=== PATIENT | male | born 1955 | race Caucasian/White ===

== ENCOUNTER 2021-12-25 09:09 | Day surgery (SDC) | payer BC, SELFPAY ==
[2021-12-25] VITALS (7 sets, daily range): BP systolic 122–143; BP diastolic 69–85; PULSE 66–72; RESP 17–20; TEMP 36.6–36.8; O2SAT 96–98; BMI 45.5
--- NOTE | ~2021-12-25 | FL_ITS ---
EXAMINATION: XR LUMBAR PUNCTURE CLINICAL INFORMATION: Inflammatory demyelinating disease. COMPARISON: None. TECHNIQUE: Following explaining fluoroscopy-guided lumbar puncture procedure, benefits and risks, a written consent was obtained. Patient was placed prone on fluoroscopy table and low back area was cleaned and draped in the usual sterile manner. 1% lidocaine was injected at the marked puncture site which was visualized prior to the exam. A 20-gauge long needle was inserted at L3-L4 disc level and patient could feel radiating pain down the left leg. However, no CSF could be obtained at this disc level. The needle was subsequently advanced at L2-L3 disc level following 1% lidocaine injection at the skin site. A second 20-gauge long needle was then advanced intrathecally at the L2-L3 disc level. After observing CSF return the manometer was connected; however, due to malfunction of the manometer, pressure could not be obtained. CSF fluid was then collected in 4 test tubes. Postprocedure stylet was reintroduced and needle withdrawn. Patient tolerated procedure extremely well. Sterile Band-Aid dressing was applied at the puncture site. Patient tolerated procedure very well. FINDINGS: Opening CSF pressure was not obtained due to manometer malfunction. On fluoroscopy images, there is grade 1 anterolisthesis L4 over L5 and grade 1 retrolisthesis L2 over L3. There is spinal canal stenosis seen virtually at every disc level. Recommend MRI of lumbar spine for further evaluation. Approximately 10 mL of clear CSF fluid was collected in 4 test tubes. FLUOROSCOPY TIME: 8.0 minutes. DOSE AREA PRODUCT: 99.374 uGy-m2 (microgray-meter squared). FL/FL guided lumbar puncture LP IMPRESSION: Successful fluoroscopy-guided lumbar puncture performed at the L2-L3 disc level. Multilevel spinal canal stenosis and listhesis. Recommend MRI of lumbar spine for further evaluation.
[2021-12-25 09:52] LABS: MANUAL DIFF FLAG NO
[2021-12-25 09:55] LABS: Basophils Absolute Auto 0.1 X10*3/uL (0.0-0.2); Basophils Percent Auto 0.6 % (0-2); Eosinophils Absolute Auto 0.4 X10*3/uL (0.0-0.4); Hematocrit 42.3 % (42.0-52.0); Hemoglobin 14.6 g/dl (14.0-18.0); Imm Gran Abs Auto 0.04 X10*3/uL (0.00-0.03); Imm Gran Pct Auto 0.5 % (0.0-0.4); Lymphocytes Absolute Auto 2.1 X10*3/uL (1.2-4.9); Lymphocytes Percent Auto 23.3 % (20-40); Mean Corpuscular HGB Conc 34.5 g/dl (31.0-36.0); Mean Corpuscular Hemoglobin 31.4 pg (27.0-33.0); Mean Platelet Volume 11.3 fL (9.4-12.4); Monocytes Absolute Auto 0.7 X10*3/uL (0.1-1.2); Monocytes Percent Auto 7.8 % (2-11); Neutrophils Absolute Auto 5.6 x10*3/uL (2.0-8.3); Neutrophils Percent Auto 63.8 % (45-73); Platelet Count 170 X10*3/uL (160-400); Red Blood Count 4.65 X10*6/uL (4.60-5.80); Red Cell Distribution Width 12.9 % (11.0-16.0); White Blood Count 8.8 X10*3/uL (4.8-10.8)
[2021-12-25 10:06] LABS: Prothrombin Time 10.8 SEC (9.9-13.0)
[2021-12-25 10:09] LABS: Partial Thromboplastin Time 34.4 SEC (24.1-38.0)
[2021-12-25 10:13] LABS: Glucose, Whole Blood 173 mg/dL (60-115)
[2021-12-25 13:08] LABS: Glucose CSF 102 mg/dL
[2021-12-25 13:24] LABS: CSF Appearance Clear, Colorless; CSF Tube # 1
[2021-12-25 13:37] LABS: Total Protein CSF 203.6 mg/dL (15-45)
[2021-12-25 13:54] LABS: Appearance CSF CLEAR; CSF Tube # 4; Color CSF COLORLESS; Red Blood Cell CSF 58 MM*3; White Blood Cell CSF 0 MM*3
[2021-12-28 10:17] LABS: Oligoclonal Serum Yes
[2021-12-29 14:02] LABS: Albumin 3.5 g/dL (3.2-4.6); IgG 618 mg/dL (600-1540); IgG Synthesis Rate 12.7 mg/24 h (-9.9-3.3); IgG, CSF 14.9 mg/dL (0.8-7.7)
== END 2021-12-25 14:40 | disposition home or self-care (01) ==
PROVIDERS: Psychiatry & Neurology Neurology; PCP Physician Assistant Medical; Visit Provider Radiology Diagnostic Radiology
PROC: 009U3ZZ Drainage of Spinal Canal, Percutaneous Approach (ICD-10-PCS; CPT 62270; principal; 2021-12-25 11:00)
DX: G61.81 Chronic inflammatory demyelinating polyneuritis (principal); I10 Essential (primary) hypertension; E11.9 Type 2 diabetes mellitus without complications; Z79.84 Long term (current) use of oral hypoglycemic drugs; Z79.899 Other long term (current) drug therapy; Z88.1 Allergy status to other antibiotic agents
CPT/HCPCS: 36415; 62328; 82042; 82945; 82947; 83916; 84157; 85025; 85610; 85730; 87015; 87070; 87205; 89051

== ENCOUNTER 2021-12-28 13:43 | Outpatient (REF) | payer BC, SELFPAY | END 2021-12-28 13:44 | disposition home or self-care (01) | LOC: HO.LAB 13:43 | PROVIDERS: PCP Physician Assistant Medical; Visit Provider Psychiatry & Neurology Neurology | DX: Z13.89 Encounter for screening for other disorder (principal) ==

== ENCOUNTER 2024-03-27 13:22 | Emergency (ER) | payer BC, SELFPAY ==
--- NOTE | ~2024-03-27 | US_ITS ---
EXAMINATION: US VENOUS ULTRASOUND WITH DOPPLER LOWER EXTREMITY, LEFT CLINICAL INFORMATION: Left lower extremity redness and swelling. COMPARISON: None available. TECHNIQUE: Ultrasound of the deep veins is performed from the hip to the calf with compression sonography and color and pulse Doppler assessment. Spectral analysis with color-flow imaging is performed. Technically limited study due to patient's body habitus. FINDINGS: There is normal venous compression and respiratory variation and augmented flow. The visualized common femoral vein, superficial femoral vein, profunda femoral vein, popliteal vein, and the trifurcation region shows no evidence of deep venous thrombosis. Left groin lymph node measures 5.7 x 1.9 x 4.6 cm with echogenic center and vascular flow to the hilum. If the patient's symptoms persist, followup ultrasound in 5 days 7 days might be of value to exclude proximal propagation from a non-visualized calf vein. US/US venous duplex LE LT IMPRESSION: Technically limited study. No DVT demonstrated in the left lower extremity. Enlarged left inguinal lymph node. Advise clinical correlation.
--- NOTE | ~2024-03-27 | XR_ITS ---
EXAMINATION: XR TIBIA AND FIBULA, LEFT CLINICAL INFORMATION: Cellulitis COMPARISON: None available. TECHNIQUE: AP and lateral views of the left tibia and fibula were obtained. FINDINGS: No soft tissue abnormality. No air in the soft tissue. Status post left total knee replacement. No acute osseous abnormality. No fracture bone destruction, no abnormal periosteal reaction. Plantar calcaneal spur with adjacent soft tissue calcification at the plantar aponeurosis. Small spur at the insertion of Achilles tendon. XR/XR tibia fibula LT 2V IMPRESSION: 1. No acute abnormality of the tibia and fibula. 2. Status post left total knee replacement.
[2024-03-27 13:44] VITALS: BP 145/71; PULSE 95; RESP 18; TEMP 37; O2SAT 96; BMI 44.8
--- NOTE | 2024-03-27 13:45 | ED.GENADULT ---
HPI - General Adult General Chief complaint: Extremity Problem Stated complaint: leg swelling and redness Time Seen by Provider: 03/27/24 15:52 Related Data Previous Rx's ?Medication ?Instructions ?Recorded cefpodoxime 200 mg tablet 200 mg PO BID 8 days #16 tabs 03/27/24 sulfamethoxazole 800 1 tab PO BID 8 days #16 tabs 03/27/24 mg-trimethoprim 160 mg tablet (Bactrim DS) Allergies Allergy/AdvReac Type Severity Reaction Status Date / Time cephalexin [From KEFLEX] Allergy Mild HIVES Verified 03/27/24 13:51 vancomycin Allergy TINGLES on Verified 03/27/24 13:51 head PMFSH Social History Social History Smoked in Last 30 Days: No Use of substances other than those prescribed or required for medical reasons: No Advance Directives: Yes Advance Directives Information Provided: No Advance Directives on File: No Do you have a plan to hurt others: No Plan Physical Exam ED Vital Signs: Vital Signs - 24 hr 03/27/24 13:44 03/27/24 16:00 03/27/24 17:30 Temperature 98.6 F 98.1 F 98.1 F Pulse Rate 95 80 80 Respiratory Rate 18 16 16 Blood Pressure 145/71 H 140/75 H 140/75 H Pulse Oximetry 96 99 99 Oxygen Delivery Method Room Air Room Air Room Air BMI result Body Mass Index 44.8 Course Course Course Narrative: This is a Rapid Medical Examination (RME) performed by Nicolasa Stovall PA-C in triage. Full HPI, ROS, assessment and treatment plan per primary provider in the Main ED. 69 yo male hx of T2DM here for eval redness to left lower leg times 24 hours. Admits to callus to plantar aspect of distal left foot, following PCP for wound care. Yesterday began noticing redness/ warmth to his left lower leg. Reports feeling like his leg is sunburned. Endorses chills. No documented fever. Admits to sedentary lifestyle. + Left lower extremity with overlying cellulitic changes and warmth. No palpable fluctuance or crepitus. Slight tenderness noted to left calf. chronci healing wound to left plantar foot just proximal to great toe. Plan: labs, xr, venous duplex ordered Reevaluation(s) Reevaluation #1: This is a duplicate note. Please refer to Dr. Valentin's complete note regarding patient's visit on 03/27/2024. Medications Administered Discontinued Medications Generic Name Dose Route Start Last Admin Trade Name Joni PRN Reason Stop Dose Admin Ceftriaxone Sodium 2 gm/ 50 mls @ 100 mls/hr 03/27/24 16:06 03/27/24 17:09 Sodium Chloride IV 03/27/24 16:35 Infused ONCE ONE Infusion Sodium Chloride 1,000 mls @ 999 mls/hr 03/27/24 16:15 03/27/24 16:32 Ns IV 03/27/24 17:15 999 mls/hr .Q1H1M ROSA Administration Ketorolac Tromethamine 15 mg 03/27/24 16:06 03/27/24 16:29 Ketorolac Tromethamine 15 Mg/Ml Vial IVPUSH 03/27/24 16:07 15 mg ONCE ONE Administration Trimethoprim/Sulfamethoxazole 1 tab 03/27/24 16:06 03/27/24 16:29 Sulfamethox/Trimeth 800/160 Tablet PO 03/27/24 16:07 1 tab ONCE ONE Administration Medical Decision Making Lab Data 03/27/24 14:02 03/27/24 14:02 Labs: Lab Results 03/27/24 Range/Units 14:02 WBC 11.0 H (4.8-10.8) X10*3/uL RBC 4.39 L (4.60-5.80) X10*6/uL Hgb 14.0 (14.0-18.0) g/dl Hct 39.6 L (42.0-52.0) % MCV 90.2 (80.0-98.0) fL MCH 31.9 (27.0-33.0) pg MCHC 35.4 (31.0-36.0) g/dl RDW 13.3 (11.0-16.0) % Plt Count 156 L (160-400) X10*3/uL MPV 11.2 (9.4-12.4) fL Immature Gran % (Auto) 0.6 H (0.0-0.4) % Neut % (Auto) 76.1 H (45-73) % Lymph % (Auto) 12.7 L (20-40) % [place] % (Auto) 9.6 (2-11) % Eos % (Auto) 0.5 (0-4) % Baso % (Auto) 0.5 (0-2) % Lymph # (Auto) 1.4 (1.2-4.9) X10*3/uL [place] # (Auto) 1.1 (0.1-1.2) X10*3/uL Eos # (Auto) 0.1 (0.0-0.4) X10*3/uL Baso # (Auto) 0.1 (0.0-0.2) X10*3/uL Abs Immat Gran (auto) 0.07 H (0.00-0.03) X10*3/uL Absolute Neuts (auto) 8.4 H (2.0-8.3) x10*3/uL Absolute Nucleated RBC 0.000 (0.0-0.012) X10*3/uL Nucleated RBC % (auto) 0.0 (0.0-0.2) /100WBC PT 12.6 (11.1-13.3) SEC INR 1.0 (0.9-1.1) Sodium 131 L (135-145) mmol/L Potassium 3.8 (3.3-5.1) mmol/L Chloride 100 (96-108) mmol/L Carbon Dioxide 18 L (22-29) mmol/L Anion Gap 17 (12-20) BUN 10 (9-16) mg/dL Creatinine 1.21 (0.5-1.4) mg/dL Estim Creat Clear Calc 91.8 Estimated GFR 60 Random Glucose 231 H (60-115) mg/dL Calcium 9.8 (8.4-10.2) mg/dL Total Bilirubin 0.4 (0.0-1.0) mg/dL AST 23 (5-37) U/L ALT 34 (0-40) U/L Alkaline Phosphatase 72 (39-117) U/L Total Protein 7.2 (6.5-8.0) g/dL Albumin 4.0 (3.5-5.0) g/dL Discharge Plan Discharge Clinical Impression: Lower extremity edema, Cellulitis, Acute hyponatremia Patient Disposition: Home, Self-Care Instructions: Cellulitis (ED), Hyponatremia (ED), Leg Edema (ED) Additional Instructions: DISCHARGE DIAGNOSES: Presumed cellulitis of the left leg Mild hyponatremia HISTORY OF PRESENTATION: ?Swelling and redness left leg 1 day EMERGENCY DEPARTMENT COURSE,TESTS, TREATMENTS: While in the ED today get an ultrasound of your leg which excluded a blood clot this may need to be repeated in 1 week if you still have significant swelling or if it is worsening DISCHARGE MEDICATIONS: We have prescribed 2 types of antibiotics do not miss a dose of these. Take with food and we recommend while on antibiotics eating 1-2 yogurts per day or take a probiotic supplement [id number] FOLLOW-UP: ?Call your primary or general physician soon as possible to discuss your symptoms, your ED visit and to discuss follow up plans Call your primary doctor 1st thing Saturday morning to discuss symptoms.] INSTRUCTIONS ?& RETURN PRECAUTIONS: If any symptoms change first call your primary physician, if it is after-hours your primary doctors office should have a provider microphone boom operator you can speak with. If the symptoms are severe or very concerning to you then call 911 or return to the ED. If you have severe high fever not improving with ibuprofen or Tylenol or severe worsening of the swelling or redness spreading outside of the line that we have drawn on your leg or other severe symptoms return back to the emergency department for further workup possible admission to the hospital Silviano Valentin MD Emergency Physician [facility] Prescriptions: New cefpodoxime 200 mg tablet 200 mg PO BID 8 Days Qty: 16 0RF Rx Instructions: must administer with a meal/food sulfamethoxazole-trimethoprim [Bactrim DS] 800-160 mg tablet 1 tab PO BID 8 Days Qty: 16 0RF Interventions: ED Discharge Assessment Last Done: 03/27/24 17:30 Discharge Date/Time: 03/27/24 17:30 Print Language: Welsh
[2024-03-27 14:07] LABS: Basophils Absolute Auto 0.1 X10*3/uL (0.0-0.2); Basophils Percent Auto 0.5 % (0-2); Eosinophils Absolute Auto 0.1 X10*3/uL (0.0-0.4); Eosinophils Percent Auto 0.5 % (0-4); Hematocrit 39.6 % (42.0-52.0); Imm Gran Abs Auto 0.07 X10*3/uL (0.00-0.03); Imm Gran Pct Auto 0.6 % (0.0-0.4); Lymphocytes Absolute Auto 1.4 X10*3/uL (1.2-4.9); Lymphocytes Percent Auto 12.7 % (20-40); MANUAL DIFF FLAG NO; Mean Corpuscular HGB Conc 35.4 g/dl (31.0-36.0); Mean Corpuscular Hemoglobin 31.9 pg (27.0-33.0); Mean Corpuscular Volume 90.2 fL (80.0-98.0); Mean Platelet Volume 11.2 fL (9.4-12.4); Monocytes Absolute Auto 1.1 X10*3/uL (0.1-1.2); Monocytes Percent Auto 9.6 % (2-11); Neutrophils Absolute Auto 8.4 x10*3/uL (2.0-8.3); Neutrophils Percent Auto 76.1 % (45-73); Platelet Count 156 X10*3/uL (160-400); Red Blood Count 4.39 X10*6/uL (4.60-5.80); Red Cell Distribution Width 13.3 % (11.0-16.0)
[2024-03-27 14:21] LABS: Prothrombin Time 12.6 SEC (11.1-13.3)
[2024-03-27 14:24] LABS: Alanine Aminotransferase 34 U/L (0-40); Alkaline Phosphatase 72 U/L (39-117); Anion Gap 17 (12-20); Aspartate Amino Transferase 23 U/L (5-37); Bilirubin Total 0.4 mg/dL (0.0-1.0); Blood Urea Nitrogen 10 mg/dL (9-16); Calcium 9.8 mg/dL (8.4-10.2); Carbon Dioxide 18 mmol/L (22-29); Chloride 100 mmol/L (96-108); Creatinine Clr Calc Pharmacy 91.8; Estimated Glomerular Filt Rate 60; Glucose Random 231 mg/dL (60-115); Potassium 3.8 mmol/L (3.3-5.1); Sodium 131 mmol/L (135-145); Total Protein 7.2 g/dL (6.5-8.0)
[2024-03-27 16:00] VITALS: BP 140/75; PULSE 80; RESP 16; TEMP 36.7; O2SAT 99
--- NOTE | 2024-03-27 16:07 | ED_ITS ---
HPI - Extremity Problem General Chief complaint: Extremity Problem Stated complaint: leg swelling and redness Time Seen by Provider: 03/27/24 15:52 Source: family History of Present Illness ED Provider: Silviano Valentin MD HPI Narrative: 69-year-old male history of obesity, diabetes, previous diabetic wound/ulcer the plantar left foot. Noticed redness of the left lower leg and swelling just today. Has felt some constitutional symptoms including generalized malaise generalized weakness bilateral legs and chills over the past 3 days about Related Data Previous Rx's ?Medication ?Instructions ?Recorded cefpodoxime 200 mg tablet 200 mg PO BID 8 days #16 tabs 03/27/24 sulfamethoxazole 800 1 tab PO BID 8 days #16 tabs 03/27/24 mg-trimethoprim 160 mg tablet (Bactrim DS) Allergies Allergy/AdvReac Type Severity Reaction Status Date / Time cephalexin [From KEFLEX] Allergy Mild HIVES Verified 03/27/24 13:51 vancomycin Allergy TINGLES on Verified 03/27/24 13:51 head PMFSH Social History Social History Smoked in Last 30 Days: No Use of substances other than those prescribed or required for medical reasons: No Advance Directives: Yes Advance Directives Information Provided: No Advance Directives on File: No Do you have a plan to hurt others: No Plan Physical Exam 2 Vital Signs: Vital Signs: Last Vital Signs Temp 98.1 F 03/27/24 17:30 Pulse 80 03/27/24 17:30 Resp 16 03/27/24 17:30 BP 140/75 H 03/27/24 17:30 Pulse Ox 99 03/27/24 17:30 O2 Del Method Room Air 03/27/24 17:30 BMI result Body Mass Index 44.8 Const: Other: EXAM: Gen: Alert, awake, well appearing, well hydrated. Head: Atraumatic Eyes: Anicteric, Normal conjunctiva. ENT: Moist mucosa, no pallor. ? Neck: Supple. Respiratory: Breathing comfortably, No distress.Clear to auscultation bilaterally, symmetric chest expansion, No wheeze, rales, ronchi. Cardiovascular: Regular rate and rhythm. No murmurs or rub. Well perfused periphery, warm extremities. No edema. ? Abdominal: Soft, no objective distension. No palpable masses or obvious organomegaly. No focal tenderness, no guarding, no rebound tenderness or other peritoneal findings. Skin: Moderate induration erythema and warmth to the left leg about from just superior to the left malleoli to about 15 cm distal to the left knee. No ulceration no palpable fluctuance. There is moderate swelling of the leg but the compartments are soft. No obvious breaks in the skin : No flank tenderness. Neuro: Alert. Gross movement of all extremities intact. ? Vital signs: See flowsheet Medications Administered Discontinued Medications Generic Name Dose Route Start Last Admin Trade Name Prashanthq PRN Reason Stop Dose Admin Ceftriaxone Sodium 2 gm/ 50 mls @ 100 mls/hr 03/27/24 16:06 03/27/24 17:09 Sodium Chloride IV 03/27/24 16:35 Infused ONCE ONE Infusion Sodium Chloride 1,000 mls @ 999 mls/hr 03/27/24 16:15 03/27/24 16:32 Ns IV 03/27/24 17:15 999 mls/hr .Q1H1M ROSA Administration Ketorolac Tromethamine 15 mg 03/27/24 16:06 03/27/24 16:29 Ketorolac Tromethamine 15 Mg/Ml Vial IVPUSH 03/27/24 16:07 15 mg ONCE ONE Administration Trimethoprim/Sulfamethoxazole 1 tab 03/27/24 16:06 03/27/24 16:29 Sulfamethox/Trimeth 800/160 Tablet PO 03/27/24 16:07 1 tab ONCE ONE Administration Medical Decision Making Medical Decision Making [facility] Narrative: [age] male with leg swelling redness warmth, negative DVT study this is most suggestive of cellulitis. No SIRS criteria here. He looks well and is certainly amenable to oral antibiotics. Keflex high reaction should not be cross reactivity with ceftriaxone 2 g given IV in the ED. No hemodynamic instability. Well-perfused left leg with soft compartments. I have told to elevate the leg and do not miss any doses of the antibiotics. Strict return precautions provided. Lab Data [facility] Lab Attestation statement: I reviewed the patient's lab results. 03/27/24 14:02 03/27/24 14:02 Labs: Lab Results 03/27/24 Range/Units 14:02 WBC 11.0 H (4.8-10.8) X10*3/uL RBC 4.39 L (4.60-5.80) X10*6/uL Hgb 14.0 (14.0-18.0) g/dl Hct 39.6 L (42.0-52.0) % MCV 90.2 (80.0-98.0) fL MCH 31.9 (27.0-33.0) pg MCHC 35.4 (31.0-36.0) g/dl RDW 13.3 (11.0-16.0) % Plt Count 156 L (160-400) X10*3/uL MPV 11.2 (9.4-12.4) fL Immature Gran % (Auto) 0.6 H (0.0-0.4) % Neut % (Auto) 76.1 H (45-73) % Lymph % (Auto) 12.7 L (20-40) % [place] % (Auto) 9.6 (2-11) % Eos % (Auto) 0.5 (0-4) % Baso % (Auto) 0.5 (0-2) % Lymph # (Auto) 1.4 (1.2-4.9) X10*3/uL [place] # (Auto) 1.1 (0.1-1.2) X10*3/uL Eos # (Auto) 0.1 (0.0-0.4) X10*3/uL Baso # (Auto) 0.1 (0.0-0.2) X10*3/uL Abs Immat Gran (auto) 0.07 H (0.00-0.03) X10*3/uL Absolute Neuts (auto) 8.4 H (2.0-8.3) x10*3/uL Absolute Nucleated RBC 0.000 (0.0-0.012) X10*3/uL Nucleated RBC % (auto) 0.0 (0.0-0.2) /100WBC PT 12.6 (11.1-13.3) SEC INR 1.0 (0.9-1.1) Sodium 131 L (135-145) mmol/L Potassium 3.8 (3.3-5.1) mmol/L Chloride 100 (96-108) mmol/L Carbon Dioxide 18 L (22-29) mmol/L Anion Gap 17 (12-20) BUN 10 (9-16) mg/dL Creatinine 1.21 (0.5-1.4) mg/dL Estim Creat Clear Calc 91.8 Estimated GFR 60 Random Glucose 231 H (60-115) mg/dL Calcium 9.8 (8.4-10.2) mg/dL Total Bilirubin 0.4 (0.0-1.0) mg/dL AST 23 (5-37) U/L ALT 34 (0-40) U/L Alkaline Phosphatase 72 (39-117) U/L Total Protein 7.2 (6.5-8.0) g/dL Albumin 4.0 (3.5-5.0) g/dL Radiology Impression Discussion of test interpretation with radiology: I have reviewed the radiologist's reading. Radiologist Impression: Ultrasound negative for DVT Chronic Conditions Patient?s care impacted by: Diabetes Discharge Plan Discharge Clinical Impression: Lower extremity edema, Cellulitis, Acute hyponatremia Patient Disposition: Home, Self-Care Instructions: Cellulitis (ED), Hyponatremia (ED), Leg Edema (ED) Additional Instructions: _ DISCHARGE DIAGNOSES: Presumed cellulitis of the left leg Mild hyponatremia HISTORY OF PRESENTATION: ?Swelling and redness left leg 1 day EMERGENCY DEPARTMENT COURSE,TESTS, TREATMENTS: While in the ED today get an ultrasound of your leg which excluded a blood clot this may need to be repeated in 1 week if you still have significant swelling or if it is worsening DISCHARGE MEDICATIONS: We have prescribed 2 types of antibiotics do not miss a dose of these. Take with food and we recommend while on antibiotics eating 1-2 yogurts per day or take a probiotic supplement [id number] FOLLOW-UP: ?Call your primary or general physician soon as possible to discuss your symptoms, your ED visit and to discuss follow up plans Call your primary doctor 1st thing Saturday morning to discuss symptoms.] INSTRUCTIONS ?& RETURN PRECAUTIONS: If any symptoms change first call your primary physician, if it is after-hours your primary doctors office should have a provider compressor station engineer you can speak with. If the symptoms are severe or very concerning to you then call 911 or return to the ED. If you have severe high fever not improving with ibuprofen or Tylenol or severe worsening of the swelling or redness spreading outside of the line that we have drawn on your leg or other severe symptoms return back to the emergency department for further workup possible admission to the hospital Silviano Valentin MD Emergency Physician [facility] Prescriptions: New cefpodoxime 200 mg tablet 200 mg PO BID 8 Days Qty: 16 0RF Rx Instructions: must administer with a meal/food sulfamethoxazole-trimethoprim [Bactrim DS] 800-160 mg tablet 1 tab PO BID 8 Days Qty: 16 0RF Interventions: ED Discharge Assessment Last Done: 03/27/24 17:30 Discharge Date/Time: 03/27/24 17:30 Print Language: Lithuanian
[2024-03-27] MEDS: cefTRIAXone sodium 2 GM in 0.9 % Sodium Chloride 50 ML IV (16:28)
[2024-03-27] MEDS: Sulfamethox/Trimeth 800/160 TABLET 1 TAB PO (16:29)
[2024-03-27] MEDS: Ketorolac Tromethamine 15 MG/ML VIAL IVPUSH (16:29)
[2024-03-27] MEDS: 0.9 % Sodium Chloride 1,000 ML 999 ML IV (16:32)
--- NOTE | 2024-03-27 16:32 | PC.NURSE ---
20gIV placed in the right hand - IVF/medication administered per provider order.
--- NOTE | 2024-03-27 17:28 | PC.NURSE ---
nonstick abd pad applied to wound on pt's left foot. curex/cecy bandage applied to pt's LLE. pt tolerated well.
[2024-03-27 17:30] VITALS: BP 140/75; PULSE 80; RESP 16; TEMP 36.7; O2SAT 99
== END 2024-03-27 17:30 | disposition home or self-care (01) ==
PROVIDERS: Physician Assistant Medical; Emergency Provider Emergency Medicine; PCP Physician Assistant Medical
DX: R60.0 Localized edema (principal); L03.116 Cellulitis of left lower limb; E87.1 Hypo-osmolality and hyponatremia; R53.1 Weakness; R53.81 Other malaise; E11.9 Type 2 diabetes mellitus without complications; I10 Essential (primary) hypertension; E66.9 Obesity, unspecified; Z68.41 Body mass index [BMI] 40.0-44.9, adult; Z87.891 Personal history of nicotine dependence
CPT/HCPCS: 36415; 73590; 80053; 85025; 85610; 93971; 96365; 96375; 99284; 99285; J0696; J1885

== ENCOUNTER 2024-03-31 11:44 | Inpatient (IN) | payer MEDICARE, SELFPAY ==
--- NOTE | ~2024-03-31 | MR_ITS ---
EXAMINATION: MR FOOT WITHOUT AND WITH CONTRAST, LEFT CLINICAL INFORMATION: Chronic ulcer with purulent drainage. Evaluate for osteomyelitis. COMPARISON: Left tibia and fibula radiographs dated 03/27/2024. TECHNIQUE: MRI of the left foot was performed before and after the intravenous administration of 10 mL Gadavist on a high-field scanner. FINDINGS: There is a focal soft tissue ulceration along the plantar aspect of the first metatarsal head measuring up to 1.2 cm in AP dimension with adjacent skin thickening and subcutaneous edema. Mild postcontrast enhancement. Findings are consistent with acute cellulitis. No organized fluid collection or abscess formation. Additional prominent dorsal forefoot edema with mild enhancement and minimal skin thickening which could indicate cellulitis. No abscess formation. No marrow edema, periosteal reaction, or significant postcontrast enhancement to suggest acute osteomyelitis. No metatarsal stress reaction or fracture. Articular cartilage thinning with tiny marginal osteophytes at the first metatarsophalangeal joint and hallux sesamoids. No concerning lytic or blastic osseous lesion. Mild edema and atrophy within the intrinsic musculature of the foot which can be seen in diabetic patients. The visualized flexor and extensor tendons are intact. Intact Lisfranc ligament. MR/MR foot LT wo/w con IMPRESSION: 1. Focal soft tissue ulceration along the plantar aspect of the first metatarsal head with adjacent cellulitis. No abscess formation. No evidence of acute osteomyelitis. 2. Additional prominent dorsal forefoot edema with minimal skin thickening which could indicate cellulitis. No abscess formation. 3. Mild degenerative arthritis at the first metatarsophalangeal joint and hallux sesamoids. 4. Mild edema and atrophy within the intrinsic musculature of the foot which can be seen in diabetic patients.
[2024-03-31 12:26] VITALS: BP 136/82; PULSE 80; RESP 16; TEMP 36.6; O2SAT 96; BMI 45.3
--- NOTE | 2024-03-31 12:28 | ED_ITS ---
HPI - Extremity Problem General Chief complaint: Skin/Abscess/Foreign Body Stated complaint: L leg pain Time Seen by Provider: 03/31/24 16:59 Source: patient and family Mode of arrival: ambulatory Limitations: no limitations History of Present Illness ED Provider: Dr. Ciera Morel HPI Narrative: Patient comes to the emergency room complaining of worsening cellulitis. Three days ago patient was seen here, diagnosed with left lower extremity cellulitis, given cefpodoxime and Bactrim for home. Today, patient went to see his primary care physician for an ED follow-up. The erythema in the leg is getting worse, spreading upwards, now patient has drainage. Patient states they has neuropathy and can not feel much of it. Patient denies fever chills. Patient's PCP sent him to the emergency room for admission, failed outpatient treatment Related Data Previous Rx's ?Medication ?Instructions ?Recorded cefpodoxime 200 mg tablet 200 mg PO BID 8 days #16 tabs 03/27/24 sulfamethoxazole 800 1 tab PO BID 8 days #16 tabs 03/27/24 mg-trimethoprim 160 mg tablet (Bactrim DS) Allergies Allergy/AdvReac Type Severity Reaction Status Date / Time cephalexin [From KEFLEX] Allergy Mild HIVES Verified 03/31/24 12:32 vancomycin Allergy TINGLES on Verified 03/31/24 12:32 head Review of Systems 2 Review of Systems: Constitutional : No Weight loss, No Fever, No Chills, No Night Sweats, No Fatigue, No Malaise ENT/Mouth : No Hearing loss, No Ear Pain, No Nasal Congestion, No Sinus Pain, No Hoarseness, No sore throat, No Rhinorrhea, No Swallowing Difficulty Eyes: No Eye Pain, No Swelling, No Redness, No Foreign Body, No Discharge, No Vision Changes Cardiovascular : No Chest Pain, No SOB, No Dyspnea on Exertion, No Orthopnea, No Edema, No Palpitations Respiratory : No Cough, No Sputum, No Wheezing, No Smoke Exposure, No Dyspnea Gastrointestinal : No Nausea, No Vomiting, No Diarrhea, No Constipation, No abdominal Pain, No Hematochezia, No Melena Genitourinary : no irregular bleeding, No Dysuria, No Urinary Frequency, No Hematuria, No Urinary Incontinence, No Urgency, No Flank Pain, No Urinary Flow Changes, No Hesitancy Musculoskeletal : No joint pain, No Myalgias, No Joint Swelling Skin : Worsening cellulitis in left lower extremity Neuro : No Weakness, No Numbness, No Paresthesias, No Loss of Consciousness, No Dizziness, No Headache Psych : No Anxiety/Panic, No Depression, No SI/HI/AH/VH, No Social Issues, Heme/Lymph: No Bruising, No Bleeding,No Lymphadenopathy Endocrine : No Polyuria, No Polydipsia, No Temperature Intolerance [facility] Past Medical History Medical History (Updated 03/31/24 @ 17:26 by Ciera Morel MD) Diabetic foot ulcer Overweight Gout Hypertension Diabetes Social History Social History Advance Directives: No Advance Directives Information Provided: No Physical Exam 2 Vital Signs: Vital Signs: Last Vital Signs Temp 97.9 F 03/31/24 12: Pulse 80 03/31/24 12:26 Resp 16 03/31/24 12:26 BP 136/82 03/31/24 12:26 Pulse Ox 96 03/31/24 12:26 O2 Del Method Room Air 03/31/24 12:26 BMI result Body Mass Index 45.3 Const: Other: Appearance: Alert. Oriented X3. No acute distress. Eyes: Pupils equal, round and reactive to light. ENT: Pharynx normal. Neck: Normal inspection. Neck supple. No lymph nodes noted. No crepitus CVS: Normal heart rate and rhythm. Pulses normal. Normal S1 and S2 Respiratory: No respiratory distress. Breath sounds normal. No Wheezing. No rales Abdomen: Soft and nontender. No rigidity. No distention. Skin: Skin warm and dry. See extremity below Extremities: No lower extremity edema. Patient has cellulitis in left lower extremity, extending above the marked line 3 days ago. Patient has now to open areas with mild drainage along the tibial aspect. Patient has a chronic foot ulcer on the plantar aspect of the foot, seems to be healing well. See pictures below Neuro: Oriented X 3. No motor deficit. No sensory deficit. Moving all extremities. No slurred speech. CN 2 through 12 grossly intact Psych: calm, cooperative, normal affect Course Course Course Narrative: This is a Rapid Medical Examination (RME) performed by Milton Conner PA-C in triage. Full HPI, ROS, assessment and treatment plan per primary provider in the Main ED. 69 yo male with hx DM2, morbid obesity, diabetic left plantar foot wound since 10/26 getting debridements, who was recently diagnosed LLE cellulitis on cefpodooxime and Bactrim since 03/27/24 presents to the ER from his PCP for concerns of worsening erythema and 2 new opening with clear, odorless drainage. Redness has extended beyond the marking. No fevers since being on antibiotics. VSS in triage. LLE w/ shiny, skin, diffuse, erythema is extending proximally beyond the marking, 2 blackened areas on the henriquez. Low suspicion for abscess. Had recent LE doppler 03/27 that was negative for DVT. Plan: repeat labs today Medical Decision Making Medical Decision Making [facility] Narrative: -my interpretation of labs: Patient's white blood cell count slightly elevated. Patient's hemoglobin is 12.3 today, previously 14, patient denies being on blood thinners. Sodium 131 same as previously. CRP 15, ESR 83. -patient's vitals stable, no episodes of hypotension, no fever, no tachycardic. Lactic acid pending. Sepsis is not suspected -patient being started on IV fluids, vancomycin and Zosyn. Patient was taken cefpodoxime at home reported no side effects. -patient has mild hyponatremia, receiving IV fluids. -I discussed with the patient that he failed outpatient treatment, patient needs now IV antibiotics. Will need admission. Patient and his agreeable with plan. -I discussed the patient with Dr. Galvan from the Medicine team, patient being admitted Differential Diagnosis Differential Diagnoses: The differential diagnosis associated with the presentation includes (Cellulitis, impetigo) Admission/Observation Consideration of admission/observation: Escalation of care including admission/observation considered Consult Healthcare Provider Management of the patient was discussed with: Hospitalist Lab Data [facility] Lab Attestation statement: I reviewed the patient's lab results. 03/31/24 13:02 03/31/24 13:02 Labs: Lab Results 03/31/24 Range/Units 13:02 WBC 10.9 H (4.8-10.8) X10*3/uL RBC 3.87 L (4.60-5.80) X10*6/uL Hgb 12.3 L (14.0-18.0) g/dl Hct 35.3 L (42.0-52.0) % MCV 91.2 (80.0-98.0) fL MCH 31.8 (27.0-33.0) pg MCHC 34.8 (31.0-36.0) g/dl RDW 13.6 (11.0-16.0) % Plt Count 298 D (160-400) X10*3/uL MPV 10.6 (9.4-12.4) fL Immature Gran % (Auto) 4.0 H (0.0-0.4) % Neut % (Auto) 71.1 (45-73) % Lymph % (Auto) 15.4 L (20-40) % [place] % (Auto) 6.7 (2-11) % Eos % (Auto) 2.3 (0-4) % Baso % (Auto) 0.5 (0-2) % Lymph # (Auto) 1.7 (1.2-4.9) X10*3/uL [place] # (Auto) 0.7 (0.1-1.2) X10*3/uL Eos # (Auto) 0.3 (0.0-0.4) X10*3/uL Baso # (Auto) 0.1 (0.0-0.2) X10*3/uL Abs Immat Gran (auto) 0.44 H (0.00-0.03) X10*3/uL Absolute Neuts (auto) 7.7 (2.0-8.3) x10*3/uL Absolute Nucleated RBC 0.000 (0.0-0.012) X10*3/uL Nucleated RBC % (auto) 0.0 (0.0-0.2) /100WBC ESR 83 H (0-15) MM/HR Sodium 131 L (135-145) mmol/L Potassium 4.5 (3.3-5.1) mmol/L Chloride 102 (96-108) mmol/L Carbon Dioxide 19 L (22-29) mmol/L Anion Gap 15 (12-20) BUN 14 (9-16) mg/dL Creatinine 0.98 (0.5-1.4) mg/dL Estim Creat Clear Calc 114.0 Estimated GFR > 60 Random Glucose 265 H (60-115) mg/dL Lactic Acid 1.9 (0.5-2.0) mmol/L Calcium 9.5 (8.4-10.2) mg/dL Magnesium 1.9 (1.6-2.6) mg/dL Total Bilirubin 0.4 (0.0-1.0) mg/dL Direct Bilirubin 0.2 (0.0-0.5) mg/dL AST 28 (5-37) U/L ALT 48 H (0-40) U/L Alkaline Phosphatase 96 (39-117) U/L C-Reactive Protein 15.46 H (< or = 0.50) mg/dL Total Protein 6.8 (6.5-8.0) g/dL Albumin 3.6 (3.5-5.0) g/dL Critical Care Time Critical Care Time Critical Care Time: Yes Total Critical Care Time: 60 Attestation: I have personally provided critical care time. Time includes review of lab data, radiology results, discussion with consultants, and monitoring for potential decompensation. Intervention performed as documented. Discharge Plan Discharge Clinical Impression: Cellulitis, Acute hyponatremia Patient Disposition: Admitted As Inpatient Prescriptions: No Action cefpodoxime 200 mg tablet 200 mg PO BID 8 Days Qty: 16 0RF Rx Instructions: must administer with a meal/food sulfamethoxazole-trimethoprim [Bactrim DS] 800-160 mg tablet 1 tab PO BID 8 Days Qty: 16 0RF Print Language: Syrian
[2024-03-31 13:09] LABS: MANUAL DIFF FLAG NO
[2024-03-31 13:11] LABS: Basophils Absolute Auto 0.1 X10*3/uL (0.0-0.2); Basophils Percent Auto 0.5 % (0-2); Eosinophils Absolute Auto 0.3 X10*3/uL (0.0-0.4); Eosinophils Percent Auto 2.3 % (0-4); Hematocrit 35.3 % (42.0-52.0); Hemoglobin 12.3 g/dl (14.0-18.0); Imm Gran Abs Auto 0.44 X10*3/uL (0.00-0.03); Lymphocytes Absolute Auto 1.7 X10*3/uL (1.2-4.9); Lymphocytes Percent Auto 15.4 % (20-40); Mean Corpuscular HGB Conc 34.8 g/dl (31.0-36.0); Mean Corpuscular Hemoglobin 31.8 pg (27.0-33.0); Mean Corpuscular Volume 91.2 fL (80.0-98.0); Mean Platelet Volume 10.6 fL (9.4-12.4); Monocytes Absolute Auto 0.7 X10*3/uL (0.1-1.2); Monocytes Percent Auto 6.7 % (2-11); Neutrophils Absolute Auto 7.7 x10*3/uL (2.0-8.3); Neutrophils Percent Auto 71.1 % (45-73); Platelet Count 298 X10*3/uL (160-400); Red Blood Count 3.87 X10*6/uL (4.60-5.80); Red Cell Distribution Width 13.6 % (11.0-16.0); White Blood Count 10.9 X10*3/uL (4.8-10.8)
[2024-03-31 13:18] LABS: Lactic Acid 1.9 mmol/L (0.5-2.0)
[2024-03-31 13:31] LABS: Alanine Aminotransferase 48 U/L (0-40); Albumin Level 3.6 g/dL (3.5-5.0); Alkaline Phosphatase 96 U/L (39-117); Anion Gap 15 (12-20); Aspartate Amino Transferase 28 U/L (5-37); Bilirubin Direct 0.2 mg/dL (0.0-0.5); Bilirubin Total 0.4 mg/dL (0.0-1.0); Blood Urea Nitrogen 14 mg/dL (9-16); C Reactive Protein 15.46 mg/dL (< or = 0.50); Calcium 9.5 mg/dL (8.4-10.2); Carbon Dioxide 19 mmol/L (22-29); Chloride 102 mmol/L (96-108); Estimated Glomerular Filt Rate > 60; Glucose Random 265 mg/dL (60-115); Magnesium 1.9 mg/dL (1.6-2.6); Potassium 4.5 mmol/L (3.3-5.1); Sodium 131 mmol/L (135-145); Total Protein 6.8 g/dL (6.5-8.0)
[2024-03-31 13:50] LABS: Erythrocyte Sedimentation Rate 83 MM/HR (0-15)
[2024-03-31 17:28] VITALS: BP 147/68; PULSE 87; RESP 18; TEMP 36.7; O2SAT 96
--- NOTE | 2024-03-31 17:57 | PC.NURSE ---
Antibiotics and fluids delayed because unsuccessful attempts to gain IV access x2. Provider aware, provider would like another RN to attempt access before using an US-guided.
--- NOTE | 2024-03-31 18:24 | PC.NURSE ---
20G to the LAC obtained by KATJA Marques.
--- NOTE | 2024-03-31 18:26 | PM.IMHP ---
History of Present Illness Date of Service: 03/31/24 Attending physician on admission: Tea Galvan Chief Complaint: leg infection 69-year-old male with history of [id number] type 2 diabetes, diabetic polyneuropathy, gout,, hypertension, hyperlipidemia presents to the ED earlier today for evaluation of a worsening cellulitis of the left lower leg. The patient initially presented to the ED on 03/27 due to erythema of the right leg and was started on Bactrim and cefpodoxime orally without improvement. He states about 1 week ago he felt feverish with chills and sweats and general body aches. About 3 days after that, developed significant erythema and warmth in the left lower leg with swelling and some seropurulent drainage weeping from the anterior tibia. 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 He does have polyneuropathy and reports he has very little sensation in his feet. He reports he has never been placed on antibiotics for the lesion on the foot. Since arrival, vital signs have been stable. He is afebrile. He has a mild leukocytosis of 10. Renal function normal, electrolyte levels normal. CRP 15, ESR 88. He did have venous duplex performed on 03/27 which was negative for any DVT. X-ray of the left tibia/fibula on 03/27 was negative for any acute osseous abnormalities. The patient will be admitted for further management of acute cellulitis of the left lower extremity having failed outpatient antibiotics. Review of Systems Review of Systems: Yes all other systems are reviewed and are negative [facility] Medical History Diabetic foot ulcer Overweight Gout Hypertension Diabetes Social History Advance Directives: No Advance Directives Information Provided: No Meds Allergies Allergy/AdvReac Type Severity Reaction Status Date / Time cephalexin [From KEFLEX] Allergy Mild HIVES Verified 03/31/24 12:32 vancomycin Allergy TINGLES on Verified 03/31/24 12:32 head Active Medications: Current Medications Acetaminophen (Acetaminophen 325 Mg Tablet) 650 mg PO Q6H PRN PRN Reason: Pain, Mild (Pain Scale 1-3), fever or headache Calcium Carbonate (Calcium Carbonate 750 Mg Tab.Chew) 750 mg PO Q4H PRN PRN Reason: Heartburn Enoxaparin Sodium (Enoxaparin Sodium 40 Mg/0.4 Ml Syringe) 40 mg SUBCUT Q24H ROSA Vancomycin HCl (Vancomycin/Ns) 2,000 mg in 500 mls @ 250 mls/hr IV ONCE ONE Stop: 03/31/24 19:12 Piperacillin Sod/Tazobactam (Sod 4.5 gm/ Sodium Chloride) 100 mls @ 200 mls/hr IV Q6H ROSA Magnesium Hydroxide (Milk Of Magnesia 30 Ml Oral.Susp) 30 ml PO DAILY PRN PRN Reason: Constipation Melatonin (Melatonin 3 Mg Tablet) 6 mg PO BEDTIME PRN PRN Reason: Insomnia Pharmacy Consult (Consult Rx Vancomycin Dosing) 1 each MISCELLANE DAILY PRN PRN Reason: Consult order Sodium Chloride (0.9 % Sodium Chloride Flush 3 Ml Syringe) 3 ml IVFLUSH QSHIFT [facility] Home Medications ?Medication ?Instructions ?Recorded ?Confirmed ?Last Taken ?Type allopurinol 300 mg tablet 300 mg PO DAILY 03/31/24 Unknown History atorvastatin 10 mg tablet 10 mg PO DAILY 03/31/24 Unknown History diazepam 5 mg tablet 5 mg PO BEDTIME PRN Anxiety 03/31/24 Unknown History diclofenac sodium 100 mg 100 mg PO DAILY 03/31/24 Unknown History tablet,extended release 24 hr gabapentin 600 mg tablet 600 mg PO TID 03/31/24 Unknown History glipizide 10 mg tablet, extended 10 mg PO BID 03/31/24 Unknown History release 24 hr losartan 25 mg tablet 25 mg PO DAILY 03/31/24 Unknown History metformin 500 mg tablet,extended 1,000 mg PO BID 03/31/24 Unknown History release 24 hr metoprolol succinate 50 mg 50 mg PO DAILY 03/31/24 Unknown History tablet,extended release 24 hr Physical Exam Vital Signs and Narrative: Vital Signs: Last Vital Signs Temp 98.1 F 03/31/24 17:28 Pulse 87 03/31/24 17:28 Resp 18 03/31/24 17:28 BP 147/68 H 03/31/24 17:28 Pulse Ox 96 03/31/24 17:28 O2 Del Method Room Air 03/31/24 17:28 BMI result Body Mass Index 45.3 Constitutional - Awake and Alert, No apparent distress Eyes - PERRLA, EOMI Cardiovascular - S1S2, RRR Respiratory - Normal lung expansion, Normal respiratory effort, No respiratory distress, CTA bilaterally Gastrointestinal - NT / ND; +BS; No rebound or guarding MSK- L knee s/p TKA with full rom, no swelling or significant overlying eythema Extremities - no calf tenderness bilaterally, no swelling Skin - Warm/Dry. Chronic callous of the plantar surface L foot with tunneling. Significant erythema and warmth with venous stasis changes LLE with faint erythema extending posteriorly to the L thigh with 1+ edema Neurological - Alert & oriented x3, CN II-XII in tact, 5/5 strength BUE and BLE Psychological - Appropriate affect Results Labs 03/31/24 13:02 03/31/24 13:02 Labs: Laboratory Results - last 24 hr 03/31/24 03/31/24 03/31/24 13:02 17:47 18:13 MCV 91.2 MCH 31.8 MCHC 34.8 RDW 13.6 Plt Count 298 D MPV 10.6 Immature Gran % (Auto) 4.0 H Neut % (Auto) 71.1 Lymph % (Auto) 15.4 L [place] % (Auto) 6.7 Eos % (Auto) 2.3 Baso % (Auto) 0.5 Lymph # (Auto) 1.7 [place] # (Auto) 0.7 Eos # (Auto) 0.3 Baso # (Auto) 0.1 Abs Immat Gran (auto) 0.44 H Absolute Neuts (auto) 7.7 Absolute Nucleated RBC 0.000 Nucleated RBC % (auto) 0.0 ESR 83 H Hold Purple Top SEE NOTE Anion Gap 15 Estim Creat Clear Calc 114.0 Estimated GFR > 60 Random Glucose 265 H Lactic Acid 1.9 2.0 Calcium 9.5 Magnesium 1.9 Total Bilirubin 0.4 Direct Bilirubin 0.2 AST 28 ALT 48 H Alkaline Phosphatase 96 C-Reactive Protein 15.46 H Total Protein 6.8 Albumin 3.6 Hold Yellow Top See Note Assessment and Plan (1) Cellulitis: Status: Acute (2) Acute hyponatremia: Status: Acute Plan 69-year-old male with history of [id number] type 2 diabetes, diabetic polyneuropathy, gout,, hypertension, hyperlipidemia admitted for furhter management of extensive acute cellulitis involving >50% of the LLE having failed outpt abx #Acute extensive cellulitis LLE involving >50% of LLE -no sepsis. failed outpt therapy with bactrima nd cefpodoxime -IV vanco and zosyn (initiated 03/31) -Follow cbc, cultures #Chronic callous Left foot with tunneling and occassional purulent drainage -ESR 88, CRP 15 -Check MRI Left foot to r/out osteomyelitis -web operations lead #Venous ulcers LLE -rn occupational # acute hyponatremia -likely pseudo hyponatremia in setting of hyperglycemia -follow lytes, treat hyperglycemia # [id number]-[id number] type 2 diabetes with hyperglycemia -check hemoglobin A1c -POC glucose, diabetic diet -Humalog on sliding scale -hold glipizide, metformin # diabetic polyneuropathy -continue gabapentin diazepam # hypertension -continue losartan, metoprolol # gout -continue allopurinol # hyperlipidemia -statin DVT prophylaxis-Lovenox Full code Patient requires inpatient stay at least 2 midnights for management of worsening extensive cellulitis of the left lower extremity involving greater than 50% of the extremity having failed outpatient oral antibiotics and will require IV antibiotics for further management. Will also require further imaging given concerns for acute osteomyelitis which could result in patient requiring long-term antibiotics following negative blood cultures Quality Stroke Does the patient have a stroke diagnosis?: No VTE Prior VTE?: No VTE Risk Level:: Medical - moderate - high VTE Device Contraindication: Treatment Not Indicated VTE Drug Contraindication: N/A - Med Ordered
[2024-03-31] MEDS: 0.9 % Sodium Chloride 1,000 ML 999 ML IVCONT (18:29)
[2024-03-31] MEDS: Piperacillin Sodium/Tazobactam 3.375 GM in 0.9 % Sodium Chloride 50 ML IV (18:30)
[2024-03-31] MEDS: vancomycin/NS 2,000 MG/500 ML PLAST..BAG 250 MG IV (18:35)
--- NOTE | 2024-03-31 18:41 | PC.NURSE ---
Medicated per MAR.
--- NOTE | 2024-03-31 19:16 | PHA.MEDREC ---
Addendum entered by [facility], located within [facility] 03/31/24 19:17: OF NOTE: patient stated hes stopped his metformin recently due to a kidney injury Original Note: Pharmacy Consult ? Medication Reconciliation Pharmacy has completed the medication reconciliation.
--- NOTE | 2024-03-31 19:17 | PC.NURSE ---
pt went to MRI, per stretcher, with IV pump, and RN and ophthalmic technician
[2024-03-31] MEDS: gadobutroL 10 ML VIAL IVPUSH (20:45)
[2024-03-31] MEDS: Enoxaparin Sodium 40 MG/0.4 ML SYRINGE SUBCUT (20:54)
[2024-03-31 21:12] VITALS: BP 160/74; PULSE 77; RESP 16; TEMP 36.7; O2SAT 98
[2024-03-31 23:49] VITALS: BP 150/69; PULSE 76; RESP 16; TEMP 36.7; O2SAT 97
[2024-04-01] MEDS: 0.9 % Sodium Chloride Flush 3 ML SYRINGE IVFLUSH ×3 (00:12→20:20)
[2024-04-01] MEDS: Piperacillin Sodium/Tazobactam 4.5 GM in 0.9 % Sodium Chloride 100 ML IV ×5 (00:13→23:46)
[2024-04-01 00:33] VITALS: BP 145/66; PULSE 75; RESP 16; TEMP 35.9; O2SAT 98
[2024-04-01] MEDS: diazePAM 5 MG TABLET PO (02:50)
[2024-04-01] MEDS: Gabapentin 600 MG TABLET PO ×3 (02:50→20:16)
[2024-04-01 03:15] VITALS: RESP 16
[2024-04-01 05:21] LABS: Estimated Average Glucose 154 mg/dL
[2024-04-01] MEDS: vancomycin HCL 1,250 MG in 0.9 % Sodium Chloride 250 ML 166.67 MG IV ×2 (06:37→18:32)
[2024-04-01 07:08] LABS: MANUAL DIFF FLAG NO
[2024-04-01 07:20] LABS: Glucose, Whole Blood 170 mg/dL (60-115)
[2024-04-01 07:24] LABS: Basophils Absolute Auto 0.1 X10*3/uL (0.0-0.2); Basophils Percent Auto 0.6 % (0-2); Eosinophils Absolute Auto 0.3 X10*3/uL (0.0-0.4); Eosinophils Percent Auto 3.2 % (0-4); Hematocrit 34.7 % (42.0-52.0); Hemoglobin 11.8 g/dl (14.0-18.0); Imm Gran Abs Auto 0.39 X10*3/uL (0.00-0.03); Imm Gran Pct Auto 4.3 % (0.0-0.4); Lymphocytes Absolute Auto 1.4 X10*3/uL (1.2-4.9); Lymphocytes Percent Auto 15.4 % (20-40); Mean Platelet Volume 10.5 fL (9.4-12.4); Monocytes Absolute Auto 0.9 X10*3/uL (0.1-1.2); Monocytes Percent Auto 9.8 % (2-11); Neutrophils Percent Auto 66.7 % (45-73); Platelet Count 298 X10*3/uL (160-400); Red Blood Count 3.69 X10*6/uL (4.60-5.80); Red Cell Distribution Width 13.5 % (11.0-16.0)
[2024-04-01 07:33] LABS: Anion Gap 12 (12-20); Blood Urea Nitrogen 9 mg/dL (9-16); Calcium 9.2 mg/dL (8.4-10.2); Carbon Dioxide 24 mmol/L (22-29); Chloride 104 mmol/L (96-108); Estimated Glomerular Filt Rate > 60; Glucose Random 174 mg/dL (60-115); Potassium 4.2 mmol/L (3.3-5.1); Sodium 136 mmol/L (135-145)
[2024-04-01 07:44] VITALS: BP 150/66; PULSE 70; RESP 18; TEMP 36.3; O2SAT 97
--- NOTE | 2024-04-01 08:55 | P.PNIM_ITS ---
Subjective Subjective Date of Service: 04/01/24 Interval History: f/u on cellulitis of the leg Physical Exam 2 Vital Signs: Vital Signs: Last Vital Signs Temp 97.3 F 04/01/24 07:44 Pulse 70 04/01/24 07:44 Resp 18 04/01/24 07:44 BP 150/66 H 04/01/24 07:44 Pulse Ox 97 04/01/24 07:44 O2 Del Method Room Air 04/01/24 07:44 BMI result Body Mass Index 45.3 Const: Other: Appearance: Alert. Oriented X3. No acute distress. CVS: Normal heart rate and rhythm. Pulses normal. Normal S1 and S2 Respiratory: CTA B Abdomen: Soft and nontender. No rigidity. No distention. Skin: Skin warm and dry. See Pictures below Extremities: No lower extremity edema. Patient has cellulitis in left lower extremity, extending above the marked line. Patient has now to open areas with mild drainage along the tibial aspect. Patient has a chronic foot ulcer on the plantar aspect of the foot,. See pictures below Neuro: Oriented X 3. No motor deficit. No sensory deficit. Moving all extremities. No slurred speech. CN 2 through 12 grossly intact Psych: calm, cooperative, normal affect Objective Data Active Medications Acetaminophen (Acetaminophen 325 Mg Tablet) 650 mg PO Q6H PRN PRN Reason: Pain, Mild (Pain Scale 1-3), fever or headache Allopurinol (Allopurinol 300 Mg Tablet) 300 mg PO DAILY [facility] Atorvastatin Calcium (Atorvastatin Calcium 10 Mg Tablet) 10 mg PO DAILY [facility] Calcium Carbonate (Calcium Carbonate 750 Mg Tab.Chew) 750 mg PO Q4H PRN PRN Reason: Heartburn Enoxaparin Sodium (Enoxaparin Sodium 40 Mg/0.4 Ml Syringe) 40 mg SUBCUT Q24H [facility] Last Admin: 03/31/24 20:54 Dose: 40 mg Documented By: ROBBY Comments: pt off floor Gabapentin (Gabapentin 600 Mg Tablet) 600 mg PO BID [facility] Glipizide (Glipizide Xl 10 Mg Tab.Er.24) 10 mg PO BID [facility] Glucose (Glucose Gel 15 Gm Gel..Gram.) 15 gm PO Q15M PRN; Protocol PRN Reason: per Hypoglycemia Standing Ord. Piperacillin Sod/Tazobactam (Sod 4.5 gm/ Sodium Chloride) 100 mls @ 200 mls/hr IV Q6H [facility] Last Infusion: 04/01/24 07:00 Dose: Infused Documented By: SHAINA Vancomycin HCl 1,250 mg/ (Sodium Chloride) 250 mls @ 166.667 mls/hr IV Q12H [facility] Last Infusion: 04/01/24 08:14 Dose: Infused Documented By: SVETLANA Dextrose (D10) 250 mls @ 750 mls/hr IV Q15M PRN; Protocol PRN Reason: per Hypoglycemia Standing Ord. Insulin Human Lispro (Insulin Lispro 100 Unit/Ml 3 Ml Vial) 0 unit SUBCUT QIDACHS [facility]; Protocol Losartan Potassium (Losartan Potassium 25 Mg Tablet) 25 mg PO DAILY [facility]; Protocol Magnesium Hydroxide (Milk Of Magnesia 30 Ml Oral.Susp) 30 ml PO DAILY PRN PRN Reason: Constipation Melatonin (Melatonin 3 Mg Tablet) 6 mg PO BEDTIME PRN PRN Reason: Insomnia Metoprolol Succinate (Metoprolol Succinate Er 50 Mg Tab.Er.24h) 50 mg PO DAILY [facility]; Protocol Non-Formulary Medication (Diazepam) 5 mg PO BEDTIME PRN PRN Reason: Anxiety Non-Formulary Medication (Calcium Carbonate-Vitamin D3) 1 tab PO DAILY [facility] Non-Formulary Medication (Diclofenac Sodium) 100 mg PO DAILY [facility] Pharmacy Consult (Consult Rx Vancomycin Dosing) 1 each MISCELLANE DAILY PRN PRN Reason: Consult order Sodium Chloride (0.9 % Sodium Chloride Flush 3 Ml Syringe) 3 ml IVFLUSH QSHIFT [facility] Last Admin: 04/01/24 07:12 Dose: Not Given Documented By: SVETLANA Non-Admin Reason: IV Running Labs 04/01/24 06:39 04/01/24 06:39 Labs: Laboratory Results - last 24 hr 03/31/24 03/31/24 03/31/24 13:02 17:47 18:13 MCV 91.2 MCH 31.8 MCHC 34.8 RDW 13.6 Plt Count 298 D MPV 10.6 Immature Gran % (Auto) 4.0 H Neut % (Auto) 71.1 Lymph % (Auto) 15.4 L [place] % (Auto) 6.7 Eos % (Auto) 2.3 Baso % (Auto) 0.5 Lymph # (Auto) 1.7 [place] # (Auto) 0.7 Eos # (Auto) 0.3 Baso # (Auto) 0.1 Abs Immat Gran (auto) 0.44 H Absolute Neuts (auto) 7.7 Absolute Nucleated RBC 0.000 Nucleated RBC % (auto) 0.0 ESR 83 H Hold Purple Top SEE NOTE Anion Gap 15 Estim Creat Clear Calc 114.0 Estimated GFR > 60 POC Glucose Random Glucose 265 H Estimat Average Glucose 154 Hemoglobin A1c % 7.0 H Lactic Acid 1.9 2.0 Calcium 9.5 Magnesium 1.9 Total Bilirubin 0.4 Direct Bilirubin 0.2 AST 28 ALT 48 H Alkaline Phosphatase 96 C-Reactive Protein 15.46 H Total Protein 6.8 Albumin 3.6 Hold Yellow Top See Note 04/01/24 04/01/24 06:39 07:12 MCV 94.0 MCH 32.0 MCHC 34.0 RDW 13.5 Plt Count 298 MPV 10.5 Immature Gran % (Auto) 4.3 H Neut % (Auto) 66.7 Lymph % (Auto) 15.4 L [place] % (Auto) 9.8 Eos % (Auto) 3.2 Baso % (Auto) 0.6 Lymph # (Auto) 1.4 [place] # (Auto) 0.9 Eos # (Auto) 0.3 Baso # (Auto) 0.1 Abs Immat Gran (auto) 0.39 H Absolute Neuts (auto) 6.0 Absolute Nucleated RBC 0.000 Nucleated RBC % (auto) 0.0 ESR Hold Purple Top Anion Gap 12 Estim Creat Clear Calc 133.0 Estimated GFR > 60 POC Glucose 170 H Random Glucose 174 H Estimat Average Glucose Hemoglobin A1c % Lactic Acid Calcium 9.2 Magnesium Total Bilirubin Direct Bilirubin AST ALT Alkaline Phosphatase C-Reactive Protein Total Protein Albumin Hold Yellow Top Assessment and Plan (1) Cellulitis: Status: Acute (2) Acute hyponatremia: Status: Acute Plan 69-year-old male with history of [id number] type 2 diabetes, diabetic polyneuropathy, gout,, hypertension, hyperlipidemia admitted for furhter management of extensive acute cellulitis involving >50% of the LLE having failed outpt abx #Acute extensive cellulitis LLE involving >50% of LLE -no sepsis. failed outpt therapy with bactrima nd cefpodoxime -IV vanco and zosyn (initiated 03/31) -CBC is normal, cultures pending #Chronic callous Left foot with tunneling and occassional purulent drainage -ESR 88, CRP 15, MRI no osteomyelitis (OM) -Vascular Surgery consult #Venous ulcers LLE -wound care consult # Acute hyponatremia, resolved -likely pseudo hyponatremia in setting of hyperglycemia -follow lytes, treat hyperglycemia # [id number] type 2 diabetes with hyperglycemia -hemoglobin A1c 7 -POC glucose, diabetic diet -Humalog on sliding scale -resume metformin, hold Glipizide and restart if sugars high # diabetic polyneuropathy -continue gabapentin diazepam # hypertension -continue losartan, metoprolol # gout -continue allopurinol # hyperlipidemia -statin DVT prophylaxis-Lovenox Full code Need for inpt: extensive cellulitis of the lef covering > 50% of the limb and need IV Abx in the setting of immune compromise d/t diabetes Quality Stroke Does the patient have a stroke diagnosis?: No VTE Prior VTE?: No VTE Risk Level:: Medical - moderate - high VTE Device Contraindication: Treatment Not Indicated VTE Drug Contraindication: N/A - Med Ordered
[2024-04-01] MEDS: Atorvastatin Calcium 10 MG TABLET PO (09:47)
[2024-04-01] MEDS: Losartan Potassium 25 MG TABLET PO (09:47)
[2024-04-01] MEDS: Metoprolol Succinate ER 50 MG TAB.ER.24H PO (09:47)
[2024-04-01] MEDS: allopurinoL 300 MG TABLET PO (09:47)
[2024-04-01 09:55] LABS: Creatinine Clr Calc Pharmacy 136.2; Estimated Glomerular Filt Rate > 60
[2024-04-01 11:16] LABS: Glucose, Whole Blood 235 mg/dL (60-115)
--- NOTE | 2024-04-01 11:20 | MHC.CM.PN ---
pt lives with is independent has own ride home dc plan home no servies
--- NOTE | 2024-04-01 11:29 | PM.CNGS ---
History of Present Illness Consult details Consult date: 04/01/24 Reason for consult: wound care Narrative: Morbidly obese 69-year-old gentleman with a history of diabetes presents to the hospital with cellulitis of the left lower extremity. Reports that it began a day or 2 ago and he thought that it was originally a sunburn. It continued to progress and he then presented to the emergency room. He actually had presented to the emergency room on 03/27 and was started on Bactrim and cefpodoxime with no significant improvement. He now presents to us for vascular evaluation Review of Systems Constitutional: Constitutional: Reports as per HPI ENT: Reports system reviewed and no additional complaints, except as documented Cardiovascular: Cardiovascular: Denies chest pain, Denies chest pain at rest and Denies chest pain with activity Respiratory: Respiratory: Denies chest congestion and Denies cough Gastrointestinal: Gastrointestinal: Reports no additional gastrointestinal complaints Musculoskeletal: Musculoskeletal: Denies abnormal gait Integumentary/Breasts: Skin/Breast: Reports pruritus and Denies wounds Neurologic: Reports system reviewed and no additional complaints, except as documented and Denies abnormal gait Psychiatric: Psychiatric: Denies no additional psychiatric complaints [facility] Past Medical History Medical History Diabetic foot ulcer Overweight Gout Hypertension Diabetes Social History Social History Household Members: Spouse Housing: House Do you presently have visiting nurse or other home services: No Patient Tobacco Use Status: Former Tobacco user Tobacco use type: Cigarette Smoked in Last 30 Days: No Use of substances other than those prescribed or required for medical reasons: No Currently Displaying Signs/Symptoms of Drug Intoxication Withdrawal: No Any prior treatment program specific to substance use: No Have you been hit, kicked, punched, or otherwise hurt by someone within the past year? If so, by whom?: No Do you feel safe in your current relationship?: Yes Is there a partner from a previous relationship who is making you feel unsafe now?: No Are you made to feel afraid or neglected: No Advance Directives: No Advance Directives Information Provided: No Do you have a plan to hurt others: No Plan Recently lost weight without trying: No Eating poorly because of decreased appetite: Yes Nutrition Risks: No Nutritional Risk Poor oral hygiene: No service: No Meds Allergies Allergy/AdvReac Type Severity Reaction Status Date / Time cephalexin [From KEFLEX] Allergy Mild HIVES Verified 03/31/24 12:32 vancomycin Allergy TINGLES on Verified 03/31/24 12:32 head Active Medications: Current Medications Acetaminophen (Acetaminophen 325 Mg Tablet) 650 mg PO Q6H PRN PRN Reason: Pain, Mild (Pain Scale 1-3), fever or headache Allopurinol (Allopurinol 300 Mg Tablet) 300 mg PO DAILY [facility] Last Admin: 04/01/24 09:47 Dose: 300 mg Atorvastatin Calcium (Atorvastatin Calcium 10 Mg Tablet) 10 mg PO DAILY [facility] Last Admin: 04/01/24 09:47 Dose: 10 mg Calcium Carbonate (Calcium Carbonate 750 Mg Tab.Chew) 750 mg PO Q4H PRN PRN Reason: Heartburn Diazepam (Diazepam 5 Mg Tablet) 5 mg PO BEDTIME PRN PRN Reason: Anxiety Enoxaparin Sodium (Enoxaparin Sodium 40 Mg/0.4 Ml Syringe) 40 mg SUBCUT Q24H [facility] Last Admin: 03/31/24 20:54 Dose: 40 mg Gabapentin (Gabapentin 600 Mg Tablet) 600 mg PO BID [facility] Last Admin: 04/01/24 09:47 Dose: 600 mg Glipizide (Glipizide Xl 10 Mg Tab.Er.24) 10 mg PO BID [facility] Last Admin: 04/01/24 09:42 Dose: Not Given Glucose (Glucose Gel 15 Gm Gel..Gram.) 15 gm PO Q15M PRN; Protocol PRN Reason: per Hypoglycemia Standing Ord. Piperacillin Sod/Tazobactam (Sod 4.5 gm/ Sodium Chloride) 100 mls @ 200 mls/hr IV Q6H [facility] Last Infusion: 04/01/24 07:00 Dose: Infused Vancomycin HCl 1,250 mg/ (Sodium Chloride) 250 mls @ 166.667 mls/hr IV Q12H [facility] Last Infusion: 04/01/24 08:14 Dose: Infused Dextrose (D10) 250 mls @ 750 mls/hr IV Q15M PRN; Protocol PRN Reason: per Hypoglycemia Standing Ord. Insulin Human Lispro (Insulin Lispro 100 Unit/Ml 3 Ml Vial) 0 unit SUBCUT QIDACHS [facility]; Protocol Losartan Potassium (Losartan Potassium 25 Mg Tablet) 25 mg PO DAILY [facility]; Protocol Last Admin: 07/31/24 09:47 Dose: 25 mg Magnesium Hydroxide (Milk Of Magnesia 30 Ml Oral.Susp) 30 ml PO DAILY PRN PRN Reason: Constipation Melatonin (Melatonin 3 Mg Tablet) 6 mg PO BEDTIME PRN PRN Reason: Insomnia Metformin HCl (Metformin Hcl Er 500 Mg Tab.Er.24h) 1,000 mg PO BID [facility] Last Admin: 04/01/24 09:48 Dose: Not Given Metoprolol Succinate (Metoprolol Succinate Er 50 Mg Tab.Er.24h) 50 mg PO DAILY [facility]; Protocol Last Admin: 04/01/24 09:47 Dose: 50 mg Pharmacy Consult (Consult Rx Vancomycin Dosing) 1 each MISCELLANE DAILY PRN PRN Reason: Consult order Sodium Chloride (0.9 % Sodium Chloride Flush 3 Ml Syringe) [facility] Last Admin: 04/01/24 07:12 Dose: Not Given Home Medications ?Medication ?Instructions ?Recorded ?Confirmed ?Last Taken ?Type allopurinol 300 mg tablet 300 mg PO DAILY 03/31/24 03/31/24 03/31/24 History atorvastatin 10 mg tablet 10 mg PO DAILY 03/31/24 03/31/24 03/31/24 History calcium carbonate 600 mg-vitamin 1 tab PO DAILY 03/31/24 03/31/24 03/31/24 History D3 5 mcg (200 unit) tablet diazepam 5 mg tablet 5 mg PO BEDTIME PRN Anxiety 03/31/24 03/31/24 03/31/24 History diclofenac sodium 100 mg 100 mg PO DAILY 03/31/24 03/31/24 03/31/24 History tablet,extended release 24 hr gabapentin 600 mg tablet 600 mg PO BID 03/31/24 03/31/24 03/31/24 History glipizide 10 mg tablet, extended 10 mg PO BID 03/31/24 03/31/24 Unknown History release 24 hr losartan 25 mg tablet 25 mg PO DAILY 03/31/24 03/31/24 03/31/24 History metformin 500 mg tablet,extended 1,000 mg PO BID 03/31/24 03/31/24 Unknown History release 24 hr metoprolol succinate 50 mg 50 mg PO DAILY 03/31/24 03/31/24 03/31/24 History tablet,extended release 24 hr Physical Exam Vital Signs: Vital Signs: Last Vital Signs Temp 97.3 F 04/01/24 07:44 Pulse 70 04/01/24 07:44 Resp 18 04/01/24 07:44 BP 150/66 H 04/01/24 07:44 Pulse Ox 97 04/01/24 07:44 O2 Del Method Room Air 04/01/24 07:44 BMI result Body Mass Index 45.3 Const: General: cooperative, healthy appearing and comfortable Orientation/consciousness: oriented to person, oriented to place and oriented to time Neck: Carotids: no bruits Chest: Chest palpation & inspection: normal inspection of the chest and normal palpation of entire chest wall Resp: Effort & Inspection: normal respiratory effort and able to speak in complete sentences Cardio: Other: Palpable dorsalis pedis pulses bilaterally Rate: regular rate Heart sounds: S1 normal heart sound present and S2 normal heart sound present Peripheral pulses: Peripheral pulses 2+ throughout GI: Inspection: Yes normal to inspection Skin: Other: +2 edema, erythema of left lower extremity with open ulceration CEAP Classification C6 - open ulcer Ep - Etiology Primary As - superficial veins P - reflux General skin exam: dry skin Neuro: General: oriented to person, oriented to place and oriented to time Extrem: Right lower extremity: full ROM, normal capillary refill and edema Left lower extremity: full ROM, normal capillary refill and edema Psych: Mental Status: mental status grossly normal Results Labs 04/01/24 06:39 04/01/24 09:16 Labs: Abnormal lab results 03/31/24 03/31/24 04/01/24 Range/Units 13:02 18:13 06:39 WBC 10.9 H (4.8-10.8) X10*3/uL RBC 3.87 L 3.69 L (4.60-5.80) X10*6/uL Hgb 12.3 L 11.8 L (14.0-18.0) g/dl Hct 35.3 L 34.7 L (42.0-52.0) % Immature Gran % (Auto) 4.0 H 4.3 H (0.0-0.4) % Lymph % (Auto) 15.4 L 15.4 L (20-40) % Abs Immat Gran (auto) 0.44 H 0.39 H (0.00-0.03) X10*3/uL ESR 83 H (0-15) MM/HR Sodium 131 L (135-145) mmol/L Carbon Dioxide 19 L (22-29) mmol/L POC Glucose (60-115) mg/dL Random Glucose 265 H 174 H (60-115) mg/dL Hemoglobin A1c % 7.0 H (<6.0) % ALT 48 H (0-40) U/L C-Reactive Protein 15.46 H (< or = 0.50) mg/dL 04/01/24 04/01/24 Range/Units 07:12 11:08 WBC (4.8-10.8) X10*3/uL RBC (4.60-5.80) X10*6/uL Hgb (14.0-18.0) g/dl Hct (42.0-52.0) % Immature Gran % (Auto) (0.0-0.4) % Lymph % (Auto) (20-40) % Abs Immat Gran (auto) (0.00-0.03) X10*3/uL ESR (0-15) MM/HR Sodium (135-145) mmol/L Carbon Dioxide (22-29) mmol/L POC Glucose 170 H 235 H (60-115) mg/dL Random Glucose (60-115) mg/dL Hemoglobin A1c % (<6.0) % ALT (0-40) U/L C-Reactive Protein (< or = 0.50) mg/dL Short CBC 03/31/24 04/01/24 Range/Units 13:02 06:39 WBC 10.9 H 9.0 (4.8-10.8) X10*3/uL Hgb 12.3 L 11.8 L (14.0-18.0) g/dl Hct 35.3 L 34.7 L (42.0-52.0) % Plt Count 298 D 298 (160-400) X10*3/uL BMP 03/31/24 04/01/24 04/01/24 13:02 06:39 09:16 Sodium 131 L 136 Potassium 4.5 4.2 Chloride 102 104 Carbon Dioxide 19 L 24 BUN 14 9 Creatinine 0.98 0.84 0.82 Calcium 9.5 9.2 Liver Function 03/31/24 Range/Units 13:02 Total Bilirubin 0.4 (0.0-1.0) mg/dL Direct Bilirubin 0.2 (0.0-0.5) mg/dL AST 28 (5-37) U/L ALT 48 H (0-40) U/L Alkaline Phosphatase 96 (39-117) U/L Albumin 3.6 (3.5-5.0) g/dL All other labs normal. Assessment and Plan (1) Varicose veins of left lower extremity with inflammation: Status: Acute (2) Lymphedema: Status: Acute Plan In short patient has significant left lower extremity edema which has led to cellulitis and ulcerations of that leg. At the current time would recommend continued treatment for the cellulitis with IV antibiotics. Once that becomes more stable he can follow up with me as an outpatient to get better control of this edema. I would like to test him for venous insufficiency and he may have an element of lymphedema as he did have bilateral knee replacements as well. We will follow up as an outpatient. This was all discussed in detail with the patient. He demonstrated an understanding of this. Thank you for allowing us to assist in his care. If there are any questions or concerns please do not hesitate to contact us. Procedures Date of Service Date of Service: 04/01/24
[2024-04-01] MEDS: Insulin Lispro 100 UNIT/ML 3 ML VIAL SUBCUT ×2 (11:47→20:17)
[2024-04-01] MEDS: oxyCODONE HCl Immed Release 5 MG TABLET 10 MG PO (12:33)
--- NOTE | 2024-04-01 14:11 | HO.WOUND ---
Wound Consult: Initial 69yr old?[place] [facility] [place] - See progress notes and H&P for detailed history.? Wound consult placed for Left Leg cellulitis.? Patient agreeable to assessment and photo documentation.? Patient reports he treats the left plantar diabetic wound with a chief scientist. Patient advised to continue to treat outpt with chief scientist at time of d/c. Left Lateral Leg Left Lower leg Etiology: Cellulittis Wound Bed: two areas of partial thickness tissue loss - areas of weeping clear yellow fluid Drainage / Odor: clear yellow - crusting noted on wound bed edges Edges: ? irregular Joi wound: ?Red warm swelling noted, +PP noted Pain: denies reports neuropathy Goals of Treatment: ? moist wound healing and drainage absorption Left Plantar Foot Etiology: Diabetic Wound Measurements: 0.4cm x 0.2cm x 0.3cm Wound Bed: red moist clean wound bed Drainage / Odor: garcia small no odor noted Edges: ? callused and unattached Joi wound: ?callused - No Induration, Fluctuance or Warmth noted Pain: denies reports neuropathy Goals of Treatment: ? Durafiber Ag packing and foam dressing Recommendations: 1. Turn and Reposition every 2 hours and as needed for patient comfort.? Use pillows or wedges to support off loading positions. 2. Off Load all bony prominences with use of pillows and heel boots if needed.? Apply Preventative foams where needed. ? 3. Monitor for incontinence and moisture control, use barrier creams when needed for prevention and treatment. 4. Provide adequate and supplemental nutrition.? 5. Order or Continue low air loss mattress. 6. When applicable maintain blood glucose levels per Providers order. 7. Left Lower Leg - Elevate lower legs off of surface of bed with use of pillows.? Cleanse with NS, Pat dry.? Apply vaseline to both legs, apply layer of Xeroform to open wound beds secure with ABD pad, gauze wrap and tape.? Change Daily. 8. Left plantar wound - Cleanse with NS, pat dry. Lightly pack wound bed with Durafiber AG, cover with foam dressing change every [address] Ladd Vascular Surgeon for outpatient follow up.? His office is located at [address] [place] [address] [id number], [place] [address], call for an appointment at time of discharge [phone]. Re-consult wound care Nurse for wound deterioration or wound changes.
--- NOTE | 2024-04-01 14:54 | W.PM.IDCN ---
History of Present Illness Data of Consult Service Date: 04/01/24 Requesting physician: Joss Deal Primary Care Provider: RUBI Reese HPI Reason for consult: left leg cellulitis He presents with left leg swelling and redness. He was seen in ER three days ago when started and given Cefpodoxime and Bactrim. He says area has become worse. He has no fever or chills. Review of Systems Review of Systems: Yes all other systems are reviewed and are negative [facility] Past Medical History Medical History Diabetic foot ulcer Overweight Gout Hypertension Diabetes Family History Family history: reviewed and not pertinent Social History Social History Household Members: Spouse Housing: House Do you presently have visiting nurse or other home services: No Patient Tobacco Use Status: Former Tobacco user Tobacco use type: Cigarette Smoked in Last 30 Days: No Use of substances other than those prescribed or required for medical reasons: No Currently Displaying Signs/Symptoms of Drug Intoxication Withdrawal: No Any prior treatment program specific to substance use: No Have you been hit, kicked, punched, or otherwise hurt by someone within the past year? If so, by whom?: No Do you feel safe in your current relationship?: Yes Is there a partner from a previous relationship who is making you feel unsafe now?: No Are you made to feel afraid or neglected: No Advance Directives: No Advance Directives Information Provided: No Do you have a plan to hurt others: No Plan Recently lost weight without trying: No Eating poorly because of decreased appetite: Yes Nutrition Risks: No Nutritional Risk Poor oral hygiene: No service: No Meds Allergies Allergy/AdvReac Type Severity Reaction Status Date / Time cephalexin [From KEFLEX] Allergy Mild HIVES Verified 03/31/24 12:32 vancomycin Allergy TINGLES on Verified 03/31/24 12:32 head Active Medications: Current Medications Acetaminophen (Acetaminophen 325 Mg Tablet) 650 mg PO Q6H PRN PRN Reason: Pain, Mild (Pain Scale 1-3), fever or headache Allopurinol (Allopurinol 300 Mg Tablet) 300 mg PO DAILY [facility] Last Admin: 04/01/24 09:47 Dose: 300 mg Atorvastatin Calcium (Atorvastatin Calcium 10 Mg Tablet) 10 mg PO DAILY [facility] Last Admin: 04/01/24 09:47 Dose: 10 mg Calcium Carbonate (Calcium Carbonate 750 Mg Tab.Chew) 750 mg PO Q4H PRN PRN Reason: Heartburn Diazepam (Diazepam 5 Mg Tablet) 5 mg PO BEDTIME PRN PRN Reason: Anxiety Enoxaparin Sodium (Enoxaparin Sodium 40 Mg/0.4 Ml Syringe) 40 mg SUBCUT Q24H [facility] Last Admin: 03/31/24 20:54 Dose: 40 mg Gabapentin (Gabapentin 600 Mg Tablet) 600 mg PO BID [facility] Last Admin: 04/01/24 09:47 Dose: 600 mg Glipizide (Glipizide Xl 10 Mg Tab.Er.24) 10 mg PO BID [facility] Last Admin: 04/01/24 09:42 Dose: Not Given Glucose (Glucose Gel 15 Gm Gel..Gram.) 15 gm PO Q15M PRN; Protocol PRN Reason: per Hypoglycemia Standing Ord. Piperacillin Sod/Tazobactam (Sod 4.5 gm/ Sodium Chloride) 100 mls @ 200 mls/hr IV Q6H [facility] Last Infusion: 04/01/24 12:32 Dose: Infused Vancomycin HCl 1,250 mg/ (Sodium Chloride) 250 mls @ 166.667 mls/hr IV Q12H [facility] Last Infusion: 04/01/24 08:14 Dose: Infused Dextrose (D10) 250 mls @ 750 mls/hr IV Q15M PRN; Protocol PRN Reason: per Hypoglycemia Standing Ord. Insulin Human Lispro (Insulin Lispro 100 Unit/Ml 3 Ml Vial) 0 unit SUBCUT QIDACHS [facility]; Protocol Last Admin: 04/01/24 11:47 Dose: 4 unit Losartan Potassium (Losartan Potassium 25 Mg Tablet) 25 mg PO DAILY [facility]; Protocol Last Admin: 04/01/24 09:47 Dose: 25 mg Magnesium Hydroxide (Milk Of Magnesia 30 Ml Oral.Susp) 30 ml PO DAILY PRN PRN Reason: Constipation Melatonin (Melatonin 3 Mg Tablet) 6 mg PO BEDTIME PRN PRN Reason: Insomnia Metformin HCl (Metformin Hcl Er 500 Mg Tab.Er.24h) 1,000 mg PO BID [facility] Last Admin: 04/01/24 09:48 Dose: Not Given Metoprolol Succinate (Metoprolol Succinate Er 50 Mg Tab.Er.24h) 50 mg PO DAILY [facility]; Protocol Last Admin: 04/01/24 09:47 Dose: 50 mg Oxycodone HCl (Oxycodone Hcl Immed Release 5 Mg Tablet) 10 mg PO Q12H PRN PRN Reason: Pain, Severe (Pain Scale 7-10) Last Admin: 04/01/24 12:33 Dose: 10 mg Pharmacy Consult (Consult Rx Vancomycin Dosing) 1 each MISCELLANE DAILY PRN PRN Reason: Consult order Sodium Chloride (0.9 % Sodium Chloride Flush 3 Ml Syringe) [facility] Last Admin: 04/01/24 07:12 Dose: Not Given Home Medications ?Medication ?Instructions ?Recorded ?Confirmed ?Last Taken ?Type allopurinol 300 mg tablet 300 mg PO DAILY 03/31/24 03/31/24 03/31/24 History atorvastatin 10 mg tablet 10 mg PO DAILY 03/31/24 03/31/24 03/31/24 History calcium carbonate 600 mg-vitamin 1 tab PO DAILY 03/31/24 03/31/24 03/31/24 History D3 5 mcg (200 unit) tablet diazepam 5 mg tablet 5 mg PO BEDTIME PRN Anxiety 03/31/24 03/31/24 03/31/24 History diclofenac sodium 100 mg 100 mg PO DAILY 03/31/24 03/31/24 03/31/24 History tablet,extended release 24 hr gabapentin 600 mg tablet 600 mg PO BID 03/31/24 03/31/24 03/31/24 History glipizide 10 mg tablet, extended 10 mg PO BID 03/31/24 03/31/24 Unknown History release 24 hr losartan 25 mg tablet 25 mg PO DAILY 03/31/24 03/31/24 03/31/24 History metformin 500 mg tablet,extended 1,000 mg PO BID 03/31/24 03/31/24 Unknown History release 24 hr metoprolol succinate 50 mg 50 mg PO DAILY 03/31/24 03/31/24 03/31/24 History tablet,extended release 24 hr Physical Exam Vital Signs: Vital Signs: Last Vital Signs Temp 97.3 F 04/01/24 07:44 Pulse 70 04/01/24 07:44 Resp 18 04/01/24 07:44 BP 150/66 H 04/01/24 07:44 Pulse Ox 97 04/01/24 07:44 O2 Del Method Room Air 04/01/24 07:44 BMI result Body Mass Index 45.3 Const: General: cooperative HEENT: Head: Yes normal to inspection Face and sinus: Yes normal facial exam Mouth: Normal oral and palatal mucosa present Teeth and gingiva: dentition normal Eyes: General: appearance normal, both eyes and all related structures Pupils: Equal, round and reactive pupils present Resp: Effort & Inspection: normal respiratory effort Cardio: Rate: regular rate Rhythm: regular rhythm GI: Palpation (GI): Soft to palpation and nontender : General: Yes no CVA tenderness Back/Spine/Pelvis: Back: no CVA tenderness Skin: Other: left lower extremity reddened Neuro: General: moves all extremities Cranial nerves: Yes Equal, round and reactive pupils present Extrem: General: Yes normal to inspection Psych: Appearance: grossly normal Results Labs 04/01/24 06:39 04/01/24 09:16 Labs: Short CBC 04/01/24 Range/Units 06:39 WBC 9.0 (4.8-10.8) X10*3/uL Hgb 11.8 L (14.0-18.0) g/dl Hct 34.7 L (42.0-52.0) % Plt Count 298 (160-400) X10*3/uL BMP 04/01/24 04/01/24 06:39 09:16 Sodium 136 Potassium 4.2 Chloride 104 Carbon Dioxide 24 BUN 9 Creatinine 0.84 0.82 Calcium 9.2 Assessment and Plan (1) Lymphedema: Status: Acute (2) Varicose veins of left lower extremity with inflammation: Status: Acute Plan He has redness lower extremity He has failed po antibiotics There is possible strep or staph. Would add Clindamycin 900 mg IV every 8 hours cover strep/staph. Elevate,compression if tolerates ?diuretic Stop Vancomycin at this point as no MRSA. May continue Zosyn possible 3-5 d
[2024-04-01 15:41] VITALS: BP 121/58; PULSE 71; RESP 14; TEMP 36.4; O2SAT 94
[2024-04-01 16:30] LABS: Vancomycin Random 9.2 mcg/mL (15-20)
[2024-04-01 16:34] LABS: Glucose, Whole Blood 143 mg/dL (60-115)
[2024-04-01] MEDS: Clindamycin Phosphate/D5W 900 MG/50 ML PIGGYBACK 50 MG IV ×2 (16:56→23:57)
[2024-04-01] MEDS: Enoxaparin Sodium 40 MG/0.4 ML SYRINGE SUBCUT (18:32)
[2024-04-01 19:58] LABS: Glucose, Whole Blood 194 mg/dL (60-115)
[2024-04-01] MEDS: metFORMIN HCl ER 500 MG TAB.ER.24H 1000 MG PO (20:15)
[2024-04-01 23:45] VITALS: BP 166/78; PULSE 85; RESP 16; TEMP 36; O2SAT 97
[2024-04-02] MEDS: diazePAM 5 MG TABLET PO (00:21)
[2024-04-02] MEDS: Piperacillin Sodium/Tazobactam 4.5 GM in 0.9 % Sodium Chloride 100 ML IV ×3 (05:40→17:29)
[2024-04-02] MEDS: vancomycin HCL 1,250 MG in 0.9 % Sodium Chloride 250 ML 166.67 MG IV (05:49)
[2024-04-02 07:09] LABS: Creatinine Clr Calc Pharmacy 145.1; Estimated Glomerular Filt Rate > 60
[2024-04-02 07:17] VITALS: BP 135/62; PULSE 83; RESP 20; TEMP 36; O2SAT 94
[2024-04-02 07:29] LABS: Glucose, Whole Blood 215 mg/dL (60-115)
[2024-04-02] MEDS: Gabapentin 600 MG TABLET PO ×2 (08:14→21:10)
[2024-04-02] MEDS: Losartan Potassium 25 MG TABLET PO (08:14)
[2024-04-02] MEDS: allopurinoL 300 MG TABLET PO (08:14)
[2024-04-02] MEDS: oxyCODONE HCl Immed Release 5 MG TABLET 10 MG PO (08:14)
[2024-04-02] MEDS: Atorvastatin Calcium 10 MG TABLET PO (08:14)
[2024-04-02] MEDS: Metoprolol Succinate ER 50 MG TAB.ER.24H PO (08:14)
[2024-04-02] MEDS: 0.9 % Sodium Chloride Flush 3 ML SYRINGE IVFLUSH ×2 (08:15→15:33)
[2024-04-02] MEDS: Insulin Lispro 100 UNIT/ML 3 ML VIAL SUBCUT ×3 (08:15→21:09)
[2024-04-02] MEDS: Clindamycin Phosphate/D5W 900 MG/50 ML PIGGYBACK 50 MG IV ×2 (08:15→15:32)
--- NOTE | 2024-04-02 08:25 | P.PNIM_ITS ---
Subjective Subjective Date of Service: 04/02/24 Physical Exam 2 Vital Signs: Vital Signs: Last Vital Signs Temp 96.8 F 04/02/24 07:17 Pulse 83 04/02/24 07:17 Resp 20 04/02/24 07:17 BP 135/62 04/02/24 07:17 Pulse Ox 94 04/02/24 07:17 O2 Del Method Room Air 04/02/24 07:17 BMI result Body Mass Index 45.3 General: AO X 3, no acute distress Resp: CTA bilateral CVS: S1,S2,RRR GI: +BS, NT, no distention Skin: similar distribution of redness area but less pronounced today Neuro: motor grossly intact Psych: appropriate affect Objective Data Active Medications Acetaminophen (Acetaminophen 325 Mg Tablet) 650 mg PO Q6H PRN PRN Reason: Pain, Mild (Pain Scale 1-3), fever or headache Allopurinol (Allopurinol 300 Mg Tablet) 300 mg PO DAILY [facility] Last Admin: 04/02/24 08:14 Dose: 300 mg Documented By: SVETLANA Atorvastatin Calcium (Atorvastatin Calcium 10 Mg Tablet) 10 mg PO DAILY [facility] Last Admin: 04/02/24 08:14 Dose: 10 mg Documented By: SVETLANA Calcium Carbonate (Calcium Carbonate 750 Mg Tab.Chew) 750 mg PO Q4H PRN PRN Reason: Heartburn Diazepam (Diazepam 5 Mg Tablet) 5 mg PO BEDTIME PRN PRN Reason: Anxiety Last Admin: 04/02/24 00:21 Dose: 5 mg Documented By: MIREYA Enoxaparin Sodium (Enoxaparin Sodium 40 Mg/0.4 Ml Syringe) 40 mg SUBCUT Q24H [facility] Last Admin: 04/01/24 18:32 Dose: 40 mg Documented By: SVETLANA Gabapentin (Gabapentin 600 Mg Tablet) 600 mg PO BID [facility] Last Admin: 04/02/24 08:14 Dose: 600 mg Documented By: SVETLANA Glipizide (Glipizide Xl 10 Mg Tab.Er.24) 10 mg PO BID [facility] Last Admin: 04/02/24 08:17 Dose: Not Given Glucose (Glucose Gel 15 Gm Gel..Gram.) 15 gm PO Q15M PRN; Protocol PRN Reason: per Hypoglycemia Standing Ord. Piperacillin Sod/Tazobactam (Sod 4.5 gm/ Sodium Chloride) 100 mls @ 200 mls/hr IV Q6H [facility] Last Infusion: 04/02/24 06:32 Dose: Infused Documented By: MIREYA Vancomycin HCl 1,250 mg/ (Sodium Chloride) 250 mls @ 166.667 mls/hr IV Q12H [facility] Last Infusion: 04/02/24 07:23 Dose: Infused Documented By: WILDAEMA Dextrose (D10) 250 mls @ 750 mls/hr IV Q15M PRN; Protocol PRN Reason: per Hypoglycemia Standing Ord. Clindamycin Phosphate (Cleocin) 900 mg in 50 mls @ 50 mls/hr IV Q8H [facility] Stop: 04/03/24 08:59 Last Admin: 04/02/24 08:15 Dose: 50 mls/hr Documented By: WILDAEMA Insulin Human Lispro (Insulin Lispro 100 Unit/Ml 3 Ml Vial) 0 unit SUBCUT QIDACHS [facility]; Protocol Last Admin: 04/02/24 08:15 Dose: 4 unit Documented By: WILDAEMA Losartan Potassium (Losartan Potassium 25 Mg Tablet) 25 mg PO DAILY [facility]; Protocol Last Admin: 04/02/24 08:14 Dose: 25 mg Documented By: WILDAEMA Magnesium Hydroxide (Milk Of Magnesia 30 Ml Oral.Susp) 30 ml PO DAILY PRN PRN Reason: Constipation Melatonin (Melatonin 3 Mg Tablet) 6 mg PO BEDTIME PRN PRN Reason: Insomnia Metformin HCl (Metformin Hcl Er 500 Mg Tab.Er.24h) 1,000 mg PO BID [facility] Last Admin: 04/01/24 20:15 Dose: 1,000 mg Metoprolol Succinate (Metoprolol Succinate Er 50 Mg Tab.Er.24h) 50 mg PO DAILY [facility]; Protocol Last Admin: 04/02/24 08:14 Dose: 50 mg Documented By: WILDAEMA Oxycodone HCl (Oxycodone Hcl Immed Release 5 Mg Tablet) 10 mg PO Q12H PRN PRN Reason: Pain, Severe (Pain Scale 7-10) Last Admin: 04/02/24 08:14 Dose: 10 mg Documented By: SVETLANA Pharmacy Consult (Consult Rx Vancomycin Dosing) 1 each MISCELLANE DAILY PRN PRN Reason: Consult order Sodium Chloride (0.9 % Sodium Chloride Flush 3 Ml Syringe) 3 ml IVFLUSH QSHIFT [facility] Last Admin: 04/02/24 08:15 Dose: 3 ml Documented By: SVETLANA Labs 04/01/24 06:39 04/02/24 05:52 Labs: Laboratory Results - last 24 hr 04/01/24 04/01/24 04/01/24 09:16 11:08 15:46 Hold Purple Top Estim Creat Clear Calc 136.2 Estimated GFR > 60 POC Glucose 235 H Random Vancomycin 9.2 L 04/01/24 04/01/24 04/02/24 16:31 19:51 05:52 Hold Purple Top SEE NOTE Estim Creat Clear Calc 145.1 Estimated GFR > 60 POC Glucose 143 H 194 H Random Vancomycin 04/02/24 07:17 Hold Purple Top Estim Creat Clear Calc Estimated GFR POC Glucose 215 H Random Vancomycin Microbiology Microbiology Results: Microbiology 03/31/24 18:13 Blood Culture - Preliminary Blood - Venous No growth after 24 hours. 03/31/24 17:47 Blood Culture - Preliminary Blood - Venous No growth after 24 hours. Assessment and Plan (1) Cellulitis: Status: Acute (2) Acute hyponatremia: Status: Acute Plan 69-year-old male with history of [id number] type 2 diabetes, diabetic polyneuropathy, gout,, hypertension, hyperlipidemia admitted for furhter management of extensive acute cellulitis involving >50% of the LLE having failed outpt abx #Acute extensive cellulitis LLE involving >50% of LLE, spreading contained -no sepsis. failed outpt therapy with bactrima dnd cefpodoxime -IV vanco and zosyn (initiated 03/31). Clinda added 04/01 for 2 days per ID rec -CBC is normal, cultures so far negative -Oxycodone for pain #Chronic callous Left foot with tunneling and occassional purulent drainage -ESR 88, CRP 15, MRI no osteomyelitis (OM) -Vascular Surgery rec Abx and outpatient f/u for vascular studies #Venous ulcers LLE -wound care consult # Acute hyponatremia, resolved -likely pseudo hyponatremia in setting of hyperglycemia -follow lytes, treat hyperglycemia # kzw-iwjfqre-cqastispn type 2 diabetes with hyperglycemia -hemoglobin A1c 7 -POC glucose, diabetic diet -Humalog on sliding scale -resume metformin tomorrow, resume Glipizide today # diabetic polyneuropathy -continue gabapentin diazepam # hypertension--controlled -continue losartan, metoprolol # gout -continue allopurinol # hyperlipidemia -statin DVT prophylaxis-Lovenox Full code Need for inpt: extensive cellulitis of the lef covering > 50% of the limb and need IV Abx in the setting of immune compromise d/t diabetes Quality Stroke Does the patient have a stroke diagnosis?: No VTE Prior VTE?: No VTE Risk Level:: Medical - moderate - high VTE Device Contraindication: Treatment Not Indicated VTE Drug Contraindication: N/A - Med Ordered
[2024-04-02 08:51] LABS: Anion Gap 15 (12-20)
[2024-04-02 08:54] LABS: Carbon Dioxide 22 mmol/L (22-29); Chloride 104 mmol/L (96-108); Magnesium 2.1 mg/dL (1.6-2.6); Potassium 4.5 mmol/L (3.3-5.1); Sodium 136 mmol/L (135-145)
--- NOTE | 2024-04-02 09:39 | P.CDIM_ITS ---
PROVIDER RESPONSE TEXT: To clarify, the appropriate diagnosis supported by the clinical indicators: Obesity QUERY TEXT: PHYSICIAN'S DOCUMENTATION REQUEST Date of Query: 04/02/2024 08:50 AM EDT Patient Name: Miguel Cagle Admit Date: 03/31/2024 Dear Joss Robertson MD, A review of the medical record indicates additional documentation may be needed. Please review below and update the documentation accordingly. Clinical Indicators: Height: 6ft 1in Weight: 155.7kg BMI: 45.3 If possible, please provide an associated diagnosis related to the abnormal BMI, such as: Severe or Morbid Obesity Obesity Other (explain) Clinically unable to determine (explain) Thank you, Ghislaine Peters, CCS, CDIS Use of terms such as suspected, likely, concern for, or probable (associated with a specific diagnosi s that is being evaluated, monitored, or treated as if it exists) are acceptable and can be coded in the inpatient se tting, when documented at the time of discharge. Please use your independent medical judgment in providing your response. THIS QUERY IS PART OF THE PERMANENT MEDICAL RECORD
[2024-04-02 11:08] LABS: Glucose, Whole Blood 224 mg/dL (60-115)
[2024-04-02] MEDS: glipiZIDE XL 10 MG TAB.ER.24 PO ×2 (11:38→21:10)
[2024-04-02 15:59] VITALS: BP 153/72; PULSE 73; RESP 18; TEMP 36.5; O2SAT 98
[2024-04-02 16:37] LABS: Vancomycin Random 9.1 mcg/mL (15-20)
[2024-04-02 16:43] LABS: Glucose, Whole Blood 144 mg/dL (60-115)
--- NOTE | 2024-04-02 16:48 | HE.PHANOTE ---
RE: Vanco Trough returned at 9.1. Renal function is improving. Dose increased to 1500 q12h, with predicted AUC 441, and predicted trough 12.7. Next trough to be drawn 04/03 @ 1600.
[2024-04-02] MEDS: Enoxaparin Sodium 40 MG/0.4 ML SYRINGE SUBCUT (18:08)
[2024-04-02] MEDS: vancomycin HCL 1,500 MG in 0.9 % Sodium Chloride 500 ML 333.33 MG IV (18:08)
[2024-04-02 20:27] LABS: Glucose, Whole Blood 185 mg/dL (60-115)
[2024-04-02 23:33] VITALS: BP 158/76; PULSE 79; RESP 18; TEMP 36.3; O2SAT 98
[2024-04-03] MEDS: Piperacillin Sodium/Tazobactam 4.5 GM in 0.9 % Sodium Chloride 100 ML IV ×2 (00:22→06:01)
[2024-04-03] MEDS: diazePAM 5 MG TABLET PO (00:22)
[2024-04-03] MEDS: 0.9 % Sodium Chloride Flush 3 ML SYRINGE IVFLUSH ×2 (00:29→08:22)
[2024-04-03] MEDS: Clindamycin Phosphate/D5W 900 MG/50 ML PIGGYBACK 50 MG IV ×2 (00:57→08:19)
[2024-04-03 05:53] LABS: Creatinine Clr Calc Pharmacy 131.4; Estimated Glomerular Filt Rate > 60
[2024-04-03] MEDS: vancomycin HCL 1,500 MG in 0.9 % Sodium Chloride 500 ML 333.33 MG IV (06:36)
[2024-04-03 07:10] VITALS: BP 141/79; PULSE 73; RESP 18; TEMP 36; O2SAT 97
[2024-04-03 07:23] LABS: Glucose, Whole Blood 169 mg/dL (60-115)
[2024-04-03] MEDS: Insulin Lispro 100 UNIT/ML 3 ML VIAL SUBCUT (08:18)
[2024-04-03 08:19] VITALS: BP 141/79; PULSE 73
[2024-04-03] MEDS: glipiZIDE XL 10 MG TAB.ER.24 PO (08:19)
[2024-04-03] MEDS: allopurinoL 300 MG TABLET PO (08:19)
[2024-04-03] MEDS: Gabapentin 600 MG TABLET PO (08:19)
[2024-04-03] MEDS: Metoprolol Succinate ER 50 MG TAB.ER.24H PO (08:19)
[2024-04-03] MEDS: Losartan Potassium 25 MG TABLET PO (08:19)
[2024-04-03] MEDS: Atorvastatin Calcium 10 MG TABLET PO (08:20)
[2024-04-03] MEDS: metFORMIN HCl ER 500 MG TAB.ER.24H 1000 MG PO (09:38)
--- NOTE | 2024-04-03 10:29 | P.DS_ITS ---
DS: Providers Provider Date of Service: 04/03/24 Date of admission: 03/31/24 18:19 Primary care physician: RUBI Reese Consults: 03/31/24 18:31 Consult to Wound Care Routine Reason for consultation: weeping ulcers LLE, callous with drainage plantar L foot 04/01/24 08:57 Consult to Infectious Diseases Routine Consulting Provider: [facility] Reason for consultation: extensive cellulitis of the leg 04/01/24 08:59 Consult to Vascular Surgery Routine Consulting Provider: [facility] Vascular Services Reason for consultation: Diabetic foot ulcer DS: Diagnosis Discharge Diagnosis (1) Cellulitis: Status: Acute (2) Acute hyponatremia: Status: Acute DS: Summary Hospital Course Hospital Course: admission hpi Chief Complaint: leg infection 69-year-old male with history of ouf-sghsvaw-okvndeicw type 2 diabetes, diabetic polyneuropathy, gout,, hypertension, hyperlipidemia presents to the ED earlier today for evaluation of a worsening cellulitis of the left lower leg. The patient initially presented to the ED on 03/27 due to erythema of the right leg and was started on Bactrim and cefpodoxime orally without improvement. He states about 1 week ago he felt feverish with chills and sweats and general body aches. About 3 days after that, developed significant erythema and warmth in the left lower leg with swelling and some seropurulent drainage weeping from the anterior tibia. He also states that he has been following with a yard labor supervisor for the last 3 months due to a nonhealing callus with tunneling and occasional purulent drainage on the plantar surface of the left foot. He does have polyneuropathy and reports he has very little sensation in his feet. He reports he has never been placed on antibiotics for the lesion on the foot. Since arrival, vital signs have been stable. He is afebrile. He has a mild leukocytosis of 10. Renal function normal, electrolyte levels normal. CRP 15, ESR 88. He did have venous duplex performed on 03/27 which was negative for any DVT. X-ray of the left tibia/fibula on 03/27 was negative for any acute osseous abnormalities. The patient will be admitted for further management of acute cellulitis of the left lower extremity having failed outpatient antibiotics. Hospital course: The patient presented with cellulitis of the left leg that had failed outpatient antibiotics. He was initiated on Zosyn and vancomycin, with clindamycin added later for 2 days. The erythema has significantly improved, with less redness. Blood cultures have been negative. Infectious Disease (ID) consulted and recommended 3 days of IV antibiotics, then transition to oral antibiotics. Vascular surgery consulted and recommended outpatient follow-up for vascular studies. The patient feels good and will be discharged with oral doxycycline and cefpodoxime. An MRI of the foot showed no evidence of osteomyelitis. Time Attestation Discharge Coordination Time (in mins): 45 Quality: Safe Use of Opioids Does Pt have an Active Cancer Diagnosis on the Problem List?: No Quality: Stroke Does the patient have a stroke diagnosis?: No Physical Exam Vital Signs: Vital Signs: Last Vital Signs Temp 96.8 F 04/03/24 07:10 Pulse 73 04/03/24 08:19 Resp 18 04/03/24 07:10 BP 141/79 H 04/03/24 08:19 Pulse Ox 97 04/03/24 07:10 O2 Del Method Room Air 04/03/24 07:10 BMI result Body Mass Index 45.3 DS: Data Data Completed and Pending Labs on day of discharge: Laboratory Results - last 24 hr 04/02/24 04/02/24 04/02/24 11:01 16:04 16:39 Creatinine Estim Creat Clear Calc Estimated GFR POC Glucose 224 H 144 H Random Vancomycin 9.1 L 04/02/24 04/03/24 04/03/24 20:22 05:10 07:09 Creatinine 0.85 Estim Creat Clear Calc 131.4 Estimated GFR > 60 POC Glucose 185 H 169 H Random Vancomycin Preliminary micro results at discharge 03/31/24 18:13 Blood Culture - Preliminary Blood - Venous No growth after 48 hours. 03/31/24 17:47 Blood Culture - Preliminary Blood - Venous No growth after 48 hours. Discharge Plan Discharge Anticipated Discharge Date/Time: 04/03/24 10:37 Patient Disposition: Home, Self-Care Discharge Diagnosis: Cellulitis of the leg Referrals: Kashif Ladd MD [Physician] - 2 Weeks Frederick Ureña PA [Primary Care Provider] - 1 Week Discharge Medications: New doxycycline monohydrate 100 mg Capsule 100 mg PO Q12H Qty: 13 0RF Continued gabapentin 600 mg tablet 600 mg PO BID atorvastatin 10 mg tablet 10 mg PO DAILY metoprolol succinate 50 mg tablet extended release 24 hr 50 mg PO DAILY diclofenac sodium 100 mg tablet extended release 24 hr 100 mg PO DAILY glipizide 10 mg tablet extended release 24hr 10 mg PO BID losartan 25 mg tablet 25 mg PO DAILY allopurinol 300 mg tablet 300 mg PO DAILY metformin 500 mg tablet extended release 24 hr 1,000 mg PO BID diazepam 5 mg tablet 5 mg PO BEDTIME PRN (Reason: Anxiety) calcium carbonate-vitamin D3 [Calcium + D] 600 mg-5 mcg (200 unit) Tablet 1 tab PO DAILY Discharge Orders: Discharge Order (Routine); Ordered 04/03/24 Ordered By: Joss Robertson Diet: Diabetic diet Activity on Discharge: As tolerated Stand Alone Forms: Patient Portal Discharge page Print Language: Korean Activity Restrictions/Additional Instructions: Topical Wound Care Recommendations: Left Lower Leg - Elevate lower legs off of surface of bed with use of pillows.? Cleanse with NS, Pat dry.? Apply vaseline to both legs, apply layer of Xeroform to open wound beds secure with ABD pad, gauze wrap and tape.? Change Daily. Left plantar wound - Cleanse with NS, pat dry. Lightly pack wound bed with Durafiber AG, cover with foam dressing change every 3 days. Continue follow up with yard labor supervisor. Recommend Dr. Ladd Vascular Surgeon for outpatient follow up.? His office is located at [address] [place] [address] [address], [place] [address], call for an appointment at time of discharge [phone]. Care Plan Goals: Recovery from cellulitis Health Concerns: -cellulitis of the leg -lymphadema - Plan of Treatment: Take Doxycyline as recommended and finish taking cefpodoxime follow up with your doctor in a week, call for appointment follow up with Dr. Ladd Assessment: see above
--- NOTE | 2024-04-03 10:37 | MHC.CM.PN ---
EMR REVIEWED AND PER MD ROUNDS, PT MAY DC TODAY WITH P.O. ABT, CM WILL CONTINUE TO FOLLOW FOR DC PLAN.
[2024-04-03 11:16] LABS: Glucose, Whole Blood 202 mg/dL (60-115)
--- NOTE | 2024-04-03 11:26 | MHC.CM.PN ---
DP:PT HAS BEEN MEDICALLY CLEARED FOR DC HOME, NO SERVICES. PT DECLINES A VNA AT THIS TIME AND FEELS HE CAN MANAGE HIS WOUND CARE. CM REMINDED PT IF HE FEELS HE MAY NEED MORE ASSIST WITH WOUND CARE, TO NOTIFY PCP WHO CAN SEND OUT A VNA REFERRAL IF REQUESTED. [facility] WILL TRANSPORT HOME
[2024-04-03] MEDS: Doxycycline Monohydrate 100 MG CAPSULE PO (12:01)
== END 2024-04-03 12:29 | disposition home or self-care (01) | DRG 603 ==
LOC: HO.ED 17:26 → HO.EDOVER 18:33 → HO.S3 23:34
PROVIDERS: Physician Assistant; Admitting Provider Physician Assistant; Emergency Provider Emergency Medicine; PCP Physician Assistant Medical; Visit Provider Internal Medicine
DX: L03.116 Cellulitis of left lower limb (principal); L97.429 Non-pressure chronic ulcer of left heel and midfoot with unspecified severity; I87.332 Chronic venous hypertension (idiopathic) with ulcer and inflammation of left lower extremity; Z68.42 Body mass index [BMI] 45.0-49.9, adult; E66.9 Obesity, unspecified; E11.42 Type 2 diabetes mellitus with diabetic polyneuropathy; E78.5 Hyperlipidemia, unspecified; I10 Essential (primary) hypertension; M10.9 Gout, unspecified; Z96.653 Presence of artificial knee joint, bilateral; Z87.891 Personal history of nicotine dependence; Z79.84 Long term (current) use of oral hypoglycemic drugs; Z79.899 Other long term (current) drug therapy
CPT/HCPCS: 36415; 73720; 80048; 80051; 80076; 80202; 82565; 82947; 83036; 83605; 83735; 85025; 85652; 86140; 87040; 94660; 99285; A9585; J0736; J1650; J2543; J3370; J3371

== ENCOUNTER → 2024-03-31 18:19 | Outpatient (BNV) | payer MEDICARE, SELFPAY | PROVIDERS: Admitting Provider Physician Assistant; Emergency Provider Emergency Medicine; PCP Physician Assistant Medical; Visit Provider Surgery Vascular Surgery | DX: I83.12 Varicose veins of left lower extremity with inflammation (principal); I89.0 Lymphedema, not elsewhere classified | CPT/HCPCS: 99222 ==

== ENCOUNTER → 2024-03-31 18:19 | Outpatient (BNV) | payer MEDICARE, SELFPAY | PROVIDERS: Admitting Provider Physician Assistant; Emergency Provider Emergency Medicine; PCP Physician Assistant Medical; Visit Provider Internal Medicine | DX: L03.90 Cellulitis, unspecified (principal); E87.1 Hypo-osmolality and hyponatremia | CPT/HCPCS: 99223; 99232; 99239 ==

== ENCOUNTER → 2024-03-31 18:19 | Outpatient (BNV) | payer MEDICARE, SELFPAY | PROVIDERS: Admitting Provider Physician Assistant; Emergency Provider Emergency Medicine; PCP Physician Assistant Medical; Visit Provider Internal Medicine | DX: I89.0 Lymphedema, not elsewhere classified (principal); I83.12 Varicose veins of left lower extremity with inflammation | CPT/HCPCS: 99222 ==

== ENCOUNTER → 2024-05-07 13:54 | Outpatient (BNVA) | payer MEDICARE, SELFPAY | PROVIDERS: PCP Physician Assistant Medical; Visit Provider Surgery Vascular Surgery ==

== ENCOUNTER 2024-08-05 13:27 | Outpatient (REF) | payer MEDICARE, SELFPAY ==
[2024-08-05 13:53] LABS: Amphetamine Screen Urine Not Detected (Not Detect); Barbiturates, Urine Not Detected (Not Detect); Benzodiazepines Screen Urine POSITIVE (Not Detect); Buprenorphine Scr Not Detected (Not Detect); Cannabinoid Screen Urine Not Detected (Not Detect); Cocaine Screen Urine Not Detected (Not Detect); Fentanyl, urine Not Detected (Not Detect); Methadone Screen, Urine Not Detected (Not Detect); Opiate Screen Urine Not Detected (Not Detect); Oxycodone Screen Urine Positive (Not Detect); Phencyclidine Screen Urine Not Detected (Not Detect)
== END 2024-08-05 13:28 | disposition home or self-care (01) ==
LOC: HO.LNP 13:27
PROVIDERS: Visit Provider Psychiatry & Neurology Neurology
DX: Z79.899 Other long term (current) drug therapy (principal)
CPT/HCPCS: 80307

== ENCOUNTER 2025-03-25 12:21 | Inpatient (IN) | payer MEDICARE, SELFPAY ==
--- NOTE | 2025-03-25 12:24 | ED.GENADULT ---
HPI - General Adult General Chief complaint: Urogenital-Male Stated complaint: sent by pcp for IV Time Seen by Provider: 03/25/25 12:49 Source: patient, RN notes reviewed and old records reviewed Mode of arrival: ambulatory Limitations: no limitations History of Present Illness ED Provider: Piter HPI narrative: 70-year-old male past medical history significant for obesity, diabetes presents for evaluation of ?needs IV antibiotics. ? The patient was sent here from [facility]. He has been having decreased urination and increased urgency for the last couple of weeks. He had a urinalysis ordered on 03/22/2005, 3 days ago. I received an expect phone call as the patient's urine culture grew Pseudomonas aeruginosa that was ?only susceptible to IV antibiotics. ? The patient has been on Macrobid for the last 3 days but was told to stop taking this today. He reports chills last night that woke him up from sleep. He has not had any documented fevers pain Denies any flank pain or abdominal pain No other complaints or concerns at this time Related Data Home Medications ?Medication ?Instructions ?Recorded ?Confirmed allopurinol 300 mg tablet 300 mg PO DAILY 03/31/24 03/31/24 atorvastatin 10 mg tablet 10 mg PO DAILY 03/31/24 03/31/24 calcium 600 mg (as 1 tab PO DAILY 03/31/24 03/31/24 carbonate)-vitamin D3 5 mcg (200 unit) tablet diazepam 5 mg tablet 5 mg PO BEDTIME PRN Anxiety 03/31/24 03/31/24 diclofenac sodium 100 mg 100 mg PO DAILY 03/31/24 03/31/24 tablet,extended release 24 hr gabapentin 600 mg tablet 600 mg PO BID 03/31/24 03/31/24 glipizide 10 mg tablet, extended 10 mg PO BID 03/31/24 03/31/24 release 24 hr losartan 25 mg tablet 25 mg PO DAILY 03/31/24 03/31/24 metformin 500 mg tablet,extended 1,000 mg PO BID 03/31/24 03/31/24 release 24 hr metoprolol succinate 50 mg 50 mg PO DAILY 03/31/24 03/31/24 tablet,extended release 24 hr Previous Rx's ?Medication ?Instructions ?Recorded doxycycline monohydrate 100 mg 100 mg PO Q12H #13 caps 04/03/24 capsule diazepam 5 mg tablet 5 mg PO BEDTIME PRN sleep #30 tabs 03/02/25 oxycodone 10 mg tablet 10 mg PO BID PRN one twice a day 03/02/25 #60 tabs Allergies Allergy/AdvReac Type Severity Reaction Status Date / Time cephalexin (From KEFLEX) Allergy Mild HIVES Verified 03/25/25 12:26 vancomycin Allergy TINGLES on Verified 03/25/25 12:26 head Review of Systems Constitutional: Constitutional: Reports body ache(s), Reports chills and Denies fever(s) Eyes: Eyes: Denies blurry vision ENT: Denies vertigo and Denies dizziness Cardiovascular: Cardiovascular: Denies chest pain and Denies dyspnea on exertion Respiratory: Respiratory: Denies cough and Denies dyspnea on exertion Gastrointestinal: Gastrointestinal: Denies abdominal pain, Denies nausea and Denies vomiting Genitourinary: Genitourinary: Reports difficulty urinating, Reports nocturia, Reports urinary frequency, Reports urinary hesitancy and Reports urinary urgency Musculoskeletal: Musculoskeletal: Denies back pain Integumentary/Breasts: Skin/Breast: Denies rash Neurologic: Denies vertigo and Denies dizziness PMFSH Past Medical History Medical History Diabetic foot ulcer Overweight Gout Hypertension Diabetes Social History Social History Household Members: Spouse Housing: House Do you presently have visiting nurse or other home services: No Patient Tobacco Use Status: Former Tobacco user Tobacco use type: Cigarette Smoked in Last 30 Days: No Use of substances other than those prescribed or required for medical reasons: No Advance Directives: No Advance Directives Information Provided: Yes Do you have a plan to hurt others: No Plan service: No Physical Exam ED Vital Signs: Vital Signs - 24 hr 03/25/25 12:25 Temperature 97.9 F Pulse Rate 86 Respiratory Rate 18 Blood Pressure 126/72 Pulse Oximetry 97 Oxygen Delivery Method Room Air BMI result Body Mass Index 44.6 Const General: healthy appearing, comfortable, no acute distress, alert and awake Nutritional Appearance: well nourished Orientation/consciousness: patient oriented x3 HENMT Head: Yes normocephalic and Yes atraumatic Eyes Eyelids: Yes eyelids normal Conjunctivae: conjunctivae normal Sclerae: sclerae normal Corneas: corneas normal Pupils: Equal, round and reactive pupils present EOM: EOMs intact bilaterally Neck Neck: Yes full ROM Resp Effort & Inspection: normal respiratory effort, able to speak in complete sentences and not labored Cardio Rate: regular rate Rhythm: regular rhythm GI Inspection: No distended Palpation (GI): Soft to palpation, not firm, nontender, no guarding and not rigid Auscultation: normoactive bowel sounds Skin General skin exam: no rashes or lesions noted and elasticity normal Neuro General: patient oriented x3 Cranial nerves: Yes Equal, round and reactive pupils present and Yes Bilaterally intact EOM present Cognition (Neuro): normal cognition Extrem Other: Moving all extremities well without any obvious deformities Course Course Course Narrative: This is an RME: Additional HPI, ROS, PE not included below will be deferred to primary provider. RME assessment and note performed by: Pati Odonnell PA-C This is a [id number], with a hx of [id number] type 2 diabetes, diabetic polyneuropathy, gout, hypertension, hyperlipidemia presents to the ED for IV antibiotics for UTI. Was started on antibiotics on saturday. He had dysuria, dark cloudy urine, urinary urgency and frequency. Reporting he is feeling tired. Reporting he still has urinary hesitancy. He states that he got a phone call from his urology office ([facility], was taking antibiotics for a UTI and was told to stop taking them and was told to come in for something stronger - I believe it was an IV . Reports he woke up in the middle of the night and had chills. He is well-appearing, vital signs within normal limits. Plan: Labs, further ER eval needed Medical Decision Making Medical Decision Making MDM Narrative: 62-year-old male presents for evaluation of UTI symptoms. He has an expect from [facility] and they are requesting he received IV antibiotics. I was able to obtain his urine culture showing susceptibility to Zosyn, ceftazidime, cefepime, and Amikicin. The patient has a mild allergy to cephalexin and therefore we will treat with Zosyn. He does have a leukocytosis of 16.8 1000. In the lactic acid at 2.8. This is consistent with his UTI. He was given IV fluids and we will discuss with the hospitalist for admission. He does not meet severe sepsis, vital signs have remained stable Differential Diagnosis Differential Diagnoses: The differential diagnosis associated with the presentation includes UTI Sepsis Pyelonephritis Complicated UTI Admission/Observation Consideration of admission/observation: Escalation of care including admission/observation considered Lab Data MDM Lab Attestation statement: I reviewed the patient's lab results. Leukocytosis to 16.8, mild anemia that is consistent with the patient's baseline. There is a left shift. Chemistries show a mild pseudo hyponatremia, random glucose of 235 and lactic acid elevated 2.8. Otherwise renal function is within normal limits. No significant electrolyte abnormalities, LFTs are normal limits. 03/25/25 12:53 03/25/25 12:53 Labs: Lab Results 03/25/25 03/25/25 Range/Units 12:53 13:21 WBC 16.8 H (4.8-10.8) X10*3/uL RBC 4.23 L (4.60-5.80) X10*6/uL Hgb 13.4 L (14.0-18.0) g/dl Hct 37.9 L (42.0-52.0) % MCV 89.6 (80.0-98.0) fL MCH 31.7 (27.0-33.0) pg MCHC 35.4 (31.0-36.0) g/dl RDW 13.9 (11.0-16.0) % Plt Count 232 (160-400) X10*3/uL MPV 10.6 (9.4-12.4) fL Immature Gran % (Auto) 0.4 (0.0-0.4) % Neut % (Auto) 83.1 H (45-73) % Lymph % (Auto) 5.9 L (20-40) % Da[place]hin % (Auto) 6.7 (2-11) % Eos % (Auto) 3.5 (0-4) % Baso % (Auto) 0.4 (0-2) % Lymph # (Auto) 1.0 L (1.2-4.9) X10*3/uL [place] # (Auto) 1.1 (0.1-1.2) X10*3/uL Eos # (Auto) 0.6 H (0.0-0.4) X10*3/uL Baso # (Auto) 0.1 (0.0-0.2) X10*3/uL Abs Immat Gran (auto) 0.07 H (0.00-0.03) X10*3/uL Absolute Neuts (auto) 13.9 H (2.0-8.3) x10*3/uL Absolute Nucleated RBC 0.000 (0.0-0.012) X10*3/uL Nucleated RBC % (auto) 0.0 (0.0-0.2) /100WBC Sodium 133 L (135-145) mmol/L Potassium 4.2 (3.3-5.1) mmol/L Chloride 99 (96-108) mmol/L Carbon Dioxide 23 (22-29) mmol/L Anion Gap 15 (12-20) BUN 13 (9-16) mg/dL Creatinine 1.38 (0.5-1.4) mg/dL Estim Creat Clear Calc 79.1 Estimated GFR 51 Random Glucose 235 H (60-115) mg/dL Lactic Acid 2.8 H* (0.5-2.0) mmol/L Calcium 9.2 (8.4-10.2) mg/dL Magnesium 2.0 (1.6-2.6) mg/dL Total Bilirubin 0.7 (0.0-1.0) mg/dL Direct Bilirubin 0.3 (0.0-0.5) mg/dL AST 22 (5-37) U/L ALT 26 (0-40) U/L Alkaline Phosphatase 82 (39-117) U/L Total Protein 7.0 (6.5-8.0) g/dL Albumin 4.4 (3.5-5.0) g/dL Discharge Plan Discharge Clinical Impression: Acute UTI Patient Disposition: Admitted As Inpatient Print Language: Polish
[2025-03-25 12:25] VITALS: BP 126/72; PULSE 86; RESP 18; TEMP 36.6; O2SAT 97; BMI 44.6
[2025-03-25 12:56] LABS: MANUAL DIFF FLAG NO
--- NOTE | 2025-03-25 12:57 | PC.NURSE ---
Addendum entered by Sophie Scott RN 03/25/25 13:34: Patient is a 70 yo male who presents with UTI symptoms for the past 2 weeks and was seen by urology, placed on macrobid. Received a call from urology today stating he needed to go the ED for IV Abx. Alert and oriented. Morbidly obese. Lungs clear bilat. Respirations even and non-labored. Abdomen large, soft, distended with positive bowels sounds. Patient denies any urinary symptoms at this time. Lymphedema noted to [facility] with a previous admission for cellulitis. Original Note: Medical History Diabetic foot ulcer Overweight Gout Hypertension Diabetes
[2025-03-25 12:58] LABS: Hematocrit 37.9 % (42.0-52.0); Hemoglobin 13.4 g/dl (14.0-18.0); Imm Gran Abs Auto 0.07 X10*3/uL (0.00-0.03); Imm Gran Pct Auto 0.4 % (0.0-0.4); Lymphocytes Absolute Auto 1.0 X10*3/uL (1.2-4.9); Mean Corpuscular HGB Conc 35.4 g/dl (31.0-36.0); Mean Corpuscular Hemoglobin 31.7 pg (27.0-33.0); Mean Corpuscular Volume 89.6 fL (80.0-98.0); NRBC Abs Auto 0.000 X10*3/uL (0.0-0.012); NRBC Pct Auto 0.0 /100WBC (0.0-0.2); Platelet Count 232 X10*3/uL (160-400); Red Blood Count 4.23 X10*6/uL (4.60-5.80); White Blood Count 16.8 X10*3/uL (4.8-10.8)
[2025-03-25 13:12] LABS: Alanine Aminotransferase 26 U/L (0-40); Albumin Level 4.4 g/dL (3.5-5.0); Alkaline Phosphatase 82 U/L (39-117); Anion Gap 15 (12-20); Aspartate Amino Transferase 22 U/L (5-37); Blood Urea Nitrogen 13 mg/dL (9-16); Calcium 9.2 mg/dL (8.4-10.2); Carbon Dioxide 23 mmol/L (22-29); Chloride 99 mmol/L (96-108); Creatinine Clr Calc Pharmacy 79.1; Estimated Glomerular Filt Rate 51; Magnesium 2.0 mg/dL (1.6-2.6); Potassium 4.2 mmol/L (3.3-5.1); Sodium 133 mmol/L (135-145); Total Protein 7.0 g/dL (6.5-8.0)
--- OUTSIDE RECORDS SUMMARY | 2025-03-25 13:26 | XMS_ITS ---
Author Name [facility] Organization Unknown History of Medication Use Medication Directions Dispensed Refills Start Date End Date Stat us doxycycline (VIBRAMYCIN) 100 mg capsule Take 1 capsule (100 mg total) by mouth 2 (two) times a day for 10 days. Take with at least 8 ounces (large glass) of water, do not lie down for 30 minutes after 08/17/2024 08/28/2024 active glipiZIDE (GLUCOTROL XL) 10 mg 24 hr tablet TAKE 1 TABLET BY MOUTH TWICE DAILY 02/26/2024 active gabapentin (NEURONTIN) 600 mg tablet Take 1 Tab by mouth 2 times daily. 11/25/2020 active glucose blood test strip USE TO TEST BLOOD SUGAR TWICE DAILY 11/18/2012 active ciclopirox (PENLAC) 8 % solution Apply topically every 7 days. active Allergies Allergen Reaction Severity Comment Documented Date Source Statu s CEPHALEXIN MONOHYDRATE RASH pt. 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 2016-12-13 ProblemAct [facility] Prostatism active 2008-02-04 ProblemAct [facility] Esophageal reflux active 2006-07-04 ProblemAct [facility] Pilonidal cyst active 2009-05-05 ProblemAct [facility] Idiopathic progressive polyneuropathy active 2007-01-01 ProblemAct [facility] Gout active 2006-07-04 ProblemAct [facility] Erectile dysfunction active 2011-07-06 ProblemAct [facility] Urethral stricture active 2011-09-18 ProblemAct [facility] Diabetes mellitus type 2, uncomplicated active 2020-04-22 ProblemAct [facility] Immunizations Vaccine Date Source Lot Number Status Influenza trivalent, 0.5mL ( Fluzone High-dose) 65yo and older 06/29/2024 [facility] [id number] comple robert Pneumococcal conjugate 20 va lent (Prevnar 20, PCV 20) 2mo and older 08/13/2023 [facility] [id number] comple robert Td Tetanus diptheria (Tdvax) 7yo and older 08/13/2023 [facility] [id number] completed Influenza trivalent, 0.5mL ( Fluzone High-dose) 65yo and older 06/24/2023 [facility] [id number] comple robert Pneumococcal conjugate 13 va lent (Prevnar 13, PCV13) 2mo and older 07/20/2022 [facility] [id number] complet ed Influenza trivalent, 0.5mL ( Fluzone High-dose) 65yo and older 06/20/2022 [facility] [id number] comple robert Influenza, Unspecified 06/19/2021 [facility] co mpleted Influenza Quadravalent, MDCK , 0.5ml, preservative free (Flucelvax) 6mo and older 05/16/2020 [facility] [id number] completed Influenza, Unspecified 06/14/2018 [facility] co mpleted Zoster recombinant (Shingrix ) 19yo and older 06/14/2018 [facility] completed Zoster recombinant (Shingrix ) 19yo and older 04/15/2018 [facility] [id number] completed Influenza trivalent, 0.5mL, preservative free (Fluarix; FluLaval; Fluzone) ages 6mo and older (Afluria) 3 years and older 05/03/2016 [facility] [id number] completed Influenza, Unspecified 05/03/2016 [facility] co mpleted Influenza trivalent, 0.5mL, preservative free (Fluarix; FluLaval; Fluzone) ages 6mo and older (Afluria) 3 years and older 05/11/2015 [facility] [id number] completed Influenza, Unspecified 05/11/2015 [facility] co mpleted Pneumococcal polysaccharide 23 valent (Pneumovax 23) 2yo and older 06/07/2014 [facility] [id number] com pleted Tdap Tetanus diptheria acell ular pertussis (Boostrix; Adacel) 7yo and older 05/18/2013 [facility] [id number] completed Influenza trivalent, with pr eservative (Fluzone; Afluria) 6mo and older 04/25/2012 [facility] completed Influenza trivalent, with pr eservative (Fluzone; Afluria) 6mo and older 03/03/2012 [facility] completed Influenza trivalent, with pr eservative (Fluzone; Afluria) 6mo and older 06/12/2011 [facility] completed H1N1 Inj Preservative Free 09/11/2009 [facility] completed Influenza trivalent, with pr eservative (Fluzone; Afluria) 6mo and older 05/22/2009 [facility] [id number] completed Td Tetanus diptheria (Tdvax) 7yo and older 04/04/2009 [facility] completed Influenza trivalent, with pr eservative (Fluzone; Afluria) 6mo and older 06/11/2008 [facility]OLES[facility] [id number] completed Influenza trivalent, with pr eservative (Fluzone; Afluria) 6mo and older 06/09/2007 [facility] completed Influenza trivalent, with pr eservative (Fluzone; Afluria) 6mo and older 08/22/2005 [facility] [id number] completed Td Tetanus diptheria (Tdvax) 7yo and older 09/04/2000 [facility] completed TD, Adsorbed, Preservative Free 09/04/2000 [facility] completed Care Team Organization Name Specialty Phone Email Start Date End [facility] te [facility] 07/10/2022
--- OUTSIDE RECORDS SUMMARY | 2025-03-25 13:26 | XMS_ITS ---
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 2 diabetes mellitus, with fat layer exposed ([facility] V24, [facility] V28) 10/01/2024 Peripheral vascular disease ([facility] V24) 2024 Diabetes mellitus type 2, un complicated ([facility] V24, [facility] V28) 04/22/2020 Subclinical hypothyroidism 03/30/2019 CIDP (chronic inflammatory d emyelinating polyneuropathy) ([facility] V24, [facility] V28) 12/13/2016 Hyperlipidemia with target LDL less than 100 Overview (06/11/2024): IMO update Spinal stenosis 10/19/2011 Overview (06/11/2024): Dr. Escobedo - 03/20/12 - oxycodone started secondary to peripheral neuropathy Last Assessment & Plan: Mr. Cagle continues to have back pain into his legs but particularly with numbness down the left leg. That comes and episodes except for the foot which is constantly numb. It has altered his gait, he favors the right leg and now has moved from a cane to needing a walker every day. He had a follow-up with Dr. Burks's office recently and though he had 75% improvement from a lumbar ROCK on 05/31/2023, it only lasted for 3 weeks and is felt that a repeat injection would not be of long-term benefit. He is here to discuss surgery further. On exam, seated SLR is positive on the left at 90 degrees, strength is 5 out of 5 except for left dorsiflexion where he has decreased range but good resistive strength. Gait is slow with him leaning heavily on the walker, there is no evidence of foot drop, he makes a 5 point turn trying to navigate with a walker. We discussed again his previous lumbar spine MRI with multilevel stenosis most severe at L4-5 and with left lateral recess stenosis at L5-S1 from facet arthropathy and a disc herniation. I offered an L4-5 and left L5-S1 decompression/discectomy. We discussed the details, risks, benefits and anticipated postoperative course. All questions were answered and he wishes to proceed. Urethral stricture 09/18/2011 Overview (06/11/2024): Pt w/ urethroplasty - Dr. Valera Erectile dysfunction 07/06/2011 Pilonidal cyst 05/05/2009 Overview (06/11/2024): NO SURGERY OF 2008 Prostatism 02/04/2008 Idiopathic progressive polyneuropathy 01/01/2007 Overview (06/11/2024): + NCT - Dr. 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 Additional Health Concerns Active Problems Noted Date Diagnosed Date Impaired Tissue 10/01/2024 Education needed on impact of smoking on wound 0 10/01/2024 Education needed related to ulceration/compromised skin integrity. 10/01/2024 Infection Onset Date Last Indicated MDRO (other) 09/25/2024 03/22/2025 Goals Goal Patient Goal Type Associated Problems Recent Progress Patient-Stated? Author Decrease Wound Volume by X% by date (in notes) Care Plan Impaired Tissue No Chelsey Ravi RN Patient and Caregiver Understand Wound Care Education Care Plan Impaired Tissue No Chelsey Ravi RN Wound volume breakdown reduced by X% by week 4 Care Plan Impaired Tissue No Chelsey Ravi RN Wound volume breakdown reduced by X% by week 8 Care Plan Impaired Tissue No Chelsey Ravi RN Wound volume breakdown reduced by X% by week 12 Care Plan Impaired Tissue No Chelsey Ravi RN Quit using tobacco (cigarettes, smokeless, etc) Care Plan Education needed on impact of smoking on wound No Chelsey Ravi RN Reduce tobacco use (cigarettes, smokeless, etc) Care Plan Education needed on impact of smoking on wound No Chelsey Ravi RN Decrease Wound Volume by X% by date (in notes) Care Plan Education needed on impact of smoking on wound No Chelsey Ravi RN Patient and Caregiver Understand Wound Care Education Care Plan Education needed related to ulceration/compr omised skin integrity. No Chelsey Ravi RN Interventions Care Plan Interventions Intervention Entry Date Outcome Provide caregiver with wound care procedure information 10/01/2024 Educate caregiver on proper wound care procedures 10/01/2024 Give provider list of wound care supplies 10/01/2024 Refill wound care supplies 10/01/2024 Send Wound Care Supplies 10/01/2024 Give provider list of wound care supplies 10/01/2024 Refill wound care supplies 10/01/2024 Send Wound Care Supplies 10/01/2024 Provide caregiver with wound care procedure information 10/01/2024 Educate caregiver on proper wound care procedures 10/01/2024 Document patient eligibility for HBO 10/01/2024 Assess patient for HBO treatment 10/01/2024 Record wound depth 10/01/2024 Record total wound area 10/01/2024 Measure wound progress 10/01/2024 Create an action plan identifying patient strengths and supports 10/01/2024 Establish quit date with patient 10/01/2024 Discuss prior cessation attempts 10/01/2024 Discuss preferred method of cessation and plan 10/01/2024 Discuss barriers to smoking cessation 10/01/2024 Discuss smoking status with patient 10/01/2024 Create an action plan identifying patient strengths and supports 10/01/2024 Establish quit date with patient 10/01/2024 Discuss prior cessation attempts 10/01/2024 Discuss preferred method of cessation and plan 10/01/2024 Discuss barriers to smoking cessation 10/01/2024 Discuss smoking status with patient 10/01/2024 Provide caregiver with wound care procedure information 10/01/2024 Educate caregiver on proper wound care procedures 10/01/2024 Document patient eligibility for HBO 10/01/2024 Assess patient for HBO treatment 10/01/2024 Record wound depth 10/01/2024 Record total wound area 10/01/2024 Measure wound progress 10/01/2024 Provide caregiver with wound care procedure information 10/01/2024 Educate caregiver on proper wound care procedures 10/01/2024 Document patient eligibility for HBO 10/01/2024 Assess patient for HBO treatment 10/01/2024 Record wound depth 10/01/2024 Record total wound area 10/01/2024 Measure wound progress 10/01/2024 Provide caregiver with wound care procedure information 10/01/2024 Educate caregiver on proper wound care procedures 10/01/2024 Document patient eligibility for HBO 10/01/2024 Assess patient for HBO treatment 10/01/2024 Record wound depth 10/01/2024 Record total wound area 10/01/2024 Measure wound progress 10/01/2024 Provide caregiver with wound care procedure information 10/01/2024 Educate caregiver on proper wound care procedures 10/01/2024 Give provider list of wound care supplies 10/01/2024 Refill wound care supplies 10/01/2024 Send Wound Care Supplies 10/01/2024 Give provider list of wound care supplies 10/01/2024 Refill wound care supplies 10/01/2024 Send Wound Care Supplies 10/01/2024 Provide caregiver with wound care procedure information 10/01/2024 Educate caregiver on proper wound care procedures 10/01/2024 Document patient eligibility for HBO 10/01/2024 Assess patient for HBO treatment 10/01/2024 Record wound depth 10/01/2024 Record total wound area 10/01/2024 Measure wound progress 10/01/2024 Related Goals and Interventions Goal Associated Intervent ions Decrease Wound Volume by X% by date (in notes) Give provider list of wound care supplie s; Refill wound care supplies; Send Wound Care Supplies; Provide caregiver with wound care procedure information; Educate caregiver on proper wound care procedures; Document patient eligibility for HBO; Assess patient for HBO treatment; Record wound depth; Record total wound area; Measure wound progress Patient and Caregiver Unders tand Wound Care Education Provide caregiver with wound care proced ure information; Educate caregiver on proper wound care procedures; Give provider list of wound care supplies; Refill wound care supplies; Send Wound Care Supplies Wound volume breakdown reduc ed by X% by week 4 Provide caregiver with wound care proced ure information; Educate caregiver on proper wound care procedures; Document patient eligibility for HBO; Assess patient for HBO treatment; Record wound depth; Record total wound area; Measure wound progress Wound volume breakdown reduc ed by X% by week 8 Provide caregiver with wound care proced ure information; Educate caregiver on proper wound care procedures; Document patient eligibility for HBO; Assess patient for HBO treatment; Record wound depth; Record total wound area; Measure wound progress Wound volume breakdown reduc ed by X% by week 12 Provide caregiver with wound care proced ure information; Educate caregiver on proper wound care procedures; Document patient eligibility for HBO; Assess patient for HBO treatment; Record wound depth; Record total wound area; Measure wound progress Quit using tobacco (cigarett es, smokeless, etc) Create an action plan identifying patien t strengths and supports; Establish quit date with patient; Discuss prior cessation attempts; Discuss preferred method of cessation and plan; Discuss barriers to smoking cessation; Discuss smoking status with patient Reduce tobacco use (cigarett es, smokeless, etc) Create an action plan identifying patien t strengths and supports; Establish quit date with patient; Discuss prior cessation attempts; Discuss preferred method of cessation and plan; Discuss barriers to smoking cessation; Discuss smoking status with patient Decrease Wound Volume by X% by date (in notes) Give provider list of wound care supplie s; Refill wound care supplies; Send Wound Care Supplies; Provide caregiver with wound care procedure information; Educate caregiver on proper wound care procedures; Document patient eligibility for HBO; Assess patient for HBO treatment; Record wound depth; Record total wound area; Measure wound progress Patient and Caregiver Unders tand Wound Care Education Provide caregiver with wound care proced ure information; Educate caregiver on proper wound care procedures; Give provider list of wound care supplies; Refill wound care supplies; Send Wound Care Supplies
[2025-03-25 14:03] VITALS: BP 100/53; PULSE 63; RESP 18; TEMP 36.6; O2SAT 95
[2025-03-25 15:25] LABS: Reflex Lactate? Lactic Acid Added
--- NOTE | 2025-03-25 15:32 | PHA.MEDREC ---
Addendum entered by Brandi Delgado RPh 03/25/25 16:20: Confirmed with patient he is taking losartan 50 mg daily. MED REC REVIEWED BY [facility] Original Note: Pharmacy Consult ? Medication Reconciliation Pharmacy has completed the medication reconciliation. Spoke with pt and pt spouse at bedside and they confirmed the pt medications.
[2025-03-25 15:54] VITALS: BP 116/57; PULSE 65; RESP 18; O2SAT 98
[2025-03-25 16:14] LABS: ~Lactic Acid-LAB USE ONLY 2.2 mmol/L (0.5-2.0)
--- NOTE | 2025-03-25 16:14 | PM.IMHP ---
History of Present Illness Date of Service: 03/25/25 Attending physician on admission: Janeth Sen Chief Complaint: Urinary frequency Miguel Cagle is a 70 years old man with past medical history significant for obesity, obstructive sleep apnea on BiPAP, diabetes on metformin and glipizide, hypertension and hyperlipidemia presents to the emergency department to receive IV antibiotic therapy for urinary tract infection with Pseudomonas aeruginosa sensitive to Zosyn, ceftazidime, cefepime and amikacin. Urine culture was obtained 3 days ago (March). He was taking Macrobid since . He has been experiencing urinary frequency and straining. He has been experiencing chills and night sweats but no fever. He denied any abdominal pain, nausea, vomiting, diarrhea or headache. He denied any acute cardiopulmonary. He did not report tobacco smoking, alcohol abuse or illicit drug use. In the ED, he was found to have stable vital signs. Blood workup showed leukocytosis of 16.8. Hemoglobin is 13.4 and platelets 232. There are no significant electrolyte imbalances. Glucose 235. There is lactic acidosis, that has been improving 2.8 ---> 2.2. LFTs are normal. ED tx: NS 1 L bolus, Zosyn 4.5 g IV Review of Systems Review of Systems: All 12 systems were reviewed and normal except as noted in HPI. [facility] Medical History Diabetic foot ulcer Overweight Gout Hypertension Diabetes Social History Household Members: Spouse Housing: House Do you presently have visiting nurse or other home services: No Patient Tobacco Use Status: Former Tobacco user Tobacco use type: Cigarette Smoked in Last 30 Days: No Use of substances other than those prescribed or required for medical reasons: No Advance Directives: No Advance Directives Information Provided: Yes Do you have a plan to hurt others: No Plan service: No Meds Allergies Allergy/AdvReac Type Severity Reaction Status Date / Time cephalexin (From KEFLEX) Allergy Mild HIVES Verified 03/25/25 12:26 vancomycin Allergy TINGLES on Verified 03/25/25 12:26 head Active Medications: Current Medications Acetaminophen (Acetaminophen 325 Mg Tablet) 975 mg PO Q6H PRN PRN Reason: Pain, Mild 1-3,fever,headache Allopurinol (Allopurinol 300 Mg Tablet) 300 mg PO DAILY [facility] Atorvastatin Calcium (Atorvastatin Calcium 10 Mg Tablet) 10 mg PO DAILY [facility] Gabapentin (Gabapentin 600 Mg Tablet) 600 mg PO BID [facility] Glipizide (Glipizide Xl 10 Mg Tab.Er.24) 10 mg PO BID [facility] Lactated Ringer's (Lr) 1,000 mls @ 125 mls/hr IVCONT .Q8H [facility] Stop: 03/25/25 22:44 Piperacillin Sod/Tazobactam (Sod 3.375 gm/ Sodium Chloride) 50 mls @ 100 mls/hr IV Q6H [facility] Losartan Potassium (Losartan Potassium 25 Mg Tablet) 25 mg PO DAILY [facility]; Protocol Metformin HCl (Metformin Hcl Er 500 Mg Tab.Er.24h) 1,000 mg PO BID [facility] Metoprolol Succinate (Metoprolol Succinate Er 50 Mg Tab.Er.24h) 50 mg PO DAILY [facility]; Protocol Non-Formulary Medication (Aspirin) 81 mg PO DAILY [facility] Non-Formulary Medication (Diazepam) 5 mg PO BEDTIME PRN PRN Reason: sleep Non-Formulary Medication (Calcium Carbonate-Vitamin D3) 1 tab PO DAILY [facility] Non-Formulary Medication (Diclofenac Sodium) 100 mg PO DAILY [facility] Oxycodone HCl (Oxycodone Hcl Immed Release 5 Mg Tablet) 10 mg PO BID PRN PRN Reason: one twice a day Sodium Chloride (0.9 % Sodium Chloride Flush 3 Ml Syringe) 3 ml IVFLUSH QSHIFT [facility] Home Medications ?Medication ?Instructions ?Recorded ?Confirmed ?Last Taken ?Type allopurinol 300 mg tablet 300 mg PO DAILY 03/31/24 03/25/25 03/25/25 History atorvastatin 10 mg tablet 10 mg PO DAILY 03/31/24 03/25/25 03/25/25 History calcium 600 mg (as 1 tab PO DAILY 03/31/24 03/25/25 03/25/25 History carbonate)-vitamin D3 5 mcg (200 unit) tablet diclofenac sodium 100 mg 100 mg PO DAILY 03/31/24 03/25/25 03/25/25 History tablet,extended release 24 hr gabapentin 600 mg tablet 600 mg PO BID 03/31/24 03/25/25 03/25/25 History glipizide 10 mg tablet, extended 10 mg PO BID 07/03/25/25 03/25/25 History release 24 hr losartan 25 mg tablet 50 mg PO DAILY 03/31/24 03/25/25 03/25/25 History metformin 500 mg tablet,extended 1,000 mg PO BID 03/31/24 03/25/25 03/25/25 History release 24 hr metoprolol succinate 50 mg 50 mg PO DAILY 03/31/24 03/25/25 03/25/25 History tablet,extended release 24 hr acetaminophen 500 mg tablet 1,000 mg PO BEDTIME PRN Pain 03/25/25 03/25/25 Unknown History aspirin 81 mg tablet 81 mg PO DAILY 03/25/25 03/25/25 03/25/25 History Physical Exam Vital Signs and Narrative: Vital Signs: Last Vital Signs Temp 97.8 F 03/25/25 14:03 Pulse 65 03/25/25 15:54 Resp 18 03/25/25 15:54 BP 116/57 L 03/25/25 15:54 Pulse Ox 98 03/25/25 15:54 O2 Del Method Room Air 03/25/25 15:54 BMI result Body Mass Index 44.6 Constitutional - Awake and Alert, No apparent distress. Obese. Cooperative. HEENT - PER, EOMI Heart - RRR, No murmurs. Lungs - Normal lung expansion, Normal respiratory effort, No respiratory distress, CTA bilaterally Abdomen - NT / ND; +BS; No rebound or guarding Extremities - no calf tenderness bilaterally, no swelling Musculoskeletal - Normal inspection, normal ROM Skin - Warm/Dry. No pallor, no jaundice. Neurological - Alert & oriented x3. Moving all extremities spontaneously. Normal speech. Psychological - Appropriate affect Results Labs 03/25/25 12:53 03/25/25 12:53 Labs: Laboratory Results - last 24 hr 03/25/25 03/25/25 12:53 13:21 MCV 89.6 MCH 31.7 MCHC 35.4 RDW 13.9 Plt Count 232 MPV 10.6 Immature Gran % (Auto) 0.4 Neut % (Auto) 83.1 H Lymph % (Auto) 5.9 L Tift % (Auto) 6.7 Eos % (Auto) 3.5 Baso % (Auto) 0.4 Lymph # (Auto) 1.0 L Tift # (Auto) 1.1 Eos # (Auto) 0.6 H Baso # (Auto) 0.1 Abs Immat Gran (auto) 0.07 H Absolute Neuts (auto) 13.9 H Absolute Nucleated RBC 0.000 Nucleated RBC % (auto) 0.0 Anion Gap 15 Estim Creat Clear Calc 79.1 Estimated GFR 51 Random Glucose 235 H Lactic Acid 2.8 H* Calcium 9.2 Magnesium 2.0 Total Bilirubin 0.7 Direct Bilirubin 0.3 AST 22 ALT 26 Alkaline Phosphatase 82 Total Protein 7.0 Albumin 4.4 Assessment and Plan (1) Acute UTI: Status: Acute (2) Acute lactic acidosis: Status: Acute Plan Miguel Cagle is a 70 y/o man presents with Urinary tract infection secondary to Pseudomonas aeruginosa, failed outpatient treatment. Continue throughout Zosyn 3.35 g IV every 6 hours. Urine and blood cultures obtained -will follow results. Acute lactic acidosis, secondary to metformin; resolving after receiving 1 L of normal saline. Hold metformin. Essential hypertension. Continue metoprolol and losartan. Hyperlipidemia. Continue atorvastatin. Type 2 diabetes mellitus. BG checks before meals at bedtime. Continue glipizide. Metformin on hold due to lactic acidosis. Insulin sliding scale. Diabetic diet. BUDDY. Nocturnal BPAP (will use home device). Gout. Continue allopurinol. Chronic pain. Continue oxycodone and gabapentin. Anxiety. Continue diazepam as needed. Morbid obesity. BMI 44.6 kg/m2. Weight loss. Code status: Full DVT prophylaxis: SCDs. Encourage early ambulation. Patient will need hospitalization for at least 2 midnights for UTI treatment with IV antibiotics as the patient failed outpatient treatment in the setting of multiple medical comorbidities. Quality Stroke Does the patient have a stroke diagnosis?: No VTE Prior VTE?: No VTE Risk Level:: Medical - moderate - high VTE Device Contraindication: N/A - Device Ordered VTE Drug Contraindication: Treatment Not Indicated
[2025-03-25 16:19] LABS: Reflex Lactate? 2 N
[2025-03-25 16:19] LABS: Cancel Lactic Acid Canceled
[2025-03-25] MEDS: Lactated Ringers 1,000 ML 125 ML IVCONT (16:22)
[2025-03-25 16:58] VITALS: BMI 44.4
[2025-03-25 17:10] LABS: Glucose, Whole Blood 156 mg/dL (60-115)
[2025-03-25 17:12] VITALS: BP 133/63; PULSE 61; RESP 18; TEMP 36.2; O2SAT 98
[2025-03-25 17:50] LABS: Appearance Urine Turbid; Glucose Urine UA 100 mg/dL (Negative); PH 6.0 (5.0-9.0); Specific Gravity - Urine 1.010 (1.005-1.025); UMIC TRIGGER UACC YES
[2025-03-25 18:21] LABS: UACC Culture Trigger YES
[2025-03-25 19:47] VITALS: BP 102/56; PULSE 66; RESP 16; TEMP 36.6; O2SAT 96
[2025-03-25 20:01] LABS: Glucose, Whole Blood 194 mg/dL (60-115)
[2025-03-25] MEDS: glipiZIDE XL 10 MG TAB.ER.24 PO (20:17)
[2025-03-25 22:53] VITALS: BP 121/58; PULSE 69; RESP 16; TEMP 36.7; O2SAT 97
[2025-03-26] MEDS: 0.9 % Sodium Chloride Flush 3 ML SYRINGE IVFLUSH ×2 (01:05→21:48)
[2025-03-26 03:37] VITALS: BP 132/67; PULSE 62; RESP 20; TEMP 36.1; O2SAT 100
[2025-03-26 06:00] LABS: MANUAL DIFF FLAG NO
[2025-03-26 06:14] LABS: Hematocrit 34.3 % (42.0-52.0); Hemoglobin 11.9 g/dl (14.0-18.0); Imm Gran Abs Auto 0.07 X10*3/uL (0.00-0.03); Imm Gran Pct Auto 0.8 % (0.0-0.4); Lymphocytes Absolute Auto 1.1 X10*3/uL (1.2-4.9); Mean Corpuscular HGB Conc 34.7 g/dl (31.0-36.0); Mean Corpuscular Hemoglobin 31.2 pg (27.0-33.0); Mean Corpuscular Volume 89.8 fL (80.0-98.0); NRBC Abs Auto 0.000 X10*3/uL (0.0-0.012); NRBC Pct Auto 0.0 /100WBC (0.0-0.2); Platelet Count 224 X10*3/uL (160-400); Red Blood Count 3.82 X10*6/uL (4.60-5.80); White Blood Count 9.3 X10*3/uL (4.8-10.8)
[2025-03-26 06:17] LABS: Anion Gap 12 (12-20); Blood Urea Nitrogen 10 mg/dL (9-16); Calcium 8.8 mg/dL (8.4-10.2); Carbon Dioxide 24 mmol/L (22-29); Chloride 105 mmol/L (96-108); Creatinine Clr Calc Pharmacy 118.4; Estimated Glomerular Filt Rate > 60; Potassium 4.1 mmol/L (3.3-5.1); Sodium 137 mmol/L (135-145)
[2025-03-26 07:51] LABS: Glucose, Whole Blood 208 mg/dL (60-115)
[2025-03-26 07:52] VITALS: BP 132/63; PULSE 68; RESP 17; TEMP 36.2; O2SAT 97
[2025-03-26] MEDS: Aspirin Enteric Coated 81 MG TABLET.DR PO (08:02)
[2025-03-26] MEDS: Calcium + Vitamin D 250 MG TABLET 500 MG PO (08:03)
[2025-03-26] MEDS: Diclofenac Sodium Delayed Rel 50 MG TABLET.DR 100 MG PO (08:03)
[2025-03-26] MEDS: Metoprolol Succinate ER 50 MG TAB.ER.24H PO (08:03)
[2025-03-26] MEDS: oxyCODONE HCl Immed Release 5 MG TABLET 10 MG PO ×2 (08:12→19:59)
[2025-03-26 11:30] LABS: Glucose, Whole Blood 248 mg/dL (60-115)
[2025-03-26 12:00] VITALS: BP 135/81; PULSE 73; RESP 18; TEMP 36.3; O2SAT 93
--- NOTE | 2025-03-26 14:45 | HO.PM.IMPN ---
Subjective Subjective Date of Service: 03/26/25 Interval History: Seen and examined this morning Follow-up for Pseudomonas UTI Patient reports dysuria, no abdominal pain, nausea, vomiting Review of Systems Review of Systems: Yes all other systems are reviewed and are negative Constitutional Constitutional: Denies chills and Denies fever(s) Physical Exam Vital Signs: Vital Signs: Last Vital Signs Temp 97.3 F 03/26/25 12:00 Pulse 73 03/26/25 12:00 Resp 18 03/26/25 12:00 BP 135/81 03/26/25 12:00 Pulse Ox 93 03/26/25 12:00 O2 Del Method Room Air 03/26/25 12:00 BMI result Body Mass Index 44.4 Const: General: cooperative, comfortable, no acute distress, alert and awake Nutritional Appearance: obese Orientation/consciousness: patient oriented x3 Resp: Effort & Inspection: normal respiratory effort, able to speak in complete sentences, no respiratory distress and no use of accessory muscles Cardio: Rate: regular rate GI: Inspection: No distended Palpation (GI): Soft to palpation and nontender Neuro: General: patient oriented x3 Objective Data Active Medications Acetaminophen (Acetaminophen 325 Mg Tablet) 975 mg PO Q6H PRN PRN Reason: Pain, Mild 1-3,fever,headache Allopurinol (Allopurinol 300 Mg Tablet) 300 mg PO DAILY [facility] Last Admin: 03/26/25 08:03 Dose: 300 mg Documented By: AGGIE Aspirin (Aspirin Enteric Coated 81 Mg Tablet.) 81 mg PO DAILY [facility] Last Admin: 03/26/25 08:02 Dose: 81 mg Documented By: AGGIE Atorvastatin Calcium (Atorvastatin Calcium 10 Mg Tablet) 10 mg PO DAILY [facility] Last Admin: 03/26/25 08:02 Dose: 10 mg Documented By: AGGIE Calcium Carbonate/Cholecalciferol (Calcium + Vitamin D 250 Mg Tablet) 500 mg PO DAILY [facility] Last Admin: 03/26/25 08:03 Dose: 500 mg Documented By: AGGIE Dextrose (Dextrose 50 % 25 Gm/50 Ml Syringe) 25 gm IVPUSH Q15M PRN; Protocol PRN Reason: per Hypoglycemia Standing Ord. Diazepam (Diazepam 5 Mg Tablet) 5 mg PO BEDTIME PRN PRN Reason: sleep Diclofenac Sodium (Diclofenac Sodium Delayed Rel 50 Mg Tablet.) 100 mg PO DAILY [facility] Last Admin: 03/26/25 08:03 Dose: 100 mg Documented By: AGGIE Gabapentin (Gabapentin 600 Mg Tablet) 600 mg PO BID [facility] Last Admin: 03/26/25 08:03 Dose: 600 mg Documented By: AGGIE Glipizide (Glipizide Xl 10 Mg Tab.Er.24) 10 mg PO BID [facility] On Hold: 03/26/25 07:07 Last Admin: 03/25/25 20:17 Dose: 10 mg Documented By: MIREYA Glucose (Glucose Gel 15 Gm Gel..Gram.) 15 gm PO Q15M PRN; Protocol PRN Reason: per Hypoglycemia Standing Ord. Piperacillin Sod/Tazobactam (Sod 3.375 gm/ Sodium Chloride) 50 mls @ 100 mls/hr IV Q6H [facility] Last Admin: 03/26/25 13:54 Dose: 100 mls/hr Documented By: AGGIE Insulin Human Lispro (Insulin Lispro 100 Unit/Ml 3 Ml Vial) 0 unit SUBCUT QIDACHS [facility]; Protocol Last Admin: 03/26/25 11:46 Dose: 4 unit Documented By: AGGIE Losartan Potassium (Losartan Potassium 50 Mg Tablet) 50 mg PO DAILY [facility]; Protocol Last Admin: 03/26/25 08:03 Dose: 50 mg Documented By: AGGIE Metoprolol Succinate (Metoprolol Succinate Er 50 Mg Tab.Er.24h) 50 mg PO DAILY [facility]; Protocol Last Admin: 03/26/25 08:03 Dose: 50 mg Documented By: AGGIE Oxycodone HCl (Oxycodone Hcl Immed Release 5 Mg Tablet) 10 mg PO BID PRN PRN Reason: Pain, Severe (Pain Scale 7-10) Last Admin: 03/26/25 08:12 Dose: 10 mg Documented By: AGGIE Sodium Chloride (0.9 % Sodium Chloride Flush 3 Ml Syringe) 3 ml IVFLUSH QSHIFT [facility] Last Admin: 03/26/25 07:54 Dose: Not Given Documented By: AGGIE Non-Admin Reason: Previously Administered Labs 03/26/25 05:30 03/26/25 05:30 Labs: Laboratory Results - last 24 hr 0703/25/25 03/25/25 15:43 16:57 17:40 MCV MCH MCHC RDW Plt Count MPV Immature Gran % (Auto) Neut % (Auto) Lymph % (Auto) Adams % (Auto) Eos % (Auto) Baso % (Auto) Lymph # (Auto) Adams # (Auto) Eos # (Auto) Baso # (Auto) Abs Immat Gran (auto) Absolute Neuts (auto) Absolute Nucleated RBC Nucleated RBC % (auto) Anion Gap Estim Creat Clear Calc Estimated GFR POC Glucose 156 H Random Glucose Lactic Acid F/U @ 2Hr 2.2 H* Calcium Urine Color Yellow Urine Appearance Turbid Urine pH 6.0 Ur Specific [place] 1.010 Urine Protein 30 (1+) H Urine Glucose (UA) 100 H Urine Ketones Negative Urine Blood Moderate (2+) H Urine Nitrite Positive H Ur Leukocyte Esterase Large (3+) H Urine RBC 0-2 Urine WBC >50 H Ur Squamous Epith Cells 3-5 Urine Bacteria Trace Hyaline Casts 6-10 03/25/25 03/26/25 03/26/25 19:49 05:30 07:47 MCV 89.8 MCH 31.2 MCHC 34.7 RDW 13.9 Plt Count 224 MPV 11.0 Immature Gran % (Auto) 0.8 H Neut % (Auto) 66.6 Lymph % (Auto) 11.7 L Adams % (Auto) 10.4 Eos % (Auto) 10.1 H Baso % (Auto) 0.4 Lymph # (Auto) 1.1 L Adams # (Auto) 1.0 Eos # (Auto) 0.9 H Baso # (Auto) 0.0 Abs Immat Gran (auto) 0.07 H Absolute Neuts (auto) 6.2 Absolute Nucleated RBC 0.000 Nucleated RBC % (auto) 0.0 Anion Gap 12 Estim Creat Clear Calc 118.4 Estimated GFR > 60 POC Glucose 194 H 208 H Random Glucose 182 H Lactic Acid F/U @ 2Hr Calcium 8.8 Urine Color Urine Appearance Urine pH Ur Specific [place] Urine Protein Urine Glucose (UA) Urine Ketones Urine Blood Urine Nitrite Ur Leukocyte Esterase Urine RBC Urine WBC Ur Squamous Epith Cells Urine Bacteria Hyaline Casts 03/26/25 11:26 MCV MCH MCHC RDW Plt Count MPV Immature Gran % (Auto) Neut % (Auto) Lymph % (Auto) Adams % (Auto) Eos % (Auto) Baso % (Auto) Lymph # (Auto) Adams # (Auto) Eos # (Auto) Baso # (Auto) Abs Immat Gran (auto) Absolute Neuts (auto) Absolute Nucleated RBC Nucleated RBC % (auto) Anion Gap Estim Creat Clear Calc Estimated GFR POC Glucose 248 H Random Glucose Lactic Acid F/U @ 2Hr Calcium Urine Color Urine Appearance Urine pH Ur Specific [place] Urine Protein Urine Glucose (UA) Urine Ketones Urine Blood Urine Nitrite Ur Leukocyte Esterase Urine RBC Urine WBC Ur Squamous Epith Cells Urine Bacteria Hyaline Casts Microbiology Microbiology Results: Microbiology 03/25/25 Unknown Urine Culture - Preliminary Urine clean catch - Clean Catch Midstream Culture too young to evaluate. Assessment and Plan (1) Acute UTI: Status: Acute Plan Miguel Cagle is a 70 y/o male diagnosed with UTI as an outpatient, sent in to the emergency department when urine culture grew Pseudomonas sensitive only to IV antibiotics Urinary tract infection secondary to Pseudomonas aeruginosa Continue throughout Zosyn 3.35 g IV every 6 hours - Urine and blood cultures obtained -will follow results. Acute lactic acidosis, secondary to metformin resolving after receiving 1 L of normal saline. Hold metformin. Essential hypertension. Continue metoprolol and losartan. Hyperlipidemia. Continue atorvastatin. Type 2 diabetes mellitus. BG checks before meals at bedtime hold glipizide, Metformin Insulin sliding scale. Diabetic diet. BUDDY. Nocturnal BPAP (will use home device). Gout. Continue allopurinol. Chronic pain. Continue oxycodone and gabapentin. Anxiety. Continue diazepam as needed. Morbid obesity. BMI 44.6 kg/m2. Weight loss. Code status: Full DVT prophylaxis: SCDs. Encourage early ambulation. Requires ongoing inpatient stay for UTI treatment with IV antibiotics as the patient failed outpatient treatment in the setting of multiple medical comorbidities. Quality Stroke Does the patient have a stroke diagnosis?: No VTE Prior VTE?: No VTE Risk Level:: Medical - moderate - high VTE Device Contraindication: N/A - Device Ordered VTE Drug Contraindication: Treatment Not Indicated
[2025-03-26 15:37] VITALS: BP 153/72; PULSE 68; RESP 18; TEMP 36.5; O2SAT 96
[2025-03-26 16:31] LABS: Glucose, Whole Blood 131 mg/dL (60-115)
[2025-03-26 19:39] VITALS: BP 114/60; PULSE 68; RESP 18; TEMP 36.8; O2SAT 95
[2025-03-26 20:08] LABS: Glucose, Whole Blood 210 mg/dL (60-115)
[2025-03-26 23:21] VITALS: BP 128/60; PULSE 66; RESP 16; TEMP 36; O2SAT 96
[2025-03-27 03:32] VITALS: BP 136/69; PULSE 58; RESP 18; TEMP 36.3; O2SAT 98
[2025-03-27 07:24] LABS: Glucose, Whole Blood 209 mg/dL (60-115)
[2025-03-27 07:43] VITALS: BP 140/64; PULSE 70; RESP 18; TEMP 36.8; O2SAT 98
--- NOTE | 2025-03-27 08:03 | MHC.CM.PN ---
PT REPORTS HE LIVES WITH HIS AND IS INDEPENDENT WITH CARE HE USES A WALKER TO AMBULATE AND HAS NO SERVICES COPY OF HCP REQUESTED PCP: JOB LOPEZ [facility]MM DELIVERED DCP: HOME NO SERVICES VIA PRIVATE TRANSPORT
[2025-03-27] MEDS: Diclofenac Sodium Delayed Rel 50 MG TABLET.DR 100 MG PO (08:24)
[2025-03-27] MEDS: Metoprolol Succinate ER 50 MG TAB.ER.24H PO (08:25)
[2025-03-27] MEDS: Calcium + Vitamin D 250 MG TABLET 500 MG PO (08:26)
[2025-03-27] MEDS: Aspirin Enteric Coated 81 MG TABLET.DR PO (08:26)
[2025-03-27] MEDS: 0.9 % Sodium Chloride Flush 3 ML SYRINGE IVFLUSH ×3 (08:34→19:43)
[2025-03-27 11:29] LABS: Glucose, Whole Blood 270 mg/dL (60-115)
[2025-03-27 12:05] VITALS: BP 152/67; PULSE 69; RESP 18; TEMP 36.3; O2SAT 96
--- NOTE | 2025-03-27 14:20 | P.PNIM_ITS ---
Subjective Subjective Date of Service: 03/27/25 Interval History: Seen and examined this morning Follow-up for Pseudomonas UTI Patient denies fever chills no abdominal pain. Review of Systems All 12 systems were reviewed and normal except as noted in HPI. Constitutional Constitutional: Denies chills and Denies fever(s) Eyes Eyes: Denies blurry vision ENT Ears, Nose, Mouth, and Throat: Denies vertigo and Denies dizziness Cardiovascular Cardiovascular: Denies chest pain and Denies dyspnea on exertion Respiratory Respiratory: Denies cough and Denies dyspnea on exertion Gastrointestinal Gastrointestinal: Denies abdominal pain, Denies nausea and Denies vomiting Genitourinary Genitourinary: Reports difficulty urinating, Reports nocturia, Reports urinary frequency, Reports urinary hesitancy and Reports urinary urgency Musculoskeletal Musculoskeletal: Denies back pain Integumentary/Breasts Skin/Breast: Denies rash Neurologic Neurologic: Denies vertigo and Denies dizziness Physical Exam 2 Vital Signs: Vital Signs: Last Vital Signs Temp 97.4 F 03/27/25 12:05 Pulse 69 03/27/25 12:05 Resp 18 03/27/25 12:05 BP 152/67 H 03/27/25 12:05 Pulse Ox 96 03/27/25 12:05 O2 Del Method Room Air 03/27/25 12:05 BMI result Body Mass Index 44.4 Const: General: cooperative, comfortable, no acute distress, alert and awake Nutritional Appearance: obese Orientation/consciousness: patient oriented x3 Resp: Effort & Inspection: normal respiratory effort, able to speak in complete sentences, no respiratory distress and no use of accessory muscles Cardio: Rate: regular rate GI: Inspection: No distended Palpation (GI): Soft to palpation and nontender Neuro: General: patient oriented x3 Objective Data Active Medications Acetaminophen (Acetaminophen 325 Mg Tablet) 975 mg PO Q6H PRN PRN Reason: Pain, Mild 1-3,fever,headache Allopurinol (Allopurinol 300 Mg Tablet) 300 mg PO DAILY [facility] Last Admin: 03/27/25 08:26 Dose: 300 mg Documented By: DALE Aspirin (Aspirin Enteric Coated 81 Mg Tablet.) 81 mg PO DAILY [facility] Last Admin: 03/27/25 08:26 Dose: 81 mg Documented By: DALE Atorvastatin Calcium (Atorvastatin Calcium 10 Mg Tablet) 10 mg PO DAILY [facility] Last Admin: 03/27/25 08:25 Dose: 10 mg Documented By: DALE Calcium Carbonate/Cholecalciferol (Calcium + Vitamin D 250 Mg Tablet) 500 mg PO DAILY [facility] Last Admin: 03/27/25 08:26 Dose: 500 mg Documented By: DALE Dextrose (Dextrose 50 % 25 Gm/50 Ml Syringe) 25 gm IVPUSH Q15M PRN; Protocol PRN Reason: per Hypoglycemia Standing Ord. Diazepam (Diazepam 5 Mg Tablet) 5 mg PO BEDTIME PRN PRN Reason: sleep Diclofenac Sodium (Diclofenac Sodium Delayed Rel 50 Mg Tablet.) 100 mg PO DAILY [facility] Last Admin: 03/27/25 08:24 Dose: 100 mg Documented By: DALE Gabapentin (Gabapentin 600 Mg Tablet) 600 mg PO BID [facility] Last Admin: 03/27/25 08:25 Dose: 600 mg Documented By: DALE Glipizide (Glipizide Xl 10 Mg Tab.Er.24) 10 mg PO BID [facility] On Hold: 03/26/25 07:07 Last Admin: 03/25/25 20:17 Dose: 10 mg Documented By: MIREYA Glucose (Glucose Gel 15 Gm Gel..Gram.) 15 gm PO Q15M PRN; Protocol PRN Reason: per Hypoglycemia Standing Ord. Piperacillin Sod/Tazobactam (Sod 3.375 gm/ Sodium Chloride) 50 mls @ 100 mls/hr IV Q6H [facility] Last Infusion: 03/27/25 13:51 Dose: Infused Documented By: CARLOS A Insulin Human Lispro (Insulin Lispro 100 Unit/Ml 3 Ml Vial) 0 unit SUBCUT QIDACHS [facility]; Protocol Last Admin: 03/27/25 11:58 Dose: 6 unit Documented By: DALE Losartan Potassium (Losartan Potassium 50 Mg Tablet) 50 mg PO DAILY [facility]; Protocol Last Admin: 03/27/25 08:26 Dose: 50 mg Documented By: DALE Metoprolol Succinate (Metoprolol Succinate Er 50 Mg Tab.Er.24h) 50 mg PO DAILY [facility]; Protocol Last Admin: 03/27/25 08:25 Dose: 50 mg Documented By: DALE Oxycodone HCl (Oxycodone Hcl Immed Release 5 Mg Tablet) 10 mg PO BID PRN PRN Reason: Pain, Severe (Pain Scale 7-10) Last Admin: 03/26/25 19:59 Dose: 10 mg Documented By: ROSSANA Sodium Chloride (0.9 % Sodium Chloride Flush 3 Ml Syringe) 3 ml IVFLUSH QSHIFT [facility] Last Admin: 03/27/25 08:34 Dose: 3 ml Documented By: LEFEBVA Labs 03/26/25 05:30 03/26/25 05:30 Labs: Laboratory Results - last 24 hr 03/26/25 03/26/25 03/27/25 16:26 19:40 07:19 POC Glucose 131 H 210 H 209 H 03/27/25 11:17 POC Glucose 270 H Microbiology Microbiology Results: Microbiology 03/25/25 Unknown Urine Culture - Preliminary Urine clean catch - Clean Catch Midstream Culture in progress. 03/25/25 13:46 Blood Culture - Preliminary Blood - Venous No growth after 24 hours. 03/25/25 13:21 Blood Culture - Preliminary Blood - Venous No growth after 24 hours. Assessment and Plan (1) Acute UTI: Status: Acute Plan Miguel Cagle is a 70 y/o male diagnosed with UTI as an outpatient, sent in to the emergency department when urine culture grew Pseudomonas sensitive only to IV antibiotics Urinary tract infection White count resolved secondary to Pseudomonas aeruginosa Continue throughout Zosyn 3.35 g IV every 6 hours Outpatient cultures sensitive to Zosyn, ceftazidime, cefepime, amikacin (see ED provider note for culture results Started on Zosyn therefore we will continue for now but likely discharge home to complete course of cefepime due to least frequent dosing Urine and blood cultures obtained -will follow results. Acute lactic acidosis, secondary to metformin resolving after receiving 1 L of normal saline. Hold metformin. Essential hypertension. Continue metoprolol and losartan. Hyperlipidemia. Continue atorvastatin. Type 2 diabetes mellitus. BG checks before meals at bedtime hold glipizide, Metformin Insulin sliding scale. Diabetic diet. BUDDY. Nocturnal BPAP (will use home device). Gout. Continue allopurinol. Chronic pain. Continue oxycodone and gabapentin. Anxiety. Continue diazepam as needed. Morbid obesity. BMI 44.6 kg/m2. Weight loss. Code status: Full DVT prophylaxis: SCDs. Encourage early ambulation. Requires ongoing inpatient stay for UTI treatment with IV antibiotics as the patient failed outpatient treatment in the setting of multiple medical comorbidities. Quality Stroke Does the patient have a stroke diagnosis?: No VTE Prior VTE?: No VTE Risk Level:: Medical - moderate - high VTE Device Contraindication: N/A - Device Ordered VTE Drug Contraindication: Treatment Not Indicated
[2025-03-27 16:04] VITALS: BP 129/66; PULSE 66; TEMP 36.9; O2SAT 97
[2025-03-27 16:46] LABS: Glucose, Whole Blood 187 mg/dL (60-115)
[2025-03-27 19:30] VITALS: BP 150/68; PULSE 72; RESP 18; TEMP 37.1; O2SAT 97
[2025-03-27] MEDS: oxyCODONE HCl Immed Release 5 MG TABLET 10 MG PO (19:46)
[2025-03-27 20:35] LABS: Glucose, Whole Blood 186 mg/dL (60-115)
[2025-03-27 23:29] VITALS: BP 132/59; PULSE 62; RESP 18; TEMP 36.7; O2SAT 96
[2025-03-28] VITALS (7 sets, daily range): BP systolic 122–181; BP diastolic 61–87; PULSE 56–69; RESP 16–20; TEMP 36.1–36.8; O2SAT 93–98
[2025-03-28 07:21] LABS: Glucose, Whole Blood 214 mg/dL (60-115)
[2025-03-28] MEDS: 0.9 % Sodium Chloride Flush 3 ML SYRINGE IVFLUSH ×3 (07:52→20:40)
[2025-03-28] MEDS: Diclofenac Sodium Delayed Rel 50 MG TABLET.DR 100 MG PO (07:53)
[2025-03-28] MEDS: Aspirin Enteric Coated 81 MG TABLET.DR PO (07:55)
[2025-03-28] MEDS: Metoprolol Succinate ER 50 MG TAB.ER.24H PO (07:55)
[2025-03-28] MEDS: Calcium + Vitamin D 250 MG TABLET 500 MG PO (07:55)
[2025-03-28] MEDS: oxyCODONE HCl Immed Release 5 MG TABLET 10 MG PO ×2 (08:11→20:36)
[2025-03-28 11:26] LABS: Glucose, Whole Blood 253 mg/dL (60-115)
--- NOTE | 2025-03-28 15:33 | P.PNIM_ITS ---
Subjective Subjective Date of Service: 03/28/25 Interval History: Seen and examined this morning Follow-up for resistant Pseudomonas UTI No overnight events No fever, no chills. No abdominal pain Constitutional Constitutional: Denies chills and Denies fever(s) Physical Exam 2 Vital Signs: Vital Signs: Last Vital Signs Temp 96.9 F 03/28/25 11:35 Pulse 59 03/28/25 11:35 Resp 16 03/28/25 11:35 BP 160/72 H 03/28/25 11:40 Pulse Ox 97 03/28/25 11:35 O2 Del Method Room Air 03/28/25 11:35 BMI result Body Mass Index 44.4 Const: General: cooperative, comfortable, no acute distress, alert and awake Nutritional Appearance: obese Orientation/consciousness: patient oriented x3 Resp: Effort & Inspection: normal respiratory effort, able to speak in complete sentences, no respiratory distress and no use of accessory muscles Cardio: Rate: regular rate GI: Inspection: No distended Palpation (GI): Soft to palpation and nontender Neuro: General: patient oriented x3 Objective Data Active Medications Acetaminophen (Acetaminophen 325 Mg Tablet) 975 mg PO Q6H PRN PRN Reason: Pain, Mild 1-3,fever,headache Allopurinol (Allopurinol 300 Mg Tablet) 300 mg PO DAILY [facility] Last Admin: 03/28/25 07:55 Dose: 300 mg Documented By: DALE Aspirin (Aspirin Enteric Coated 81 Mg Tablet.) 81 mg PO DAILY [facility] Last Admin: 03/28/25 07:55 Dose: 81 mg Documented By: DALE Atorvastatin Calcium (Atorvastatin Calcium 10 Mg Tablet) 10 mg PO DAILY [facility] Last Admin: 03/28/25 07:54 Dose: 10 mg Documented By: DALE Calcium Carbonate/Cholecalciferol (Calcium + Vitamin D 250 Mg Tablet) 500 mg PO DAILY [facility] Last Admin: 03/28/25 07:55 Dose: 500 mg Documented By: DALE Dextrose (Dextrose 50 % 25 Gm/50 Ml Syringe) 25 gm IVPUSH Q15M PRN; Protocol PRN Reason: per Hypoglycemia Standing Ord. Diazepam (Diazepam 5 Mg Tablet) 5 mg PO BEDTIME PRN PRN Reason: sleep Diclofenac Sodium (Diclofenac Sodium Delayed Rel 50 Mg Tablet.) 100 mg PO DAILY [facility] Last Admin: 03/28/25 07:53 Dose: 100 mg Documented By: DALE Gabapentin (Gabapentin 600 Mg Tablet) 600 mg PO BID [facility] Last Admin: 03/28/25 07:55 Dose: 600 mg Documented By: DALE Glipizide (Glipizide Xl 10 Mg Tab.Er.24) 10 mg PO BID [facility] On Hold: 03/26/25 07:07 Last Admin: 03/25/25 20:17 Dose: 10 mg Documented By: MIREYA Glucose (Glucose Gel 15 Gm Gel..Gram.) 15 gm PO Q15M PRN; Protocol PRN Reason: per Hypoglycemia Standing Ord. Piperacillin Sod/Tazobactam (Sod 3.375 gm/ Sodium Chloride) 50 mls @ 100 mls/hr IV Q6H [facility] Last Infusion: 03/28/25 14:47 Dose: Infused Documented By: DALE Insulin Human Lispro (Insulin Lispro 100 Unit/Ml 3 Ml Vial) 0 unit SUBCUT QIDACHS [facility]; Protocol Last Admin: 03/28/25 11:36 Dose: 6 unit Documented By: DALE Losartan Potassium (Losartan Potassium 50 Mg Tablet) 50 mg PO DAILY [facility]; Protocol Last Admin: 03/28/25 07:55 Dose: 50 mg Documented By: DALE Metoprolol Succinate (Metoprolol Succinate Er 50 Mg Tab.Er.24h) 50 mg PO DAILY [facility]; Protocol Last Admin: 03/28/25 07:55 Dose: 50 mg Documented By: DALE Oxycodone HCl (Oxycodone Hcl Immed Release 5 Mg Tablet) 10 mg PO BID PRN PRN Reason: Pain, Severe (Pain Scale 7-10) Last Admin: 03/28/25 08:11 Dose: 10 mg Documented By: DALE Sodium Chloride (0.9 % Sodium Chloride Flush 3 Ml Syringe) 3 ml IVFLUSH QSHIFT [facility] Last Admin: 03/28/25 14:15 Dose: 3 ml Documented By: DALE Labs 03/26/25 05:30 03/26/25 05:30 Labs: Laboratory Results - last 24 hr 03/27/25 03/27/25 03/28/25 16:33 20:29 07:16 POC Glucose 187 H 186 H 214 H 03/28/25 11:21 POC Glucose 253 H Microbiology Microbiology Results: Microbiology 03/25/25 Unknown Urine Culture - Preliminary Urine clean catch - Clean Catch Midstream Gram negative hamida 03/25/25 13:46 Blood Culture - Preliminary Blood - Venous No growth after 48 hours. 03/25/25 13:21 Blood Culture - Preliminary Blood - Venous No growth after 48 hours. Assessment and Plan (1) Acute UTI: Status: Acute Plan Miguel Cagle is a 70 y/o male diagnosed with UTI as an outpatient, sent in to the emergency department when urine culture grew Pseudomonas sensitive only to IV antibiotics Urinary tract infection secondary to Pseudomonas aeruginosa Outpatient cultures sensitive to Zosyn, ceftazidime, cefepime, amikacin (see ED provider note for culture results) Started on Zosyn therefore we will continue for now has HIVES with cephalosporin repeat urine culture growing GNR - final culture results pending Blood cultures negative to date ID consult pending will likely need midline Acute lactic acidosis, secondary to metformin resolved with IVF Hold metformin. Essential hypertension. Continue metoprolol and losartan. Hyperlipidemia. Continue atorvastatin. Type 2 diabetes mellitus. BG checks before meals at bedtime hold glipizide, Metformin Insulin sliding scale. Diabetic diet. BUDDY. Nocturnal BPAP (will use home device). Gout. Continue allopurinol. Chronic pain. Continue oxycodone and gabapentin. Anxiety. Continue diazepam as needed. Morbid obesity. BMI 44.6 kg/m2. Weight loss. Code status: Full DVT prophylaxis: SCDs. Encourage early ambulation. Requires ongoing inpatient stay for UTI treatment with IV antibiotics as the patient failed outpatient treatment in the setting of multiple medical comorbidities. Quality Stroke Does the patient have a stroke diagnosis?: No VTE Prior VTE?: No VTE Risk Level:: Medical - moderate - high VTE Device Contraindication: N/A - Device Ordered VTE Drug Contraindication: Treatment Not Indicated
[2025-03-28 16:47] LABS: Glucose, Whole Blood 192 mg/dL (60-115)
[2025-03-28 20:44] LABS: Glucose, Whole Blood 222 mg/dL (60-115)
[2025-03-29 03:12] VITALS: BP 162/79; PULSE 56; RESP 20; TEMP 36.5; O2SAT 98
[2025-03-29] MEDS: Diclofenac Sodium Delayed Rel 50 MG TABLET.DR 100 MG PO (07:04)
[2025-03-29] MEDS: Aspirin Enteric Coated 81 MG TABLET.DR PO (07:04)
[2025-03-29] MEDS: Calcium + Vitamin D 250 MG TABLET 500 MG PO (07:05)
[2025-03-29] MEDS: oxyCODONE HCl Immed Release 5 MG TABLET 10 MG PO ×2 (07:05→20:18)
[2025-03-29 07:35] LABS: Glucose, Whole Blood 224 mg/dL (60-115)
[2025-03-29 07:45] VITALS: BP 143/65; PULSE 60; RESP 18; TEMP 36.2; O2SAT 95
[2025-03-29] MEDS: 0.9 % Sodium Chloride Flush 3 ML SYRINGE IVFLUSH ×2 (08:02→16:07)
--- NOTE | 2025-03-29 08:15 | HO.PM.IMPN ---
Subjective Subjective Date of Service: 03/29/25 Interval History: Patient was seen and examined. Follow up drug resistant Pseudomonas UTI. No overnight events. Denies any fever or chills, denies any abdominal pain or dysuria. Review of Systems Patient denies any shortness of breath, chest pain, dizziness, lightheadedness, fever, chills, dysuria. Physical Exam Exam: Exam: CONST: Alert and oriented x3, in NAD. Obese HEENT: Normocephalic, atraumatic, MMM RESP: Lungs clear, RRR even and regular HEART:RRR, S1, S2. no edema GI:Abdomen Soft NT, ND. + BS times four :Deferred SKIN: Warm dry and intact, no visible lesions or rashes NEURO: Moves all extremities, Speech clear PSYCH: Normal affect Vital Signs: Vital Signs: Last Vital Signs Temp 97.2 F 03/29/25 07:45 Pulse 60 03/29/25 07:45 Resp 18 03/29/25 07:45 BP 143/65 H 03/29/25 07:45 Pulse Ox 95 03/29/25 07:45 O2 Del Method Room Air 03/29/25 07:45 BMI result Body Mass Index 44.4 Objective Data Active Medications Acetaminophen (Acetaminophen 325 Mg Tablet) 975 mg PO Q6H PRN PRN Reason: Pain, Mild 1-3,fever,headache Allopurinol (Allopurinol 300 Mg Tablet) 300 mg PO DAILY [facility] Last Admin: 03/29/25 07:04 Dose: 300 mg Documented By: HYUN Aspirin (Aspirin Enteric Coated 81 Mg Tablet.) 81 mg PO DAILY [facility] Last Admin: 03/29/25 07:04 Dose: 81 mg Documented By: HYUN Atorvastatin Calcium (Atorvastatin Calcium 10 Mg Tablet) 10 mg PO DAILY [facility] Last Admin: 03/29/25 07:05 Dose: 10 mg Documented By: HYUN Calcium Carbonate/Cholecalciferol (Calcium + Vitamin D 250 Mg Tablet) 500 mg PO DAILY [facility] Last Admin: 03/29/25 07:05 Dose: 500 mg Documented By: HYUN Dextrose (Dextrose 50 % 25 Gm/50 Ml Syringe) 25 gm IVPUSH Q15M PRN; Protocol PRN Reason: per Hypoglycemia Standing Ord. Diazepam (Diazepam 5 Mg Tablet) 5 mg PO BEDTIME PRN PRN Reason: sleep Diclofenac Sodium (Diclofenac Sodium Delayed Rel 50 Mg Tablet.) 100 mg PO DAILY [facility] Last Admin: 03/29/25 07:04 Dose: 100 mg Documented By: HYUN Gabapentin (Gabapentin 600 Mg Tablet) 600 mg PO BID [facility] Last Admin: 03/29/25 07:05 Dose: 600 mg Documented By: HYUN Glipizide (Glipizide Xl 10 Mg Tab.Er.24) 10 mg PO BID [facility] On Hold: 03/26/25 07:07 Last Admin: 03/25/25 20:17 Dose: 10 mg Documented By: MIREYA Glucose (Glucose Gel 15 Gm Gel..Gram.) 15 gm PO Q15M PRN; Protocol PRN Reason: per Hypoglycemia Standing Ord. Piperacillin Sod/Tazobactam (Sod 3.375 gm/ Sodium Chloride) 50 mls @ 100 mls/hr IV Q6H [facility] Last Admin: 03/29/25 08:04 Dose: 100 mls/hr Documented By: DALE Insulin Human Lispro (Insulin Lispro 100 Unit/Ml 3 Ml Vial) 0 unit SUBCUT QIDACHS [facility]; Protocol Last Admin: 03/29/25 08:00 Dose: 4 unit Documented By: DALE Losartan Potassium (Losartan Potassium 50 Mg Tablet) 50 mg PO DAILY [facility]; Protocol Last Admin: 03/29/25 08:00 Dose: 50 mg Documented By: DALE Metoprolol Succinate (Metoprolol Succinate Er 50 Mg Tab.Er.24h) 50 mg PO DAILY [facility]; Protocol Last Admin: 03/28/25 07:55 Dose: 50 mg Documented By: DALE Oxycodone HCl (Oxycodone Hcl Immed Release 5 Mg Tablet) 10 mg PO BID PRN PRN Reason: Pain, Severe (Pain Scale 7-10) Last Admin: 03/29/25 07:05 Dose: 10 mg Documented By: HYUN Sodium Chloride (0.9 % Sodium Chloride Flush 3 Ml Syringe) 3 ml IVFLUSH QSHIFT [facility] Last Admin: 03/29/25 08:02 Dose: 3 ml Documented By: DALE Labs 03/29/25 12:04 03/29/25 12:04 Labs: Laboratory Results - last 24 hr 03/28/25 03/28/25 03/28/25 11:21 16:42 20:37 POC Glucose 253 H 192 H 222 H 03/29/25 07:21 POC Glucose 224 H Microbiology Microbiology Results: Microbiology 03/25/25 Unknown Urine Culture - Final Urine clean catch - Clean Catch Midstream Pseudomonas aeruginosa Assessment and Plan (1) Pseudomonas aeruginosa infection: Status: Acute Plan 70 y/o male diagnosed with UTI as an outpatient, sent in to the emergency department when urine culture grew Pseudomonas sensitive only to IV antibiotics. Urinary tract infection secondary to Pseudomonas aeruginosa Repeat culture demonstrates 50,000-100,000 cfu/ml Cultures sensitive to Zosyn, Getamycin, Cefepime ID recommends Zosyn for 14 day course started 03/25/25 Will need midline Blood cultures negative to date Renal function stable. Acute lactic acidosis, secondary to metformin Resolved with IVF Hold metformin Essential hypertension. Continue Metoprolol and losartan. Hyperlipidemia. Continue atorvastatin. Type 2 diabetes mellitus. BG checks before meals at bedtime Hold glipizide, Metformin (Home dosing Metformin 1000 mgs BID and Glipizide ER 10 mgs BID) Continue Insulin sliding scale coverage . Diabetic diet. BUDDY Nocturnal BPAP (will use home device). Gout. Continue allopurinol. Chronic pain. Continue oxycodone and gabapentin. Anxiety. Continue diazepam as needed, takes at night. Morbid obesity BMI 44.6 kg/m2. Weight loss. Code status: Full DVT prophylaxis: SCDs. Encourage early ambulation. Requires ongoing inpatient stay for UTI treatment with IV antibiotics as the patient failed outpatient treatment in the setting of multiple medical comorbidities. Quality Stroke Does the patient have a stroke diagnosis?: No VTE Prior VTE?: No VTE Risk Level:: Medical - moderate - high VTE Device Contraindication: N/A - Device Ordered VTE Drug Contraindication: Treatment Not Indicated
[2025-03-29] MEDS: Metoprolol Succinate ER 50 MG TAB.ER.24H PO (08:37)
[2025-03-29 11:49] LABS: Glucose, Whole Blood 257 mg/dL (60-115)
[2025-03-29 11:50] VITALS: BP 158/76; PULSE 63; RESP 16; TEMP 36.2; O2SAT 96
[2025-03-29 12:16] LABS: MANUAL DIFF FLAG NO
[2025-03-29 12:21] LABS: Hematocrit 39.5 % (42.0-52.0); Hemoglobin 13.7 g/dl (14.0-18.0); Imm Gran Abs Auto 0.08 X10*3/uL (0.00-0.03); Imm Gran Pct Auto 0.9 % (0.0-0.4); Lymphocytes Absolute Auto 2.0 X10*3/uL (1.2-4.9); Mean Corpuscular HGB Conc 34.7 g/dl (31.0-36.0); Mean Corpuscular Hemoglobin 31.3 pg (27.0-33.0); Mean Corpuscular Volume 90.2 fL (80.0-98.0); NRBC Abs Auto 0.000 X10*3/uL (0.0-0.012); NRBC Pct Auto 0.0 /100WBC (0.0-0.2); Platelet Count 260 X10*3/uL (160-400); Red Blood Count 4.38 X10*6/uL (4.60-5.80); White Blood Count 9.1 X10*3/uL (4.8-10.8)
[2025-03-29 12:40] LABS: Anion Gap 14 (12-20); Blood Urea Nitrogen 12 mg/dL (9-16); Calcium 9.0 mg/dL (8.4-10.2); Carbon Dioxide 24 mmol/L (22-29); Chloride 102 mmol/L (96-108); Creatinine Clr Calc Pharmacy 106.8; Estimated Glomerular Filt Rate > 60; Potassium 4.5 mmol/L (3.3-5.1); Sodium 135 mmol/L (135-145)
--- NOTE | 2025-03-29 13:55 | W.PM.IDCN ---
History of Present Illness Data of Consult Service Date: 03/29/25 Requesting physician: Joss Robertson Primary Care Provider: RUBI Reese HPI Reason for consult: dysuria,leukocytosis,resistant UTI He presents to ER with decreased urine output and increased urgency over last two weeks. He had seen [facility] and had urine culture done. Culture shows 03/22 Pseudomonas urine with resistance. He has received macrodantin for three days. He has chills on arrival but no fever. Review of Systems Review of Systems: Yes all other systems are reviewed and are negative [facility] Past Medical History Medical History Diabetic foot ulcer Overweight Gout Hypertension Diabetes Family History Family history: reviewed and not pertinent Social History Social History Household Members: Spouse and Children Housing: House Do you presently have visiting nurse or other home services: No Patient Tobacco Use Status: Former Tobacco user Tobacco use type: Cigarette Smoked in Last 30 Days: No Use of substances other than those prescribed or required for medical reasons: No Currently Displaying Signs/Symptoms of Drug Intoxication Withdrawal: No Have you been hit, kicked, punched, or otherwise hurt by someone within the past year? If so, by whom?: No Do you feel safe in your current relationship?: Yes Is there a partner from a previous relationship who is making you feel unsafe now?: No Are you made to feel afraid or neglected: No Advance Directives: No Advance Directives Information Provided: Yes Do you have a plan to hurt others: No Plan Recently lost weight without trying: No Eating poorly because of decreased appetite: No Nutrition Risks: No Nutritional Risk Poor oral hygiene: No service: No Meds Allergies Allergy/AdvReac Type Severity Reaction Status Date / Time cephalexin (From KEFLEX) Allergy Mild HIVES Verified 03/25/25 12:26 vancomycin Allergy TINGLES on Verified 03/25/25 12:26 head Active Medications: Current Medications Acetaminophen (Acetaminophen 325 Mg Tablet) 975 mg PO Q6H PRN PRN Reason: Pain, Mild 1-3,fever,headache Allopurinol (Allopurinol 300 Mg Tablet) 300 mg PO DAILY [facility] Last Admin: 03/29/25 07:04 Dose: 300 mg Aspirin (Aspirin Enteric Coated 81 Mg Tablet.) 81 mg PO DAILY [facility] Last Admin: 03/29/25 07:04 Dose: 81 mg Atorvastatin Calcium (Atorvastatin Calcium 10 Mg Tablet) 10 mg PO DAILY [facility] Last Admin: 03/29/25 07:05 Dose: 10 mg Calcium Carbonate/Cholecalciferol (Calcium + Vitamin D 250 Mg Tablet) 500 mg PO DAILY [facility] Last Admin: 03/29/25 07:05 Dose: 500 mg Dextrose (Dextrose 50 % 25 Gm/50 Ml Syringe) 25 gm IVPUSH Q15M PRN; Protocol PRN Reason: per Hypoglycemia Standing Ord. Diazepam (Diazepam 5 Mg Tablet) 5 mg PO BEDTIME PRN PRN Reason: sleep Diclofenac Sodium (Diclofenac Sodium Delayed Rel 50 Mg Tablet.) 100 mg PO DAILY [facility] Last Admin: 03/29/25 07:04 Dose: 100 mg Gabapentin (Gabapentin 600 Mg Tablet) 600 mg PO BID [facility] Last Admin: 03/29/25 07:05 Dose: 600 mg Glipizide (Glipizide Xl 10 Mg Tab.Er.24) 10 mg PO BID [facility] On Hold: 03/26/25 07:07 Last Admin: 03/25/25 20:17 Dose: 10 mg Glucose (Glucose Gel 15 Gm Gel..Gram.) 15 gm PO Q15M PRN; Protocol PRN Reason: per Hypoglycemia Standing Ord. Piperacillin Sod/Tazobactam (Sod 3.375 gm/ Sodium Chloride) 50 mls @ 100 mls/hr IV Q6H [facility] Last Admin: 03/29/25 13:48 Dose: 100 mls/hr Insulin Human Lispro (Insulin Lispro 100 Unit/Ml 3 Ml Vial) 0 unit SUBCUT QIDACHS [facility]; Protocol Last Admin: 03/29/25 12:05 Dose: 6 unit Losartan Potassium (Losartan Potassium 50 Mg Tablet) 50 mg PO DAILY [facility]; Protocol Last Admin: 03/29/25 08:00 Dose: 50 mg Metoprolol Succinate (Metoprolol Succinate Er 50 Mg Tab.Er.24h) 50 mg PO DAILY [facility]; Protocol Last Admin: 03/29/25 08:37 Dose: 50 mg Oxycodone HCl (Oxycodone Hcl Immed Release 5 Mg Tablet) 10 mg PO BID PRN PRN Reason: Pain, Severe (Pain Scale 7-10) Last Admin: 03/29/25 07:05 Dose: 10 mg Sodium Chloride (0.9 % Sodium Chloride Flush 3 Ml Syringe) 3 ml IVFLUSH QSHIFT [facility] Last Admin: 03/29/25 08:02 Dose: 3 ml Home Medications ?Medication ?Instructions ?Recorded ?Confirmed ?Last Taken ?Type allopurinol 300 mg tablet 300 mg PO DAILY 03/31/24 03/25/25 03/25/25 History atorvastatin 10 mg tablet 10 mg PO DAILY 03/31/24 03/25/25 03/25/25 History calcium 600 mg (as 1 tab PO DAILY 03/31/24 03/25/25 03/25/25 History carbonate)-vitamin D3 5 mcg (200 unit) tablet diclofenac sodium 100 mg 100 mg PO DAILY 03/31/24 03/25/25 03/25/25 History tablet,extended release 24 hr gabapentin 600 mg tablet 600 mg PO BID 03/31/24 03/25/25 03/25/25 History glipizide 10 mg tablet, extended 10 mg PO BID 03/31/24 03/25/25 03/25/25 History release 24 hr losartan 25 mg tablet 50 mg PO DAILY 03/31/24 03/25/25 03/25/25 History metformin 500 mg tablet,extended 1,000 mg PO BID 03/31/24 03/25/25 03/25/25 History release 24 hr metoprolol succinate 50 mg 50 mg PO DAILY 03/31/24 03/25/25 03/25/25 History tablet,extended release 24 hr acetaminophen 500 mg tablet 1,000 mg PO BEDTIME PRN Pain 03/25/25 03/25/25 Unknown History aspirin 81 mg tablet 81 mg PO DAILY 03/25/25 03/25/25 03/25/25 History Physical Exam Vital Signs: Vital Signs: Last Vital Signs Temp 97.1 F 03/29/25 11:50 Pulse 63 03/29/25 11:50 Resp 16 03/29/25 11:50 BP 158/76 H 03/29/25 11:50 Pulse Ox 96 03/29/25 11:50 O2 Del Method Room Air 03/29/25 11:50 BMI result Body Mass Index 44.4 Const: General: cooperative HEENT: Head: Yes normal to inspection Face and sinus: Yes normal facial exam Mouth: Normal oral and palatal mucosa present Teeth and gingiva: dentition normal Eyes: General: appearance normal, both eyes and all related structures Pupils: Equal, round and reactive pupils present Resp: Effort & Inspection: normal respiratory effort Cardio: Rate: regular rate Rhythm: regular rhythm GI: Palpation (GI): Soft to palpation and nontender : General: Yes no CVA tenderness Back/Spine/Pelvis: Back: no CVA tenderness Skin: General skin exam: no rashes or lesions noted Neuro: General: moves all extremities Cranial nerves: Yes Equal, round and reactive pupils present Extrem: General: Yes normal to inspection Psych: Appearance: grossly normal Results Labs 03/29/25 12:04 03/29/25 12:04 Labs: Short CBC 03/29/25 Range/Units 12:04 WBC 9.1 (4.8-10.8) X10*3/uL Hgb 13.7 L (14.0-18.0) g/dl Hct 39.5 L (42.0-52.0) % Plt Count 260 (160-400) X10*3/uL BMP 03/29/25 12:04 Sodium 135 Potassium 4.5 Chloride 102 Carbon Dioxide 24 BUN 12 Creatinine 1.02 Calcium 9.0 Microbiology Microbiology Results: Microbiology 03/25/25 Unknown Urine clean catch - Clean Catch Midstream Urine Culture - Final Pseudomonas aeruginosa 03/25/25 13:46 Blood - Venous Blood Culture - Preliminary No growth after 48 hours. 03/25/25 13:21 Blood - Venous Blood Culture - Preliminary No growth after 48 hours. Assessment and Plan (1) Acute UTI: Status: Acute (2) Acute lactic acidosis: Status: Acute (3) Pseudomonas aeruginosa infection: Status: Acute Plan Resistant Pseudomonas UTI He has been feeling better since on piperacillin/tazobactam for last four days Leukocytosis to 16.8 has improved. Would finish total 14 days IV piperacillin/tazobactam. follow with Urology. ?methenamine 1 g po bid urine.
--- NOTE | 2025-03-29 15:43 | MHC.CM.PN ---
per rounds pt to go home on iv antibiotics referrals made pt would also consider str if uncomfortable after the teach with ivs at home str referrals made
[2025-03-29 15:53] VITALS: BP 160/76; PULSE 66; RESP 16; TEMP 36.3; O2SAT 95
[2025-03-29 16:39] LABS: Glucose, Whole Blood 160 mg/dL (60-115)
[2025-03-29 19:58] LABS: Glucose, Whole Blood 214 mg/dL (60-115)
[2025-03-29 19:59] VITALS: BP 173/81; PULSE 64; RESP 18; TEMP 36.3; O2SAT 97
[2025-03-29 23:40] VITALS: BP 157/70; PULSE 60; RESP 18; TEMP 36.2; O2SAT 95
[2025-03-30] MEDS: 0.9 % Sodium Chloride Flush 3 ML SYRINGE IVFLUSH ×4 (00:55→21:01)
[2025-03-30 03:07] VITALS: BP 148/62; PULSE 64; RESP 18; TEMP 36.2; O2SAT 95
[2025-03-30 07:31] LABS: Glucose, Whole Blood 213 mg/dL (60-115)
[2025-03-30 08:00] VITALS: BP 172/75; PULSE 68; RESP 16; TEMP 36.3; O2SAT 97
--- NOTE | 2025-03-30 09:03 | HO.MIDLINE ---
Midline Insertion MIDLINE INSERTION Diagnosis: UTI Indication: 2wks ABT Pertinent Labs: Reviewed Technique: Using sterile technique including cap and mask, glove and drape, the left arm was prepped and draped in the usual sterile fashion of full barrier technique with CHG. Using ultrasound guidance, left brachial vein access was obtained . 20G x 8cmPowerglide ST midline was positioned. The procedure was performed in [facility]. Ultrasound was used to document vein patency and for needle entry. A formal ultrasound picture was recorded. Vascular Lacing String Cutter has released the line for use and it is currently dressed with a StatLock, Tegaderm, and CHG disc. Verification has been performed for blood return and line patency. Arm Circumference: 39cm Equipment: BARD powerglide st midline catheter Catheter Type: 20g x 8cm Lot #: [id number]
[2025-03-30] MEDS: Aspirin Enteric Coated 81 MG TABLET.DR PO (09:23)
[2025-03-30] MEDS: Metoprolol Succinate ER 50 MG TAB.ER.24H PO (09:23)
[2025-03-30] MEDS: Calcium + Vitamin D 250 MG TABLET 500 MG PO (09:24)
[2025-03-30] MEDS: Diclofenac Sodium Delayed Rel 50 MG TABLET.DR 100 MG PO (09:24)
[2025-03-30] MEDS: oxyCODONE HCl Immed Release 5 MG TABLET 10 MG PO ×2 (09:30→20:58)
[2025-03-30 11:18] LABS: Glucose, Whole Blood 322 mg/dL (60-115)
[2025-03-30 11:45] LABS: Glucose, Whole Blood 327 mg/dL (60-115)
--- NOTE | 2025-03-30 11:57 | PM.DS ---
DS: Providers Provider Date of Service: 03/30/25 Date of admission: 03/25/25 14:31 Date of discharge: 03/30/25 Primary care physician: RUBI Reese Admitting clinician: Janeth Sen Consults: 03/28/25 13:40 Consult to Infectious Diseases Routine Consulting Provider: [facility] Reason for consultation: Resistant Pseudomonas UTI [facility] clinician: Stephanie Osborn DS: Diagnosis Discharge Diagnosis (1) Acute UTI: Start date: 03/25/25 Status: Acute (2) Acute lactic acidosis: Status: Acute (3) Pseudomonas aeruginosa infection: Status: Acute DS: Summary Hospital Course Hospital Course: Miguel Cagle is a 70 year old man with past medical history significant for obesity, obstructive sleep apnea on BiPAP, diabetes on metformin and glipizide, hypertension and hyperlipidemia presents to the emergency department to receive IV antibiotic therapy for urinary tract infection with Pseudomonas Aeruginosa sensitive to Zosyn, ceftazidime, cefepime and amikacin. Urine culture was obtained at urology office (March). He was taking Macrobid since . He had been experiencing urinary frequency and straining. He had been experiencing chills and night sweats but no fever. He was instructed to come to the ED for treatment due to drug resistant organism in culture. While in the ED he denied any abdominal pain, nausea, vomiting, diarrhea or headache. He denied any acute cardiopulmonary. He did not report tobacco smoking, alcohol abuse or illicit drug use. In the ED, his vital were stable. Blood workup showed leukocytosis of 16.8. Hemoglobin is 13.4 and platelets 232. There were no significant electrolyte imbalances. Glucose 235. Labs demonstrated lactic acidosis,which resolved. LFTs were normal. He received normal saline bolus, and Zosyn in the ED. blood cultures drawn demonstrated no growth after 48 hours, 2nd urine culture done 03/25/2025 demonstrated Pseudomonas aeruginosa 50,000-100,000 CFU/mL, which was sensitive to cefepime, gentamicin, and Zosyn. He was seen by ID who recommended a total of 14 days of IV Zosyn. Initially his metformin was held due to lactic acidosis, which has resolved, we will resume home diabetes medications. His other chronic conditions were well controlled during this hospitalization. He has been afebrile, WBC has normalized. Patient had a midline inserted to his left arm, he will be discharged to complete a 14 day course of Zosyn. He was seen by infectious disease doctor who recommended starting mesalamine 1000 mgs p.o. b.i.d. he will need to follow up with [facility] on discharge. Status at Discharge Functional status at discharge: independent ambulation Overall status at discharge: patient is back to baseline Time Attestation Discharge Coordination Time (in mins): 30 Quality: Safe Use of Opioids Does Pt have an Active Cancer Diagnosis on the Problem List?: No Quality: Stroke Does the patient have a stroke diagnosis?: No Physical Exam Exam: Exam: CONST: Alert and oriented x3, in NAD. Obese HEENT: Normocephalic, atraumatic, MMM RESP: Lungs clear, RRR even and regular HEART:RRR, S1, S2. no edema GI:Abdomen Soft NT, ND. + BS times four :Deferred SKIN: Warm dry and intact, no visible lesions or rashes NEURO: Moves all extremities, Speech clear PSYCH: Normal affect Vital Signs: Vital Signs: Last Vital Signs Temp 97.3 F 03/30/25 08:00 Pulse 68 03/30/25 08:00 Resp 16 03/30/25 08:00 BP 114/53 03/30/25 12:00 Pulse Ox 97 03/30/25 08:00 O2 Del Method Room Air 03/30/25 08:00 BMI result Body Mass Index 44.4 DS: Data Data Completed and Pending Pending studies at discharge: Final blood culture results pending. Drawn 03/25/2025, no growth after 48 hours. Labs on day of discharge: Laboratory Results - last 24 hr 03/29/25 03/29/25 03/29/25 12:04 16:32 19:41 WBC 9.1 RBC 4.38 L Hgb 13.7 L Hct 39.5 L MCV 90.2 MCH 31.3 MCHC 34.7 RDW 13.5 Plt Count 260 MPV 10.7 Immature Gran % (Auto) 0.9 H Neut % (Auto) 63.7 Lymph % (Auto) 22.1 [place] % (Auto) 7.3 Eos % (Auto) 5.1 H Baso % (Auto) 0.9 Lymph # (Auto) 2.0 [place] # (Auto) 0.7 Eos # (Auto) 0.5 H Baso # (Auto) 0.1 Abs Immat Gran (auto) 0.08 H Absolute Neuts (auto) 5.8 Absolute Nucleated RBC 0.000 Nucleated RBC % (auto) 0.0 Sodium 135 Potassium 4.5 Chloride 102 Carbon Dioxide 24 Anion Gap 14 BUN 12 Creatinine 1.02 Estim Creat Clear Calc 106.8 Estimated GFR > 60 POC Glucose 160 H 214 H Random Glucose 260 H Calcium 9.0 03/30/25 03/30/25 03/30/25 07:23 11:13 11:42 WBC RBC Hgb Hct MCV MCH MCHC RDW Plt Count MPV Immature Gran % (Auto) Neut % (Auto) Lymph % (Auto) [place] % (Auto) Eos % (Auto) Baso % (Auto) Lymph # (Auto) [place] # (Auto) Eos # (Auto) Baso # (Auto) Abs Immat Gran (auto) Absolute Neuts (auto) Absolute Nucleated RBC Nucleated RBC % (auto) Sodium Potassium Chloride Carbon Dioxide Anion Gap BUN Creatinine Estim Creat Clear Calc Estimated GFR POC Glucose 213 H 322 H 327 H Random Glucose Calcium Preliminary micro results at discharge 03/25/25 13:46 Blood Culture - Preliminary Blood - Venous No growth after 48 hours. 03/25/25 13:21 Blood Culture - Preliminary Blood - Venous No growth after 48 hours. Discharge Plan Discharge Anticipated Discharge Date/Time: 03/30/25 16:00 Patient Disposition: Home Health Service Discharge Diagnosis: Pseudomonas aeruginosa UTI Referrals: Frederick Ureña PA [Primary Care Provider, Internal Medicine] - 1 Week Discharge Medications: New Zosyn in dextrose (iso-osm) 3.375 gram/50 mL piggyback 3.375 g IV Q6H Rx Instructions: End date March 07, 2025 methenamine hippurate 1 gram tablet 1 g PO BID Qty: 60 0RF Continued diazepam 5 mg tablet 5 mg PO BEDTIME PRN (Reason: sleep) Qty: 30 2RF oxycodone 10 mg tablet 10 mg PO BID MDD 2 PRN (Reason: one twice a day) Qty: 60 0RF Rx Instructions: Partial Fill upon patient request. acetaminophen 500 mg Tablet 1,000 mg PO BEDTIME PRN (Reason: Pain) aspirin 81 mg Tablet 81 mg PO DAILY gabapentin 600 mg tablet 600 mg PO BID atorvastatin 10 mg tablet 10 mg PO DAILY metoprolol succinate 50 mg tablet extended release 24 hr 50 mg PO DAILY diclofenac sodium 100 mg tablet extended release 24 hr 100 mg PO DAILY glipizide 10 mg tablet extended release 24hr 10 mg PO BID losartan 25 mg tablet 50 mg PO DAILY allopurinol 300 mg tablet 300 mg PO DAILY metformin 500 mg tablet extended release 24 hr 1,000 mg PO BID calcium carbonate-vitamin D3 600 mg-5 mcg (200 unit) Tablet 1 tab PO DAILY Discharge Orders: Discharge Order (Routine); Ordered 03/30/25 Ordered By: Stephanie Osborn Diet: Advance to usual diet Activity on Discharge: As tolerated Stand Alone Forms: Patient Portal Discharge page Print Language: Korean Care Plan Goals: Recover from UTI Health Concerns: Lactic Acidosis-Resolved Drug resistant psuedomonas UTI Plan of Treatment: Complete Antibiotic therapy as ordered Follow up with Urology outpatient Follow up with PCP in 1 week Assessment: Acute Urinary tract infection secondary to Pseudomonas aeruginosa Cultures sensitive to Zosyn, Getamycin, Cefepime ID recommends Zosyn for 14 day course to complete April 07 Blood cultures negative to date. PCP to follow up with Final result Acute lactic acidosis-Resolved with IVF Essential hypertension. Continue Metoprolol and losartan. Hyperlipidemia. Continue atorvastatin. Type 2 diabetes mellitus. Resume glipizide, Metformin. Resume usual diet- Follow up with PCP/ BUDDY Continue CPAP Gout. Continue allopurinol. Chronic pain. Continue oxycodone and gabapentin. PCP management Anxiety. Continue diazepam PCP management Morbid obesity BMI 44.6 kg/m2. Weight loss.
[2025-03-30 12:00] VITALS: BP 114/53; PULSE 73; RESP 18; TEMP 36.6; O2SAT 95
--- NOTE | 2025-03-30 12:53 | MHC.CM.PN ---
pt going home on iv antbiotics [facility] and hvns
--- NOTE | 2025-03-30 13:01 | P.F2F_ITS ---
Service Date Service Date: 03/30/25 Encounter Date of encounter: 03/30/25 Reasons for Services Signs and symptoms assessed: Psuedomonas aeruginosa UTI IV Antibiotic therapu Reason for shelter: administration of IV, SQ, or IM injection, central line care and medication management Homebound: Leaving the home is medically contraindicated at this time without the asist of a device and/or another person due th the listed conditions above and below. Reason homebound: unable to drive Certification: Based on the above findings, I certify that this patient is confined to the home and needs intermittent shelter care, physical therapy and/or speech the rapy, or continues to need occupational therapy. The patient is under my care, and I have initiated the establishment of the plan of care. The patient will be followed by a physician who will periodically review the plan of care. Time Spent With Patient Time: Total time managing care of this patient today ____ minutes.
[2025-03-30 15:33] VITALS: BP 139/79; PULSE 74; RESP 14; TEMP 36.8; O2SAT 95
[2025-03-30 16:27] LABS: Glucose, Whole Blood 233 mg/dL (60-115)
--- NOTE | 2025-03-30 18:17 | HO.MIDLINE ---
Midline Insertion MIDLINE INSERTION Diagnosis: UTI Indication: abt Pertinent Labs: reviewed Technique: Using sterile technique including cap and mask, glove and drape, the left arm was prepped and draped in the usual sterile fashion of full barrier technique with CHG. Using ultrasound guidance, left basilic vein access was obtained . Bard power midline non PASV was positioned. The procedure was performed in [facility]. Ultrasound was used to document vein patency and for needle entry. A formal ultrasound picture was recorded. Vascular Welding Machine Operator/Tender has released the line for use and it is currently dressed with a StatLock, Tegaderm, and CHG disc. Verification has been performed for blood return and line patency. Arm Circumference: 39 cm Equipment: BARD PowerMidline Catheter Catheter Type: 4FR single lumen non PASV Lot #: [id number]
[2025-03-30 19:29] VITALS: BP 130/65; PULSE 74; RESP 20; TEMP 36.1; O2SAT 96
[2025-03-30 20:42] LABS: Glucose, Whole Blood 258 mg/dL (60-115)
[2025-03-30 23:00] VITALS: BP 121/54; PULSE 58; RESP 18; TEMP 36.4; O2SAT 98
[2025-03-31 03:48] VITALS: BP 151/69; PULSE 57; RESP 16; TEMP 36; O2SAT 97
[2025-03-31 07:31] LABS: Glucose, Whole Blood 219 mg/dL (60-115)
[2025-03-31 07:35] VITALS: BP 136/80; PULSE 66; RESP 18; TEMP 36.2; O2SAT 97
[2025-03-31] MEDS: Diclofenac Sodium Delayed Rel 50 MG TABLET.DR 100 MG PO (07:46)
[2025-03-31] MEDS: Metoprolol Succinate ER 50 MG TAB.ER.24H PO (07:47)
[2025-03-31] MEDS: Aspirin Enteric Coated 81 MG TABLET.DR PO (07:47)
[2025-03-31] MEDS: Calcium + Vitamin D 250 MG TABLET 500 MG PO (07:48)
[2025-03-31] MEDS: oxyCODONE HCl Immed Release 5 MG TABLET 10 MG PO (09:02)
== END 2025-03-31 10:34 | disposition home health service (06) | DRG 690 ==
LOC: HO.ED 14:05 → HO.EDOVER 14:35 → HO.S3 15:32
PROVIDERS: Nurse Practitioner Family; Physician Assistant; Physician Assistant Medical; Admitting Provider Internal Medicine; Emergency Provider Emergency Medicine; PCP Physician Assistant Medical; Visit Provider Internal Medicine
DX: N39.0 Urinary tract infection, site not specified (principal); E87.21 Acute metabolic acidosis; Z68.41 Body mass index [BMI] 40.0-44.9, adult; Z16.20 Resistance to unspecified antibiotic; B96.5 Pseudomonas (aeruginosa) (mallei) (pseudomallei) as the cause of diseases classified elsewhere; G47.33 Obstructive sleep apnea (adult) (pediatric); I10 Essential (primary) hypertension; E78.5 Hyperlipidemia, unspecified; M10.9 Gout, unspecified; G89.29 Other chronic pain; F41.9 Anxiety disorder, unspecified; E66.01 Morbid (severe) obesity due to excess calories; Z71.3 Dietary counseling and surveillance; Z87.891 Personal history of nicotine dependence; Z79.82 Long term (current) use of aspirin; Z79.84 Long term (current) use of oral hypoglycemic drugs; Z79.899 Other long term (current) drug therapy
CPT/HCPCS: 36410; 36415; 80048; 80076; 81001; 82947; 83605; 83735; 85025; 87040; 87086; 87088; 87186; 99285; C1751; C1894; J2543; J7120

== ENCOUNTER → 2025-03-25 14:31 | Outpatient (BNV) | payer MEDICARE, SELFPAY | PROVIDERS: Admitting Provider Internal Medicine; Emergency Provider Emergency Medicine; PCP Physician Assistant Medical; Visit Provider Internal Medicine | DX: N39.0 Urinary tract infection, site not specified (principal); A49.8 Other bacterial infections of unspecified site; E87.21 Acute metabolic acidosis | CPT/HCPCS: 99232 ==

== ENCOUNTER → 2025-03-25 14:31 | Outpatient (BNV) | payer MEDICARE, SELFPAY | PROVIDERS: Admitting Provider Internal Medicine; Emergency Provider Emergency Medicine; PCP Physician Assistant Medical; Visit Provider Internal Medicine | DX: N39.0 Urinary tract infection, site not specified (principal); E87.21 Acute metabolic acidosis; A49.8 Other bacterial infections of unspecified site | CPT/HCPCS: 99223; 99232; 99239; G0180 ==

== ENCOUNTER 2025-04-03 10:15 | Outpatient (REF) | payer MEDICARE, SELFPAY ==
[2025-04-03 10:54] LABS: MANUAL DIFF FLAG NO
[2025-04-03 11:13] LABS: Hematocrit 40.4 % (42.0-52.0); Hemoglobin 14.0 g/dl (14.0-18.0); Imm Gran Abs Auto 0.04 X10*3/uL (0.00-0.03); Imm Gran Pct Auto 0.5 % (0.0-0.4); Lymphocytes Absolute Auto 2.1 X10*3/uL (1.2-4.9); Mean Corpuscular HGB Conc 34.7 g/dl (31.0-36.0); Mean Corpuscular Hemoglobin 31.2 pg (27.0-33.0); Mean Corpuscular Volume 90.0 fL (80.0-98.0); NRBC Abs Auto 0.000 X10*3/uL (0.0-0.012); NRBC Pct Auto 0.0 /100WBC (0.0-0.2); Platelet Count 236 X10*3/uL (160-400); Red Blood Count 4.49 X10*6/uL (4.60-5.80); White Blood Count 8.4 X10*3/uL (4.8-10.8)
[2025-04-03 11:32] LABS: Anion Gap 14 (12-20); Blood Urea Nitrogen 10 mg/dL (9-16); Calcium 9.1 mg/dL (8.4-10.2); Carbon Dioxide 24 mmol/L (22-29); Chloride 105 mmol/L (96-108); Estimated Glomerular Filt Rate > 60; Potassium 4.5 mmol/L (3.3-5.1); Sodium 138 mmol/L (135-145)
== END 2025-04-03 10:16 | disposition home or self-care (01) ==
LOC: HO.LABR 10:15
PROVIDERS: Nurse Practitioner Family; PCP Physician Assistant Medical; Visit Provider Internal Medicine
DX: N39.0 Urinary tract infection, site not specified (principal)
CPT/HCPCS: 36415; 80048; 85025

== ENCOUNTER 2025-05-27 12:58 | Outpatient (AMB) | payer MEDICARE, SELFPAY ==
--- NOTE | 2025-05-27 12:54 | A.OFFVIS_ITS ---
Intake Visit Reasons: incomplete bladder emptying/ UTI (ok by Mikayla) Intake Note: New Patient is present for incomplete bladder emptying and UTI Urology Rx:allopurinol, methenamine PVR:83 mls Blood Thinners:aspirin Imaging completed: none Project Management Consultant Required: No Accompanied by: Spouse Allergies cephalexin (From KEFLEX) Allergy (Mild, Verified 05/27/25 13:13) HIVES vancomycin Allergy (Verified 05/27/25 13:13) TINGLES on head HPI Comments Details: Miguel is a pleasant male. He is a patient of Dr. Palmer. He is seen for the following urologic conditions - history of urethral stricture repair - recurrent urinary tract infection - incomplete bladder emptying Recently seen in emergency department for complicated UTI Had been sent by [facility] Reported as a urinary tract infection - that could only be treated by IV antibiotics Review of culture shows Pseudomonas - resistant to ciprofloxacin and levofloxacin - sensitive to 3rd generation cephalosporins Injectable antibiotics provided Found with incomplete bladder emptying May represent recurrent stricture disease versus BPH Place on tamsulosin with 2 month follow-up check cystoscopy office Urethral stricture repair 2016 Dr[facility] Medical History Diabetic foot ulcer Overweight Gout Hypertension Diabetes Social History Household Members: Spouse and Children Housing: House Do you presently have visiting nurse or other home services: No Patient Tobacco Use Status: Former Tobacco user Tobacco use type: Cigarette service: No Review of Systems Const Denies chills and Denies fever(s) Card Reports no additional complaints and Denies syncope Resp Denies cough GI Denies abdominal pain and Denies heartburn Reports as per HPI and Denies change in libido Neuro Denies syncope Psych Denies change in libido Endo Denies change in libido Physical Exam Const General: cooperative, healthy appearing, comfortable and no acute distress Orientation/consciousness: patient oriented x3 HEENT Face and sinus: Yes normal facial exam Mouth: moist mucous membranes Neck Neck: Yes normal visual inspection, Yes full ROM and Yes trachea midline Chest Chest palpation & inspection: normal inspection of the chest Resp Effort & Inspection: normal respiratory effort, able to speak in complete sentences and no respiratory distress GI Inspection: Yes normal to inspection Back/Spine/Pelvis Cervical Spine: normal cervical lordosis Thoracic/Lumbar Spine: thoracic and lumbar spine normal to inspection Skin General skin exam: no rashes or lesions noted Neuro General: patient oriented x3, gait normal, tone normal and moves all extremities Extrem General: Yes normal to inspection and Yes capillary refill normal Assessment & Plan Assessment & Plan (1) Incomplete emptying of bladder due to benign prostatic hyperplasia: Code(s): N40.1 - Benign prostatic hyperplasia with lower urinary tract symptoms; R33.9 - Retention of urine, unspecified Category: Medical (2) Urethral stricture: Code(s): N35.919 - Unspecified urethral stricture, male, unspecified site Category: Medical Plan Office cystoscopy, trial alpha-barbara Medications: New tamsulosin (Flomax) 0.4 mg PO BEDTIME 30 tabs 2RF 30 days N40.1 - Benign prostatic hyperplasia with lower urinary tract symptoms, R33.9 - Retention of urine, unspecified Patient Instructions: This note is constructed using voice recognition software. While every effort has been made to ensure accuracy explosive ordnance disposal specialist errors may have been included. Imaging studies, laboratory and physical exam results were discussed and reviewed in detail. No major barriers to patient understanding were identified. An opportunity to ask questions regarding the treatment plan was provided. All questions were answered. The patient expressed understanding and agreement with the above treatment plan. The patient is aware they should contact our office by phone for worsening of their current condition or the appearance of new urologic symptoms. Compliance is encouraged with any medications and followup testing that is ordered. It is a privilege to participate in the urologic care of your patient. If you have any questions or concerns regarding treatment for the above conditions, or other urologic issues, please do not hesitate to contact me. The office telephone contact is [phone]. Sincerely, Dr Godfrey Mahajan MD, [facility] - Urology Compassionate Specialist Care for the Genitourinary System Coding Level of Care Code New Pt Level 3 (08281) Diagnoses Incomplete emptying of bladder due to benign prostatic hyperplasia N40.1; R33.9 Urethral stricture N35.919
== END 2025-05-27 15:24 | disposition home or self-care (01) ==
LOC: HO.HUSH 12:59
PROVIDERS: PCP Physician Assistant Medical; Visit Provider Urology
DX: N40.1 Benign prostatic hyperplasia with lower urinary tract symptoms (principal); R33.9 Retention of urine, unspecified; N35.919 Unspecified urethral stricture, male, unspecified site; Z13.9 Encounter for screening, unspecified
CPT/HCPCS: 99203

== ENCOUNTER → 2025-05-27 12:58 | Outpatient (BNVA) | payer MEDICARE, SELFPAY | PROVIDERS: PCP Physician Assistant Medical; Visit Provider Urology | DX: N40.1 Benign prostatic hyperplasia with lower urinary tract symptoms (principal); R33.9 Retention of urine, unspecified; R39.14 Feeling of incomplete bladder emptying | CPT/HCPCS: 51798; 81003; 99202 ==

== ENCOUNTER 2025-06-23 11:42 | Outpatient (REF) | payer MEDICARE, SELFPAY ==
[2025-06-23 12:42] LABS: Appearance Urine Turbid; Glucose Urine UA Negative (Negative); PH 7.5 (5.0-9.0); Specific Gravity - Urine 1.010 (1.005-1.025); UMIC TRIGGER UA YES
--- OUTSIDE RECORDS SUMMARY | 2025-06-23 16:26 | XMS_ITS | Encounter Summary ---
Author Organization [facility] Address [address] [place] [address] Care Team Providers Care Gas Pit Worker Name Role Phone Frederick Ureña Primary Care Provider [phone] Encounter Details Date Type Department Care Team (Late st Contact Info) Description 01/28/2025 Lab Requisition [facility] - Main Lab [address] [facility] [place] [address] Ronaldo Ricci PA [address] [place] [address] Urinary tract infection, site not specified Social History Tobacco Use Types Packs/Day Years Used Date Smoking Tobacco: Former Cigarettes 1 6.4 0 04/08/1963 - 09/02/1969 Smokeless Tobacco: Never Alcohol Use Standard Drinks/Week Comments Yes 0 (1 standard drink = 0.6 oz pur e alcohol) socailly, weekend warrior Housing Instability Answer Date Recorde d Are you worried that in the next 2 months you may not have stable housing? No 08/31/2024 Food Access & Nutrition Answer Date Rec orded Do you have access to a vari ety of food including fruits and vegetables? Yes 08/31/2024 Access to Healthcare Answer Date Record ed Within the last 3 months, ho w many times did you visit the emergency department for your medical care? 0 08/31/2024 Health Literacy Answer Date Recorded How often do you need to hav e someone help you when you read instructions, pamphlets, or other written material from your doctor or pharmacy? Never 08/31/2024 Caregiver: How often do you need to have someone help you when you read instructions, pamphlets, or other written material from your doctor or pharmacy? Not on file 08/31/2024 Financial Risk Answer Date Recorded How hard is it for you to pa y for the very basics like food, housing, medical care, and air conditioning / heating? Not very hard 08/31/2024 Transportation Answer Date Recorded Has the lack of transportati on kept you from meetings, work, or from getting things needed for daily living? No Has the lack of transportati on kept you from medical appointments or from getting medications? No 08/31/2024 Social Isolation Answer Date Recorded How often do you feel lonely or isolated from ose around you? Never 08/31/2024 Food Risk Answer Date Recorded Within the past 12 months we worried whether our food would run out before we got money to buy more. Never true 08/31/2024 Within the past 12 months th e food we bought just didn't last and we didn't have money to get more. Never true 08/31/2024 Dependent Care Answer Date Recorded Do you need help finding or paying for care for your loved ones. For example, child care specialist or elderly care for an older adult? No 08/31/2024 Education Answer Date Recorded Do you think completing more education or training, like finishing a GED, going to college, or learning a trade, would be helpful for you? No 08/31/2024 Employment and Income Answer Date Recor ded During the last four weeks, have you been actively looking for work? No 08/31/2024 Living Situation Answer Date Recorded What is your living situation? Unrecognized valu e 08/31/2024 Sex and Gender Information Value Date Recorded Sex Assigned at Not on file Legal Sex Male 10:32 AM EST Gender Identity Not on file Sexual Orientation Not on file documented as of this encounter Plan of Treatment Upcoming Encounters Date Type Department Care Team (Late st Contact Info) Description 07/07/2025 1:45 PM EST Office Visit [facility] [address] [phone] Paul Conner, DPDaniel 175 [facility] [address] [place] [address] 07/12/2025 2:30 PM EST Office Visit Adult [address] [phone] Frederick Ureña PA [address] [place] [phone] 10/27/2025 2:00 PM EST Office Visit Vascular Surgery - [facility] [address] [place] [phone] Jenny Lees MD [address] [place] [address] documented as of this encounter Goals Goal Patient Goal Type Associated Problems [...] needed on impact of smoking on wound Chelsey Lama RN Reduce tobacco use (cigarettes, smokeless, etc) [...] omised skin integrity. No Chelsey Ravi RN documented as of this encounter Procedures Procedure Name Priority Date/Time Associated Diagnosis Comments CULTURE URINE Routine 01/28/2025 10:15 AM EDT Urinary tract infection, site not specified documented in this encounter Results * (ABNORMAL) Culture urine (01/28/2025 10:15 AM EDT) Culture, Urine 50,000-100,000 CFU/mL Pseudomonas aeruginosa(A) JOSE RAUL 01/30/2025 11:27 AM EDT [facility] Comment: This is an edited result. Previous organism was Gram negative bacilli on 01/29/2025 at 0810 EDT. Urine Urine specimen obtained by clean catch procedure / Unknown 01/28/2025 10:15 AM EDT 01/28/2025 12:05 PM EDT Narrative Organism Antibiotic Method Susceptibility Pseudomonas aeruginosa Piperacillin/Tazobactam JOSE RAUL <=4 ug/ml: Susceptible Pseudomonas aeruginosa Ceftazidime JOSE RAUL 1 ug/ml: Susceptible Pseudomonas aeruginosa Cefepime JOSE RAUL 1 ug/ml: Susceptible Pseudomonas aeruginosa Meropenem JOSE RAUL 2 ug/ml: Susceptible Pseudomonas aeruginosa Amikacin JOSE RAUL <=1 ug/ml: Susceptible Pseudomonas aeruginosa Ciprofloxacin JOSE RAUL 2 ug/ml: Resistant Pseudomonas aeruginosa Levofloxacin JOSE RAUL 4 ug/ml: Resistant [facility] MICROBIOLOGY - [facility] ELLA ADAMES Final Result [facility] [address] [place] [address], documented in this encounter Visit Diagnoses Diagnosis Urinary tract infection, site not specified documented in this encounter Additional Health Concerns Active Problems Noted Date Diagnosed Date Impaired Tissue 10/01/2024 Education needed on impact of smoking on wound 0 10/01/2024 Education needed related to ulceration/compromised skin integrity. 10/01/2024 Infection Onset Date Last Indicated Resolved Time MDRO (other) 09/25/2024 03/22/2025 Assessment Noted Time PHQ-9 Depression Total Score: 0 10/01/19 25 1:05 PM EST A fall risk assessment has been complete d for the patient 08/31/2024 1:19 PM EST documented as of this encounter Care Teams Gas Pit Worker Relationship Specialty Start Date End Date Frederick Ureña PA [address] [place] [id number] PCP - General Internal Medicine 08/13/24 documented as of this encounter
--- OUTSIDE RECORDS SUMMARY | 2025-06-23 16:26 | XMS_ITS ---
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, with fat layer exposed ([facility] V24, [facility] V28) 10/01/2024 Peripheral vascular disease ([facility] V24) 2024 Diabetes mellitus type 2, un complicated ([facility] V24, [facility] V28) 04/22/2020 Subclinical hypothyroidism 03/30/2019 CIDP (chronic inflammatory d emyelinating polyneuropathy) ([facility] V24, [facility] V28) 12/13/2016 Hyperlipidemia with target LDL less [...] 07/04/2006 Gout 07/04/2006 Hypertension 07/04/2006 Morbid obesity ([facility] V24, [facility] V28) 2005 Overview (06/11/2024): BMI 42.86 on [...]
--- OUTSIDE RECORDS SUMMARY | 2025-06-23 16:26 | XMS_ITS | Clinical Summary ---
Author Organization [address] [place] [address] [place] [phone] Phone Care Team Providers Care Field Training Agent Name Role Phone Frederick Ureña Primary Care Provider [phone] Allergies Active Allergy Reactions Criticality Noted Date Comments Cephalexin Monohydrate Rash 08/22/2005 pt. becomes nervous/itchy Vancomycin Rash 10/07/2019 Medications blood glucose control, high (OneTouch Verio High Control) solution 1 Units by In Vitro route daily as needed for Other (with glucose monitoring). 04/08/20 18 Active calcium carb/vit D3/minerals (CALCIUM-VITAMIN D ORAL) Take by mouth. Active ciclopirox (PENLAC) 8 % solution Apply topically every 7 days. Active miscellaneous medical supply misc CPAP Historical (HISTORICAL CPAP) BiPAP 18/04 via nasal mask/apria 11/19/19 13 Active diazePAM (VALIUM) 5 mg tablet TAKE 1 TABLET BY MOUTH AT BEDTIME NEEDED 01/01/20 22 Active gabapentin (NEURONTIN) 600 mg tablet Take 1 Tab by mouth 2 times daily. 11/26/19 21 Active mo/Non-Adher Bndg/petrolatum (GAUZE PADS AND DRESSINGS TOP) Gauze Pads & Dressings (Curity Abdominal) 5 X9 Pads 2 Units by Does not apply route daily. Active mo/Non-Adher Bndg/petrolatum (GAUZE PADS AND DRESSINGS TOP) Gauze Pads & Dressings (Kerlix Gauze Roll Large) Misc 1 Units by Does not apply route daily. Active glucose blood test strip USE TO TEST BLOOD SUGAR TWICE DAILY 02/27/20 24 Active Autolet (OneTouch Delica Plus Lanc Dev) lancing device 1 Applicator by Does not apply route 2 times daily. Use with delica lancets to check sugar twice a day. Patient's lancing device broke 05/10/20 21 Active lancets 33 gauge misc 1 Device by Does not apply route daily. Dx e11.49 use to test blood sugar daily 10/16/19 23 Active oxyCODONE (ROXICODONE) 10 mg immediate release tablet Take by mouth daily as needed. Active silver sulfADIAZINE (SILVADENE, SSD) 1 % cream Apply to affected open areas daily with dressing changes Active losartan (COZAAR) 50 mg tablet TAKE 1 TABLET(50 MG) BY MOUTH 1 TIME EACH DAY 90 tablet 3 10/27/19 25 Active glipiZIDE (GLUCOTROL XL) 10 mg 24 hr tablet TAKE 1 TABLET BY MOUTH TWICE DAILY 180 tablet 1 02/02/20 25 Active allopurinoL (ZYLOPRIM) 300 mg tablet TAKE 1 TABLET BY MOUTH DAILY 90 tablet 1 02/02/20 25 Active atorvastatin (LIPITOR) 10 mg tablet TAKE 1 TABLET BY MOUTH DAILY 90 tablet 1 02/09/20 25 Active metFORMIN XR (GLUCOPHAGE-XR) 500 mg 24 hr tablet TAKE 2 TABLETS BY MOUTH TWICE DAILY BEFORE MEALS 360 tablet 1 03/24/20 25 Active diclofenac sodium (VOLTAREN XR) 100 mg 24 Hour tablet TAKE 1 TABLET BY MOUTH DAILY 90 tablet 1 03/29/20 25 Active methenamine hippurate (Hiprex) 1 gram tablet Take 1 tablet (1 g total) by mouth 2 (two) times a day with meals. 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, with fat layer exposed ([facility] V24, [facility] V28) 10/01/2024 Peripheral vascular disease ([facility] V24) 2024 Diabetes mellitus type 2, un complicated ([facility] V24, [facility] V28) 04/22/2020 Subclinical hypothyroidism 03/30/2019 CIDP (chronic inflammatory d emyelinating polyneuropathy) ([facility] V24, [facility] V28) 12/13/2016 Hyperlipidemia with target LDL less than 100 Overview (06/11/2024): IMO update Spinal stenosis 10/19/2011 Overview (06/11/2024): Dr. Escobedo - 03/20/12 - oxycodone started secondary to peripheral neuropathy Last Assessment & Plan: Mr. Yadav continues to have back pain into his [...] 07/04/2006 Gout 07/04/2006 Hypertension 07/04/2006 Morbid obesity ([facility] V24, [facility] V28) 2005 Overview (06/11/2024): BMI 42.86 on 05/18/13. Encounters Date Type Department Care Team Description 05/05/2025 1:30 PM EDT Office Visit Orthopedic Surgery [address] [phone] Paul Conner DPM Controlled type 2 diabetes with neuropathy ([facility] V24, [facility] V28) (Primary Dx); Hammertoes of both feet; Arthritis of both feet; Dermatophytosis, nail 05/04/2025 Telephone Adult Medicine [address] [phone] Frederick Ureña PA 04/23/2025 Telephone Adult Medicine [address] [phone] Frederick Ureña PA 04/13/2025 1:30 PM EDT Office Visit Adult Medicine [address] [phone] Frederick Ureña, PA Hospital discharge follow-up (Primary Dx); Urinary tract infection without hematuria, site unspecified; Pseudomonas urinary tract infection; Type 2 diabetes mellitus without complication, without long-term current use of insulin ([facility] V24, [facility] V28) from Last 3 Months Immunizations Immunization Administration Dates Next Due H1N1 Inj Preservative Free 09/11/2009 Influenza Quadravalent, MDCK , 0.5ml, preservative free (Flucelvax) 6mo and older 05/16/2020 Influenza trivalent, 0.5mL ( Fluzone High-dose) 65yo and older 06/29/2024,06/24/2023,06/20/2022 Influenza trivalent, 0.5mL, preservative free (Fluarix; FluLaval; Fluzone) ages 6mo and older (Afluria) 3 years and older 05/03/2016,05/11/2015 Influenza trivalent, with pr eservative (Fluzone; Afluria) 6mo and older 04/25/2012,03/03/2012,06/12/2011,05/22,06/11/2008,06/09/2007,08/22/2005 Influenza, Unspecified 06/19/2021,2017,05/03/2016,05/11 Pneumococcal conjugate 13 va lent (Prevnar 13, PCV13) 2mo and older 07/20/2022 Pneumococcal conjugate 20 va lent (Prevnar 20, PCV 20) 2mo and older 08/13/2023 Pneumococcal polysaccharide 23 valent (Pneumovax 23) 2yo and older 06/07/2014 TD, Adsorbed, Preservative Free 09/04/2000 Td Tetanus diptheria (Tdvax) 7yo and older 08/13/2023,04/04/2009,09/04/2000 Tdap Tetanus diptheria acell ular pertussis (Boostrix; Adacel) 7yo and older 05/18/2013 Zoster recombinant (Shingrix ) 19yo and older 06/14/2018,04/15/2018 Surgical History Surgery Date Site/Laterality Comments KNEE ARTHROSCOPY W/ DEBRIDEMENT PROCEDURE: TN ARTHRS KNEE DEBRIDEMENT/SHAVING ARTCLR CRTLG; COMMENT: bilateral X 2 OTHER SURGICAL HISTORY PROCEDURE: TN UNLISTED PROCEDURE PALATE UVULA; COMMENT: ENT APPENDECTOMY PROCEDURE: TN APPENDECTOMY TOTAL KNEE ARTHROPLASTY Bilateral PROCEDURE: TN ARTHRP KNE CONDYLE&PLATU MEDIAL&LAT COMPARTMENTS; COMMENT: left dr weathers 2006 RIGHT 2009 OTHER SURGICAL HISTORY PROCEDURE: HISTORICAL URETERAL REIMPLATATION; COMMENT: urethroplasty CATARACT EXTRACTION PROCEDURE: HISTORICAL CATARACT REMOVAL COLONOSCOPY 01/23/2008 PROCEDURE: HISTORICAL COLONOSCOPY; COMMENT: normal; repeat in ten years OTHER SURGICAL HISTORY 06/12/2018 PROCEDURE: COLON CA SCRN NOT HI RSK IND; COMMENT: adenoma with focus of high grade dysplasia; did not reach cecall base; repeat in one year under propofol CATARACT EXTRACTION PROCEDURE: HISTORICAL CATARACT REMOVAL COLONOSCOPY 04/04/2023 PROCEDURE: HISTORICAL COLONOSCOPY; COMMENT: muslu - normal Medical History Medical History Date Comments Other unspecified back disorder DX:Other unspecified back disorder Neuralgia, neuritis, and rad iculitis, unspecified DX:Neuralgia, neuritis, and radiculitis, unspecified Morbid obesity ([facility] V24, [facility] V28) 07/04/2006 DX:Morbid obesity ([facility]) Gout, unspecified 07/04/2006 DX:Gout, unspe cified Osteoarthrosis, unspecified whether generalized or localized, lower leg 01/01/2007 DX:Osteoarthrosis, unspecified whether generalized or localized, lower leg Idiopathic progressive polyneuropathy 01/01/2007 DX:Idiopathic progressive polyneuropathy; COMMENT: + NCT - Dr. Escobedo Unspecified sleep apnea 07/04/2006 DX:Unspe cified sleep apnea Essential hypertension, benign 07/04/2006 D X:Essential hypertension, benign Esophageal reflux DX:Esophageal reflux Esophageal reflux 07/04/2006 DX:Esophageal reflux Pilonidal cyst 05/05/2009 DX:Pilonidal cys t Impotence of organic origin 07/06/2011 DX:I mpotence of organic origin Personal history of colonic polyps 10/13/2018 DX:Personal history of colonic polyps; COMMENT: Due for next Colonoscopy 2018 With propofol Diabetes mellitus type 2, uncomplicated ([facility] [place], [facility] V28) 04/22/2020 DX:Diabetes mellitus type 2, uncomplicated ([facility]) Neuropathy Delayed wound healing Family History Medical History Relation Name Comments Neuropathy Father Arthritis Mother Neuropathy Mother Relation Name Status Comments Brother 1 Alive Brother 2 Alive Brother 3 Alive Father (Age 70'S) Mother (Age 70,S) Sister Alive Social History Tobacco Use Types Packs/Day Years Used Date Smoking Tobacco: Former Cigarettes 1 6.4 0 04/08/1963 - 09/02/1969 Smokeless Tobacco: Never Tobacco Cessation:Counseling Given: Not Answered Alcohol Use Standard Drinks/Week Comments Yes 0 [...] do you feel lonely or isolated from th ose around you? Never 08/31/2024 Food Risk [...] care for your loved ones. For example, childcare teacher or elderly care for an older adult? [...] on file Sexual Orientation Not on file Obstetrics History Last Filed Vital Signs Vital Sign Reading Time Taken Comments Blood Pressure 122/72 04/13/2025 1:55 PM EDT Pulse 75 04/13/2025 1:55 PM EDT Temperature 35.9 C (96.7 F) 04/13/2025 1:55 PM EDT Respiratory Rate 12 04/13/2025 1:55 PM EDT Oxygen Saturation 96% 04/13/2025 1:55 PM EDT Inhaled Oxygen Concentration - - Weight 153 kg (337 lb 3.2 oz) 04/13/2025 1:55 PM EDT Height 185.4 cm (6' 1 ) 04/13/2025 1:55 PM EDT Body Mass Index 44.49 04/13/2025 1:55 PM EDT Plan of Treatment Upcoming Encounters Date Type Department Care Team (Late st Contact Info) Description 07/07/2025 1:45 PM EST Office Visit Orthopedic Surgery - [place] [address] [facility] [address] [place] [phone] Paul Conner DPM 175 [facility] [address] [place] [address] 07/12/2025 2:30 PM EST Office Visit Adult Medicine [address] [phone] Frederick Ureña PA [address] [place] [phone] 10/27/2025 2:00 PM EST Office Visit Vascular Surgery [facility] [address] [place] [phone] Jenny Lees MD [address] [place] [phone] Health Maintenance Due Date Last Done Comments RSV Immunization Adult Patients (1 - Risk 50-74 years 1-dose series) 2007 Medicare Annual Wellness Visit 07/31/2022 COVID-19 Vaccine ( - season) 2025 08/18/2021, 01/23/2021, 12/26/2020 Influenza Vaccine (#1) 2025 , 06/24/2023, 06/20/2022, Additional history exists Social Influencers of Health Screening 08/31/2025 08/31/2024 Falls Risk Assessment 10/01/2025 10/01/2024, 024 Diabetes: Blood Sugar Control Test (HGBA1C) 10/24/2025 04/23/2025, 02/15/2025, 09/04/2024, Additional history exists Diabetes: Annual Foot Exam 12/30/2025 12/30/2024, Diabetes: Annual Retina Eye Exam 12/30/2025 12/30/2024, 12/09/2023 Diabetes: Annual Urine Albumin-Creatinine Ratio (uACR) 04/23/2026 04/23/2025, 02/15/2025, 08/14/2024, Additional history exists Diabetes: Annual GFR (Glomerular Filtration Rate) 04/23/2026 04/23/2025, 02/15/2025, 10/14/2024, Additional history exists Hypertension/CHF/CAD Annual BMP Blood Test 04/23/2026 04/23/2025, 02/15/2025, 10/14/2024, Additional history exists Cholesterol Screening (Lipid Panel) 04/23/2030 04/23/2025, 02/15/2025, 09/04/2024, Additional history exists Colorectal Cancer Screening: Colonoscopy 04/04/2033 04/04/2023 DTaP,Tdap,and Td Vaccines (5 - Td or Tdap) 08/13/2033 08/13/2023, 05/18/2013, 04/04/2009, Additional history exists Hepatitis C Screening Completed 11/15/2013 Zoster Vaccines Completed 06/14/2018, 04/15/2018 Abdominal Aortic Aneurysm (AAA) Screen Completed 08/22/2022 Pneumococcal Vaccine: 50+ Years Completed 08/13/2023, 07/20/2022, 06/07/2014 Depression Screening Completed 10/01/2024 HIB Vaccines Aged Out No longer eligi ble based on patient's age to complete this topic HPV Vaccines Aged Out No longer eligi ble based on patient's age to complete this topic Hepatitis A Vaccines Aged Out No long er eligible based on patient's age to complete this topic Hepatitis B Vaccines Aged Out No long er eligible based on patient's age to complete this topic IPV Vaccines Aged Out No longer eligi ble based on patient's age to complete this topic MMR Vaccines Aged Out No longer eligi ble based on patient's age to complete this topic Meningococcal ACWY Vaccine Aged Out N o longer eligible based on patient's age to complete this topic Meningococcal B Vaccine Aged Out No l onger eligible based on patient's age to complete this topic RSV Immunization Patients Under 20 months Aged Out No longer eligible based on patient's age to complete this topic Varicella Vaccines Aged Out No longer eligible based on patient's age to complete this topic Goals Goal Patient Goal Type Associated Problems [...] omised skin integrity. No Chelsey Ravi RN Procedures Procedure Name Priority Date/Time Associated Diagnosis Comments CULTURE BLOOD Routine 04/23/2025 1:07 PM EDT Urinary tract infection without hematuria, site unspecified URINALYSIS WITH REFLEX MICROSCOPIC Routine 04/23/2025 12:52 PM EDT Urinary tract infection without hematuria, site unspecified CBC WITH AUTO DIFFERENTIAL Routine 04/23/2025 12:52 PM EDT Urinary tract infection without hematuria, site unspecified LIPID PANEL WITH REFLEX TO DIRECT LDL Routine 04/23/2025 12:52 PM EDT Type 2 diabetes mellitus without complication, without long-term current use of insulin ([facility], [facility] V28) CIDP (chronic inflammatory demyelinating polyneuropathy) ([facility] V24, [facility] V28) Hyperlipidemia with target LDL less than 100 Secondary hypertension Gout, unspecified cause, unspecified chronicity, unspecified site MICROALBUMIN CREATININE URINE RATIO Routine 04/23/2025 12:52 PM EDT Type 2 diabetes mellitus without complication, without long-term current use of insulin ([facility] V24, [facility] V28) CIDP (chronic inflammatory demyelinating polyneuropathy) ([facility] V24, [facility] V28) Hyperlipidemia with target LDL less than 100 Secondary hypertension Gout, unspecified cause, unspecified chronicity, unspecified site HEMOGLOBIN A1C Routine 04/23/2025 12:52 PM EDT Type 2 diabetes mellitus without complication, without long-term current use of insulin ([facility] V24, [facility] V28) CIDP (chronic inflammatory demyelinating polyneuropathy) ([facility] V[facility], [facility] V28) Hyperlipidemia with target LDL less than 100 Secondary hypertension Gout, unspecified cause, unspecified chronicity, unspecified site URIC ACID Routine 04/23/2025 12:52 PM EDT Type 2 diabetes mellitus without complication, without long-term current use of insulin ([facility] V[facility], [facility] V28) CIDP (chronic inflammatory demyelinating polyneuropathy) ([facility]24, [facility] V28) Hyperlipidemia with target LDL less than 100 Secondary hypertension Gout, unspecified cause, unspecified chronicity, unspecified site THYROID STIMULATING HORMONE WITH REFLEX TO FREE T4 AND FREE T3 Routine 04/23/2025 12:52 PM EDT Type 2 diabetes mellitus without complication, without long-term current use of insulin ([facility], [facility] V28) CIDP (chronic inflammatory demyelinating polyneuropathy) ([facility], [facility] V28) Hyperlipidemia with target LDL less than 100 Secondary hypertension Gout, unspecified cause, unspecified chronicity, unspecified site URINALYSIS WITH REFLEX MICROSCOPIC Routine 04/23/2025 12:52 PM EDT Urinary tract infection without hematuria, site unspecified CBC AND DIFFERENTIAL Routine 04/23/2025 12:52 PM EDT Urinary tract infection without hematuria, site unspecified COMPREHENSIVE METABOLIC PANEL Routine 04/23/2025 12:52 PM EDT Urinary tract infection without hematuria, site unspecified CULTURE URINE Routine 04/23/2025 12:52 PM EDT Urinary tract infection without hematuria, site unspecified EXTERNAL CLINICAL LAB 04/03/2025 EXTERNAL CLINICAL LAB 04/03/2025 DIABETES EYE EXAM Routine 12/09/2023 DIABETES FOOT EXAM Routine 10/09/2023 COLONOSCOPY Routine 04/04/2023 ABDOMINAL AORTIC ANEURYSM SCRREN Routine 08/22/2022 HEPATITIS C SCREENING Routine 11/15/2013 from Last 3 Months or Most Recently Relevant to Health Maintenance Results * Culture blood (04/23/2025 1:07 PM EDT) Culture, Blood No growth at 5 days 04/28/2025 6:01 PM EDT [facility] Blood Venous blood specimen / Unknown Venipuncture / Unknown 04/23/2025 1:07 PM EDT 04/23/2025 1:07 PM EDT us Frederick VENEGAS LAB MICROBIOLOGY - GENERA L ORDERABLES Final Result [facility] [address] [place] [address], [place] [phone] * (ABNORMAL) Urinalysis with reflex microscopic (04/23/2025 12:52 PM EDT) Pathologist [facility] Specific [place] Urine 1.010 1.003 - 1.030 LAB URINALYSIS - AUTOMATED METHOD 04/23/2025 2:27 PM EDT [facility] pH, Urine 6.5 5.0 - 8.0 pH LAB URINALYSIS - AUTOMATED METHOD 04/23/2025 2:27 PM EDT [facility] Leukocytes, Urine Trace(A) Negative LAB URINALYSIS - AUTOMATED METHOD 04/23/2025 2:27 PM EDT [facility] Nitrite, Urine Negative Negative LAB URINALYSIS - AUTOMATED METHOD 04/23/2025 2:27 PM [facility] Protein, Urine Negative <=Trace mg/dL LAB URINALYSIS - AUTOMATED METHOD 04/23/2025 2:27 PM [facility] Glucose, Urine 100(A) Negative mg/dL LAB URINALYSIS - AUTOMATED METHOD 04/23/2025 2:27 PM EDT [facility] Ketones, Urine Negative Negative mg/dL LAB URINALYSIS - AUTOMATED METHOD 04/23/2025 2:27 PM [facility] Urobilinogen, Urine 0.2 0.2 - 1.0 mg/dL LAB URINALYSIS - AUTOMATED METHOD 04/23/2025 2:27 PM [facility] Bilirubin, Urine Negative Negative LAB URINALYSIS - AUTOMATED METHOD 04/23/2025 2:27 PM T [facility] Blood, Urine Negative Negative LAB URINALYSIS - AUTOMATED METHOD 04/23/2025 2:27 PM EDT [facility] RBC, Urine 0.8 0 - 4 /HPF LAB URINALYSIS - AUTOMATED METHOD 04/23/2025 2:27 PM EDT [facility] WBC, Urine 3.1 0 - 4 /HPF LAB URINALYSIS - AUTOMATED METHOD 04/23/2025 2:27 PM EDT [facility] Squamous Epithelial, Urine 26 0 - 60 /LPF LAB URINALYSIS - AUTOMATED METHOD 04/23/2025 2:27 PM EDT [facility] Bacteria, Urine Negative Negative /HPF LAB URINALYSIS - AUTOMATED METHOD 04/23/2025 2:27 PM EDT [facility] Hyaline Casts, Urine 0.0 0 - 3 /LPF LAB URINALYSIS - AUTOMATED METHOD 04/23/2025 2:27 PM EDT [facility] Urine Urine specimen obtained by clean catch procedure / Unknown Non-blood Collection / Unknown 04/23/2025 12:52 PM EDT 04/23/2025 12:52 PM EDT Frederick VENEGAS LAB URINE ORDERABLES Ludivina l Result [facility] [address] [place] [address], * Thyroid stimulating hormone with reflex to free t4 and free t3 (04/23/2025 12:52 PM EDT) TSH 3.52 0.40 - 4.00 mcIU/mL LAB CHEMISTRY METHOD 04/23/2025 5:45 PM EDT [facility] Blood Venous blood specimen / Unknown Venipuncture / Unknown 04/23/2025 12:52 PM EDT 04/23/2025 12:52 PM EDT Frederick VENEGAS LAB BLOOD ORDERABLES Ludivina l Result [facility] [address] [place] [address], [place] [phone] * (ABNORMAL) Lipid panel with reflex to direct LDL (04/23/2025 12:52 PM EDT) [facility] Cholesterol 160 0 - 200 mg/dL LAB CHEMISTRY METHOD 04/23/2025 5:13 PM EDT [facility] Triglycerides 290(H) 0 - 150 mg/dL LAB CHEMISTRY METHOD 04/23/2025 5:13 PM EDT [facility] HDL 38(L) >=40 mg/dL LAB CHEMISTRY METHOD 04/23/2025 5:13 PM EDT [facility] LDL Calculated 64 0 - 100 mg/dL LAB CHEMISTRY METHOD 04/23/2025 5:13 PM EDT [facility] Comment:Estimated LDL Calcul ated using equation: Total cholesterol - HDL cholesterol - (Triglycerides/5) VLDL Cholesterol Eliecer 58 mg/dL LAB CHEMISTRY METHOD 04/23/2025 5:13 PM EDT [facility] Non HDL Chol. (LDL+VLDL) 122 <145 mg/dL LAB CHEMISTRY METHOD 04/23/2025 5:13 PM EDT [facility] Chol/HDL Ratio 4.2 0.0 - 4.4 LAB CHEMISTRY METHOD 04/23/2025 5:13 PM EDT [facility] Blood Venous blood specimen / Unknown Venipuncture / Unknown 04/23/2025 12:52 PM EDT 04/23/2025 12:52 PM EDT Frederick VEENGAS LAB BLOOD ORDERABLES Ludivina l Result [facility] [address] [place] [address], [place] [phone] * (ABNORMAL) CBC auto differential (04/23/2025 12:52 PM EDT) [facility] WBC 8.4 4.8 - 10.8 K/mcL LAB HEMETOLOGY METHOD 04/23/2025 2:27 PM [facility] RBC 4.60 4.50 - 5.50 M/mcL LAB HEMETOLOGY METHOD 04/23/2025 2:27 PM [facility] Hemoglobin 14.1 13.5 - 17.5 g/dL LAB HEMETOLOGY METHOD 04/23/2025 2:27 PM [facility] Hematocrit 41.4(L) 42.0 - 54.0 % LAB HEMETOLOGY METHOD 04/23/2025 2:27 PM [facility] MCV 89.4 79.0 - 98.0 FL LAB HEMETOLOGY METHOD 04/23/2025 2:27 PM [facility] MCH 30.5 27.0 - 32.0 pcg LAB HEMETOLOGY METHOD 04/23/2025 2:27 PM [facility] MCHC 34.1 32.0 - 37.0 g/dL LAB HEMETOLOGY METHOD 04/23/2025 2:27 PM [facility] RDW 13.2 11.0 - 15.0 % LAB HEMETOLOGY METHOD 04/23/2025 2:27 PM [facility] Platelets 216 130 - 400 K/mcL LAB HEMETOLOGY METHOD 04/23/2025 2:27 PM [facility] MPV 12.0(H) 7.0 - 11.0 FL LAB HEMETOLOGY METHOD 04/23/2025 2:27 PM [facility] NRBC 0.0 <1.0 % LAB HEMETOLOGY METHOD 04/23/2025 2:27 PM [facility] NRBC Absolute 0.00 <0.10 K/mcL LAB HEMETOLOGY METHOD 04/23/2025 2:27 PM [facility] Neutrophils Relative 57.4 % LAB HEMETOLOGY METHOD 04/23/2025 2:27 PM [facility] Lymphocytes Relative 28.3 % LAB HEMETOLOGY METHOD 04/23/2025 2:27 PM [facility] Monocytes Relative 6.9 % LAB HEMETOLOGY METHOD 04/23/2025 2:27 PM [facility] Eosinophils Relative 6.2 % LAB HEMETOLOGY METHOD 04/23/2025 2:27 PM [facility] Basophils Relative 1.0 % LAB HEMETOLOGY METHOD 04/23/2025 2:27 PM [facility] Immature Granulocytes Relative 0.2 % LAB HEMETOLOGY METHOD 04/23/2025 2:27 PM [facility] Neutrophils Absolute 4.82 1.50 - 7.00 K/mcL LAB HEMETOLOGY METHOD 04/23/2025 2:27 PM [facility] Lymphocytes Absolute 2.38 1.00 - 5.00 K/mcL LAB HEMETOLOGY METHOD 04/23/2025 2:27 PM [facility] Monocytes Absolute 0.58 0.20 - 1.00 K/mcL LAB HEMETOLOGY METHOD 04/23/2025 2:27 PM [facility] Eosinophils Absolute 0.52(H) 0.00 - 0.50 K/mcL LAB HEMETOLOGY METHOD 04/23/2025 2:27 PM [facility] Basophils Absolute 0.08 0.00 - 0.20 K/mcL LAB HEMETOLOGY METHOD 04/23/2025 2:27 PM [facility] Immature Granulocytes Absolute 0.02 0.00 - 0.03 K/mcL LAB HEMETOLOGY METHOD 04/23/2025 2:27 PM [facility] Blood Venous blood specimen / Unknown Venipuncture / Unknown 04/23/2025 12:52 PM EDT 04/23/2025 12:52 PM EDT Frederick VENEGAS LAB BLOOD ORDERABLES Ludivina l Result Performing Organization Address [place]/State/ZIP Co de Phone Number [facility] [address] [place] [address], [place] [phone] * Microalbumin creatinine urine ratio (04/23/2025 12:52 PM EDT) Creatinine, Urine 55.0 mg/dL LAB CHEMISTRY METHOD 04/23/2025 3:57 PM EDT [facility] Microalb, Ur 6.4 0.0 - 29.0 mg/L LAB CHEMISTRY METHOD 04/23/2025 3:57 PM EDT [facility] Microalb/Creat Ratio 12 <30 mg/g creat LAB CHEMISTRY METHOD 04/23/2025 3:57 PM EDT [facility] Urine Urine specimen obtained by clean catch procedure / Unknown Non-blood Collection / Unknown 04/23/2025 12:52 PM EDT 04/23/2025 12:52 PM EDT Frederick VENEGAS LAB URINE ORDERABLES Ludivina l Result Performing Organization Address City/[facility]/ZIP Co de Phone Number [facility] [address] [place] [address], [place] [phone] * Culture urine (04/23/2025 12:52 PM EDT) Culture, Urine No growth 04/24/2025 9:22 AM EDT [facility] Urine Urine specimen obtained by clean catch procedure / Unknown Non-blood Collection / Unknown 04/23/2025 12:52 PM EDT 04/23/2025 12:52 PM EDT rFederick VENEGAS LAB MICROBIOLOGY - GENERA L ORDERABLES Final Result Performing Organization Address City/[facility]/ZIP Co de Phone Number [facility] [address] [place] [address], [place] [phone] * Uric acid (04/23/2025 12:52 PM EDT) Pathologist [facility] Uric Acid 4.4 3.7 - 9.2 mg/dL LAB CHEMISTRY METHOD 04/23/2025 5:13 PM EDT [facility] Blood Venous blood specimen / Unknown Venipuncture / Unknown 04/23/2025 12:52 PM EDT 04/23/2025 12:52 PM EDT Frederick VENEGAS LAB BLOOD ORDERABLES Ludivina l Result Performing Organization Address [place]/[facility]/ZIP Co de Phone Number [facility] [address] [place] [address], [place] [phone] * (ABNORMAL) Hemoglobin A1c (04/23/2025 12:52 PM EDT) [facility] Hemoglobin A1C 7.8(H) <6.5 % LAB CHEMISTRY METHOD 04/23/2025 8:37 PM EDT [facility] Mean Bld Glu Estim. 177 mg/dL LAB CHEMISTRY METHOD 04/23/2025 8:37 PM EDT [facility] Blood Venous blood specimen / Unknown Venipuncture / Unknown 04/23/2025 12:52 PM EDT 04/23/2025 12:52 PM EDT Frederick VENEGAS LAB BLOOD ORDERABLES Ludivina l Result [facility] [address] [place] [address], [place] [phone] * (ABNORMAL) Comprehensive metabolic panel (04/23/2025 12:52 PM EDT) Sodium 133 133 - 145 mmol/L LAB CHEMISTRY METHOD 04/23/2025 5:13 PM [facility] Potassium 4.2 3.5 - 5.5 mmol/L LAB CHEMISTRY METHOD 04/23/2025 5:13 PM [facility] Chloride 100 96 - 110 mmol/L LAB CHEMISTRY METHOD 04/23/2025 5:13 PM [facility] CO2 24 21 - 32 mmol/L LAB CHEMISTRY METHOD 04/23/2025 5:13 PM [facility] Anion Gap 9 3 - 11 LAB CHEMISTRY METHOD 04/23/2025 5:13 PM [facility] Glucose 227(H) 70 - 100 mg/dL LAB CHEMISTRY METHOD 04/23/2025 5:13 PM [facility] BUN 13 5 - 25 mg/dL LAB CHEMISTRY METHOD 04/23/2025 5:13 PM [facility] Creatinine 1.18 0.70 - 1.30 mg/dL LAB CHEMISTRY METHOD 04/23/2025 5:13 PM [facility] eGFR 67 >=60 mL/min/1. 73m2 LAB CHEMISTRY METHOD 04/23/2025 5:13 PM [facility] Comment:Calculation based on the Chronic Kidney Disease Epidemiology Collaboration (CKD-EPI) equation refit without adjustment for race. BUN/Creatinine Ratio 11.0 LAB CHEMISTRY METHOD 04/23/2025 5:13 PM [facility] Calcium 9.1 8.5 - 10.5 mg/dL LAB CHEMISTRY METHOD 04/23/2025 5:13 PM [facility] AST (SGOT) 25 10 - 42 unit/L LAB CHEMISTRY METHOD 04/23/2025 5:13 PM [facility] ALT (SGPT) 36 10 - 60 unit/L LAB CHEMISTRY METHOD 04/23/2025 5:13 PM [facility] Alkaline Phosphatase 94 42 - 121 unit/L LAB CHEMISTRY METHOD 04/23/2025 5:13 PM EDT [facility] Total Protein 7.2 6.0 - 8.0 g/dL LAB CHEMISTRY METHOD 04/23/2025 5:13 PM EDT [facility] Albumin 3.8 3.2 - 5.0 g/dL LAB CHEMISTRY METHOD 04/23/2025 5:13 PM EDT [facility] Total Bilirubin 0.3 0.0 - 1.4 mg/dL LAB CHEMISTRY METHOD 04/23/2025 5:13 PM EDT [facility] Blood Venous blood specimen / Unknown Venipuncture / Unknown 04/23/2025 12:52 PM EDT 04/23/2025 12:52 PM EDT Frederick VENEGAS LAB BLOOD ORDERABLES Ludivina l Result [facility] [address] [place] [address], [place] [phone] * External clinical lab (04/03/2025) Only the most recent of2 resultswithin the time period is included. Provider Jeremy Onbase LAB BLOOD ORDERABLES Fin al Result * Diabetes Eye Exam (12/09/2023) [facility] Diabetes: Annual Retina Eye Exam abstracted [facility] Provider HEALTH MAINTENANCE Final Result * Diabetes Foot Exam (10/09/2023) [facility] Diabetes: Annual Foot Exam abstracted [facility] Provider HEALTH MAINTENANCE Final Result * Colonoscopy (04/04/2023) [facility] Colonoscopy no interpretation , abstracted Anatomical Region Laterality Modality Other [facility] Provider HEALTH MAINTENANCE Final Result * Abdominal Aortic Aneurysm Screen (08/22/2022) [facility] Abdominal Aortic Aneurysm (AAA) Screening abstracted Anatomical Region Laterality Modality Other us Historical Provider HEALTH MAINTENANCE Final Result * Hepatitis C Screening (11/15/2013) Hepatitis C Screening abstracted us Historical Provider HEALTH MAINTENANCE Final Result from Last 3 Months or Most Recently Relevant to Health Maintenance Additional Health Concerns Active Problems Noted Date Diagnosed Date Impaired Tissue 10/01/2024 Education needed on impact of smoking on wound 0 10/01/2024 Education needed related to ulceration/compromised skin integrity. 10/01/2024 Infection Onset Date Last Indicated MDRO (other) 09/25/2024 03/22/2025 Insurance BLUE CROSS - [place] MEDICARE ADVANTAGE Care Teams Field Training Agent Relationship Specialty Start Date End Date Frederick Ureña PA [address] [place] [address] PCP - General Internal Medicine 08/13/24
--- OUTSIDE RECORDS SUMMARY | 2025-06-23 16:26 | XMS_ITS | Encounter Summary ---
Author Organization [facility] Address [address] [place] [address] Care Team Providers Care Olive Grader Name Role Phone Frederick Ureña Primary Care Provider [phone] Encounter Details Date Type Department Care Team (Late st Contact Info) Description 03/22/2025 Lab Requisition [facility] - Main Lab [address] [facility] [place] [address] Philipp Linda MD [address] [facility] [address] [place] [phone] Urinary tract infection, site not specified Social [...] Record ed Within the last 3 months, lindsay webster many times did you visit the emergency [...] for your loved ones. For example, child specialist or elderly care for an older [...] PM EST Office Visit Orthopedic Surgery - [place] [address] [phone] Paul Conner, ROSEY [address] [address] 07/12/2025 2:30 PM EST Office Visit Adult [address] [phone] Frederick Ureña PA [address] [place] [phone] 10/27/2025 2:00 PM EST Office Visit Vascular Surgery - [place] [address] [place] [phone] Jenny Lees MD [address] [place] [phone] documented as of this encounter [...] Date/Time Associated Diagnosis Comments CULTURE URINE Routine 03/22/2025 1:00 PM EDT Urinary tract infection, site not specified documented in this encounter Results * (ABNORMAL) Culture urine (03/22/2025 1:00 PM EDT) Culture, Urine >=100,000 CFU/mL Pseudomonas aeruginosa(A) JOSE RAUL 03/24/2025 10:08 AM EDT [facility] Comment: This is an edited result. Previous organism was Gram negative bacilli on 03/23/2025 at 1340 EDT. Urine Urine specimen obtained by clean catch procedure / Unknown Non-blood Collection / Unknown 03/22/2025 1:00 PM EDT 03/22/2025 6:35 PM EDT Narrative Organism Antibiotic Method Susceptibility Pseudomonas aeruginosa Piperacillin/Tazobactam JOSE RAUL <=4 ug/ml: Susceptible Pseudomonas aeruginosa Ceftazidime JOSE RAUL 1 ug/ml: Susceptible Pseudomonas aeruginosa Cefepime JOSE RAUL 2 ug/ml: Susceptible Pseudomonas aeruginosa Meropenem JOSE RAUL 4 ug/ml: Intermediate Pseudomonas aeruginosa Amikacin JOSE RAUL <=1 ug/ml: Susceptible Pseudomonas aeruginosa Ciprofloxacin JOSE RAUL 2 ug/ml: Resistant Pseudomonas aeruginosa Levofloxacin JOSE RAUL 4 ug/ml: Resistant Philipp Linda MD LAB MICROBIOLOGY - GENERA L ORDERABLES Final Result [facility] [address] [place] [address], documented in this encounter Visit Diagnoses Diagnosis [...] documented as of this encounter Care Teams Olive Grader Relationship Specialty Start Date End Date Frederick Ureña PA [address] [place] [id number] PCP - General Internal Medicine 08/13/24 documented as of this encounter
== END 2025-06-23 11:43 | disposition home or self-care (01) ==
LOC: HO.LAB 11:42
PROVIDERS: PCP Physician Assistant Medical; Visit Provider Urology
DX: N40.1 Benign prostatic hyperplasia with lower urinary tract symptoms (principal); N39.0 Urinary tract infection, site not specified; N35.919 Unspecified urethral stricture, male, unspecified site; R33.8 Other retention of urine
CPT/HCPCS: 81001; 87086; 87088; 87186

== ENCOUNTER 2025-07-01 14:31 | Outpatient (REF) | payer MEDICARE, SELFPAY ==
--- NOTE | ~2025-07-01 | US_ITS ---
EXAMINATION: US SCROTUM HISTORY: N50.89 - Other specified disorders of the male genital organs. COMPARISON: There are no prior studies available for comparison. FINDINGS: Real-time grayscale ultrasound imaging of the scrotum was performed. RIGHT TESTICLE: The right testis measures 3.2 x 2.4 x 2.2 cm and demonstrates slightly heterogeneous echotexture. No masses are seen. The right testis demonstrates normal color Doppler flow. No torsion. RIGHT EPIDIDYMIS: The right epididymis appears enlarged and heterogeneous. No focal lesion. LEFT TESTICLE: The left testis measures 4.1 x 2.6 x 2.4 cm and demonstrates lightly heterogeneous homogeneous echotexture. No masses are seen. The left testis demonstrates lightly increased increased color Doppler flow. No torsion. LEFT EPIDIDYMIS: Left epididymal head cysts, largest measuring 2.1 x 1.1 x 1.4 cm VARICOCELE: None. HYDROCELE: Large complex right hydrocele with internal echoes. Small to moderate simple appearing left hydrocele. OTHER COMMENTS: None. US/US scrotum IMPRESSION: Probable mild right epididymo orchitis and left orchitis. The left testicle is larger than the right. Large complex right hydrocele and smaller simple-appearing left hydrocele. Left epididymal head cysts, largest measuring 2.1 x 1.4 cm . No torsion. Electronically signed by: Nohemy Shore MD 07/01/2025 03:18 PM EDT
--- OUTSIDE RECORDS SUMMARY | 2025-07-01 17:38 | XMS_ITS | Encounter Summary ---
Author Organization [facility] Address [address] [place] [address] Care Team Providers Care Electronic Development Technician Name Role Phone Frederick Ureña Primary Care Provider [phone] Encounter Details Date Type Department Care Team (Late st Contact Info) Description 03/22/2025 Lab Requisition [facility] - Main Lab [address] [facility] [place] [address] Philipp Linda MD [address] [facility] [address] [place] [phone] Urinary tract infection, site not specified Social [...] care for your loved ones. For example, childhood development teacher or elderly care for an older [...] PM EST Office Visit Orthopedic Surgery - [place] [address] [place] [phone] Paul Conner DPM [address] [place] [phone] 07/12/2025 2:30 PM EST Office Visit Adult [address] [phone] Frederick Ureña PA [address] [place] [phone] 10/27/2025 2:00 PM EST Office Visit Vascular Surgery - [place] [address] [place] [address] Jenny Lees MD [address] [place] [phone] documented as of this encounter [...] aeruginosa(A) JOSE RAUL 03/24/2025 10:08 AM EDT [facility] Comment: This is an edited result. [...] - GENERA L ORDERABLES Final Result [facility] [address] [place] [address], documented in this encounter Visit Diagnoses Diagnosis [...] documented as of this encounter Care Teams Electronic Development Technician Relationship Specialty Start Date End Date Frederick Ureña PA [address] [place] [phone] PCP - General Internal Medicine 08/13/24 documented as of this encounter
--- OUTSIDE RECORDS SUMMARY | 2025-07-01 17:38 | XMS_ITS ---
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, with fat layer exposed ([facility] V24, [facility] V28) 10/01/2024 Peripheral vascular disease ([facility] V24) 2024 Diabetes mellitus type 2, un complicated ([facility] V24, [facility] V28) 04/22/2020 Subclinical hypothyroidism 03/30/2019 CIDP (chronic inflammatory d emyelinating polyneuropathy) ([facility] V24, [facility] V28) 12/13/2016 Hyperlipidemia with target LDL less [...] 07/04/2006 Gout 07/04/2006 Hypertension 07/04/2006 Morbid obesity ([facility] V24, [facility] V28) 2005 Overview (06/11/2024): BMI 42.86 on [...]
--- OUTSIDE RECORDS SUMMARY | 2025-07-01 17:38 | XMS_ITS | Clinical Summary ---
Author Organization [address] [place] [address] [place] [phone] Phone Care Team Providers Care Painter Helper Sign Name Role Phone Frederick Ureña Primary Care Provider [phone] Allergies Active Allergy Reactions Criticality Noted Date [...] 2 diabetes mellitus, with fat layer exposed ([facility] V24, [facility] V28) 10/01/2024 Peripheral vascular disease ([facility] V24) 2024 Diabetes mellitus type 2, un complicated ([facility] V24, [facility] V28) 04/22/2020 Subclinical hypothyroidism 03/30/2019 CIDP (chronic inflammatory d emyelinating polyneuropathy) ([facility] V24, [facility] V28) 12/13/2016 Hyperlipidemia with target LDL less [...] 07/04/2006 Gout 07/04/2006 Hypertension 07/04/2006 Morbid obesity ([facility] V24, [facility] V28) 2005 Overview (06/11/2024): BMI 42.86 on 05/18/13. Encounters Date Type Department Care Team Description 05/05/2025 1:30 PM EDT Office Visit Orthopedic Surgery [address] [phone] Paul Conner DPM Controlled type 2 diabetes with neuropathy ([facility] V24, [facility] V28) (Primary Dx); Hammertoes of both feet; Arthritis of both feet; Dermatophytosis, nail 05/04/2025 Telephone Adult Medicine [address] [phone] Frederick Ureña PA 04/23/2025 Telephone Adult Medicine [address] [phone] Frederick Ureña PA 04/13/2025 1:30 PM EDT Office Visit Adult Medicine [address] [phone] Frederick Ureña, PA Hospital discharge follow-up (Primary Dx); Urinary tract infection without hematuria, site unspecified; Pseudomonas urinary tract infection; Type 2 diabetes mellitus without complication, without long-term current use of insulin ([facility] V24, [facility] V28) from Last 3 Months Immunizations [...] Site/Laterality Comments KNEE ARTHROSCOPY W/ DEBRIDEMENT PROCEDURE: MD ARTHRS KNEE DEBRIDEMENT/SHAVING ARTCLR CRTLG; COMMENT: bilateral X 2 OTHER SURGICAL HISTORY PROCEDURE: MD UNLISTED PROCEDURE PALATE UVULA; COMMENT: ENT APPENDECTOMY PROCEDURE: MD APPENDECTOMY TOTAL KNEE ARTHROPLASTY Bilateral PROCEDURE: MD ARTHRP KNE CONDYLE&PLATU MEDIAL&LAT COMPARTMENTS; COMMENT: left [...] DX:Neuralgia, neuritis, and radiculitis, unspecified Morbid obesity ([facility] V24, [facility] V28) 07/04/2006 DX:Morbid obesity ([facility]) Gout, unspecified 07/04/2006 DX:Gout, unspe cified [...] With propofol Diabetes mellitus type 2, uncomplicated ([facility]24, [facility] V28) 04/22/2020 DX:Diabetes mellitus type 2, uncomplicated ([facility]) Neuropathy Delayed wound healing Family History [...] for your loved ones. For example, child life assistant or elderly care for an older adult? [...] PM EST Office Visit Orthopedic Surgery - [place] [address] [place] [phone] Paul Conner DPM [address] [place] [phone] 07/12/2025 2:30 PM EST Office Visit Adult Medicine [address] [phone] Frederick Ureña PA [address] [place] [phone] 10/27/2025 2:00 PM EST Office Visit Vascular Surgery - [place] [address] [place] [phone] Jenny Lees MD [address] [place] [phone] Health Maintenance Due Date Last [...] Procedure Name Priority Date/Time Associated Diagnosis Comments EXTERNAL CLINICAL LAB 06/23/2025 EXTERNAL CLINICAL LAB 06/23/2025 CULTURE BLOOD Routine 04/23/2025 1:07 PM EDT [...] complication, without long-term current use of insulin ([facility] V24, [facility] V28) CIDP (chronic inflammatory demyelinating polyneuropathy) ([facility] V24, [facility] V28) Hyperlipidemia with target LDL less than 100 Secondary hypertension Gout, unspecified cause, unspecified chronicity, unspecified site MICROALBUMIN CREATININE URINE RATIO Routine 04/23/2025 12:52 PM EDT Type 2 diabetes mellitus without complication, without long-term current use of insulin ([facility] V24, [facility] V28) CIDP (chronic inflammatory demyelinating polyneuropathy) ([facility] V24, [facility] V28) Hyperlipidemia with target LDL less than 100 Secondary hypertension Gout, unspecified cause, unspecified chronicity, unspecified site HEMOGLOBIN A1C Routine 04/23/2025 12:52 PM EDT Type 2 diabetes mellitus without complication, without long-term current use of insulin ([facility] V24, [facility] V28) CIDP (chronic inflammatory demyelinating polyneuropathy) ([facility] V24, [facility] V28) Hyperlipidemia with target LDL less than 100 Secondary hypertension Gout, unspecified cause, unspecified chronicity, unspecified site URIC ACID Routine 04/23/2025 12:52 PM EDT Type 2 diabetes mellitus without complication, without long-term current use of insulin ([facility] V24, [facility] V28) CIDP (chronic inflammatory demyelinating polyneuropathy) ([facility] V24, [facility] V28) Hyperlipidemia with target LDL less than 100 Secondary hypertension Gout, unspecified cause, unspecified chronicity, unspecified site THYROID STIMULATING HORMONE WITH REFLEX TO FREE T4 AND FREE T3 Routine 04/23/2025 12:52 PM EDT Type 2 diabetes mellitus without complication, without long-term current use of insulin ([facility] V24, [facility] V28) CIDP (chronic inflammatory demyelinating polyneuropathy) ([facility] V24, [facility] V28) Hyperlipidemia with target LDL less than [...] Recently Relevant to Health Maintenance Results * External clinical lab (06/23/2025) Only the most recent of4 resultswithin the time period is included. us Provider [facility] LAB BLOOD ORDERABLES Fin al Result * Culture blood (04/23/2025 1:07 PM EDT) [facility] Culture, Blood No growth at 5 days 04/28/2025 6:01 PM EDT [facility] Blood Venous blood specimen / Unknown Venipuncture / Unknown 04/23/2025 1:07 PM EDT 04/23/2025 1:07 PM EDT Frederick VENEGAS LAB MICROBIOLOGY - GENERA L ORDERABLES Final Result [facility] [address] [place] [address], [place] [phone] * (ABNORMAL) Urinalysis with reflex microscopic (04/23/2025 12:52 PM EDT) [facility] Specific [place] Urine 1.010 1.003 - 1.030 LAB URINALYSIS - AUTOMATED METHOD 04/23/2025 2:27 PM [facility] pH, Urine 6.5 5.0 - 8.0 pH LAB URINALYSIS - AUTOMATED METHOD 04/23/2025 2:27 PM [facility] Leukocytes, Urine Trace(A) Negative LAB URINALYSIS - AUTOMATED METHOD 04/23/2025 2:27 PM [facility] Nitrite, Urine Negative Negative LAB URINALYSIS - AUTOMATED METHOD 04/23/2025 2:27 PM [facility] Protein, Urine Negative <=Trace mg/dL LAB URINALYSIS - AUTOMATED METHOD 04/23/2025 2:27 PM [facility] Glucose, Urine 100(A) Negative mg/dL LAB URINALYSIS - AUTOMATED METHOD 04/23/2025 2:27 PM [facility] Ketones, Urine Negative Negative mg/dL LAB URINALYSIS - AUTOMATED METHOD 04/23/2025 2:27 PM [facility] Urobilinogen, Urine 0.2 0.2 - 1.0 mg/dL LAB URINALYSIS - AUTOMATED METHOD 04/23/2025 2:27 PM T [facility] Bilirubin, Urine Negative Negative LAB URINALYSIS - AUTOMATED METHOD 04/23/2025 2:27 PM [facility] Blood, Urine Negative Negative LAB URINALYSIS - AUTOMATED METHOD 04/23/2025 2:27 PM [facility] RBC, Urine 0.8 0 - 4 /HPF LAB URINALYSIS - AUTOMATED METHOD 04/23/2025 2:27 PM [facility] WBC, Urine 3.1 0 - 4 /HPF LAB URINALYSIS - AUTOMATED METHOD 04/23/2025 2:27 PM [facility] Squamous Epithelial, Urine 26 0 - 60 /LPF LAB URINALYSIS - AUTOMATED METHOD 04/23/2025 2:27 PM [facility] Bacteria, Urine Negative Negative /HPF LAB URINALYSIS - AUTOMATED METHOD 04/23/2025 2:27 PM [facility] Hyaline Casts, Urine 0.0 0 - 3 /LPF LAB URINALYSIS - AUTOMATED METHOD 04/23/2025 2:27 PM [facility] Urine Urine specimen obtained by clean catch procedure / Unknown Non-blood Collection / Unknown 04/23/2025 12:52 PM EDT 04/23/2025 12:52 PM EDT us Frederick VENEGAS LAB URINE ORDERABLES Ludivina l Result [facility] [address] [place] [address], * Thyroid stimulating hormone with reflex to free t4 and free t3 (04/23/2025 12:52 PM EDT) TSH 3.52 0.40 - 4.00 mcIU/mL LAB CHEMISTRY METHOD 04/23/2025 5:45 PM EDT [facility] Blood Venous blood specimen / Unknown Venipuncture / Unknown 04/23/2025 12:52 PM EDT 04/23/2025 12:52 PM EDT Frederick VENEGAS LAB BLOOD ORDERABLES Ludivina l Result [facility] [address] [place] [address], [place] [phone] * (ABNORMAL) Lipid panel with reflex to direct LDL (04/23/2025 12:52 PM EDT) Cholesterol 160 0 - 200 mg/dL LAB CHEMISTRY METHOD 04/23/2025 5:13 PM EDT [facility] Triglycerides 290(H) 0 - 150 mg/dL LAB CHEMISTRY METHOD 04/23/2025 5:13 PM EDT [facility] HDL 38(L) >=40 mg/dL LAB CHEMISTRY METHOD 04/23/2025 5:13 PM EDT [facility] LDL Calculated 64 0 - 100 mg/dL LAB CHEMISTRY METHOD 04/23/2025 5:13 PM EDT [facility] Comment:Estimated LDL Calcul ated using equation: Total cholesterol - HDL cholesterol - (Triglycerides/5) VLDL Cholesterol Eliecer 58 mg/dL LAB CHEMISTRY METHOD 04/23/2025 5:13 PM EDT [facility] Non HDL Chol. (LDL+VLDL) 122 <145 mg/dL LAB CHEMISTRY METHOD 04/23/2025 5:13 PM EDT [facility] Chol/HDL Ratio 4.2 0.0 - 4.4 LAB CHEMISTRY METHOD 04/23/2025 5:13 PM EDT [facility] Blood Venous blood specimen / Unknown Venipuncture / Unknown 04/23/2025 12:52 PM EDT 04/23/2025 12:52 PM EDT Frederick VENEGAS LAB BLOOD ORDERABLES Ludivina l Result [facility] [address] [place] [address], * (ABNORMAL) CBC auto differential (04/23/2025 12:52 PM EDT) [facility] WBC 8.4 4.8 - 10.8 K/mcL LAB HEMETOLOGY METHOD 04/23/2025 2:27 PM EDT [facility] RBC 4.60 4.50 - 5.50 M/mcL LAB HEMETOLOGY METHOD 04/23/2025 2:27 PM EDT [facility] Hemoglobin 14.1 13.5 - 17.5 g/dL LAB HEMETOLOGY METHOD 04/23/2025 2:27 PM EDT [facility] Hematocrit 41.4(L) 42.0 - 54.0 % LAB HEMETOLOGY METHOD 04/23/2025 2:27 PM EDT [facility] MCV 89.4 79.0 - 98.0 FL LAB HEMETOLOGY METHOD 04/23/2025 2:27 PM EDT [facility] MCH 30.5 27.0 - 32.0 pcg LAB HEMETOLOGY METHOD 04/23/2025 2:27 PM EDT [facility] MCHC 34.1 32.0 - 37.0 g/dL LAB HEMETOLOGY METHOD 04/23/2025 2:27 PM EDT [facility] RDW 13.2 11.0 - 15.0 % LAB HEMETOLOGY METHOD 04/23/2025 2:27 PM EDT [facility] Platelets 216 130 - 400 K/mcL LAB HEMETOLOGY METHOD 04/23/2025 2:27 PM EDT [facility] MPV 12.0(H) 7.0 - 11.0 FL LAB HEMETOLOGY METHOD 04/23/2025 2:27 PM EDT [facility] NRBC 0.0 <1.0 % LAB HEMETOLOGY METHOD 04/23/2025 2:27 PM [facility] NRBC Absolute 0.00 <0.10 K/mcL LAB HEMETOLOGY METHOD 04/23/2025 2:27 PM [facility] Neutrophils Relative 57.4 % LAB HEMETOLOGY METHOD 04/23/2025 2:27 PM [facility] Lymphocytes Relative 28.3 % LAB HEMETOLOGY METHOD 04/23/2025 2:27 PM [facility] Monocytes Relative 6.9 % LAB HEMETOLOGY METHOD 04/23/2025 2:27 PM [facility] Eosinophils Relative 6.2 % LAB HEMETOLOGY METHOD 04/23/2025 2:27 PM [facility] Basophils Relative 1.0 % LAB HEMETOLOGY METHOD 04/23/2025 2:27 PM [facility] Immature Granulocytes Relative 0.2 % LAB HEMETOLOGY METHOD 04/23/2025 2:27 PM [facility] Neutrophils Absolute 4.82 1.50 - 7.00 K/mcL LAB HEMETOLOGY METHOD 04/23/2025 2:27 PM [facility] Lymphocytes Absolute 2.38 1.00 - 5.00 K/mcL LAB HEMETOLOGY METHOD 04/23/2025 2:27 PM [facility] Monocytes Absolute 0.58 0.20 - 1.00 K/mcL LAB HEMETOLOGY METHOD 04/23/2025 2:27 PM [facility] Eosinophils Absolute 0.52(H) 0.00 - 0.50 K/mcL LAB HEMETOLOGY METHOD 04/23/2025 2:27 PM [facility] Basophils Absolute 0.08 0.00 - 0.20 K/mcL LAB HEMETOLOGY METHOD 04/23/2025 2:27 PM EDT [facility] Immature Granulocytes Absolute 0.02 0.00 - 0.03 K/mcL LAB HEMETOLOGY METHOD 04/23/2025 2:27 PM EDT [facility] Blood Venous blood specimen / Unknown Venipuncture / Unknown 04/23/2025 12:52 PM EDT 04/23/2025 12:52 PM EDT Frederick VENEGAS LAB BLOOD ORDERABLES Ludivina l Result Performing Organization Address City/[facility]/ZIP Co de Phone Number [facility] [address] [place] [address], [place] [phone] * Microalbumin creatinine urine ratio (04/23/2025 12:52 PM EDT) Creatinine, Urine 55.0 mg/dL LAB CHEMISTRY METHOD 04/23/2025 3:57 PM EDT [facility] Microalb, Ur 6.4 0.0 - 29.0 mg/L LAB CHEMISTRY METHOD 04/23/2025 3:57 PM EDT [facility] Microalb/Creat Ratio 12 <30 mg/g creat LAB CHEMISTRY METHOD 04/23/2025 3:57 PM EDT [facility] Urine Urine specimen obtained by clean catch procedure / Unknown Non-blood Collection / Unknown 04/23/2025 12:52 PM EDT 04/23/2025 12:52 PM EDT Frederick VENEGAS LAB URINE ORDERABLES Ludivina l Result [facility] [address] [place] [address], [place] [phone] * Culture urine (04/23/2025 12:52 PM EDT) Culture, Urine No growth 04/24/2025 9:22 AM EDT [facility] Urine Urine specimen obtained by clean catch procedure / Unknown Non-blood Collection / Unknown 04/23/2025 12:52 PM EDT 04/23/2025 12:52 PM EDT Frederick VENEGAS LAB MICROBIOLOGY - GENERA L ORDERABLES Final Result Performing Organization Address City/[facility]/ZIP Co de Phone Number [facility] [address] [place] [address], [place] [phone] * Uric acid (04/23/2025 12:52 PM EDT) Uric Acid 4.4 3.7 - 9.2 mg/dL LAB CHEMISTRY METHOD 04/23/2025 5:13 PM EDT [facility] Blood Venous blood specimen / Unknown Venipuncture / Unknown 04/23/2025 12:52 PM EDT 04/23/2025 12:52 PM EDT Frederick VENEGAS LAB BLOOD ORDERABLES Ludivina l Result Performing Organization Address [facility] Co de Phone Number [facility] [address] [place] [address], [place] [phone] * (ABNORMAL) Hemoglobin A1c (04/23/2025 12:52 PM EDT) Hemoglobin A1C 7.8(H) <6.5 % LAB CHEMISTRY METHOD 04/23/2025 8:37 PM EDT [facility] Mean Bld Glu Estim. 177 mg/dL LAB CHEMISTRY METHOD 04/23/2025 8:37 PM EDT [facility] Blood Venous blood specimen / Unknown Venipuncture / Unknown 04/23/2025 12:52 PM EDT 04/23/2025 12:52 PM EDT Frederick VENEAGS LAB BLOOD ORDERABLES Ludivina l Result [facility] [address] [place] [address], * (ABNORMAL) Comprehensive metabolic panel (04/23/2025 12:52 PM EDT) Sodium 133 133 - 145 mmol/L LAB CHEMISTRY METHOD 04/23/2025 5:13 PM EDT [facility] Potassium 4.2 3.5 - 5.5 mmol/L LAB CHEMISTRY METHOD 04/23/2025 5:13 PM [facility] Chloride 100 96 - 110 mmol/L LAB CHEMISTRY METHOD 04/23/2025 5:13 PM [facility] CO2 24 21 - 32 mmol/L LAB CHEMISTRY METHOD 04/23/2025 5:13 PM [facility] Anion Gap 9 3 - 11 LAB CHEMISTRY METHOD 04/23/2025 5:13 PM [facility] Glucose 227(H) 70 - 100 mg/dL LAB CHEMISTRY METHOD 04/23/2025 5:13 PM [facility] BUN 13 5 - 25 mg/dL LAB CHEMISTRY METHOD 04/23/2025 5:13 PM [facility] Creatinine 1.18 0.70 - 1.30 mg/dL LAB CHEMISTRY METHOD [facility]/23[facility]25 [facility] eGFR 67 >=60 mL/min/1. 73m2 LAB CHEMISTRY METHOD 04/23/2025 5:13 PM [facility] Comment:Calculation based on the Chronic Kidney Disease Epidemiology Collaboration (CKD-EPI) equation refit without adjustment for race. BUN/Creatinine Ratio 11.0 LAB CHEMISTRY METHOD 04/23/2025 5:13 PM [facility] Calcium 9.1 8.5 - 10.5 mg/dL LAB CHEMISTRY METHOD 04/23/2025 5:13 PM [facility] AST (SGOT) 25 10 - 42 unit/L LAB CHEMISTRY METHOD 04/23/2025 5:13 PM EDT [facility] ALT (SGPT) 36 10 - 60 unit/L LAB CHEMISTRY METHOD 04/23/2025 5:13 PM EDT [facility] Alkaline Phosphatase 94 42 - 121 unit/L LAB CHEMISTRY METHOD 04/23/2025 5:13 PM EDT [facility] Total Protein 7.2 6.0 - 8.0 g/dL LAB CHEMISTRY METHOD 04/23/2025 5:13 PM EDT [facility] Albumin 3.8 3.2 - 5.0 g/dL LAB CHEMISTRY METHOD 04/23/2025 5:[facility] Total Bilirubin 0.3 0.0 - 1.4 mg/dL LAB CHEMISTRY METHOD 04/23/2025 5:13 PM EDT [facility] Blood Venous blood specimen / Unknown Venipuncture / Unknown 04/23/2025 12:52 PM EDT 04/23/2025 12:52 PM EDT Frederick VENEGAS LAB BLOOD ORDERABLES Ludivina l Result [facility] [address] [place] [address], * Diabetes Eye Exam (12/09/2023) Pathologist [facility] Diabetes: Annual Retina Eye Exam abstracted Historical Provider HEALTH MAINTENANCE Final Result * Diabetes Foot Exam (10/09/2023) Pathologist [facility] Diabetes: Annual Foot Exam abstracted [facility] Provider HEALTH MAINTENANCE Final Result * Colonoscopy (04/04/2023) Pathologist [facility] Colonoscopy no interpretation , abstracted Anatomical Region Laterality Modality Other [facility] Provider HEALTH MAINTENANCE Final Result * Abdominal Aortic Aneurysm Screen (08/22/2022) Abdominal Aortic Aneurysm (AAA) Screening abstracted Anatomical Region Laterality Modality Other Historical Provider HEALTH MAINTENANCE Final Result * Hepatitis C Screening (11/15/2013) Hepatitis C Screening abstracted Historical Provider HEALTH MAINTENANCE Final Result from [...] [place] - [place] MED[place] Care Teams Painter Helper Sign Relationship Specialty Start Date End Date Frederick Ureña PA [address] [place] [address] PCP - General Internal Medicine 08/13/24
--- OUTSIDE RECORDS SUMMARY | 2025-07-01 17:38 | XMS_ITS | Encounter Summary ---
Author Organization [facility] Address [address] [place] [address] Care Team Providers Care Donor Services Coordinator Name Role Phone Frederick Ureña Primary Care Provider [phone] Encounter Details Date Type Department Care Team (Late st Contact Info) Description 01/28/2025 Lab Requisition [facility] - Main Lab [address] [facility] [place] [address] Ronaldo Ricci PA [address] [place] [address] Urinary tract infection, site not specified Social [...] for your loved ones. For example, child caregiver private home or elderly care for an older adult? [...] PM EST Office Visit Orthopedic Surgery - [address] [phone] Paul Conner, ROSEY [address] [place] [address] 07/12/2025 2:30 PM EST Office Visit Adult [address] [phone] Frederick Ureña PA [address] [place] [phone] 10/27/2025 2:00 PM EST Office Visit Vascular Surgery - [place] [address] [place] [phone] Jenny Lees MD [address] [place] [address] documented as of this encounter [...] aeruginosa(A) JOSE RAUL 01/30/2025 11:27 AM EDT [facility] Comment: This is an edited [...] aeruginosa Levofloxacin JOSE RAUL 4 ug/ml: Resistant [facility] MICROBIOLOGY - [facility] ELLA ADAMES Final Result [facility] [address] [place] [address], documented in this encounter Visit Diagnoses Diagnosis [...] documented as of this encounter Care Teams Donor Services Coordinator Relationship Specialty Start Date End Date Frederick Ureña PA [address] [place] [address] PCP - General Internal Medicine 08/13/24 documented as of this encounter
== END 2025-07-01 14:32 | disposition home or self-care (01) ==
LOC: HO.US 14:31
PROVIDERS: PCP Physician Assistant Medical; Visit Provider Urology
DX: N50.89 Other specified disorders of the male genital organs (principal)
CPT/HCPCS: 76870

== ENCOUNTER → 2025-07-01 14:39 | Outpatient (BNV) | payer MEDICARE, SELFPAY | PROVIDERS: PCP Physician Assistant Medical; Visit Provider Radiology Diagnostic Radiology | DX: N50.89 Other specified disorders of the male genital organs (principal) | CPT/HCPCS: 76870 ==

== ENCOUNTER 2025-07-14 12:59 | Outpatient (AMB) | payer MEDICARE, SELFPAY ==
--- OUTSIDE RECORDS SUMMARY | 2025-07-12 14:30 | XMS_ITS | Encounter Summary ---
Author Organization [facility] Address [address] [place] [address] Care Team Providers Care Cnmt Name Role Phone Frederick Ureña Primary Care Provider [phone] Reason for Visit * Reason Comments Follow-up 6 mo follow up Encounter Details Date Type Department Care Team (Latest Contact Info) Description 07/12/2025 2:30 PM EST Office Visit Adult Medicine [address] [phone] Frederick Ureña PA [address] [place] [phone] Type 2 diabetes mellitus without complication, without long-term current use of insulin ([facility] V24, [facility] V28) (Primary Dx); Need for prophylactic vaccination and inoculation against influenza; Hyperlipidemia with target LDL less than 100; Gout, unspecified cause, unspecified chronicity, unspecified site; CIDP (chronic inflammatory demyelinating polyneuropathy) (CMS/HCC V24, CMS/HCC V28); Secondary hypertension; Morbid obesity (CMS/HCC V24, CMS/HCC V28); Subclinical hypothyroidism; Bacteriuria Social History Tobacco Use Types Packs/Day Years [...] your loved ones. For example, child care center administrator or elderly care for an older adult? [...] on file documented as of this encounter Last Filed Vital Signs Vital Sign Reading Time Taken Comments Blood Pressure 133/72 07/12/2025 2:35 PM EST Pulse 71 07/12/2025 2:35 PM EST Temperature 35.7 C (96.2 F) 07/12/2025 2:35 PM EST Respiratory Rate 16 07/12/2025 2:35 PM EST Oxygen Saturation 98% 07/12/2025 2:35 PM EST Inhaled Oxygen Concentration - - Weight 155 kg (342 lb 9.6 oz) 07/12/2025 2:35 PM EST Height 185.4 cm (6' 1 ) 07/12/2025 2:35 PM EST Body Mass Index 45.2 07/12/2025 2:35 PM EST documented in this encounter Ordered Prescriptions Prescription Sig Dispense Quantity Refills Last Filled Start Date End Date methenamine hippurate (Hiprex) 1 gram tablet Take 1 tablet (1 g total) by mouth 2 (two) times a day with meals. 60 each 11 07/12/2025 documented in this encounter Progress Notes * RUBI Reese - 07/12/2025 2:30 PM EST CHIEF COMPLAINT: Follow-up (6 mo follow up ) IDENTIFIER: Miguel Cagle is a 70 y.o. old male. HPI: This pleasant gentleman presents today for follow-up. Fortunately he continues to experience recurrent UTIs. This could be related to prostatism, incomplete bladder emptying and urinary reflux. He isfollowed by urology. It sounds like there are some plans to possibly do cystoscopy as well as some other testing. We talked about preventative treatment we did have him on methenamine previously but he was only on it for about a month. He tried to do some labs the other day but there were no ordersavailable. 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, with fat layer exposed ([facility] [place] [facility] [place] [facility] V28) 10/01/2024 Peripheral vascular disease ([facility] V24) 10/01/2024 Diabetes mellitus type 2, uncomplicated ([facility] V24, [facility] [place] V28) 04/22/2020 Subclinical hypothyroidism 03/30/2019 CIDP (chronic inflammatory demyelinating polyneuropathy) ([facility] V24, [facility] [place] V28) 12/13/2016 Hyperlipidemia with target LDL less than 100 11/16/2013 Spinal stenosis 10/19/2011 Urethral stricture 09/18/2011 Erectile dysfunction 07/06/2011 Pilonidal cyst 05/05/2009 Prostatism 02/04/2008 Idiopathic progressive polyneuropathy 01/01/2007 Localized osteoarthrosis, lower leg 01/01/2007 Esophageal reflux 07/04/2006 Gout 07/04/2006 Hypertension 07/04/2006 Morbid obesity ([facility] V24, [facility] V28) 07/04/2006 Surgical History[1] SOCIAL HISTORY: Social History Tobacco Use Smoking status: Former Current packs/day: 0.00 Average packs/day: 1 pack/day for 6.4 years (6.4 ttl pk-yrs) Types: Cigarettes Start date: 04/08/1963 Quit date: 09/02/1969 Years since quittin.8 Smokeless tobacco: Never Substance Use Topics Alcohol use: Yes Comment: socailly, weekend warrior FAMILY HISTORY: Family History[2] Family Status Relation Name Status Mother at age 70,S Father at age 70'S Sister Alive Brother Alive Brother Alive Brother Alive No partnership data on file MEDICATIONS DISCONTINUED/REORDERED: Medications Discontinued During This Encounter Medication Reason methenamine hippurate (Hiprex) 1 gram tablet ACTIVE MEDICATIONS: Medications Taking[3] ALLERGIES: Allergies[4] PHYSICAL EXAM: Visit Vitals BP 133/72 Pulse 71 Temp 35.7 ??C (96.2 ??F) (Temporal) Resp 16 Ht 1.854 m (73 ) Wt 155 kg (342 lb 9.6 oz) SpO2 98% BMI 45.20 kg/m?? Smoking Status Former BSA 2.7 m?? General appearance: alert and oriented, in no acute distress Lungs: clear to auscultation bilaterally Heart: regular rate and rhythm, S1, S2 normal, no murmur, click, rub or gallop Extremities: extremities normal, warm and well-perfused; no cyanosis, clubbing, or edema Neurologic: Grossly normal LABS/IMAGING: Labs IMPRESSION: 1. Type 2 diabetes mellitus without complication, without long-term current use of insulin ([facility], [facility] V28) 2. Need for prophylactic vaccination and inoculation against influenza 3. Hyperlipidemia with target LDL less than 100 4. Gout, unspecified cause, unspecified chronicity, unspecified site 5. CIDP (chronic inflammatory demyelinating polyneuropathy) ([facility] V24, [facility] V28) 6. Secondary hypertension 7. Morbid obesity ([facility] V24, [facility] V28) 8. Subclinical hypothyroidism 9. Bacteriuria PLAN: 1. Patient with recurrent UTIs, he is currently on doxycycline prescribed by urology once he is done with that I am going to have him start on methenamine 1 g twice a day once again the plan will be to continue this indefinitely. There are some other medication options that we could consider. I am glad he is following up with urology sounds like a cystoscopy might be done around next visit as well.\ 2. His diabetes is reasonably controlled will update labs prior to next visit. 3. Blood pressure doing well continue present regimen. 4. Was given a flu shot. 5. History of gout, continues on allopurinol no recent attacks. 6. CIDP stable continue present regimen. 7. Hyperlipidemia, continue statin I have applied the code G2211 to this patient???s visit as the primary care provider dealing with (list the condition that is/are complex) leading to the extensive work up, and management associated with the medical care of this patient. This patient???s serious conditions and complex medical conditions also required several consultants needing management and coordination through my office. I have reviewed all information as it pertains to the management of this patient for final approval. Advised the patient to call me if any problems. Patient understands the plan. Patient is in agreement with the plan. [1] Past Surgical History: Procedure Laterality Date APPENDECTOMY PROCEDURE: CT APPENDECTOMY CATARACT EXTRACTION PROCEDURE: HISTORICAL CATARACT REMOVAL CATARACT EXTRACTION PROCEDURE: HISTORICAL CATARACT REMOVAL COLONOSCOPY 01/23/2008 PROCEDURE: HISTORICAL COLONOSCOPY; COMMENT: normal; repeat in ten years COLONOSCOPY 04/04/2023 PROCEDURE: HISTORICAL COLONOSCOPY; COMMENT: muslu - normal KNEE ARTHROSCOPY W/ DEBRIDEMENT PROCEDURE: CT ARTHRS KNEE DEBRIDEMENT/SHAVING ARTCLR CRTLG; COMMENT: bilateral X 2 OTHER SURGICAL HISTORY PROCEDURE: CT UNLISTED PROCEDURE PALATE UVULA; COMMENT: ENT OTHER SURGICAL HISTORY PROCEDURE: HISTORICAL URETERAL REIMPLATATION; COMMENT: urethroplasty OTHER SURGICAL HISTORY 06/12/2018 PROCEDURE: COLON CA SCRN NOT HI RSK IND; COMMENT: adenoma with focus of high grade dysplasia; did not reach cecall base; repeat in one year under propofol TOTAL KNEE ARTHROPLASTY Bilateral PROCEDURE: CT ARTHRP KNE CONDYLE&PLATU MEDIAL&LAT COMPARTMENTS; COMMENT: left dr weathers 2006 RIGHT 2009 [2] Family History Problem Relation Name Age of Onset Arthritis Mother Neuropathy Mother Neuropathy Father [3] Outpatient Medications Marked as Taking for the 07/12/25 encounter (Office Visit) with RUBI Reese Medication Sig Dispense Refill allopurinoL (ZYLOPRIM) 300 mg tablet TAKE 1 TABLET BY MOUTH DAILY 90 tablet 1 atorvastatin (LIPITOR) 10 mg tablet TAKE 1 TABLET BY MOUTH DAILY 90 tablet 1 Autolet (DubizzleTouch Delica Plus Lanc Dev) lancing device 1 Applicator by Does not apply route 2 timesdaily. Use with delica lancets to check sugar twice a day. Patient's lancing device broke blood glucose control, high (OneTouch Verio High Control) solution 1 Units by In Vitro route daily as needed for Other (with glucose monitoring). calcium carb/vit D3/minerals (CALCIUM-VITAMIN D ORAL) Take by mouth. ciclopirox (PENLAC) 8 % solution Apply topically every 7 days. diazePAM (VALIUM) 5 mg tablet TAKE 1 TABLET BY MOUTH AT BEDTIME NEEDED diclofenac sodium (VOLTAREN XR) 100 mg 24 Hour tablet TAKE 1 TABLET BY MOUTH DAILY 90 tablet 1 gabapentin (NEURONTIN) 600 mg tablet Take 1 Tab by mouth 2 times daily. glipiZIDE (GLUCOTROL XL) 10 mg 24 hr tablet TAKE 1 TABLET BY MOUTH TWICE DAILY 180 tablet 1 glucose blood test strip USE TO TEST BLOOD SUGAR TWICE DAILY lancets 33 gauge mis 1 Device by Does not apply route daily. Dx e11.49 use to test blood sugar daily losartan (COZAAR) 50 mg tablet TAKE 1 TABLET(50 MG) BY MOUTH 1 TIME EACH DAY 90 tablet 3 metFORMIN XR (GLUCOPHAGE-XR) 500 mg 24 hr tablet TAKE 2 TABLETS BY MOUTH TWICE DAILY BEFORE MEALS 360 tablet 1 metoprolol succinate (TOPROL-XL) 50 mg 24 hr tablet TAKE 1 TABLET BY MOUTH DAILY 90 tablet 1 miscellaneous medical supply [facility] [place] [place] CPAP Historical (HISTORICAL CPAP) BiPAP 18/04 via nasal mask/apria mo/Non-Adher Bndg/petrolatum (GAUZE PADS AND DRESSINGS TOP) Gauze Pads & Dressings (Curity Abdominal) 5 X9 Pads 2 Units by Does not apply route daily. mo/Non-Adher Bndg/petrolatum (GAUZE PADS AND DRESSINGS TOP) Gauze Pads & Dressings (Kerlix Gauze Roll Large) Misc 1 Units by Does not apply route daily. oxyCODONE (ROXICODONE) 10 mg immediate release tablet Take by mouth daily as needed. silver sulfADIAZINE (SILVADENE, SSD) 1 % cream Apply to affected open areas daily with dressing changes [4] Allergies Allergen Reactions Cephalexin Monohydrate Rash pt. becomes nervous/itchy Vancomycin Rash documented in this encounter Plan of Treatment Upcoming Encounters Date Type Department Care Team (Late st Contact Info) Description 10/21/2025 1:45 PM EST Office Visit Orthopedic Surgery - [place] [address] [facility] [address] [place] [phone] Paul Conner DPM [address] [facility] [address] [place] [address] 10/27/2025 2:00 PM EST Office Visit Vascular Surgery - [place] [address] [place] [phone] Jenny Lees MD [address] [place] [phone] 12/14/2025 1:30 PM EDT Office Visit [address] [phone] Frederick Ureña PA [address] [place] [phone] Scheduled Orders Name Type Priority Associated Diagnoses Orde r Schedule Lipid panel with reflex to direct LDL Lab Routine Need for prophylactic vaccination and inoculation against influenza Type 2 diabetes mellitus without complication, without long-term current use of insulin ([facility] [place]24, [facility] [place] V28) Hyperlipidemia with target LDL less than 100 Gout, unspecified cause, unspecified chronicity, unspecified site CIDP (chronic inflammatory demyelinating polyneuropathy) ([facility] [place] V24[facility] [place] V28) Secondary hypertension Morbid obesity ([facility] [place] V24, [facility] [place] V28) Subclinical hypothyroidism 1 Occurrences starting 07/12/2025 until 07/12/2026 Microalbumin creatinine urine ratio Lab Routine Need for prophylactic vaccination and inoculation against influenza Type 2 diabetes mellitus without complication, without long-term current use of insulin ([facility] [place] [place]24, [facility] [place] V28) Hyperlipidemia with target LDL less than 100 Gout, unspecified cause, unspecified chronicity, unspecified site CIDP (chronic inflammatory demyelinating polyneuropathy) ([facility] [place] V24, [facility]28) Secondary hypertension Morbid obesity ([facility] [place] V24, [facility] [place] V28) Subclinical hypothyroidism 1 Occurrences starting 07/12/2025 until 07/12/2026 Comprehensive metabolic panel Lab Routine Need for prophylactic vaccination and inoculation against influenza Type 2 diabetes mellitus without complication, without long-term current use of insulin ([facility] [place]24, [facility] V28) Hyperlipidemia with target LDL less than 100 Gout, unspecified cause, unspecified chronicity, unspecified site CIDP (chronic inflammatory demyelinating polyneuropathy) ([facility]24, [facility]28) Secondary hypertension Morbid obesity ([facility] V24, [facility] [place] [place] V28) Subclinical hypothyroidism 1 Occurrences starting 07/12/2025 until 07/12/2026 Hemoglobin A1c Lab Routine Need for prophylactic vaccination and inoculation against influenza Type 2 diabetes mellitus without complication, without long-term current use of insulin ([facility] [place] [place]24, [facility] [place] V28) Hyperlipidemia with target LDL less than 100 Gout, unspecified cause, unspecified chronicity, unspecified site CIDP (chronic inflammatory demyelinating polyneuropathy) ([facility] [place]24, [facility] [place] V28[facility] Secondary hypertension Morbid obesity ([facility] [place] [facility], [facility] [place]28) Subclinical hypothyroidism Expected: 08/11/2025, Expires: 07/12/2026 Uric acid Lab Routine Need for prophylactic vaccination and inoculation against influenza Type 2 diabetes mellitus without complication, without long-term current use of insulin ([facility] [place] [facility], [facility] [place] [place] [facility]28) Hyperlipidemia with target LDL less than 100 Gout, unspecified cause, unspecified chronicity, unspecified site CIDP (chronic inflammatory demyelinating polyneuropathy) ([facility] [place] [place] [facility], [facility] [place]) Secondary hypertension Morbid obesity ([facility] [place] [facility], [facility] [place] V28) Subclinical hypothyroidism 1 Occurrences starting 07/12/2025 until 07/12/2026 Thyroid stimulating hormone with reflex to free t4 and free t3 Lab Routine Need for prophylactic vaccination and inoculation against influenza Type 2 diabetes mellitus without complication, without long-term current use of insulin ([facility] [place], [facility] [place] [facility]28) Hyperlipidemia with target LDL less than 100 Gout, unspecified cause, unspecified chronicity, unspecified site CIDP (chronic inflammatory demyelinating polyneuropathy) ([facility] [place] [facility], [facility] [place] [facility]28[facility] Secondary hypertension Morbid obesity ([facility] [place] [facility], [facility] [place] [facility]28) Subclinical hypothyroidism 1 Occurrences starting 07/12/2025 until 07/12/2026 CBC and differential Lab Routine Need for prophylactic vaccination and inoculation against influenza Type 2 diabetes mellitus without complication, without long-term current use of insulin ([facility] [place], [facility] [place] [facility]28) Hyperlipidemia with target LDL less than 100 Gout, unspecified cause, unspecified chronicity, unspecified site CIDP (chronic inflammatory demyelinating polyneuropathy) ([facility] [place] [facility], [facility] [place] [facility]28[facility] Secondary hypertension Morbid obesity ([facility] [place] [facility], [facility] [place] V28) Subclinical hypothyroidism 1 Occurrences starting 07/12/2025 until 07/12/2026 Culture urine Microbiology Routine Need for prophylactic vaccination and inoculation against influenza Type 2 diabetes mellitus without complication, without long-term current use of insulin ([facility] [place], [facility] [place] V28) Hyperlipidemia with target LDL less than 100 Gout, unspecified cause, unspecified chronicity, unspecified site CIDP (chronic inflammatory demyelinating polyneuropathy) ([facility] [place], [facility] [place] V28[facility] Secondary hypertension Morbid obesity ([facility] [place], [facility] [place]28) Subclinical hypothyroidism Bacteriuria 1 Occurrences starting 07/12/2025 until 07/12/2026 Urinalysis with reflex microscopic Lab Routine Need for prophylactic vaccination and inoculation against influenza Type 2 diabetes mellitus without complication, without long-term current use of insulin ([facility] [place], [facility] [place] V28) Hyperlipidemia with target LDL less than 100 Gout, unspecified cause, unspecified chronicity, unspecified site CIDP (chronic inflammatory demyelinating polyneuropathy) ([facility] [place], [facility] [place] V28[facility] Secondary hypertension Morbid obesity ([facility] [place], [facility] [place] V28) Subclinical hypothyroidism 1 Occurrences starting 07/12/2025 until 07/12/2026 documented as of this encounter Goals Goal [...] week 8 Care Plan Impaired Tissue No hCelsey Ravi RN Wound volume breakdown reduced by [...] Ravi RN documented as of this encounter Visit Diagnoses Diagnosis Type 2 diabetes mellitus without complication, without long-term current use of insulin ([facility] [place], [facility] [place]28)- Primary Need for prophylactic vaccination and inoculation against influenza Hyperlipidemia with target LDL less than 100 Other and unspecified hyperlipidemia Gout, unspecified cause, unspecified chronicity, unspecified site CIDP (chronic inflammatory demyelinating polyneuropathy) ([facility] V24, [facility] V28) Chronic inflammatory demyelinating polyneuritis Secondary hypertension Other secondary hypertension, unspecified Morbid obesity ([facility] V24, [facility] V28) Morbid obesity Subclinical hypothyroidism Other specified acquired hypothyroidism Bacteriuria Other nonspecific finding on examination of urine documented in this encounter Discontinued Medications Medication Sig Discontinue Reason Start Date End Da te methenamine hippurate (Hiprex) 1 gram tablet Take 1 tablet (1 g total) by mouth 2 (two) times a day with meals. 04/13/2025 07/12/2025 documented as of this encounter Orders Immunization/Injection Count Last Ordered Date First Ordered Date INFLUENZA TRIVALENT, 0.5ML ( FLUAD) 65YO AND OLDER 1 07/12/2025 documented in this encounter Additional Health Concerns [...] documented as of this encounter Care Teams Cnmt Relationship Specialty Start Date End Date Frederick Ureña PA [address] [place] [address] PCP - General Internal Medicine 08/13/24 documented as of this encounter
--- NOTE | 2025-07-14 13:22 | A.OFFVIS_ITS ---
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 In 2013 he was started on prednisone that did not make any difference and it was stopped after a few months. He also had multiple treatments with IVIG that did not help. After that he had treatment with plasmapheresis that did not make any difference. He had decided not to start rituximab. He presents with recurrent urinary tract infections and urinary incontinence issues, which are linked to surgical complications from an operation in 2017. He has experienced six UTIs this year, with the latest causing exacerbated testicular swelling. The UTIs have been recurrent after the surgery. The surgery possibly also leads to decreased bladder control, necessitating pushing to complete urination and frequent episodes of urinary incontinence during sleep. He has an established diagnosis of peripheral neuropathy, which further complicates his condition by affecting his mobility and balance. The patient experiences difficulty in standing without assistance and uses a walker for support. He associates his poor lower limb function with the neuropathy and suspects nerve involvement in his urinary issues. Since the onset of these issues, he has been in contact with his urologist multiple times, being prescribed various medications to control his symptoms. However, he expresses frustration and feelings of helplessness with the ongoing management approach due to a lack of understanding and resolution of his symptoms. [facility] Medical History Diabetic foot ulcer Overweight Gout Hypertension Diabetes Social History Household Members: Spouse and Children Housing: House Do you presently have visiting nurse or other home services: No Patient Tobacco Use Status: Former Tobacco user Tobacco use type: Cigarette service: No Review of Systems Narrative - Genitourinary: Reports frequent urinary tract infections, testicular swelling, urinary incontinence, and need to push to complete urination; denies difficulty initiating urination. - Neurological: Reports peripheral neuropathy with balance issues; denies any new neurological symptoms. - Musculoskeletal: Reports difficulty with standing and requires walker for mobility. - General: Denies confusion or cognitive issues. Physical Exam Neuro Other: Mental Status: Alert and oriented to person, place, and time. Normal attention. Normal spontaneous speech, fluency, and comprehension. No obvious issues with mood and memory. Affect is appropriate. Cranial Nerves: CN II: Visual mitchell full to confrontation, visual acuity intact. CN III, IV, : Pupils equal, round, reactive to light and accommodation. Extraocular movements are normal. CN V: Facial sensation is normal. CN VII: Facial movements symmetrical. CN VIII: Hearing intact to bedside conversation is normal. CN IX, X: Palate elevates symmetrically. CN XI: Shoulder shrug and head turn symmetrical. CN XII: Tongue midline without atrophy or fasciculations. Slow and cautious gait with a walker. Extrapyramidal: Full facial expressions and blinking. No rigidity. Movements are appropriate with no tremor or abnormality. Speech: Normal; no dysarthria or tremor. Assessment & Plan Assessment & Plan (1) CIDP (chronic inflammatory demyelinating polyneuropathy): Comment: [place] [facility] [place]: WBCs 0, RBCs 58, Glu 102, Pro 203, IgG ind: ok, OCBs none EMG/NCS R LE and R UE in Dec 2021: severe axonal SM PN in legs, arm is ok EMG/NCS at office in 2010 LEs: mod to severe axonal SM PN EMG/NCS at office in 2013: severe axonal SM PN NCV/EMG RTUE RTLE Severe axonal sensory and motor peripheral neuropathy affecting right leg. Right upper extremity study did not reveal a significant abnormality. 12/28/21 CSF [place] [facility] [place]: WBCs 1, RBCs 0, Pro 177, Glu 69, IgG ind: ok, OCBs: absent Labs at [facility] [place]: IF ok, CHIQUITA ok, RPR ok, Lyme ok. HIV ok Labs [place] [facility] [place]: anti MAG ok, CBC ok, CMP ok MRI L/S spine in 2010 in [place]: L 4/5 spinal stenosis. 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
--- OUTSIDE RECORDS SUMMARY | 2025-07-14 15:40 | XMS_ITS | Encounter Summary ---
Author Organization [facility] Address [address] [facility] [place] [place] [address] Care Team Providers Care Preparation Supervisor Name Role Phone Rafael Whyte MD Primary Care Provider [phone] Frederick Ureña PA-C Primary Care Provider [phone] Carola Barrientos MD Unavailable [phone] Reason for Visit * Reason Onset Date Comments Medication Review 08/23/2016 Encounter Details Date Type Department Care Team Description 08/23/2016 Telephone Adult Medicine [address] [id number] Rafael Whyte MD [address] [place] [address] [id number] Medication Review Social History Tobacco Use Types Packs/Day Years Used Date Smoking Tobacco: Former Cigarettes 10 Q uit: [birth year]/02/1967 Alcohol Use Standard Drinks/Week Comments Yes 0 (1 standard drink = 0.6 oz pur e alcohol) beers on weekends Sex Assigned at Date Recorded Not on file Job Start Date Occupation Industry Not on file Not on file Not on file documented as of this encounter Miscellaneous Notes * Telephone Encounter - Leighann FitzgeraldPPanteraNPantera - 08/23/2016 2:02 PM EST Per pt the pharmacist Called dr Escobedo , he is aware of the interactions and Will keep a close eye on him FYI * Telephone Encounter - Judi Torres - 08/23/2016 1:04 PM EST What is the name of the medication patient is having a problem with?: azaphioprine Oral tab What is the problem?: interaction with allopurinool [facility] Called patient / //dr escobedo pt neurologist Prescribed this Is the patient calling about the problem? YES If the patient is not the caller who is? pt Is this a NEW medication?: YES How long has the patient been taking this medication? new Who prescribed this medication for the patient? Dr escobedo Who is patients PCP?: dr whyte Payor: [facility]/[employer] FFS / Plan: C3 JianO $15 [employer] [id number] / Product Type: C3 JianO [id number] documented in this encounter Plan of Treatment Not on file documented as of this encounter Visit Diagnoses Not on filedocumented in this encounter Care Teams Preparation Supervisor Relationship Specialty Start Date End Date Rafael Whyte MD [address] [place] [address] PCP - General 04/01/09 12/27/20 Frederick Ureña PA-C [address] [place] [address] PCP - General Internal Medicine 12/28/20 Carola Barrientos MD [address] [place] [address] [place] [address] Specialist Neurosurgery 06/11/23 documented as of this encounter
--- OUTSIDE RECORDS SUMMARY | 2025-07-14 15:40 | XMS_ITS | Encounter Summary ---
Author Organization [facility] Address [address] [place] [address] Care Team Providers Care Cardiac Catheterization Technician Name Role Phone Rafael Wray MD Primary Care Provider [phone] Frederick Ureña PA-C Primary Care Provider [phone] Carola Barrientos MD Unavailable [phone] Reason for Visit * Reason Onset Date Comments Medication 04/15/2018 Encounter Details Date Type Department Care Team Description 04/15/2018 Refill Gastroenterology - [address] [address] Grzegorz Ozuna MD Medication Social History Tobacco Use Types Packs/Day Years Used Date Smoking Tobacco: Former Cigarettes 10 0 04/08/1963 - [birth year]02/1969 Smokeless Tobacco: Never Alcohol Use Standard Drinks/Week Comments Yes 0 (1 standard drink = 0.6 oz pur e alcohol) beers on weekends Sex Assigned at Date Recorded Not on file Job Start Date Occupation Industry Not on file Not on file Not on file documented as of this encounter Miscellaneous Notes * Telephone Encounter - Grzegorz Ozuna MD - 04/15/2018 2:08 PM EDT Prescribed * Telephone Encounter - Priya Corral - 04/15/2018 2:02 PM EDT Pt scheduled for Colon on 05-26-18 please sign orders documented in this encounter Plan of Treatment Not on file documented as of this encounter Visit Diagnoses Not on filedocumented in this encounter Care Teams Cardiac Catheterization Technician Relationship Specialty Start Date End Date Rafael Wray MD [address] [place] [address] PCP - General 04/01/09 12/27/20 Frederick Ureña PA-C [address] [place] [address] PCP - General Internal Medicine 12/28/20 Carola Barrientos MD [address] [place] [address] Specialist Neurosurgery 06/11/23 documented as of this encounter
--- OUTSIDE RECORDS SUMMARY | 2025-07-14 15:40 | XMS_ITS | Encounter Summary ---
Author Organization [facility] Address [address] [facility] [place] [address] Care Team Providers Care Engineering Intern Name Role Phone Frederick Ureña PA-C Primary Care Provider [phone] Carola Barrientos MD Unavailable [phone] Reason for Visit * Reason Onset Date Comments Prior Authorization 02/15/2023 Encounter Details Date Type Department Care Team Description 02/15/2023 Telephone Adult Medicine [address] [address] Frederick Ureña PA-C [address] [place] [address] [id number] Prior Authorization Social History Tobacco Use Types Packs/Day Years Used Date Smoking Tobacco: Former Cigarettes 1 10 0 [birth year]/08/1963 - [birth year]02/1967 Smokeless Tobacco: Never Alcohol Use Standard Drinks/Week Comments Yes 0 (1 standard drink = 0.6 oz pur e alcohol) 2 beers on weekends Sex Assigned at Date Recorded Not on file Job Start Date Occupation Industry Not on file Not on file Not on file COVID-19 Exposure Response Date Recorded In the last 10 days, have yo u been in contact with someone who was confirmed or suspected to have Coronavirus/COVID-19? No / Unsure 02/11/2023 2:11 PM EDT documented as of this encounter Miscellaneous Notes * Telephone Encounter - Luz Williamson M.A. - 02/20/2023 1:07 PM EDT Spoke to insurance, answered all questions Luz Felton Auth Dep Ext [phone] * Telephone Encounter - Brigette Cox - 02/20/2023 10:41 AM EDT Oliverio from [facility] is calling and is looking for a call back at [phone] Please enter member ID number ( ref number ) : [id number] Informetion requested is * needs to know if pt is stable on this medication ; *also if pt had any previouse treatment with ciclopirox suspension and cream * Telephone Encounter - Luz Williamson M.A. - 02/19/2023 3:01 PM EDT Per cover my meds Member not found with [facility] Faxed auth to [facility] Dx:b35.1 First trial Luz Felton Auth Dep Ext [id number] * Telephone Encounter - Zulema Lafleur - 02/15/2023 9:08 AM EDT Prior Authorization for Medication-do not complete and send this encounter unless you have the fax from the pharmacy. Is this a Cover My Meds request: Yes -- Lee Code [id number] Name of Medication ciclopirox (PENLAC) Dose of Medication 8 % solution What is the RX # from the faxed refill? How does patient take this med? Apply to affected area daily, remove withy alcohol wipe every 7 days What Pharmacy did the fax come from: [facility] fax #: [phone] [employer] Information from fax: What Prescription Plan does the patient have? BIN/PCN if applicable: Cardholder ID: Person Code: Relationship Code: Help desk phone: documented in this encounter Plan of Treatment Not on file documented as of this encounter Visit Diagnoses Not on filedocumented in this encounter Care Teams Engineering Intern Relationship Specialty Start Date End Date Frederick Ureña PA-C [address] [place] [address] PCP - General Internal Medicine 12/28/20 Carola Barrientos MD [address] [place] [address] Specialist Neurosurgery 06/11/23 documented as of this encounter
--- OUTSIDE RECORDS SUMMARY | 2025-07-14 15:40 | XMS_ITS | Encounter Summary ---
Author Organization [facility] Address [address] [facility] [place] [address] Care Team Providers Care Commander Internal Affairs Name Role Phone Rafael Wray MD Primary Care Provider [phone] Frederick Ureña PA-C Primary Care Provider [phone] Carola Barrientos MD Unavailable [phone] Encounter Details Date Type Department Care Team Description 03/01/2016 Insole Lip Turner Report Medical Records [address] [place] [address] Wayne Escobedo MD Social History Tobacco Use Types Packs/Day Years [...] as of this encounter Plan of Treatment Not on file documented as of this encounter Visit Diagnoses Not on filedocumented in this encounter Care Teams Commander Internal Affairs Relationship Specialty Start Date End Date Rafael Wray MD [address] [place], [place] [phone] PCP - General 04/01/09 12/27/20 Frederick Ureña PA-C [address] [place] [address] [id number] PCP - General Internal Medicine 12/28/20 Carola Barrientos MD [address] [place] [address] Specialist Neurosurgery 06/11/23 documented as of this encounter
--- OUTSIDE RECORDS SUMMARY | 2025-07-14 15:40 | XMS_ITS | Encounter Summary ---
Author Organization [facility] Address [address] [place] [address] Care Team Providers Care Lens Inspector Name Role Phone Frederick Ureña PA-C Primary Care Provider [phone] Carola Barrientos MD Unavailable [phone] Reason for Visit * Reason Onset Date Comments Provider Call Back 03/24/2021 Encounter Details Date Type Department Care Team Description 03/24/2021 Telephone Respiratory and Diabetes Medicaid/ACO Pharmacist [address] [place] [address] Tamy Westbrook Pharm.D [address] [place] [address] Provider Call Back Social History Tobacco Use Types Packs/Day Years [...] Exposure Response Date Recorded In the last month, have you been in contact with someone who was confirmed or suspected to have Coronavirus / COVID-19? No / Unsure 03/22/2021 1:53 PM EDT documented as of this encounter Miscellaneous Notes * Telephone Encounter - Lizette Diaz.D - 03/24/2021 4:47 PM EDT Called patient and discussed copay of trulicity. He cannot afford it. He is actually doing very well on the metformin and glipizide. A1c decreased to 6.8. Encouraged efforts. F/u as scheduled. * Telephone Encounter - Kaleigh Hopkinsarado - 03/24/2021 3:40 PM EDT Caller requesting call back from provider: Is the caller the patient? YES If caller is not the patient, what is the callers name? N/A Callers relationship to patient? N/A If person calling is not the patient themselves, is there a verbal release in FYI or permanent comments for this person: NO Reason for call back: Patient requesting to speak with Tamy Shah. He states provider informed him if he needed anything to contact office. Caller offered to speak with the nurse for assistance: YES Response: Patient offered to speak with nurse for assistance and patient agreed. Message forwarded to nurse. documented in this encounter Plan of Treatment Not on file documented as of this encounter Visit Diagnoses Not on filedocumented in this encounter Care Teams Lens Inspector Relationship Specialty Start Date End Date Frederick Ureña PA-C [address] [place] [address] PCP - General Internal Medicine 12/28/20 Carola Barrientos MD [address] [place] [address] Specialist Neurosurgery 06/11/23 documented as of this encounter
--- OUTSIDE RECORDS SUMMARY | 2025-07-14 15:40 | XMS_ITS | Encounter Summary ---
Author Organization [facility] Address [address] [facility] [place] [address] Care Team Providers Care R D Engineer Name Role Phone Rafael Wray MD Primary Care Provider [phone] Frederick Ureña PA-C Primary Care Provider [phone] Carola Barrientos MD Unavailable [phone] Encounter Details Date Type Department Care Team Description 08/22/2011 Hospital Medical Records [address] [place] [address] Ludivina Domingo MD Social History Tobacco Use Types Packs/Day [...] on filedocumented in this encounter Care Teams R D Engineer Relationship Specialty Start Date End Date Rafael Wray MD [address] [place] [address] PCP - General 04/01/09 12/27/20 Frederick Ureña PA-C [address] [place] [address] [id number] PCP - General Internal Medicine 12/28/20 Carola Barrientos MD [address] [place] [address] Specialist Neurosurgery 06/11/23 documented as of this encounter
--- OUTSIDE RECORDS SUMMARY | 2025-07-14 15:40 | XMS_ITS | Encounter Summary ---
Author Organization [facility] Address [address] [facility] [place] [address] Care Team Providers Care Spray Gun Repairer Helper Name Role Phone Frederick Ureña PA-C Primary Care Provider [phone] Carola Barrientos MD Unavailable [phone] Encounter Details Date Type Department Care Team Description 01/10/2022 Black Top Machine Operator Report Medical Records [address] [place] [address] Wayne Escobedo MD Social History Tobacco Use [...] Recorded In the last 10 days, have cristina benavides been in contact with someone who was confirmed or suspected to have Coronavirus/COVID-19? No / Unsure 01/12/2022 11:23 AM EDT documented as of this encounter Plan of Treatment Not on file documented as of this encounter Visit Diagnoses Not on filedocumented in this encounter Care Teams Spray Gun Repairer Helper Relationship Specialty Start Date End Date Frederick Ureña PA-C [address] [place] [address] PCP - General Internal Medicine 12/28/20 Carola Barrientos MD [address] [place] [address] Specialist Neurosurgery 06/11/23 documented as of this encounter
--- OUTSIDE RECORDS SUMMARY | 2025-07-14 15:40 | XMS_ITS | Encounter Summary ---
Author Organization [facility] Address [address] [facility] [place] [address] Care Team Providers Care Front Desk Name Role Phone Frederikc Ureña PA-C Primary Care Provider [phone] Carola Barrientos MD Unavailable [phone] Encounter Details Date Type Department Care Team Description 07/17/2022 Division Chief Report Medical Records [address] [place] [address] Wayne Escobedo MD Social History Tobacco Use [...] suspected to have Coronavirus/COVID-19? No / Unsure 07/20/2022 2:26 PM EST documented as of this encounter Plan of Treatment Not on file documented as of this encounter Visit Diagnoses Not on filedocumented in this encounter Care Teams Front Desk Relationship Specialty Start Date End Date Frederick Ureña PA-C [address] [place] [address] PCP - General Internal Medicine 12/28/20 Carola Barrientos MD [address] [place] [address] Specialist Neurosurgery 06/11/23 documented as of this encounter
--- OUTSIDE RECORDS SUMMARY | 2025-07-14 15:40 | XMS_ITS | Encounter Summary ---
Author Organization [facility] Address [address] [facility] [address] Care Team Providers Care Fisher Spear Name Role Phone Rafael Wray MD Primary Care Provider [phone] Frederick Ureña PA-C Primary Care Provider [phone] Carola Barrientos MD Unavailable [phone] Encounter Details Date Type Department Care Team Description 05/11/2015 Bindery Machine Setter Report Medical Records [address] [place] [address] Wayne Escobedo MD Social History Tobacco Use [...] on filedocumented in this encounter Care Teams Fisher Spear Relationship Specialty Start Date End Date Rafael Wray MD [address] [place], [place] [phone] PCP - General 04/01/09 12/27/20 Frederick Ureña PA-C [address] [place] [address] [phone] PCP - General Internal Medicine 12/28/20 Carola Barrientos MD [address] [place] [address] Specialist Neurosurgery 06/11/23 documented as of this encounter
--- OUTSIDE RECORDS SUMMARY | 2025-07-14 15:40 | XMS_ITS | Encounter Summary ---
Author Organization [facility] Address [address] [place] [address] Care Team Providers Care Corporate Banking Officer Name Role Phone Rafael Wray MD Primary Care Provider [phone] Frederick Ureña PA-C Primary Care Provider [phone] Carola Barrientos MD Unavailable [phone] Encounter Details Date Type Department Care Team Description 06/26/2011 Cable Rigger Report Medical Records [address] [place] [address] [facility] Social History Tobacco Use Types Packs/Day Years [...] on filedocumented in this encounter Care Teams Corporate Banking Officer Relationship Specialty Start Date End Date Rafael Wray MD [address] [place], [place] [phone] PCP - General 04/01/09 12/27/20 Frederick Ureña PA-C [address] [place] [address] [phone] PCP - General Internal Medicine 12/28/20 Carola Barrientos MD [address] [place] [address] [address] [place] [address] Specialist Neurosurgery 06/11/23 documented as of this encounter
--- OUTSIDE RECORDS SUMMARY | 2025-07-14 15:40 | XMS_ITS | Encounter Summary ---
Author Organization [facility] Address [address] [place] [address] Care Team Providers Care Center Human Resources Manager Name Role Phone Frederick Ureña PA-C Primary Care Provider [phone] Carola Barrientos MD Unavailable [phone] Encounter Details Date Type Department Care Team Description 03/29/2023 Orders Only Medical Records [address] [place] [address] Frederick Ureña PA-C [address] [place], [place] [phone] Social History Tobacco Use Types Packs/Day Years [...] on file documented as of this encounter Procedures Procedure Name Priority Date/Time Associated Diagnosis Comments OUTSIDE MRI/MRA Routine 03/19/2023 documented in this encounter Results * OUTSIDE MRI/MRA (03/19/2023) Frederick Ureña PA-C RADIOLOGY documented in this encounter Visit Diagnoses Not on filedocumented in this encounter Care Teams Center Human Resources Manager Relationship Specialty Start Date End Date Frederick Ureña PA-C [address] [place] [address] PCP - General Internal Medicine 12/28/20 Carola Barrientos MD [address] [place] [address] Specialist Neurosurgery 06/11/23 documented as of this encounter
--- OUTSIDE RECORDS SUMMARY | 2025-07-14 15:40 | XMS_ITS | Encounter Summary ---
Author Organization [facility] Address [address] [facility] [place] [address] Care Team Providers Care Deputy Of Counter Intelligence Name Role Phone Rafael Wray MD Primary Care Provider [phone] Frederick Ureña PA-C Primary Care Provider [phone] Carola Barrientos MD Unavailable [phone] Encounter Details Date Type Department Care Team Description 09/27/2011 Manufacturing Maintenance Mechanic Report Medical Records [address] [place] [address] Wayne Escobedo MD Social History Tobacco Use [...] on filedocumented in this encounter Care Teams Deputy Of Counter Intelligence Relationship Specialty Start Date End Date Rafael Wray MD [address] [place], [place] [phone] PCP - General 04/01/09 12/27/20 Frederick Ureña PA-C [address] [place] [address] [phone] PCP - General Internal Medicine 12/28/20 Carola Barrientos MD [address] [place] [address] Specialist Neurosurgery 06/11/23 documented as of this encounter
--- OUTSIDE RECORDS SUMMARY | 2025-07-14 15:40 | XMS_ITS | Encounter Summary ---
Author Organization [facility] Address [address] [facility] [place] [address] Care Team Providers Care Switchboard Clerk Name Role Phone Rafael Wray MD Primary Care Provider +[phone]- [phone] Frederick Ureña PA-C Primary Care Provider + [phone] Carola Barrientos MD Unavailable [phone] Reason for Visit * Reason Comments E-prescribe Rx Request Encounter Details Date Type Department Care Team Description 04/02/2017 Refill Adult Medicine [address] [phone] Rafael Wray MD [address] [place] [address] [phone] E-prescribe Rx Request Social History Tobacco Use Types Packs/Day Years [...] encounter Miscellaneous Notes * Telephone Encounter - Any Ca M.A. - 04/02/2017 9:36 AM EDT Lab Results Component Value Date CHOL 157 03/11/2017 LDL 73 03/11/2017 HDL 33 03/11/2017 TRIG 259 03/11/2017 SGOT 29 03/11/2017 SGPT 32 03/11/2017 Lab Results Component Value Date NA 139 03/11/2017 K 4.6 03/11/2017 CO2 22.1 03/11/2017 CL 101 03/11/2017 BUN 19 03/11/2017 CREAT 1.0 03/11/2017 GLU 144 03/11/2017 CA 8.7 03/11/2017 GFR > 60 03/11/2017 * Telephone Encounter - Cris House - 04/02/2017 9:06 AM EDT Patient would like script to be: E-PRESCRIBED/FAXED TO PHARMACY WHEN WAS THE PATIENT'S LAST APPOINTMENT IN ADULT MEDICINE? 03/15/17 WHEN WAS THE LAST TIME THE PATIENT SAW THEIR PCP? 11/01/16 Does patient have an upcoming appointment? Yes 07/18/17 (THE MEDICATION REQUESTED IS ON THE MED LIST ABOVE) All of the medications requested were on the CURRENT MEDS list Did you check the Pharmacy information above?: YES Patient wants: 30 -day supply Is this a mail order prescription request ? NO Patients current insurance carrier is: Payor: [facility]/HMO FFS / Plan: HMO $15 MEARS [id number] / ProductType: HMO Nzf-goz-Zzvrxic * Telephone Encounter - Misti Tejeda - 04/02/2017 8:52 AM EDT Patient would like script to be: E-PRESCRIBED/FAXED TO PHARMACY WHEN WAS THE PATIENT'S LAST APPOINTMENT IN ADULT MEDICINE? 03/15/17 WHEN WAS THE LAST TIME THE PATIENT SAW THEIR PCP? Same as above Does patient have an upcoming appointment? Yes 07/18/17 (THE MEDICATION REQUESTED IS ON THE MED LIST ABOVE) All of the medications requested were on the CURRENT MEDS list Did you check the Pharmacy information above?: YES Patient wants: 30 -day supply Is this a mail order prescription request ? NO Patients current insurance carrier is: Payor: [facility]/[employer] FFS / Plan: [employer] $15 [employer] [id number] / ProductType: [employer] Zbo-yfh-Ywwzsho documented in this encounter Plan of Treatment Not on file documented as of this encounter Visit Diagnoses Not on filedocumented in this encounter Care Teams Switchboard Clerk Relationship Specialty Start Date End Date Rafael Wray MD [address] [place] [address] PCP - General 04/01/09 12/27/20 Frederick Ureña PA-C [address] [place] [address] PCP - General Internal Medicine 12/28/20 Carola Barrientos MD [address] [place] [address] Specialist Neurosurgery 06/11/23 documented as of this encounter
--- OUTSIDE RECORDS SUMMARY | 2025-07-14 15:40 | XMS_ITS | Encounter Summary ---
Author Organization [facility] Address [address] [facility] [place] [address] Care Team Providers Care Screen Handler Name Role Phone Frederick Ureña PA-C Primary Care Provider +[phone] Carola Barrientos MD Unavailable [phone] Reason for Visit * Reason Onset Date Comments refill request 10/16/2022 Encounter Details Date Type Department Care Team Description 10/16/2022 Refill Respiratory and Diabetes Medicaid/ACO Pharmacist [address] [place] [address] Tamy Westbrook, Pharm.D [address] [place] [address] refill request Social History Tobacco Use Types Packs/Day Years [...] suspected to have Coronavirus/COVID-19? No / Unsure 10/16/2022 1:10 PM EST documented as of this encounter Miscellaneous Notes * Telephone Encounter - Frederick Ureña PA-C - 10/16/2022 7:30 PM EST Hi Tamy you bet, Rx sent * Telephone Encounter - Pharm. HyacinthD - 10/16/2022 7:25 PM EST Sebastien Linares, Medicare doesn't recgonize my NPI. Can you sign this? Fe Morelos documented in this encounter Plan of Treatment Not on file documented as of this encounter Visit Diagnoses Not on filedocumented in this encounter Care Teams Screen Handler Relationship Specialty Start Date End Date Frederick Ureña PA-C [address] [place] [address] PCP - General Internal Medicine 12/28/20 Carola Barrientos MD [address] [place] [address] Specialist Neurosurgery 06/11/23 documented as of this encounter
--- OUTSIDE RECORDS SUMMARY | 2025-07-14 15:40 | XMS_ITS | Encounter Summary ---
Author Organization [facility] Address [address] [facility] [place] [place] [address] Care Team Providers Care Relocation Specialist Name Role Phone Rafael Wray MD Primary Care Provider +[phone] Frederick Ureña PA-C Primary Care Provider +[phone] Carola Barrientos MD Unavailable [phone] Encounter Details Date Type Department Care Team Description 11/09/2011 Measurement Department Chief Clerk Report Medical Records [address] [place] [address] [phone] Social History Tobacco Use Types Packs/Day Years [...] on filedocumented in this encounter Care Teams Relocation Specialist Relationship Specialty Start Date End Date Rafael Wray MD 4 [place], [place] [phone] PCP - General 04/01/09 12/27/20 Frederick Ureña PA-C [address] [place] [address] [phone] PCP - General Internal Medicine 12/28/20 Carola Barrientos MD [address] [place] [address] Specialist Neurosurgery 06/11/23 documented as of this encounter
--- OUTSIDE RECORDS SUMMARY | 2025-07-14 15:40 | XMS_ITS | Encounter Summary ---
Author Organization [facility] Address [address] [facility] [place] [address] Care Team Providers Care Vegetable Washer Name Role Phone Rafael Wray MD Primary Care Provider + [phone] Frederick rUeña PA-C Primary Care Provider +[phone] Carola Barrientos MD Unavailable [phone] Encounter Details Date Type Department Care Team Description 04/19/2016 Vehicle Calibration Engineer Report Medical Records 4 [place] [address] Philipp Linda MD, MD Social History Tobacco Use Types Packs/Day [...] on filedocumented in this encounter Care Teams Vegetable Washer Relationship Specialty Start Date End Date Rafael Wray MD [address] [place] [address] PCP - General 04/01/09 12/27/20 Frederick Ureña PA-C [address] [place], [place] [phone] PCP - General Internal Medicine 12/28/20 Carola Barrientos MD [address] [place] [address] [address] [place] [address] Specialist Neurosurgery 06/11/23 documented as of this encounter
--- OUTSIDE RECORDS SUMMARY | 2025-07-14 15:40 | XMS_ITS | Encounter Summary ---
Author Organization [facility] Address [address] [facility] [place] [address] Care Team Providers Care Elementary Instructional Coach Name Role Phone Rafael Wray MD Primary Care Provider + [phone] Frederick Ureña PA-C Primary Care Provider +[phone] Carola Barrientos MD Unavailable [phone] Encounter Details Date Type Department Care Team Description 06/14/2016 Full Service Supervisor Report Medical Records 4 [place] [address] Abstract, Provider Social History Tobacco Use Types Packs/Day Years [...] on filedocumented in this encounter Care Teams Elementary Instructional Coach Relationship Specialty Start Date End Date Rafael Wray MD [address] [place], [place] [phone] PCP - General 04/01/09 12/27/20 Freedrick Ureña PA-C [address] [place] [address] [phone] PCP - General Internal Medicine 12/28/20 Carola Barrientos MD [address] [place] [address] [address] [place] [address] Specialist Neurosurgery 06/11/23 documented as of this encounter
--- OUTSIDE RECORDS SUMMARY | 2025-07-14 15:40 | XMS_ITS | Encounter Summary ---
Author Organization [facility] Address [address] [place] [address] Care Team Providers Care Senior Sql Dba Name Role Phone Rafael Wray MD Primary Care Provider +[phone] Frederick Ureña PA-C Primary Care Provider +[phone] Carola Barrientos MD Unavailable [phone] Encounter Details Date Type Department Care Team Description 05/17/2016 Copper Flotation Operator Report Medical Records 4 [place] [address] Wayne Escobedo MD Social History Tobacco Use [...] on filedocumented in this encounter Care Teams Senior Sql Dba Relationship Specialty Start Date End Date Rafael Wray MD [address] [place], [place] [phone] PCP - General 04/01/09 12/27/20 Frederick Ureña PA-C [address] [place] [address] [phone] PCP - General Internal Medicine 12/28/20 Carola Barrientos MD [address] [place] [address] Specialist Neurosurgery 06/11/23 documented as of this encounter
--- OUTSIDE RECORDS SUMMARY | 2025-07-14 15:40 | XMS_ITS | Encounter Summary ---
Author Organization [facility] Address [address] [facility] [place] [address] Care Team Providers Care Buttonhole Marker Name Role Phone Rafael Wray MD Primary Care Provider +[phone] Frederick Ureña PA-C Primary Care Provider +[phone] Carola Barrientos MD Unavailable [phone] Encounter Details Date Type Department Care Team Description 03/19/2011 Service Or Work Dispatcher Report Medical Records 4 [place] [address] Wayne Escobedo MD Social History Tobacco Use [...] on filedocumented in this encounter Care Teams Buttonhole Marker Relationship Specialty Start Date End Date Rafael Wray MD [address] [place], [place] [phone] PCP - General 04/01/09 12/27/20 Frederick Ureña PA-C [address] [place] [address] [phone] PCP - General Internal Medicine 12/28/20 Carola Barrientos MD [address] [place] [address] Specialist Neurosurgery 06/11/23 documented as of this encounter
--- OUTSIDE RECORDS SUMMARY | 2025-07-14 15:40 | XMS_ITS | Encounter Summary ---
Author Organization [facility] Address [address] [facility] [place] [address] Care Team Providers Care Vegetable Farm Worker Name Role Phone Rafael Wray MD Primary Care Provider +[phone] Frederick Ureña PA-C Primary Care Provider +[phone] Carola Barrientos MD Unavailable [phone] Encounter Details Date Type Department Care Team Description 03/20/2012 White Sugar Boiler Report Medical Records 4 [place] [address] Wayne Escobedo MD Social History Tobacco Use [...] filedocumented in this encounter Care Teams Vegetable Farm Worker Relationship Specialty Start Date End Date Rafael Wray MD [address] [place], [place] [phone] PCP - General 04/01/09 12/27/20 Frederick Ureña PA-C [address] [place] [address] [phone] PCP - General Internal Medicine 12/28/20 Carola Barrientos MD [address] [place] [address] Specialist Neurosurgery 06/11/23 documented as of this encounter
--- OUTSIDE RECORDS SUMMARY | 2025-07-14 15:40 | XMS_ITS | Encounter Summary ---
Author Organization [facility] Address [address] [facility] [place] [address] Care Team Providers Care Government Relations Manager Name Role Phone Rafael Wray MD Primary Care Provider +[phone] Frederick Ureña PA-C Primary Care Provider +[phone] Carola Barrientos MD Unavailable [phone] Reason for Visit * Reason Onset Date Comments Prior Authorization 04/16/2018 Encounter Details Date Type Department Care Team Description 04/16/2018 Telephone Gastroenterology - [address] [address] Grzegorz Ozuna MD Prior Authorization Social History Tobacco Use Types [...] encounter Miscellaneous Notes * Telephone Encounter - Naz Osborn - 04/16/2018 8:42 AM EDT BCBS No auth Req Colonscopy [id number] 06/12/18 @[facility] * Telephone Encounter - Malina Hirsch - 04/16/2018 8:11 AM EDT Pre-auth needed Patient is scheduled for an Colonoscopy on 06/12/18 Patients insurance: Payor: [facility] [place]FS / Plan: HMO $20 [employer] [id number] / Product Type: HMO Rif-yva-Rpnfqfa Appointment is with Grzegorz Ozuna MD Code to process pre-auth for: [id number] Location of procedure: [facility] documented in this encounter Plan of Treatment Not on file documented as of this encounter Visit Diagnoses Not on filedocumented in this encounter Care Teams Government Relations Manager Relationship Specialty Start Date End Date Rafael Wray MD [address] [place] [address] [phone] PCP - General 04/01/09 12/27/20 Frederick Ureña PA-C [address] [place] [address] PCP - General Internal Medicine 12/28/20 Carola Barrientos MD [address] [place] [address] [place] [address] Specialist Neurosurgery 06/11/23 documented as of this encounter
--- OUTSIDE RECORDS SUMMARY | 2025-07-14 15:40 | XMS_ITS | Encounter Summary ---
Author Organization [facility] Address [address] [place] [address] Care Team Providers Care Dye Machine Tender Name Role Phone Rafael Wray MD Primary Care Provider + [phone] Frederick Ureña PA-C Primary Care Provider +[phone] Carola Barrientos MD Unavailable [phone] Encounter Details Date Type Department Care Team Description 07/30/2012 Blending Machine Feeder Report Medical Records 4 [place] [address] Madan Orta MD, MD Social History Tobacco Use Types [...] on filedocumented in this encounter Care Teams Dye Machine Tender Relationship Specialty Start Date End Date Rafael Wray MD [address] [place] [address] PCP - General 04/01/09 12/27/20 Frederick Ureña PA-C [address] [place], [place] [phone] PCP - General Internal Medicine 12/28/20 Carola Barrientos MD [address] [place] [address] Specialist Neurosurgery 06/11/23 documented as of this encounter
--- OUTSIDE RECORDS SUMMARY | 2025-07-14 15:40 | XMS_ITS | Encounter Summary ---
Author Organization [facility] Address [address] [place] [address] Care Team Providers Care Trash Truck Driver Name Role Phone Rafael Wray MD Primary Care Provider +[phone] Frederick Ureña PA-C Primary Care Provider +[phone] Carola Barrientos MD Unavailable [phone] Reason for Visit * Reason Onset Date Comments Provider Call Back 07/24/2016 Encounter Details Date Type Department Care Team Description 07/24/2016 Telephone Adult Medicine [address] [phone] Rafael Wray MD [address] [place] [address] [phone] Provider Call Back Social History Tobacco Use [...] encounter Miscellaneous Notes * Telephone Encounter - Lorie Mcfarlane - 07/24/2016 1:45 PM EST I let the patient know. He was pleased and said thank you Doctor. * Telephone Encounter - Rafael Wray MD - 07/24/2016 1:05 PM EST Let him know prescription was sent to his pharmacy. The prescription is for clindamycin. He should take 2 pills 1 hour prior to dental work. This medicine has no relation to Keflex * Telephone Encounter - Lorie Mcfarlane - 07/24/2016 12:40 PM EST He needed an antibiotic. That does not contain keflex as he is allergic to it. He has a visit 07/25/16 @11:00 am . Please send something donnell. His Ortho provider called in something for him, however it is in the same family as Keflex and he cannot take it and when he called them, they said to ask your pcp. He has had two total knee replacements and this is why the dentist is making a big deal outof it. Dentist is [facility]. Please let the patient know donnell.Thank you. * Telephone Encounter - Lorie Mcfarlane - 07/24/2016 11:24 AM EST Patient services receive a voicemail from patient asking for a medication that he is supposed to take before he see's his dentist, not sure which medication he needs. I left a message for him to callwith more details, however I thought I would send this request forward, in case the provider knows what the patient needs. documented in this encounter Plan of Treatment Not on file documented as of this encounter Visit Diagnoses Not on filedocumented in this encounter Care Teams Trash Truck Driver Relationship Specialty Start Date End Date Rafael Wray MD [address] [place] [address] PCP - General 04/01/09 12/27/20 Frederick Ureña PA-C [address] [place] [address] PCP - General Internal Medicine 12/28/20 Carola Barrientos MD [address] [place] [address] Specialist Neurosurgery 06/11/23 documented as of this encounter
--- OUTSIDE RECORDS SUMMARY | 2025-07-14 15:40 | XMS_ITS | Encounter Summary ---
Author Organization [facility] Address [address] [facility] [place] [address] Care Team Providers Care Mat Gauger Name Role Phone Rafael Wray MD Primary Care Provider +[phone] Frederick Ureña PA-C Primary Care Provider +[phone] Carola Barrientos MD Unavailable [phone] Reason for Visit * Reason Comments E-prescribe Rx Request Encounter Details Date Type Department Care Team Description 06/01/2017 Refill Adult Medicine [address] [phone] Rafael Wray MD [address] [place] [address] [phone] E-prescribe Rx Request Social History Tobacco Use [...] encounter Miscellaneous Notes * Telephone Encounter - Misti Tejeda - 06/03/2017 11:24 AM EDT Patient would like script to [...] NO Patients current insurance carrier is: Payor: [facility]/[employer] FFS / Plan: [employer] $15 [employer] [id number] / ProductType: [employer] Ezc-yzq-Idecmlx documented in this encounter Plan of Treatment Not on file documented as of this encounter Visit Diagnoses Not on filedocumented in this encounter Care Teams Mat Gauger Relationship Specialty Start Date End Date Rafael Wray MD [address] [place] [address] PCP - General 04/01/09 12/27/20 Frederick Ureña PA-C [address] [place] [address] PCP - General Internal Medicine 12/28/20 Carola Barrientos MD [address] [facility] [address] [place] [address] Specialist Neurosurgery 06/11/23 documented as of this encounter
--- OUTSIDE RECORDS SUMMARY | 2025-07-14 15:40 | XMS_ITS | Encounter Summary ---
Author Organization [facility] Address [address] [facility] [place] [address] Care Team Providers Care Medical Transcription Radiology Name Role Phone Rafael Wray MD Primary Care Provider +[phone] Frederick Ureña PA-C Primary Care Provider [phone] Carola Barrientos MD Unavailable [phone] Reason for Visit * Reason Comments E-prescribe Rx Request Encounter Details Date Type Department Care Team Description 10/01/2017 Refill Adult Medicine [address] [phone] Rafael Wray MD [address] [place] [address] [phone] E-prescribe Rx Request Social History Tobacco Use [...] encounter Miscellaneous Notes * Telephone Encounter - Zulema Peralta Ciarra - 10/01/2017 9:52 AM EST Patient would like script to be: E-PRESCRIBED/FAXED TO PHARMACY ?? WHEN WAS THE PATIENT'S LAST APPOINTMENT IN ADULT MEDICINE? 07/18/2017 ?? WHEN WAS THE LAST TIME THE PATIENT SAW THEIR PCP? SAME ABOVE ?? Does patient have an upcoming appointment? Yes 12/16/2017?? (THE MEDICATION REQUESTED IS ON THE MED LIST ABOVE) All of the medications requested were on the CURRENT MEDS list ?? Did you check the Pharmacy information above?: YES ?? Patient wants: 30 -day supply ?? Is this a mail order prescription request ? NO ? Patients current insurance carrier is: Payor: [facility]/[employer] FFS / Plan: HMO $15 [facility] [id number] / ProductType: HMO Vvc-cfg-Cmwghze ? documented in this encounter Plan of Treatment Not on file documented as of this encounter Visit Diagnoses Not on filedocumented in this encounter Care Teams Medical Transcription Radiology Relationship Specialty Start Date End Date Rafael Wray MD [address] [place] [address] PCP - General 04/01/09 12/27/20 Frederick Ureña PA-C [address] [place] [address] PCP - General Internal Medicine 12/28/20 Carola Barrientos MD [address] [place] [address] [place] [address] Specialist Neurosurgery 06/11/23 documented as of this encounter
--- OUTSIDE RECORDS SUMMARY | 2025-07-14 15:40 | XMS_ITS | Encounter Summary ---
Author Organization [facility] Address [address] [place] [address] Care Team Providers Care Patient Assessment Coordinator Name Role Phone Rafael Wray MD Primary Care Provider + [phone] Frederick Ureña PA-C Primary Care Provider +[phone] Carola Barrientos MD Unavailable [phone] Encounter Details Date Type Department Care Team Description 12/11/2010 Elementary Spanish Teacher Report Medical Records [address] [place] [address] Oliver Lerma MD Social History Tobacco Use Types Packs/Day [...] on filedocumented in this encounter Care Teams Patient Assessment Coordinator Relationship Specialty Start Date End Date Rafael Wray MD [address] [place] [address] [phone] PCP - General 04/01/09 12/27/20 Frederick Ureña PA-C [address] [place] [address] [phone] PCP - General Internal Medicine 12/28/20 Carola Barrientos MD [address] [place] [address] [address] [place] [address] Specialist Neurosurgery 06/11/23 documented as of this encounter
--- OUTSIDE RECORDS SUMMARY | 2025-07-14 15:40 | XMS_ITS | Encounter Summary ---
Author Organization [facility] Address [address] [place] [address] Care Team Providers Care Loss Prevention Lead Name Role Phone Rafael Wray MD Primary Care Provider +[phone] Frederick Ureña PA-C Primary Care Provider +[phone] Carola Barrientos MD Unavailable [phone] Reason for Visit * Reason Comments foot complaints FOOT PAIN Encounter Details Date Type Department Care Team Description 05/08/2001 Telephone Adult Medicine [address] [address] Rafael Wray MD [address] [place] [address] [phone] foot complaints (FOOT PAIN) Social History Tobacco Use Types Packs/Day Years Used Date Smoking Tobacco: Never Assessed Sex Assigned at Date Recorded Not on file Job Start Date Occupation Industry Not on file Not on file Not on file documented as of this encounter Miscellaneous Notes * Telephone Encounter - 05/08/2001 4:43 PM EDTno call back received, message to evening triage * Telephone Encounter - 05/08/2001 1:43 PM EDTmessage left on answering machine * Telephone Encounter - 05/08/2001 12:30 PM EDTCALL RECEIVED. Contact: SELF [phone] TRIAGE CALLS- [facility] SYMPTOMS PT IS PRESENTING:PAIN IN RIGHT FOOT HOW LONG HAS PT HAD THESE SYMPTOMS?:FEW MONTHS NAME OF PT'S PCP:Payor: LAKIA KHAN/LAKIA KAMARAIN Plan: O BLUE OV$5 MH$01/14 Product Type: 700 hmo blue NEEDS APPT AFTER 4:00 documented in this encounter Plan of Treatment Not on file documented as of this encounter Visit Diagnoses Not on filedocumented in this encounter Care Teams Loss Prevention Lead Relationship Specialty Start Date End Date Rafael Wray MD [address] [place] [address] PCP - General 04/01/09 12/27/20 Frederick Ureña PA-C [address] [place] [address] PCP - General Internal Medicine 12/28/20 Carola Barrientos MD [address] [place] [address] [place] [address] Specialist Neurosurgery 06/11/23 documented as of this encounter
--- OUTSIDE RECORDS SUMMARY | 2025-07-14 15:40 | XMS_ITS | Encounter Summary ---
Author Organization [facility] Address [address] [place] [address] Care Team Providers Care Environmental Studies Professor Name Role Phone Rafael Wray MD Primary Care Provider +[phone] Frederick Ureña PA-C Primary Care Provider +[phone] Carola Barrientos MD Unavailable [phone] Encounter Details Date Type Department Care Team Description 04/10/2017 Associate Professor Of Church Music Report Medical Records 4 [place] [address] Wayne Escobedo MD Social History Tobacco Use [...] on filedocumented in this encounter Care Teams Environmental Studies Professor Relationship Specialty Start Date End Date Rafael Wray MD [address] [place], [place] [phone] PCP - General 04/01/09 12/27/20 Frederick Ureña PA-C [address] [place] [address] [phone] PCP - General Internal Medicine 12/28/20 Carola Barrientos MD [address] [place] [address] Specialist Neurosurgery 06/11/23 documented as of this encounter
--- OUTSIDE RECORDS SUMMARY | 2025-07-14 15:40 | XMS_ITS | Encounter Summary ---
Author Organization [facility] Address [address] [place] [address] Care Team Providers Care Clearing Distribution Clerk Name Role Phone Frederick Ureña PA-C Primary Care Provider +[phone] Carola Barrientos MD Unavailable [phone] Encounter Details Date Type Department Care Team Description 04/19/2023 Orders Only Medical Records [address] [place] [address] Frederick Ureña PA-C [address] [place], [place] [phone] Social History Tobacco Use Types Packs/Day Years [...] Date/Time Associated Diagnosis Comments OUTSIDE MRI/MRA Routine 04/10/2023 documented in this encounter Results * OUTSIDE MRI/MRA (04/10/2023) Frederick Ureña PA-C RADIOLOGY documented in this encounter Visit Diagnoses Not on filedocumented in this encounter Care Teams Clearing Distribution Clerk Relationship Specialty Start Date End Date Frederick Ureña PA-C [address] [place] [address] PCP - General Internal Medicine 12/28/20 Carola Barrientos MD [address] [place] [address] Specialist Neurosurgery 06/11/23 documented as of this encounter
--- OUTSIDE RECORDS SUMMARY | 2025-07-14 15:40 | XMS_ITS | Encounter Summary ---
Author Organization [facility] Address [address] [place] [address] Care Team Providers Care Tribal Council Member Name Role Phone Rafael Wray MD Primary Care Provider + [phone] Frederick Ureña PA-C Primary Care Provider +[phone] Carola Barrientos MD Unavailable [phone] Encounter Details Date Type Department Care Team Description 01/17/2016 Web Design Intern Report Medical Records 4 [place] [address] Philipp Linda MD, MD Social History Tobacco [...] on filedocumented in this encounter Care Teams Tribal Council Member Relationship Specialty Start Date End Date Rafael Wray MD [address] [place] [address] PCP - General 04/01/09 12/27/20 Frederick Ureña PA-C [address] [place], [place] [phone] PCP - General Internal Medicine 12/28/20 Carola Barrientos MD [address] [place] [address] [address] [place] [address] Specialist Neurosurgery 06/11/23 documented as of this encounter
--- OUTSIDE RECORDS SUMMARY | 2025-07-14 15:40 | XMS_ITS | Encounter Summary ---
Author Organization [facility] Address [address] [place] [address] Care Team Providers Care Embryology Teacher Name Role Phone Rafael Wray MD Primary Care Provider +1 [phone] Frederick Ureña PA-C Primary Care Provider +[phone] Carola Barrientos MD Unavailable [phone] Encounter Details Date Type Department Care Team Description 10/10/2016 Vat House Laborer Report Medical Records 4 [place] [address] Wayne Escobedo MD Social History Tobacco Use [...] on filedocumented in this encounter Care Teams Embryology Teacher Relationship Specialty Start Date End Date Rafael Wray MD [address] [place], [place] [phone] PCP - General 04/01/09 12/27/20 Frederick Ureña PA-C [address] [place] [address] [phone] PCP - General Internal Medicine 12/28/20 Carola Barrientos MD [address] [place] [address] Specialist Neurosurgery 06/11/23 documented as of this encounter
--- OUTSIDE RECORDS SUMMARY | 2025-07-14 15:41 | XMS_ITS | Encounter Summary ---
Author Organization [facility] Address [address] [place] [address] Care Team Providers Care Dam Operator Name Role Phone Rafael Wray MD Primary Care Provider +[phone] Frederick Ureña PA-C Primary Care Provider + [phone] Carola Barrientos MD Unavailable [phone] Reason for Visit * Reason Onset Date Comments Faxed Order 11/07/2020 ATI Encounter Details Date Type Department Care Team Description 11/07/2020 Telephone Adult Medicine [address] [phone] Rafael Wray MD [address] [place] [address] [phone] Faxed Order (ATI) Social History Tobacco Use Types Packs/Day Years [...] have Coronavirus / COVID-19? No / Unsure 10/28/2020 11:15 AM EST documented as of this encounter Miscellaneous Notes * Telephone Encounter - Kaleigh Alfredolin - 11/07/2020 3:37 PM EST Initial eval / plan of care - 11/04/2020 to be signed and faxed back documented in this encounter Plan of Treatment Not on file documented as of this encounter Visit Diagnoses Not on filedocumented in this encounter Care Teams Dam Operator Relationship Specialty Start Date End Date Rafael Wray MD [address] [place] [address] PCP - General 04/01/09 12/27/20 Frederick Ureña PA-C [address] [place] [address] PCP - General Internal Medicine 12/28/20 Carola Barrientos MD [address] [place] [address] Specialist Neurosurgery 06/11/23 documented as of this encounter
--- OUTSIDE RECORDS SUMMARY | 2025-07-14 15:41 | XMS_ITS | Encounter Summary ---
Author Organization [facility] Address [address] [place] [address] Care Team Providers Care Deflector Operator Name Role Phone Frederick Ureña Primary Care Provider +[phone] Encounter Details Date Type Department Care Team (Late st Contact Info) Description 01/28/2025 Lab Requisition [facility] - Main Lab [address] [facility] [place] [address] Ronaldo Ricci PA [address] [place] [address] Urinary tract infection, site not specified Social [...] care for your loved ones. For example, children's minister or elderly care for an older adult? [...] PM EST Office Visit Orthopedic Surgery - [place] [address] [phone] Paul Conner, DPDaniel 175 [facility] [address] [place] [address] 10/27/2025 2:00 PM EST Office Visit Vascular Surgery - [place] [address] [place] [phone] Jenny Lees MD [address] [place] [phone] 12/14/2025 1:30 PM EDT Office Visit Adult Medicine [address] [address] Frederick Ureña PA [address] [place] [address] documented as of this encounter [...] aeruginosa(A) JOSE RAUL 01/30/2025 11:27 AM EDT [facility] Comment: This is an [...] aeruginosa Levofloxacin JOSE RAUL 4 ug/ml: Resistant [facility] MICROBIOLOGY - [facility] E[facility]A ADAMES Final Result [facility] [address] [place] [address], documented in this encounter Visit Diagnoses Diagnosis [...] documented as of this encounter Care Teams Deflector Operator Relationship Specialty Start Date End Date Frederick Ureña PA [address] [place] [address] PCP - General Internal Medicine 08/13/24 documented as of this encounter
--- OUTSIDE RECORDS SUMMARY | 2025-07-14 15:41 | XMS_ITS | Encounter Summary ---
Author Organization [facility] Address [address] [facility] [place] [address] Care Team Providers Care Naval Surface Fire Support Planner Name Role Phone Rafael Wray MD Primary Care Provider [phone]- [phone] Frederick Ureña PA-C Primary Care Provider +[phone] Carola Barrientos MD Unavailable [phone] Encounter Details Date Type Department Care Team Description 10/29/2019 Admissions Evaluator Report Medical Records 4 [place] [address] Wayne Escobedo MD Social History Tobacco Use [...] on filedocumented in this encounter Care Teams Naval Surface Fire Support Planner Relationship Specialty Start Date End Date Rafael Wray MD [address] [place] [address] [phone] PCP - General 04/01/09 12/27/20 Frederick Ureña PA-C [address] [place] [address] [phone] PCP - General Internal Medicine 12/28/20 Carola Barrientos MD [address] [place] [address] Specialist Neurosurgery 06/11/23 documented as of this encounter
--- OUTSIDE RECORDS SUMMARY | 2025-07-14 15:41 | XMS_ITS | Encounter Summary ---
Author Organization [facility] Address [address] [facility] [place] [address] Care Team Providers Care Visual Basic Programmer Name Role Phone Rafael Wray MD Primary Care Provider +[phone] Frederick Ureña PA-C Primary Care Provider +[phone] Carola Barrientos MD Unavailable [phone] Reason for Visit * Reason Onset Date Comments Leg Problem 09/09/2013 Encounter Details Date Type Department Care Team Description 09/09/2013 Telephone Adult Medicine [address] [phone] Rafael Wray MD [address] [place] [address] [phone] Leg Problem Social History Tobacco Use Types Packs/Day Years [...] encounter Miscellaneous Notes * Telephone Encounter - Nichole Munugia R.N. - 09/09/2013 12:13 PM EST Noted Delores in Referrals notified patient has been seen today at [facility] * Telephone Encounter - Rafael Wray MD - 09/09/2013 12:08 PM EST Referral placed for vascular surgery * Telephone Encounter - Nichole Munguia R.N. - 09/09/2013 12:06 PM EST Referral to Vascular Surgery-[facility] * Telephone Encounter - Rafael Wray MD - 09/09/2013 12:04 PM EST do I need to put in a referral and if so is it for dermatology and who is the corn lab technician?? * Telephone Encounter - Nichole Munguia R.N. - 09/09/2013 11:19 AM EST Italia called back. She notes the PA definitely told patient to go to [facility]. No one told patient to go to Vascular Surgery. Patient's was upset that nothing was done in the EW. I - [facility] definitely DOES cautery for surface varicose veins * Telephone Encounter - Nichole Munguia R.N. - 09/09/2013 11:17 AM EST Italia had called. Patient was referred to Derm. There is a note in patient's chart that states patient walked in. He will be seen by Rani Montoya RN * Telephone Encounter - Nichole Munguia R.N. - 09/09/2013 10:00 AM EST Voicemail from Italia @ [facility] follow up line. She notes patient was referred to Dermatology not Vascular. However, there is a note in patient's chart that he walked in to Vascular office for appointment today . He is being seen Please put call through to Triage when Italia calls back. * Telephone Encounter - Nichole Munguia R.N. - 09/09/2013 9:58 AM EST Called [facility] Follow up line [phone]. Left message for return call with question for follow up/referral * Telephone Encounter - Rafael Wray MD - 09/09/2013 9:41 AM EST See if patient can call the ER back to clarify where he is supposed to go because of the confusion noted on the discharge printout. After that we can put in a referral * Telephone Encounter - Nichole Munguia R.N. - 09/09/2013 9:08 AM EST Patient had a varicose vein- right henriquez that burst and bled everywhere. Went to [facility] EW. Area was cleaned and dressed. Patient was advised by [facility] provider to go directly to [address] [place] [address] -( [facility]) to be seen today to have the vein cauterized. He is in the parking lot. is in the [address] [place] [address] office arranging appointment Tried calling [facility]- [phone]. On hold a long time waiting to speak with bilingual receptionist.( Unable to remain on hold.) Patient needs referral. Need to obtain [facility] records * Telephone Encounter - Bailey Teresa - 09/09/2013 8:50 AM EST Symptoms patient is presenting: the pt has a broken blood vessel in his leg that burst today he went to [facility] and he needs to speak to nursing he is not bleeding now How long has patient had these symptoms?: today PCP: Rafael Wray Payor: [facility] FFS Plan: HMO $15 [employer]ot[employer] [id number] Product Type: HMO [id number] documented in this encounter Plan of Treatment Not on file documented as of this encounter Visit Diagnoses Diagnosis Venous insufficiency- Primary Unspecified venous (peripheral) insufficiency documented in this encounter Care Teams Visual Basic Programmer Relationship Specialty Start Date End Date Rafael Wray MD [address] [place] [address] PCP - General 04/01/09 12/27/20 Frederick Ureña PA-C [address] [place] [address] PCP - General Internal Medicine 12/28/20 Carola Barrientos MD [address] [place] [address] [place] [address] Specialist Neurosurgery 06/11/23 documented as of this encounter
--- OUTSIDE RECORDS SUMMARY | 2025-07-14 15:41 | XMS_ITS | Encounter Summary ---
Author Organization [facility] Address [address] [facility] [place] [address] Care Team Providers Care Algologist Name Role Phone Rafael Wray MD Primary Care Provider +[phone] Frederick Ureña PA-C Primary Care Provider +[phone] Carola Barrientos MD Unavailable [phone] Encounter Details Date Type Department Care Team Description 01/19/2013 Retail Support Manager Report Medical Records 4 [place] [address] Wayne Escobedo MD Social History Tobacco Use [...] on filedocumented in this encounter Care Teams Algologist Relationship Specialty Start Date End Date Rafael Wray MD [address] [place], [place] [phone] PCP - General 04/01/09 12/27/20 Frederick Ureña PA-C [address] [place] [address] [phone] PCP - General Internal Medicine 12/28/20 Carola Barrientos MD [address] [place] [address] Specialist Neurosurgery 06/11/23 documented as of this encounter
--- OUTSIDE RECORDS SUMMARY | 2025-07-14 15:41 | XMS_ITS | Encounter Summary ---
Author Organization [facility] Address [address] [facility] [place] [address] Care Team Providers Care Front Desk Receptionist Name Role Phone Rafael Wray MD Primary Care Provider +[phone] Frederick Ureña PA-C Primary Care Provider +[phone] Carola Barrientos MD Unavailable [phone] Encounter Details Date Type Department Care Team Description 06/30/2014 Inspector Cold Working Report Medical Records 4 [place] [address] Wayne Escobedo MD Social History Tobacco Use [...] in this encounter Care Teams Front Desk Receptionist Relationship Specialty Start Date End Date Rafael Wray MD [address] [place], [place] [phone] PCP - General 04/01/09 12/27/20 Frederick Ureña PA-C [address] [place] [address] [phone] PCP - General Internal Medicine 12/28/20 Carola Barrientos MD [address] [place] [address] Specialist Neurosurgery 06/11/23 documented as of this encounter
--- OUTSIDE RECORDS SUMMARY | 2025-07-14 15:41 | XMS_ITS | Encounter Summary ---
Author Organization [facility] Address [address] [facility] [place] [address] Care Team Providers Care Certified Athletic Trainer Name Role Phone Rafael Wray MD Primary Care Provider +[phone] Frederick Ureña PA-C Primary Care Provider +[phone] Caorla Barrientos MD Unavailable [phone] Encounter Details Date Type Department Care Team Description 03/23/2015 Physician Scientist Report Medical Records 4 [place] [address] Wayne Esocbedo MD Social History Tobacco Use Types Packs/Day [...] on filedocumented in this encounter Care Teams Certified Athletic Trainer Relationship Specialty Start Date End Date Rafael Wray MD [address] [place], [place] [phone] PCP - General 04/01/09 12/27/20 Frederick Ureña PA-C [address] [place] [address] [phone] PCP - General Internal Medicine 12/28/20 Carola Barrientos MD [address] [place] [address] Specialist Neurosurgery 06/11/23 documented as of this encounter
--- OUTSIDE RECORDS SUMMARY | 2025-07-14 15:41 | XMS_ITS | Encounter Summary ---
Author Organization [facility] Address [address] [facility] [place] [address] Care Team Providers Care Rn Examiner Name Role Phone Rafael Wray MD Primary Care Provider + [phone] Frederick Ureña PA-C Primary Care Provider +[phone] Carola Barrientos MD Unavailable [phone] Encounter Details Date Type Department Care Team Description 03/23/2014 DOT Physical Forms Medical Records 4 [place] [address] Abstract, Provider Social History Tobacco Use Types [...] on filedocumented in this encounter Care Teams Rn Examiner Relationship Specialty Start Date End Date Rafael Wray MD [address] [place], [place] [phone] PCP - General 04/01/09 12/27/20 Frederick Ureña PA-C [address] [place] [address] [phone] PCP - General Internal Medicine 12/28/20 Carola Barrientos MD [address] [place] [address] 300 [place] [address] Specialist Neurosurgery 06/11/23 documented as of this encounter
--- OUTSIDE RECORDS SUMMARY | 2025-07-14 15:41 | XMS_ITS | Encounter Summary ---
Author Organization [facility] Address [address] [place] [address] Care Team Providers Care Paediatrician Name Role Phone Rafael Wray MD Primary Care Provider +[phone] Frederick Ureña PA-C Primary Care Provider +[phone] Carola Barrientos MD Unavailable [phone] Encounter Details Date Type Department Care Team Description 11/17/2020 Printed Circuit Board Panels Plater Report Medical Records [address] [place] [address] Wayne Escobedo MD Social History Tobacco Use [...] AM EST documented as of this encounter Plan of Treatment Not on file documented as of this encounter Visit Diagnoses Not on filedocumented in this encounter Care Teams Paediatrician Relationship Specialty Start Date End Date Rafael Wray MD [address] [place] [address] PCP - General 04/01/09 12/27/20 Frederick Ureña PA-C [address] [place] [address] PCP - General Internal Medicine 12/28/20 Carola Barrientos MD [address] [place] [address] Specialist Neurosurgery 06/11/23 documented as of this encounter
--- OUTSIDE RECORDS SUMMARY | 2025-07-14 15:41 | XMS_ITS | Encounter Summary ---
Author Organization [facility] Address [address] [facility] [place] [address] Care Team Providers Care Sealer Sander Name Role Phone Rafael Wray MD Primary Care Provider +[phone] Frederick Ureña PA-C Primary Care Provider +[phone] Carola Barrientos MD Unavailable [phone] Encounter Details Date Type Department Care Team Description 11/18/2013 Manufacturing Assembler Report Medical Records 4 [place] [address] Wayne Escobedo MD Social History Tobacco Use [...] on filedocumented in this encounter Care Teams Sealer Sander Relationship Specialty Start Date End Date Rafael Wray MD [address] [place], [place] [phone] PCP - General 04/01/09 12/27/20 Frederick Ureña PA-C [address] [place] [address] [phone] PCP - General Internal Medicine 12/28/20 Carola Barrientos MD [address] [place] [address] Specialist Neurosurgery 06/11/23 documented as of this encounter
--- OUTSIDE RECORDS SUMMARY | 2025-07-14 15:41 | XMS_ITS | Encounter Summary ---
Author Organization [facility] Address [address] [place] [address] Care Team Providers Care Field Kiln Burner Name Role Phone Rafael Wray MD Primary Care Provider +[phone]- [phone] Frederick Ureña PA-C Primary Care Provider +[phone] Carola Barrientos MD Unavailable [phone] Encounter Details Date Type Department Care Team Description 07/17/2006 Hospital Medical Records [address] [place] [address] Kaylynn Keller MD Social History Tobacco Use Types Packs/Day [...] on filedocumented in this encounter Care Teams Field Kiln Burner Relationship Specialty Start Date End Date Rafael Wray MD [address] [place] [address] [phone] PCP - General 04/01/09 12/27/20 Frederick Ureña PA-C [address] [place] [address] [phone] PCP - General Internal Medicine 12/28/20 Carola Barrientos MD [address] [place] [address] Specialist Neurosurgery 06/11/23 documented as of this encounter
--- OUTSIDE RECORDS SUMMARY | 2025-07-14 15:41 | XMS_ITS | Encounter Summary ---
Author Organization [facility] Address [address] [place] [address] Care Team Providers Care Language And Literature Division Chair Name Role Phone Rafael Wray MD Primary Care Provider +[phone] Frederick Ureña PA-C Primary Care Provider +[phone] Carola Barrientos MD Unavailable [phone] Encounter Details Date Type Department Care Team Description 11/09/2015 Airplane Mechanic Report Medical Records 4 [place] [address] Wayne Escobedo MD Social History Tobacco Use [...] on filedocumented in this encounter Care Teams Language And Literature Division Chair Relationship Specialty Start Date End Date Rafael Wray MD [address] [place], [place] [phone] PCP - General 04/01/09 12/27/20 Frederick Ureña PA-C [address] [place] [address] [phone] PCP - General Internal Medicine 12/28/20 Carola Barrientos MD [address] [place] [address] Specialist Neurosurgery 06/11/23 documented as of this encounter
--- OUTSIDE RECORDS SUMMARY | 2025-07-14 15:41 | XMS_ITS | Encounter Summary ---
Author Organization [facility] Address [address] [facility] [place] [facility] [place] [address] Care Team Providers Care Cryptologic Supervisor Name Role Phone Frederick Ureña PA-C Primary Care Provider + -[phone] Carola Barrientos MD Unavailable [phone] Encounter Details Date Type Department Care Team Description 03/31/2024 [facility] Medical Records [address] [place] [address] [facility] Social History Tobacco Use Types Packs/Day Years [...] on filedocumented in this encounter Care Teams Cryptologic Supervisor Relationship Specialty Start Date End Date Frederick Ureña PA-C [address] [place] [address] PCP - General Internal Medicine 12/28/20 Carola Barrientos MD [address] [facility] [address] [place] [address] Specialist Neurosurgery 06/11/23 documented as of this encounter
--- OUTSIDE RECORDS SUMMARY | 2025-07-14 15:41 | XMS_ITS ---
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, with fat layer exposed ([facility] V24, [facility] V28) 10/01/2024 Peripheral vascular disease ([facility] V24) 2024 Diabetes mellitus type 2, un complicated ([facility] V24, [facility] V28) 04/22/2020 Subclinical hypothyroidism 03/30/2019 CIDP (chronic inflammatory d emyelinating polyneuropathy) ([facility] V24, [facility] V28) 12/13/2016 Hyperlipidemia with target LDL less [...] Overview (06/11/2024): Pt w/ urethroplasty - Dr. 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
--- OUTSIDE RECORDS SUMMARY | 2025-07-14 15:41 | XMS_ITS | Encounter Summary ---
Author Organization [facility] Address [address] [facility] [place] [address] Care Team Providers Care Latin American Studies Director Name Role Phone Rafael Wray MD Primary Care Provider +[phone] Frederick Ureña PA-C Primary Care Provider [phone] Carola Barrientos MD Unavailable [phone] Encounter Details Date Type Department Care Team Description 09/22/2014 Continuous Improvement Engineer Report Medical Records 4 [place] [address] Wayne Escobedo MD Social History Tobacco Use [...] on filedocumented in this encounter Care Teams Latin American Studies Director Relationship Specialty Start Date End Date Rafael Wray MD [address] [place], [place] [phone] PCP - General 04/01/09 12/27/20 Frederick Ureña PA-C [address] [place] [address] [phone] PCP - General Internal Medicine 12/28/20 Carola Barrientos MD [address] [place] [address] Specialist Neurosurgery 06/11/23 documented as of this encounter
--- OUTSIDE RECORDS SUMMARY | 2025-07-14 15:41 | XMS_ITS | Encounter Summary ---
Author Organization [facility] Address [address] [facility] [place] [address] Care Team Providers Care Plant Protection Guard Name Role Phone Rafael Wray MD Primary Care Provider [phone] Frederick Ureña PA-C Primary Care Provider + [phone] Carola Barrientos MD Unavailable [phone] Encounter Details Date Type Department Care Team Description 02/18/2013 Hospital Medical Records 4 [place] [address] Philipp Linda MD, MD Social History Tobacco [...] on filedocumented in this encounter Care Teams Plant Protection Guard Relationship Specialty Start Date End Date Rafael Wray MD [address] [place] [address] PCP - General 04/01/09 12/27/20 Frederick Ureña PA-C [address] [place] [address] [phone] PCP - General Internal Medicine 12/28/20 Carola Barrientos MD [address] [place] [address] Specialist Neurosurgery 06/11/23 documented as of this encounter
--- OUTSIDE RECORDS SUMMARY | 2025-07-14 15:41 | XMS_ITS | Encounter Summary ---
Author Organization [facility] Address [address] [facility] [place] [address] Care Team Providers Care Practice Business Asst Name Role Phone Rafael Wray MD Primary Care Provider [phone] Frederick Ureña PA-C Primary Care Provider + [phone] Carola Barrientos MD Unavailable [phone] Reason for Visit * Reason Comments E-prescribe Rx Request Encounter Details Date Type Department Care Team Description 07/15/2015 Refill Adult Medicine [address] [phone] Rafael Wray MD [address] [place] [address] [phone] E-prescribe Rx Request Social History Tobacco Use [...] encounter Miscellaneous Notes * Telephone Encounter - Christina Mckenzie L.P.N. - 07/15/2015 4:52 PM EST Faxed to pharmacy * Telephone Encounter - Christina Mckenzie L.P.N. - 07/15/2015 3:41 PM EST Component Value Date NA 141 06/14/2015 K 4.6 06/14/2015 CO2 23.4 06/14/2015 CL 104 06/14/2015 BUN 15 06/14/2015 CREAT 0.9 06/14/2015 GLU 134 06/14/2015 CA 8.9 06/14/2015 GFR > 60 06/14/2015 * Telephone Encounter - Page Restrepo - 07/15/2015 8:38 AM EST Patient would like script to be: E-PRESCRIBED/FAXED TO PHARMACY WHEN WAS THE PATIENT'S LAST APPOINTMENT IN ADULT MEDICINE? 06/20/15 WHEN WAS THE LAST TIME THE PATIENT SAW THEIR PCP? Same as above Does patient have an upcoming appointment? Yes 12/26/15 (THE MEDICATION REQUESTED IS ON THE MED LIST ABOVE) All of the medications requested were on the CURRENT MEDS list Did you check the Pharmacy information above?: YES Patient wants: 30 -day supply Is this a mail order prescription request ? NO Patients current insurance carrier is: Payor: [facility]/HMO FFS / Plan: HMO $15 [place] [id number] / ProductType: HMO [id number] documented in this encounter Plan of Treatment Not on file documented as of this encounter Visit Diagnoses Not on filedocumented in this encounter Care Teams Practice Business Asst Relationship Specialty Start Date End Date Rafael Wray MD [address] [place] [address] PCP - General 04/01/09 12/27/20 Frederick Ureña PA-C [address] [place] [address] PCP - General Internal Medicine 12/28/20 Carola Barrientos MD [address] [place] [address] Specialist Neurosurgery 06/11/23 documented as of this encounter
--- OUTSIDE RECORDS SUMMARY | 2025-07-14 15:41 | XMS_ITS | Encounter Summary ---
Author Organization [facility] Address [address] [place] [address] Care Team Providers Care Garbage Man Name Role Phone rFederick Ureña Primary Care Provider +1 [phone] Encounter Details Date Type Department Care Team (Late st Contact Info) Description 03/22/2025 Lab Requisition [facility] - Main Lab [address] [facility] [place] [address] Philipp Linda MD [address] [facility] [address] [place] [phone] Urinary tract infection, site not specified Social [...] for your loved ones. For example, child development associate teacher or elderly care for an older [...] PM EST Office Visit Orthopedic Surgery - [place] [address] [address] Paul Conner, ROSEY [address] [address] 10/27/2025 2:00 PM EST Office Visit Vascular Surgery - [place] [address] [place] [address] Jenny Lees MD [address] [place] [phone] 12/14/2025 1:30 PM EDT Office Visit Adult [address] [address] Frederick Ureña PA [address] [place] [address] documented as of this encounter [...] aeruginosa(A) JOSE RAUL 03/24/2025 10:08 AM EDT [facility] Comment: This is an [...] MICROBIOLOGY - GENERA L ORDERABLES Final Result [facility] [address] [place] [address], documented in this encounter Visit Diagnoses Diagnosis [...] documented as of this encounter Care Teams Garbage Man Relationship Specialty Start Date End Date Frederick Ureña PA [address] [place] [address] PCP - General Internal Medicine 08/13/24 documented as of this encounter
--- OUTSIDE RECORDS SUMMARY | 2025-07-14 15:41 | XMS_ITS | Encounter Summary ---
Author Organization [facility] Address [address] [facility] [place] [address] Care Team Providers Care Transformation Architect Name Role Phone Rafael Wray MD Primary Care Provider [phone] Frederick Ureña PA-C Primary Care Provider + [phone] Carola Barrientos MD Unavailable [phone] Reason for Visit * Reason Onset Date Comments Faxed Refill 08/05/2014 Encounter Details Date Type Department Care Team Description 08/05/2014 Refill Adult Medicine [address] [phone] Rafael Wray MD [address] [place] [address] [phone] Faxed Refill Social History Tobacco Use Types Packs/Day Years [...] encounter Miscellaneous Notes * Telephone Encounter - Giana Estevez M.A. - 08/05/2014 11:30 AM EST Is this a fax that was received? * Telephone Encounter - Evelyn Bellamy 08/05/2014 11:19 AM EST Pharmacy needs new script for accu-chek meter and supplies/ insurance wiill not pay for previous meter or supplies please fax to amelia chandra ( mail in) [phone]. Two previous requests sent to [facility] [place] documented in this encounter Plan of Treatment Not on file documented as of this encounter Visit Diagnoses Not on filedocumented in this encounter Care Teams Transformation Architect Relationship Specialty Start Date End Date Rafael Wray MD [address] [place] [address] [phone] PCP - General 04/01/09 12/27/20 Frederick Ureña PA-C [address] [place] [address] [phone] PCP - General Internal Medicine 12/28/20 Carola Barrientos MD [address] [place] [address] [address] [place] [address] Specialist Neurosurgery 06/11/23 documented as of this encounter
--- OUTSIDE RECORDS SUMMARY | 2025-07-14 15:41 | XMS_ITS | Encounter Summary ---
Author Organization [facility] Address [address] [place] [address] Care Team Providers Care Electronic Publications Specialist Name Role Phone Rafael Wray MD Primary Care Provider + [phone] Frederick Ureña PA-C Primary Care Provider +[phone] Carola Barrientos MD Unavailable [phone] Encounter Details Date Type Department Care Team Description 05/24/2014 Telephone Medical Records [address] [place] [address] Abstract, Provider Social History Tobacco Use Types [...] on filedocumented in this encounter Care Teams Electronic Publications Specialist Relationship Specialty Start Date End Date Rafael Wray MD [address] [place], [place] [phone] PCP - General 04/01/09 12/27/20 Frederick Ureña PA-C [address] [place] [address] PCP - General Internal Medicine 12/28/20 Carola Barrientos MD [address] [place] [address] [address] [place] [address] Specialist Neurosurgery 06/11/23 documented as of this encounter
--- OUTSIDE RECORDS SUMMARY | 2025-07-14 15:41 | XMS_ITS | Encounter Summary ---
Author Organization [facility] Address [address] [place] [address] Care Team Providers Care Staff Auditor Name Role Phone Frederick Ureña PA-C Primary Care Provider + [phone] Carola Barrientos MD Unavailable [phone] Encounter Details Date Type Department Care Team Description 11/04/2023 Dairy Hand Report Medical Records [address] [place] [address] Phyllis Aragon Social History Tobacco Use Types Packs/Day Years [...] on filedocumented in this encounter Care Teams Staff Auditor Relationship Specialty Start Date End Date Frederick Ureña PA-C [address] [place] [address] PCP - General Internal Medicine 12/28/20 Carola Barrientos MD [address] [facility] [address] [place] [address] Specialist Neurosurgery 06/11/23 documented as of this encounter
--- OUTSIDE RECORDS SUMMARY | 2025-07-14 15:41 | XMS_ITS | Encounter Summary ---
Author Organization [facility] Address [address] [place] [address] Care Team Providers Care Highway Maintenance Worker Name Role Phone Rafael Wray MD Primary Care Provider + [phone] Frederick Ureña PA-C Primary Care Provider +[phone] Carola Barrientos MD Unavailable [phone] Encounter Details Date Type Department Care Team Description 04/02/2014 Carpet Inspector Finished Report Medical Records 4 [place] [address] Jorje Alvarez MD Social History Tobacco Use Types Packs/Day [...] on filedocumented in this encounter Care Teams Highway Maintenance Worker Relationship Specialty Start Date End Date Rafael Wray MD 4 [place], [place] [phone] PCP - General 04/01/09 12/27/20 Frederick Ureña PA-C [address] [place] [address] PCP - General Internal Medicine 12/28/20 Carola Barrientos MD [address] [place] [address] Specialist Neurosurgery 06/11/23 documented as of this encounter
--- OUTSIDE RECORDS SUMMARY | 2025-07-14 15:41 | XMS_ITS | Encounter Summary ---
Author Organization [facility] Address [address] [facility] [place] [facility] [place] [address] Care Team Providers Care Stripper And Taper Name Role Phone Rafael Wray MD Primary Care Provider [phone] Frederick Ureña PA-C Primary Care Provider +[phone] Carola Barrientos MD Unavailable [phone] Reason for Visit * Reason Onset Date Comments Pre-op Needed 10/03/2018 Encounter Details Date Type Department Care Team Description 10/03/2018 Telephone Adult Medicine [address] [phone] Rafael Wray MD [address] [place] [address] [phone] Pre-op Needed Social History Tobacco Use Types Packs/Day Years [...] encounter Miscellaneous Notes * Telephone Encounter - Ines Willard - 10/03/2018 2:26 PM EST Date of surgery:10/17/2018 What surgery is patient having (gall bladder, cataract, appendix, etc...)?: cataracts Surgeon's name: Harvey Cali Office phone number of surgeon: [phone] Fax # for surgeons office: [phone] Where is surgery being performed? [facility] [place], [place] Diagnosis/problem for surgery: Cataracts PCP: Rafael Wray Did you verify that the insurance below is correct? YES Patients insurance: Payor: [facility]/HMO FFS / Plan: HMO $20 [place] [id number] / Product Type: HMO [id number] documented in this encounter Plan of Treatment Not on file documented as of this encounter Visit Diagnoses Not on filedocumented in this encounter Care Teams Stripper And Taper Relationship Specialty Start Date End Date Rafael Wray MD [address] [place] [address] PCP - General 04/01/09 12/27/20 Frederick Ureña PA-C [address] [place] [address] PCP - General Internal Medicine 12/28/20 Carola Barrientos MD [address] [place] [address] [place] [address] Specialist Neurosurgery 06/11/23 documented as of this encounter
--- OUTSIDE RECORDS SUMMARY | 2025-07-14 15:41 | XMS_ITS | Encounter Summary ---
Author Organization [facility] Address [address] [facility] [place] [address] Care Team Providers Care College Director Name Role Phone Frederick Ureña PA-C Primary Care Provider +[phone] Carola Barrientos MD Unavailable [phone] Encounter Details Date Type Department Care Team Description 06/19/2023 El Teacher Report Medical Records [address] [place] [address] Napoleon Gallo PA-C Social History Tobacco Use Types Packs/Day Years [...] on filedocumented in this encounter Care Teams College Director Relationship Specialty Start Date End Date Frederick Ureña PA-C [address] [place] [address] PCP - General Internal Medicine 12/28/20 Carola Barrientos MD [address] [facility] [address] [place] [address] Specialist Neurosurgery 06/11/23 documented as of this encounter
--- OUTSIDE RECORDS SUMMARY | 2025-07-14 15:41 | XMS_ITS | Encounter Summary ---
Author Organization [facility] Address [address] [facility] [place] [address] Care Team Providers Care School Leader Name Role Phone Rafael Wray MD Primary Care Provider +[phone] Frederick Ureña PA-C Primary Care Provider [phone] Carola Barrientos MD Unavailable [phone] Encounter Details Date Type Department Care Team Description 07/16/2013 Healthcare Analyst Report Medical Records 4 [place] [address] Wayne Escobedo MD Social History Tobacco Use [...] on filedocumented in this encounter Care Teams School Leader Relationship Specialty Start Date End Date Rafael Wray MD [address] [place], [place] [phone] PCP - General 04/01/09 12/27/20 Frederick Ureña PA-C [address] [place] [address] [phone] PCP - General Internal Medicine 12/28/20 Carola Barrientos MD [address] [place] [address] Specialist Neurosurgery 06/11/23 documented as of this encounter
--- OUTSIDE RECORDS SUMMARY | 2025-07-14 15:41 | XMS_ITS | Encounter Summary ---
Author Organization [facility] Address [address] [place] [address] Care Team Providers Care Financial Services Agent Name Role Phone Rafael Wray MD Primary Care Provider + [phone] Frederick Ureña PA-C Primary Care Provider +[phone] Carola Barrientos MD Unavailable [phone] Encounter Details Date Type Department Care Team Description 03/08/2015 Refinish Technician Report Medical Records 4 [place] [address] Philipp Linda MD, MD Social History Tobacco [...] on filedocumented in this encounter Care Teams Financial Services Agent Relationship Specialty Start Date End Date Rafael Wray MD [address] [place] [address] PCP - General 04/01/09 12/27/20 Frederick Ureña PA-C [address] [place], [place] [phone] PCP - General Internal Medicine 12/28/20 Carola Barrientos MD [address] [place] [address] 300 [place] [address] Specialist Neurosurgery 06/11/23 documented as of this encounter
--- OUTSIDE RECORDS SUMMARY | 2025-07-14 15:41 | XMS_ITS | Encounter Summary ---
Author Organization [facility] Address [address] [facility] [place] [address] Care Team Providers Care Traffic Chief Name Role Phone Rafael Wray MD Primary Care Provider +[phone] Frederick Ureña PA-C Primary Care Provider +[phone] Carola Barrientos MD Unavailable [phone] Reason for Visit * Reason Onset Date Comments other 02/12/2013 pre op Encounter Details Date Type Department Care Team Description 02/12/2013 Telephone Adult Medicine [address] [address] Rosalio Méndez MD other (pre op) Social History Tobacco Use Types Packs/Day Years [...] encounter Miscellaneous Notes * Telephone Encounter - Rosalio Méndez MD - 02/12/2013 1:28 PM EDT Gael, that was a mistake. I will addend it. Thanks for notifying * Telephone Encounter - Stephanie Chauhan - 02/12/2013 1:06 PM EDT You mentioned in the pre op visit note the patient is estimated to have an acceptable risk for the proposed procedure. Further cardiac workup is warranted. Are you referring the patient to cardiology?? documented in this encounter Plan of Treatment Not on file documented as of this encounter Visit Diagnoses Not on filedocumented in this encounter Care Teams Traffic Chief Relationship Specialty Start Date End Date Rafael Wray MD [address] [place] [address] PCP - General 04/01/09 12/27/20 Frederick Ureña PA-C [address] [place] [address] PCP - General Internal Medicine 12/28/20 Carola Barrientos MD [address] [place] [address] Specialist Neurosurgery 06/11/23 documented as of this encounter
--- OUTSIDE RECORDS SUMMARY | 2025-07-14 15:41 | XMS_ITS | Encounter Summary ---
Author Organization [facility] Address [address] [place] [address] Care Team Providers Care Web Press Jogger Name Role Phone Frederick Ureña PA-C Primary Care Provider +[phone] Carola Barrientos MD Unavailable [phone] Reason for Referral * Non KINA (Routine) - Authorized/Booked Specialty Diagnoses / Procedures Referred By Brown gibson Referred To Contact Neurosurgery Procedures REFERRAL TO NEUROSURGERY Frederick Ureña PA-C [address] [place] [address] Carola Barrientos MD [address] [address] Referral ID Status Reason Start Date Expiration Date V isits Requested Visits Authorized [id number] Authorized/ Booked 06/10/2023 06/09/2024 12 12 Reason for Visit * Reason Onset Date Comments Referral Authorization 06/10/2023 BCBS refe rral needed Encounter Details Date Type Department Care Team Description 06/10/2023 Telephone [facility] Neurosurgery [place] [address] [address] Carola Barrientos MD [address] [address] Referral Authorization ([facility] referral needed) Social History Tobacco Use Types Packs/Day Years [...] Telephone Encounter - Frederick Ureña PA-C - 06/10/2023 3:04 PM EDT Okay will place referral * Telephone Encounter - Lavern Boyer - 06/10/2023 2:50 PM EDT Please enter a referral for a [facility] insurance authorization for Neurosurgery. , Dr. Barrientos. Start date - 06/11/23. 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
--- OUTSIDE RECORDS SUMMARY | 2025-07-14 15:41 | XMS_ITS | Encounter Summary ---
Author Organization [facility] Address [address] [facility] [place] [address] Care Team Providers Care Manager Technical Sales Name Role Phone Rafael Wray MD Primary Care Provider + [phone] Frederick Ureña PA-C Primary Care Provider +[phone] Carola Barrientos MD Unavailable [phone] Encounter Details Date Type Department Care Team Description 08/09/2014 Human Resources Manager Manufacturing Report Medical Records 4 [place] [address] Philipp Linda MD, MD Social History Tobacco [...] on filedocumented in this encounter Care Teams Manager Technical Sales Relationship Specialty Start Date End Date Rafael Wray MD [address] [place] [address] PCP - General 04/01/09 12/27/20 Frederick Ureña PA-C [address] [place], [place] [phone] PCP - General Internal Medicine 12/28/20 Carola Barrientos MD [address] [place] [address] 300 [place] [address] Specialist Neurosurgery 06/11/23 documented as of this encounter
--- OUTSIDE RECORDS SUMMARY | 2025-07-14 15:41 | XMS_ITS | Encounter Summary ---
Author Organization [facility] Address [address] [facility] [place] [address] Care Team Providers Care Professional Shopper Name Role Phone Rafael Wray MD Primary Care Provider [phone] Frederick Ureña PA-C Primary Care Provider +[phone] Carola Barrientos MD Unavailable Encounter Details Date Type Department Care Team Description 04/28/2020 Armored Car Guard And Driver Report Medical Records [address] [place] [address] Wayne Escobedo MD Social History Tobacco Use [...] on filedocumented in this encounter Care Teams Professional Shopper Relationship Specialty Start Date End Date Rafael Wray MD [address] [place], [place] [id number] PCP - General 04/01/09 12/27/20 Frederick Ureña PA-C [address] [place] [address] [id number] PCP - General Internal Medicine 12/28/20 Carola Barrientos MD [address] [place] [address] Specialist Neurosurgery 06/11/23 documented as of this encounter
--- OUTSIDE RECORDS SUMMARY | 2025-07-14 15:41 | XMS_ITS | Encounter Summary ---
Author Organization [facility] Address [address] [place] [address] Care Team Providers Care Covered Button Maker Name Role Phone Rafael Wray MD Primary Care Provider + [phone] Frederick Ureña PA-C Primary Care Provider +[phone] Carola Barrientos MD Unavailable [phone] Encounter Details Date Type Department Care Team Description 12/01/2012 Irrigation Supervisor Report Medical Records [address] [place] [address] Philipp Linda MD, MD Social History Tobacco [...] on filedocumented in this encounter Care Teams Covered Button Maker Relationship Specialty Start Date End Date Rafael Wray MD [address] [place] [address] PCP - General 04/01/09 12/27/20 Frederick Ureña PA-C [address] [place], [place] [phone] PCP - General Internal Medicine 12/28/20 Carola Barrientos MD [address] [place] [address] [address] [place] [address] Specialist Neurosurgery 06/11/23 documented as of this encounter
--- OUTSIDE RECORDS SUMMARY | 2025-07-14 15:41 | XMS_ITS | Encounter Summary ---
Author Organization [facility] Address [address] [facility] [place] [address] Care Team Providers Care It Software Engineer Name Role Phone Rafael Wray MD Primary Care Provider [phone] Frederick Ureña PA-C Primary Care Provider + [phone] Carola Barrientos MD Unavailable [phone] Reason for Visit * Reason Onset Date Comments Faxed Order 12/14/2020 ati Encounter Details Date Type Department Care Team Description 12/14/2020 Telephone Adult Medicine [address] [phone] Rafael Wray MD [address] [place] [address] [phone] Faxed Order (ati) Social History Tobacco Use Types Packs/Day Years [...] encounter Miscellaneous Notes * Telephone Encounter - oRwan Montalvo - 12/14/2020 12:42 PM EDT Faxed order from AT in Dr. Wray's box for signature and to be faxed back to [phone] documented in this encounter Plan of Treatment Not on file documented as of this encounter Visit Diagnoses Not on filedocumented in this encounter Care Teams It Software Engineer Relationship Specialty Start Date End Date Rafael Wray MD [address] [place] [address] PCP - General 04/01/09 12/27/20 Frederick Ureña PA-C [address] [place] [phone] PCP - General Internal Medicine 12/28/20 Carola Barrientos MD [address] [place] [address] Specialist Neurosurgery 06/11/23 documented as of this encounter
--- OUTSIDE RECORDS SUMMARY | 2025-07-14 15:41 | XMS_ITS | Encounter Summary ---
Author Organization [facility] Address [address] [facility] [place] [address] Care Team Providers Care Decorating Consultant Name Role Phone Rafael Wray MD Primary Care Provider [phone] Frederick Ureña PA-C Primary Care Provider [phone] Carola Barrientos MD Unavailable [phone] Encounter Details Date Type Department Care Team Description 09/22/2019 Telephone Internal Medicine - [address], [address] [place] [address] Cleveland Garcia MD Social History Tobacco Use Types Packs/Day [...] on filedocumented in this encounter Care Teams Decorating Consultant Relationship Specialty Start Date End Date Rafael Wray MD [address] [place] [id number] PCP - General 04/01/09 12/27/20 Frederick Ureña PA-C [address] [place] [address] [id number] PCP - General Internal Medicine 12/28/20 Carola Barrientos MD [address] [place] [address] Specialist Neurosurgery 06/11/23 documented as of this encounter
--- OUTSIDE RECORDS SUMMARY | 2025-07-14 15:42 | XMS_ITS | Clinical Summary ---
Author Organization [address] [place] [address] [place] [phone] Phone Care Team Providers Care Bag Filler Machine Operator Name Role Phone Frederick Ureña Primary Care Provider [phone] Allergies Active Allergy Reactions Criticality Noted Date [...] DAILY 90 tablet 1 03/29/20 25 Active metoprolol succinate (TOPROL-XL) 50 mg 24 hr tablet TAKE 1 TABLET BY MOUTH DAILY 90 tablet 1 06/08/20 25 Active methenamine hippurate (Hiprex) 1 gram tablet Take 1 tablet (1 g total) by mouth 2 (two) times a day with meals. 60 each 11 07/12/20 25 Active methenamine hippurate (Hiprex) 1 gram tablet Take 1 tablet (1 g total) by mouth 2 (two) times a day with meals. 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, with fat layer exposed ([facility] V24, [facility] V28) 10/01/2024 Peripheral vascular disease ([facility] V24) 2024 Diabetes mellitus type 2, un complicated ([facility] V24, [facility] V28) 04/22/2020 Subclinical hypothyroidism 03/30/2019 CIDP (chronic inflammatory d emyelinating polyneuropathy) ([facility] V24, [facility] V28) 12/13/2016 Hyperlipidemia with target [...] 07/04/2006 Gout 07/04/2006 Hypertension 07/04/2006 Morbid obesity ([facility] V24, [facility] V28) 2005 Overview (06/11/2024): BMI 42.86 on 05/18/13. Encounters Date Type Department Care Team Description 07/12/2025 2:30 PM EST Office Visit Adult [address] [phone] Frederick Ureña PA Type 2 diabetes mellitus without complication, without long-term current use of insulin ([facility] V24, [facility] V28) (Primary Dx); Need for prophylactic vaccination and inoculation against influenza; Hyperlipidemia with target LDL less than 100; Gout, unspecified cause, unspecified chronicity, unspecified site; CIDP (chronic inflammatory demyelinating polyneuropathy) ([facility] V24, [facility] V28); Secondary hypertension; Morbid obesity ([facility] V24, [facility] V28); Subclinical hypothyroidism; Bacteriuria 07/07/2025 1:45 PM EST Office Visit Orthopedic Surgery [facility] [address] [phone] Paul Conner DPM Controlled type 2 diabetes with neuropathy ([facility] V24, [facility] V28) (Primary Dx); Hammertoes of both feet; Arthritis of both feet; Dermatophytosis, nail 05/05/2025 1:30 PM EDT Office Visit Orthopedic [facility] [address] [phone] Paul Conner, ROSEY Controlled type 2 diabetes with neuropathy ([facility] V24, [facility] V28) (Primary Dx); Hammertoes of both feet; Arthritis of both feet; Dermatophytosis, nail 05/04/2025 Telephone Adult [address] [phone] Frederick Ureña PA 04/23/2025 Telephone Adult [address] [phone] Frederick Ureña PA 04/13/2025 1:30 PM EDT Office Visit Adult [address] [phone] Frederick Ureña PA Hospital discharge follow-up (Primary Dx); Urinary tract infection without hematuria, site unspecified; Pseudomonas urinary tract infection; Type 2 diabetes mellitus without complication, without long-term current use of insulin ([facility] V24, [facility] V28) from Last 3 Months Immunizations Immunization Administration Dates Next Due H1N1 Inj Preservative Free 09/11/2009 Influenza Quadravalent, MDCK , 0.5ml, preservative free (Flucelvax) 6mo and older 05/16/2020 Influenza trivalent, 0.5mL ( Fluad) 65yo and older 07/12/2025 Influenza trivalent, 0.5mL ( Fluzone High-dose) 65yo [...] Site/Laterality Comments KNEE ARTHROSCOPY W/ DEBRIDEMENT PROCEDURE: NM ARTHRS KNEE DEBRIDEMENT/SHAVING ARTCLR CRTLG; COMMENT: bilateral X 2 OTHER SURGICAL HISTORY PROCEDURE: NM UNLISTED PROCEDURE PALATE UVULA; COMMENT: ENT APPENDECTOMY PROCEDURE: NM APPENDECTOMY TOTAL KNEE ARTHROPLASTY Bilateral PROCEDURE: NM ARTHRP KNE CONDYLE&PLATU MEDIAL&LAT COMPARTMENTS; COMMENT: left [...] DX:Neuralgia, neuritis, and radiculitis, unspecified Morbid obesity (CMS/HCC V24, CMS/HCC V28) 07/04/2006 DX:Morbid obesity ([facility]) Gout, unspecified 07/04/2006 DX:Gout, unspe cified Osteoarthrosis, [...] With propofol Diabetes mellitus type 2, uncomplicated (CMS/HCC V24, CMS/HCC V28) 04/22/2020 DX:Diabetes mellitus type 2, uncomplicated ([facility]) Neuropathy Delayed wound healing Family History Medical [...] for your loved ones. For example, children's tutor nursery or elderly care for an older adult? [...] Mass Index 45.2 07/12/2025 2:35 PM EST Plan of Treatment Upcoming Encounters Date Type Department Care Team (Late st Contact Info) Description 10/21/2025 1:45 PM EST Office Visit Orthopedic Surgery [place] [address] [facility] [address] [place] [phone] Paul Conner, DPM [address] [facility] Stephen [address] [place] [address] 10/27/2025 2:00 PM EST Office Visit Vascular Surgery - [place] [address] [place] [phone] Jenny Lees MD [address] [place] [phone] 12/14/2025 1:30 PM EDT Office Visit Adult Medicine [facility] [address] [place] [phone] Frederick Ureña PA [address] [place] [phone] Health Maintenance Due Date Last Done Comments RSV Immunization Adult Patients (1 - Risk 50-74 years 1-dose series) 2007 Medicare Annual Wellness Visit 07/31/2022 COVID-19 Vaccine ( season) 2025 08/18/2021, 01/23/2021, 12/26/2020 Social Influencers of Health Screening 08/31/2025 08/31/2024 [...] 08/13/2023, 07/20/2022, 06/07/2014 Depression Screening Completed 10/01/2024 Influenza Vaccine Completed 07/12/2025, , 06/24/2023, Additional history exists HIB Vaccines Aged Out No longer eligi [...] Name Priority Date/Time Associated Diagnosis Comments EXTERNAL ULTRASOUND REPORT 07/01/2025 EXTERNAL CLINICAL LAB 06/23/2025 EXTERNAL CLINICAL LAB [...] complication, without long-term current use of insulin ([facility] V24, [facility] V28) CIDP (chronic inflammatory demyelinating polyneuropathy) (CMS/HCC V24, CMS/[facility] V28) Hyperlipidemia with target LDL less than 100 Secondary hypertension Gout, unspecified cause, unspecified chronicity, unspecified site MICROALBUMIN CREATININE URINE RATIO Routine 04/23/2025 12:52 PM EDT Type 2 diabetes mellitus without complication, without long-term current use of insulin ([facility] V24, [facility] V28) CIDP (chronic inflammatory demyelinating polyneuropathy) ([facility] V24, [facility] V28) Hyperlipidemia with target LDL less than 100 Secondary hypertension Gout, unspecified cause, unspecified chronicity, unspecified site HEMOGLOBIN A1C Routine 04/23/2025 12:52 PM EDT Type 2 diabetes mellitus without complication, without long-term current use of insulin ([facility] V24, [facility] V28) CIDP (chronic inflammatory demyelinating polyneuropathy) ([facility] V24, [facility] V28) Hyperlipidemia with target LDL less than 100 Secondary hypertension Gout, unspecified cause, unspecified chronicity, unspecified site URIC ACID Routine 04/23/2025 12:52 PM EDT Type 2 diabetes mellitus without complication, without long-term current use of insulin ([facility] V24, [facility] V28) CIDP (chronic inflammatory demyelinating polyneuropathy) ([facility] V24, [facility] V28) Hyperlipidemia with target LDL less than 100 Secondary hypertension Gout, unspecified cause, unspecified chronicity, unspecified site THYROID STIMULATING HORMONE WITH REFLEX TO FREE T4 AND FREE T3 Routine 04/23/2025 12:52 PM EDT Type 2 diabetes mellitus without complication, without long-term current use of insulin ([facility] V24, [facility] V28) CIDP (chronic inflammatory demyelinating polyneuropathy) ([facility] V24, [facility] V28) Hyperlipidemia with target LDL less than [...] Urinary tract infection without hematuria, site unspecified DIABETES EYE EXAM Routine 12/09/2023 DIABETES FOOT EXAM Routine 10/09/2023 COLONOSCOPY Routine 04/04/2023 ABDOMINAL AORTIC ANEURYSM SCRREN Routine 08/22/2022 HEPATITIS C SCREENING Routine 11/15/2013 from Last 3 Months or Most Recently Relevant to Health Maintenance Results * External Ultrasound Report (07/01/2025) Anatomical Region Laterality Modality Ultrasound Provider [facility] IMG US PROCEDURES Final Result * External clinical lab (06/23/2025) Only the most recent of2 resultswithin the time period is included. Provider [facility] LAB BLOOD ORDERABLES Fin al Result * Culture blood (04/23/2025 1:07 PM EDT) Pathologist [facility] Culture, Blood No growth at 5 days 04/28/2025 6:01 PM EDT [facility] Blood Venous blood specimen / Unknown Venipuncture / Unknown 04/23/2025 1:07 PM EDT 04/23/2025 1:07 PM EDT Frederick VENEGAS LAB MICROBIOLOGY - GENERA L ORDERABLES Final Result [facility] [address] [place] [address], [place] [phone] * (ABNORMAL) Urinalysis with reflex microscopic (04/23/2025 12:52 PM EDT) Pathologist [facility] Specific [place] Urine 1.010 1.003 - 1.030 LAB URINALYSIS - AUTOMATED METHOD 04/23/2025 2:27 PM [facility] pH, Urine 6.5 5.0 - 8.0 pH LAB URINALYSIS - AUTOMATED METHOD 04/23/2025 2:27 PM [facility] Leukocytes, Urine Trace(A) Negative LAB URINALYSIS - AUTOMATED METHOD 04/23/2025 2:27 PM [facility] Nitrite, Urine Negative Negative LAB URINALYSIS - AUTOMATED METHOD 04/23/2025 2:27 PM [facility] Protein, Urine Negative <=Trace mg/dL LAB URINALYSIS - AUTOMATED METHOD 04/23/2025 2:27 PM [facility] Glucose, Urine 100(A) Negative mg/dL LAB URINALYSIS - AUTOMATED METHOD 04/23/2025 2:27 PM [facility] Ketones, Urine Negative Negative mg/dL LAB URINALYSIS - AUTOMATED METHOD 04/23/2025 2:27 PM [facility] Urobilinogen, Urine 0.2 0.2 - 1.0 mg/dL LAB URINALYSIS - AUTOMATED METHOD 04/23/2025 2:27 PM [facility] Bilirubin, Urine Negative Negative LAB URINALYSIS - AUTOMATED METHOD 04/23/2025 2:27 PM [facility] Blood, Urine Negative Negative LAB URINALYSIS - AUTOMATED METHOD 04/23/2025 2:27 PM [facility] RBC, Urine 0.8 0 - 4 /HPF LAB URINALYSIS - AUTOMATED METHOD 04/23/2025 2:27 PM [facility] WBC, Urine 3.1 0 - 4 /HPF LAB URINALYSIS - AUTOMATED METHOD 04/23/2025 2:27 PM [facility] Squamous Epithelial, Urine 26 0 - 60 /LPF LAB URINALYSIS - AUTOMATED METHOD 04/23/2025 2:27 PM EDT [facility] Bacteria, Urine Negative Negative /HPF LAB URINALYSIS - AUTOMATED METHOD 04/23/2025 2:27 PM EDT [facility] Hyaline Casts, Urine 0.0 0 - 3 /LPF LAB URINALYSIS - AUTOMATED METHOD 04/23/2025 2:27 PM EDT [facility] Urine Urine specimen obtained by clean catch procedure / Unknown Non-blood Collection / Unknown 04/23/2025 12:52 PM EDT 04/23/2025 12:52 PM EDT Frederick Ureña [place] LAB URINE ORDERABLES Ludivina l Result Performing Organization Address [facility]/ZIP Co de Phone Number [facility] [address] [place] [address], [place] [phone] * Thyroid stimulating hormone with reflex to free t4 and free t3 (04/23/2025 12:52 PM EDT) TSH 3.52 0.40 - 4.00 mcIU/mL LAB CHEMISTRY METHOD 04/23/2025 5:45 PM EDT [facility] Blood Venous blood specimen / Unknown Venipuncture / Unknown 04/23/2025 12:52 PM EDT 04/23/2025 12:52 PM EDT [facility] Marion Ureña [place] LAB BLOOD ORDERABLES Ludivina l Result Performing Organization Address City/[facility]/ZIP Co de Phone Number [facility] [address] [place] [address], [place] [phone] * (ABNORMAL) Lipid panel with reflex to direct LDL (04/23/2025 12:52 PM EDT) Cholesterol 160 0 - 200 mg/dL LAB CHEMISTRY METHOD 04/23/2025 5:13 PM EDT [facility] Triglycerides 290(H) 0 - 150 mg/dL LAB CHEMISTRY METHOD 04/23/2025 5:13 PM EDT [facility] HDL 38(L) >=40 mg/dL LAB CHEMISTRY METHOD 04/23/2025 5:13 PM EDT [facility] LDL Calculated 64 0 - 100 mg/dL LAB CHEMISTRY METHOD 04/23/2025 5:13 PM EDT [facility] Comment:Estimated LDL Calcul ated using equation: Total cholesterol - HDL cholesterol - (Triglycerides/5) VLDL Cholesterol Eliecer 58 mg/dL LAB CHEMISTRY METHOD 04/23/2025 5:13 PM EDT [facility] Non HDL Chol. (LDL+VLDL) 122 <145 mg/dL LAB CHEMISTRY METHOD 04/23/2025 5:13 PM EDT [facility] Chol/HDL Ratio 4.2 0.0 - 4.4 LAB CHEMISTRY METHOD 04/23/2025 5:13 PM EDT [facility] Blood Venous blood specimen / Unknown Venipuncture / Unknown 04/23/2025 12:52 PM EDT 04/23/2025 12:52 PM EDT Frederick VENEGAS LAB BLOOD ORDERABLES Ludivina l Result [facility] [address] [place] [address], * (ABNORMAL) CBC auto differential (04/23/2025 12:52 PM EDT) WBC 8.4 4.8 - 10.8 K/mcL LAB HEMETOLOGY METHOD 04/23/2025 2:27 PM EDT [facility] RBC 4.60 4.50 - 5.50 M/mcL LAB HEMETOLOGY METHOD 04/23/2025 2:27 PM EDT [facility] Hemoglobin 14.1 13.5 - 17.5 g/dL LAB HEMETOLOGY METHOD 04/23/2025 2:27 PM EDT [facility] Hematocrit 41.4(L) 42.0 - 54.0 % LAB HEMETOLOGY [facility]/23[facility]2025 2[facility] MCV 89.4 79.0 - 98.0 FL LAB HEMETOLOGY METHOD 04/23/2025 2:[facility] MCH 30.5 27.0 - 32.0 pcg LAB HEMETOLOGY METHOD 04/23/2025 2:[facility] MCHC 34.1 32.0 - 37.0 g/dL LAB HEMETOLOGY METHOD 04/23/2025 2:27 PM [facility] RDW 13.2 11.0 - 15.0 % LAB HEMETOLOGY METHOD 04/23/2025 2:27 PM [facility] Platelets 216 130 - 400 K/mcL LAB HEMETOLOGY METHOD 04/23/2025 2:27 PM [facility] MPV 12.0(H) 7.0 - 11.0 FL LAB HEMETOLOGY METHOD 04/23/2025 2:27 PM [facility] NRBC 0.0 <1.0 % LAB HEMETOLOGY METHOD 04/23/2025 2:27 PM [facility] NRBC Absolute 0.00 <0.10 K/mcL LAB HEMETOLOGY METHOD 04/23/2025 2:[facility] Neutrophils Relative 57.4 % LAB HEMETOLOGY METHOD 04/23/2025 2:27 [facility] Lymphocytes Relative 28.3 % LAB HEMETOLOGY METHOD 04/23/2025 2:27 PM [facility] Monocytes Relative 6.9 % LAB HEMETOLOGY METHOD 04/23/2025 2:27 PM [facility] Eosinophils Relative 6.2 % LAB HEMETOLOGY METHOD 04/23/2025 2:27 PM EDT [facility] Basophils Relative 1.0 % LAB HEMETOLOGY METHOD 04/23/2025 2:27 PM EDT [facility] Immature Granulocytes Relative 0.2 % LAB HEMETOLOGY METHOD 04/23/2025 2:27 PM EDT [facility] Neutrophils Absolute 4.82 1.50 - 7.00 K/mcL LAB HEMETOLOGY METHOD 04/23/2025 2:27 PM EDT [facility] Lymphocytes Absolute 2.38 1.00 - 5.00 K/mcL LAB HEMETOLOGY METHOD 04/23/2025 2:27 PM EDT [facility] Monocytes Absolute 0.58 0.20 - 1.00 K/mcL LAB HEMETOLOGY METHOD 04/23/2025 2:27 PM EDT [facility] Eosinophils Absolute 0.52(H) 0.00 - 0.50 K/mcL LAB HEMETOLOGY METHOD 04/23/2025 2:27 PM EDT [facility] Basophils Absolute 0.08 0.00 - 0.20 K/mcL LAB HEMETOLOGY METHOD 04/23/2025 2:27 PM EDT [facility] Immature Granulocytes Absolute 0.02 0.00 - 0.03 K/mcL LAB HEMETOLOGY METHOD 04/23/2025 2:27 PM EDT [facility] Blood Venous blood specimen / Unknown Venipuncture / Unknown 04/23/2025 12:52 PM EDT 04/23/2025 12:52 PM EDT us Frederick VENEGAS LAB BLOOD ORDERABLES Ludivina khalil Result [facility] [address] [place] [address], * Microalbumin creatinine urine ratio (04/23/2025 12:52 PM EDT) Creatinine, Urine 55.0 mg/dL LAB CHEMISTRY METHOD 04/23/2025 3:57 PM EDT [facility] Microalb, Ur 6.4 0.0 - 29.0 mg/L LAB CHEMISTRY METHOD 04/23/2025 3:57 PM EDT [facility] Microalb/Creat Ratio 12 <30 mg/g creat LAB CHEMISTRY METHOD 04/23/2025 3:57 PM EDT [facility] Urine Urine specimen obtained by clean catch procedure / Unknown Non-blood Collection / Unknown 04/23/2025 12:52 PM EDT 04/23/2025 12:52 PM EDT Frederick VENEGAS LAB URINE ORDERABLES Ludivina l Result [facility] [address] [place] [address], [place] [phone] * Culture urine (04/23/2025 12:52 PM EDT) Pathologist [facility] Culture, Urine No growth 04/24/2025 9:22 AM EDT [facility] Urine Urine specimen obtained by clean catch procedure / Unknown Non-blood Collection / Unknown 04/23/2025 12:52 PM EDT 04/23/2025 12:52 PM EDT Frederick VENEGAS LAB MICROBIOLOGY - GENERA L ORDERABLES Final Result [facility] [address] [place] [address], [place] [phone] * Uric acid (04/23/2025 12:52 PM EDT) Uric Acid 4.4 3.7 - 9.2 mg/dL LAB CHEMISTRY METHOD 04/23/2025 5:13 PM EDT [facility] Blood Venous blood specimen / Unknown Venipuncture / Unknown 04/23/2025 12:52 PM EDT 04/23/2025 12:52 PM EDT Frederick VENEGAS LAB BLOOD ORDERABLES Ludivina l Result Performing Organization Address City/[facility]/ZIP Co de Phone Number [facility] [address] [place] [address], * (ABNORMAL) Hemoglobin A1c (04/23/2025 12:52 PM EDT) Hemoglobin A1C 7.8(H) <6.5 % LAB CHEMISTRY METHOD 04/23/2025 8:37 PM EDT [facility] Mean Bld Glu Estim. 177 mg/dL LAB CHEMISTRY METHOD 04/23/2025 8:37 PM EDT [facility] Blood Venous blood specimen / Unknown Venipuncture / Unknown 04/23/2025 12:52 PM EDT 04/23/2025 12:52 PM EDT Frederick VENEGAS LAB BLOOD ORDERABLES Ludivina l Result Performing Organization Address City/[facility]/ZIP Co de Phone Number [facility] [address] [place] [address], * (ABNORMAL) Comprehensive metabolic panel (04/23/2025 12:52 PM EDT) Sodium 133 133 - 145 mmol/L LAB CHEMISTRY METHOD 04/23/2025 5:13 PM EDT [facility] Potassium 4.2 3.5 - 5.5 mmol/L LAB CHEMISTRY METHOD 04/23/2025 5:13 PM EDT [facility] Chloride 100 96 - 110 mmol/L LAB CHEMISTRY METHOD 04/23/2025 5:13 PM EDT [facility] CO2 24 21 - 32 mmol/L LAB CHEMISTRY METHOD 04/23/2025 5:13 PM [facility] Anion Gap 9 3 - 11 LAB CHEMISTRY METHOD 04/23/2025 5:13 PM [facility] Glucose 227(H) 70 - 100 mg/dL LAB CHEMISTRY METHOD 04/23/2025 5:13 PM [facility] BUN 13 5 - 25 mg/dL LAB CHEMISTRY METHOD 04/23/2025 5:13 PM [facility] Creatinine 1.18 0.70 - 1.30 mg/dL LAB CHEMISTRY METHOD 04/23/2025 5:13 PM [facility] eGFR 67 >=60 mL/min/1. 73m2 LAB CHEMISTRY METHOD 04/23/2025 5:13 PM [facility] Comment:Calculation based on the Chronic Kidney Disease Epidemiology Collaboration (CKD-EPI) equation refit without adjustment for race. BUN/Creatinine Ratio 11.0 LAB CHEMISTRY METHOD 04/23/2025 5:13 PM [facility] Calcium 9.1 8.5 - 10.5 mg/dL LAB CHEMISTRY METHOD 04/23/2025 5:13 PM [facility] AST (SGOT) 25 10 - 42 unit/L LAB CHEMISTRY METHOD 04/23/2025 5:13 PM [facility] ALT (SGPT) 36 10 - 60 unit/L LAB CHEMISTRY METHOD 04/23/2025 5:13 PM [facility] Alkaline Phosphatase 94 42 - 121 unit/L LAB CHEMISTRY METHOD 04/23/2025 5:13 PM [facility] Total Protein 7.2 6.0 - 8.0 g/dL LAB CHEMISTRY METHOD 04/23/2025 5:13 PM [facility] Albumin 3.8 3.2 - 5.0 g/dL LAB CHEMISTRY METHOD 04/23/2025 5:13 PM [facility] Total Bilirubin 0.3 0.0 - 1.4 mg/dL LAB CHEMISTRY METHOD 04/23/2025 5:13 PM EDT [facility] Blood Venous blood specimen / Unknown Venipuncture / Unknown 04/23/2025 12:52 PM EDT 04/23/2025 12:52 PM EDT Frederick VENEGAS LAB BLOOD ORDERABLES Ludivina l Result [facility] [address] [place] [address], [place] [phone] * Diabetes Eye Exam (12/09/2023) [facility] Diabetes: Annual Retina Eye Exam abstracted [facility] HEALTH MAINTENANCE Final Result * Diabetes Foot Exam (10/09/2023) [facility] Diabetes: Annual Foot Exam abstracted Result [facility] Provider HEALTH MAINTENANCE Final Result * Colonoscopy (04/04/2023) [facility] Colonoscopy no interpretation , abstracted Anatomical Region Laterality Modality Other Result [facility] Provider HEALTH MAINTENANCE Final Result * Abdominal Aortic Aneurysm Screen (08/22/2022) [facility] Abdominal Aortic Aneurysm (AAA) Screening abstracted Anatomical Region Laterality Modality Other Result [facility] Provider HEALTH MAINTENANCE Final Result * Hepatitis C Screening (11/15/2013) [facility] Hepatitis C Screening abstracted Result [facility] Provider HEALTH MAINTENANCE Final Result from Last [...] [place] Care Teams Bag Filler Machine Operator Relationship Specialty Start Date End Date Frederick Ureña PA [address] [place] [address] PCP - General Internal Medicine 08/13/24
== END 2025-07-14 13:35 | disposition home or self-care (01) ==
LOC: HO.HSM 13:00
PROVIDERS: PCP Physician Assistant Medical; Referring Provider Physician Assistant Medical; Visit Provider Psychiatry & Neurology Neurology
DX: G61.81 Chronic inflammatory demyelinating polyneuritis (principal)
CPT/HCPCS: 99213; G2211

== ENCOUNTER → 2025-07-14 12:59 | Outpatient (BNVA) | payer MEDICARE, SELFPAY | PROVIDERS: PCP Physician Assistant Medical; Referring Provider Physician Assistant Medical; Visit Provider Psychiatry & Neurology Neurology | DX: G61.81 Chronic inflammatory demyelinating polyneuritis (principal) | CPT/HCPCS: 99212 ==

== ENCOUNTER 2025-08-23 13:30 | Outpatient (REF) | payer MEDICARE, SELFPAY ==
[2025-08-23 14:34] LABS: Appearance Urine Turbid; Glucose Urine UA Negative (Negative); PH 5.5 (5.0-9.0); Specific Gravity - Urine 1.010 (1.005-1.025); UMIC TRIGGER UA YES
--- OUTSIDE RECORDS SUMMARY | 2025-08-23 16:53 | XMS_ITS | Encounter Summary ---
Author Organization [facility] Prior to 07/03/2024 Address [address] [facility] [place] [address] Care Team Providers Care Auto Damage Trainee Name Role Phone Rafael Wray MD Primary Care Provider [phone] Frederick Ureña PA-C Primary Care Provider [phone] Carola Barrientos MD Unavailable [phone] Encounter Details Date Type Department Care Team Description 04/28/2015 Broadcast Journalist Report Medical Records [address] [place] [address] Philipp Linda MD, MD Social History Tobacco [...] on filedocumented in this encounter Care Teams Auto Damage Trainee Relationship Specialty Start Date End Date Rafael Wray MD [address] [place] [address] PCP - General 04/01/09 12/27/20 Frederick Ureña PA-C [address] [place] [address] PCP - General Internal Medicine 12/28/20 Carola Barrientos MD [address] [place] [address] Specialist Neurosurgery 06/11/23 documented as of this encounter
--- OUTSIDE RECORDS SUMMARY | 2025-08-23 16:53 | XMS_ITS | Encounter Summary ---
Author Organization [facility] Prior to 07/03/2024 Address [address] [place] [address] Care Team Providers Care Steel Pourer Helper Name Role Phone Rafael Wray MD Primary Care Provider +[phone] Frederick Ureña PA-C Primary Care Provider +[phone] Carola Barrientos MD Unavailable [phone] Encounter Details Date Type Department Care Team Description 07/19/2011 Teasel Gig Operator Report Medical Records 4 [place] [address] Ludivina Domingo MD Social History Tobacco Use [...] on filedocumented in this encounter Care Teams Steel Pourer Helper Relationship Specialty Start Date End Date Rafael Wray MD 4 [place], [place] [phone] PCP - General 04/01/09 12/27/20 Frederick Ureña PA-C [address] [place] [address] [phone] PCP - General Internal Medicine 12/28/20 Carola Barrientos MD [address] [place] [address] Specialist Neurosurgery 06/11/23 documented as of this encounter
--- OUTSIDE RECORDS SUMMARY | 2025-08-23 16:53 | XMS_ITS | Encounter Summary ---
Author Organization [facility] Prior to 07/03/2024 Address [address] [facility] [place] [address] Care Team Providers Care Polysomnographic Technologist Name Role Phone Rafael Wray MD Primary Care Provider +[phone] Frederick Ureña PA-C Primary Care Provider [phone] Carola Barrientos MD Unavailable [phone] Encounter Details Date Type Department Care Team Description 05/31/2011 Release of Information Medical Records [address] [place] [address] Abstract, Provider Social History Tobacco Use Types [...] on filedocumented in this encounter Care Teams Polysomnographic Technologist Relationship Specialty Start Date End Date Rafael Wray MD [address] [place] [address] [phone] PCP - General 04/01/09 12/27/20 Frederick Ureña PA-C [address] [place] [address] PCP - General Internal Medicine 12/28/20 Carola Barrientos MD [address] [place] [address] Specialist Neurosurgery 06/11/23 documented as of this encounter
--- OUTSIDE RECORDS SUMMARY | 2025-08-23 16:53 | XMS_ITS | Encounter Summary ---
Author Organization [facility] Prior to 07/03/2024 Address [address] [place] [address] Care Team Providers Care Wax Pattern Coater Name Role Phone Rafael Wray MD Primary Care Provider +1 [phone] Frederick Ureña PA-C Primary Care Provider +[phone] Carola Barrientos MD Unavailable [phone] Reason for Visit * Reason Onset Date Comments Medication 04/15/2018 Encounter Details Date Type Department Care Team Description 04/15/2018 Refill Gastroenterology - [address] [id number] Grzegorz Ozuna MD Medication Social History Tobacco [...] on filedocumented in this encounter Care Teams Wax Pattern Coater Relationship Specialty Start Date End Date Rafael Wray MD 4 [place] [address] PCP - General 04/01/09 12/27/20 Frederick Ureña PA-C [address] [place] [address] PCP - General Internal Medicine 12/28/20 Carola Barrientos MD [address] [place] [address] Specialist Neurosurgery 06/11/23 documented as of this encounter
--- OUTSIDE RECORDS SUMMARY | 2025-08-23 16:53 | XMS_ITS | Encounter Summary ---
Author Organization [facility] Prior to 07/03/2024 Address [address] [facility] [place] [address] Care Team Providers Care Hull Line Crew Member Name Role Phone Rafael Wray MD Primary Care Provider +[phone] Frederick Ureña PA-C Primary Care Provider +[phone] Carola Barrientos MD Unavailable [phone] Encounter Details Date Type Department Care Team Description 09/17/2011 Manager Of Digital Report Medical Records 4 [place] [address] Enzo Murillo PA-C Social History Tobacco Use Types Packs/Day [...] on filedocumented in this encounter Care Teams Hull Line Crew Member Relationship Specialty Start Date End Date Rafael Wray MD 444 [place], [place] [phone] PCP - General 04/01/09 12/27/20 Frederick Ureña PA-C [address] [place] [address] [phone] PCP - General Internal Medicine 12/28/20 aCrola Barrientos MD [address] [place] [address] Specialist Neurosurgery 06/11/23 documented as of this encounter
--- OUTSIDE RECORDS SUMMARY | 2025-08-23 16:53 | XMS_ITS | Encounter Summary ---
Author Organization [facility] Prior to 07/03/2024 Address [address] [facility] [place] [address] Care Team Providers Care Supervisor Inspecting Name Role Phone Rafael Wray MD Primary Care Provider +1 [phone] Frederick Ureña PA-C Primary Care Provider [phone] Carola Barrientos MD Unavailable [phone] Encounter Details Date Type Department Care Team Description 07/30/2012 Teletype Mechanic Report Medical Records 4 [place] [address] Madan Orta MD, MD Social History Tobacco [...] on filedocumented in this encounter Care Teams Supervisor Inspecting Relationship Specialty Start Date End Date Rafael Wray MD 4 [place], [place] [phone] PCP - General 04/01/09 12/27/20 Frederick Ureña PA-C [address] [place] [address] [phone] PCP - General Internal Medicine 12/28/20 Carola Barrientos MD [address] [place] [address] Specialist Neurosurgery 06/11/23 documented as of this encounter
--- OUTSIDE RECORDS SUMMARY | 2025-08-23 16:53 | XMS_ITS | Encounter Summary ---
Author Organization [facility] Prior to 07/03/2024 Address [address] [place] [address] Care Team Providers Care Ekg Monitor Tech Name Role Phone Rafael Wray MD Primary Care Provider +[phone] Frederick Ureña PA-C Primary Care Provider [phone] Carola Barrientos MD Unavailable [phone] Encounter Details Date Type Department Care Team Description 07/07/2012 Client Administrator Report Medical Records 4 [place] [address] Wayne Escobedo MD Social History Tobacco Use [...] on filedocumented in this encounter Care Teams Ekg Monitor Tech Relationship Specialty Start Date End Date Rafael Wray MD 4 [place], [place] [phone] PCP - General 04/01/09 12/27/20 Frederick Ureña PA-C [address] [place] [address] [phone] PCP - General Internal Medicine 12/28/20 Carola Barrientos MD [address] [place] [address] Specialist Neurosurgery 06/11/23 documented as of this encounter
--- OUTSIDE RECORDS SUMMARY | 2025-08-23 16:53 | XMS_ITS | Encounter Summary ---
Author Organization [facility] Prior to 07/03/2024 Address [address] [place] [address] Care Team Providers Care Line Assembler Name Role Phone Rafael Wray MD Primary Care Provider +[phone] Frederick Ureña PA-C Primary Care Provider +[phone] Carola Barrientos MD Unavailable [phone] Encounter Details Date Type Department Care Team Description 08/01/2011 Site Head Report Medical Records 4 [place] [address] Ludivina Domingo MD Social History Tobacco Use [...] on filedocumented in this encounter Care Teams Line Assembler Relationship Specialty Start Date End Date Rafael Wray MD [address] [place] [address] [phone] PCP - General 04/01/09 12/27/20 Frederick Ureña PA-C [address] [place] [address] [phone] PCP - General Internal Medicine 12/28/20 Carola Barrientos MD [address] [place] [address] Specialist Neurosurgery 06/11/23 documented as of this encounter
--- OUTSIDE RECORDS SUMMARY | 2025-08-23 16:53 | XMS_ITS | Encounter Summary ---
Author Organization [facility] Prior to 07/03/2024 Address [address] [facility] [place] [address] Care Team Providers Care Edge Plugger Name Role Phone Frederick Ureña PA-C Primary Care Provider +1 [phone] Carola Barrientos MD Unavailable [phone] Encounter Details Date Type Department Care Team Description 07/17/2022 Hog Ringer Report Medical Records 444 [place] [address] Wayne Escobedo MD Social History Tobacco Use [...] on filedocumented in this encounter Care Teams Edge Plugger Relationship Specialty Start Date End Date Frederick Ureña PA-C 444 [place], [place] [phone] PCP - General Internal Medicine 12/28/20 Carola Barrientos MD [address] [place] [address] Specialist Neurosurgery 06/11/23 documented as of this encounter
--- OUTSIDE RECORDS SUMMARY | 2025-08-23 16:53 | XMS_ITS | Encounter Summary ---
Author Organization [facility] Prior to 07/03/2024 Address [address] [facility] [place] [address] Care Team Providers Care Lawnmower Repair Mechanic Name Role Phone Frederick Ureña PA-C Primary Care Provider +1 [phone] Carola Barrientos MD Unavailable [phone] Encounter Details Date Type Department Care Team Description 07/24/2022 Business Doc Medical Records 444 [place] [address] Abstract, Provider Social History Tobacco Use Types [...] In the last 10 days, have cristina u been in contact with someone who was confirmed or suspected to have Coronavirus/COVID-19? No / Unsure 07/20/2022 2:26 PM EST documented as of this encounter Plan of Treatment Not on file documented as of this encounter Visit Diagnoses Not on filedocumented in this encounter Care Teams Lawnmower Repair Mechanic Relationship Specialty Start Date End Date Frederick Ureña PA-C 444 [place] [address] PCP - General Internal Medicine 12/28/20 Carola Barrientos MD [address] [facility] [address] [place] [address] [place] [address] Specialist Neurosurgery 06/11/23 documented as of this encounter
--- OUTSIDE RECORDS SUMMARY | 2025-08-23 16:53 | XMS_ITS | Encounter Summary ---
Author Organization [facility] Prior to 07/03/2024 Address [address] [place] [address] Care Team Providers Care Automotive Finance Manager Name Role Phone Rafael Wray MD Primary Care Provider +1 [phone] Frederick Ureña PA-C Primary Care Provider [phone] Carola Barrientos MD Unavailable [phone] Encounter Details Date Type Department Care Team Description 05/11/2015 Show Host Report Medical Records 4 [place] [address] Wayne Escobedo MD Social History Tobacco Use [...] on filedocumented in this encounter Care Teams Automotive Finance Manager Relationship Specialty Start Date End Date Rafael Wray MD 4 [place], [place] [phone] PCP - General 04/01/09 12/27/20 Frederick Ureña PA-C [address] [place] [address] [phone] PCP - General Internal Medicine 12/28/20 Carola Barrientos MD [address] [place] [address] Specialist Neurosurgery 06/11/23 documented as of this encounter
--- OUTSIDE RECORDS SUMMARY | 2025-08-23 16:53 | XMS_ITS | Encounter Summary ---
Author Organization [facility] Prior to 07/03/2024 Address [address] [facility] [place] [address] Care Team Providers Care Italian Teacher Name Role Phone Rafael Wray MD Primary Care Provider +1 [phone] Frederick Ureña PA-C Primary Care Provider [phone] Carola Barrientos MD Unavailable [phone] Encounter Details Date Type Department Care Team Description 02/05/2011 Card Puncher Report Medical Records 4 [place] [address] Oliver Lerma MD Social History Tobacco Use [...] on filedocumented in this encounter Care Teams Italian Teacher Relationship Specialty Start Date End Date Rafael Wray MD 4 [place], [place] [phone] PCP - General 04/01/09 12/27/20 Frederick Ureña PA-C [address] [place] [address] [phone] PCP - General Internal Medicine 12/28/20 Carola Barrientos MD [address] [place] [address] Specialist Neurosurgery 06/11/23 documented as of this encounter
--- OUTSIDE RECORDS SUMMARY | 2025-08-23 16:53 | XMS_ITS | Encounter Summary ---
Author Organization [facility] Prior to 07/03/2024 Address [address] [facility] [place] [address] Care Team Providers Care Cad Designer Drafter Name Role Phone Frederick Ureña PA-C Primary Care Provider +[phone] Carola Barrientos MD Unavailable [phone] Reason for Visit * Reason Onset Date Comments Provider Call Back 03/24/2021 Encounter Details Date Type Department Care Team Description 03/24/2021 Telephone Respiratory and Diabetes Medicaid/ACO Pharmacist 444 [place] [address] Tamy Westbrook Pharm.D 444 [place], [place] [phone] Provider Call Back Social History Tobacco Use [...] on filedocumented in this encounter Care Teams Cad Designer Drafter Relationship Specialty Start Date End Date Frederick Ureña PA-C [address] [place] [address] PCP - General Internal Medicine 12/28/20 Carola Barrientos MD [address] [place] [address] [address] [place] [address] Specialist Neurosurgery 06/11/23 documented as of this encounter
--- OUTSIDE RECORDS SUMMARY | 2025-08-23 16:53 | XMS_ITS | Encounter Summary ---
Author Organization [facility] Prior to 07/03/2024 Address [address] [facility] [place] [address] Care Team Providers Care Kettle Loader Name Role Phone Frederick Ureña PA-C Primary Care Provider +1 [phone] Carola Barrientos MD Unavailable [phone] Encounter Details Date Type Department Care Team Description 07/17/2022 Software Controls Engineer Report Medical Records 444 [place] [address] Wayne Escobedo MD Social History Tobacco Use [...] on filedocumented in this encounter Care Teams Kettle Loader Relationship Specialty Start Date End Date Frederick Ureña PA-C 444 [place], [place] [phone] PCP - General Internal Medicine 12/28/20 Carola Barrientos MD [address] [place] [address] Specialist Neurosurgery 06/11/23 documented as of this encounter
--- OUTSIDE RECORDS SUMMARY | 2025-08-23 16:53 | XMS_ITS | Encounter Summary ---
Author Organization [facility] Prior to 07/03/2024 Address [address] [facility] [place] [address] Care Team Providers Care Director Of Math Name Role Phone Rafael Wray MD Primary Care Provider +1 [phone] Frederick Ureña PA-C Primary Care Provider +[phone] Carola Barrientos MD Unavailable [phone] Encounter Details Date Type Department Care Team Description 08/22/2011 Hospital Medical Records 4 [place] [address] Ludivina Domingo MD Social History Tobacco Use [...] on filedocumented in this encounter Care Teams Director Of Math Relationship Specialty Start Date End Date Rafael Wray MD [address] [place] [address] [phone] PCP - General 04/01/09 12/27/20 Frederick Ureña PA-C [address] [place] [address] [phone] PCP - General Internal Medicine 12/28/20 Carola Barrientos MD [address] [place] [address] Specialist Neurosurgery 06/11/23 documented as of this encounter
--- OUTSIDE RECORDS SUMMARY | 2025-08-23 16:53 | XMS_ITS | Encounter Summary ---
Author Organization [facility] Prior to 07/03/2024 Address [address] [place] [address] Care Team Providers Care Electrostatic Powder Coating Technician Name Role Phone Rafael Wray MD Primary Care Provider +1 [phone] Frederick Ureña PA-C Primary Care Provider [phone] Carola Barrientos MD Unavailable [phone] Reason for Visit * Reason Comments TEST RESULTS needs a call back Encounter Details Date Type Department Care Team Description 11/13/2000 Telephone Pulmonology [address] [place], [place] [phone] Justin Curran [address] [place] [address] [phone] TEST RESULTS (needs a call back) Social History Tobacco Use Types Packs/Day Years Used Date Smoking Tobacco: Never Assessed Sex Assigned at Date Recorded Not on file Job Start Date Occupation Industry Not on file Not on file Not on file documented as of this encounter Miscellaneous Notes * Telephone Encounter - 11/13/2000 9:04 AM ESTCALL RECEIVED. Contact: self [phone] pt would like a call back, had a sleep study done 10/11 has some ? would also like to speak to blaze documented in this encounter Plan of Treatment Not on file documented as of this encounter Visit Diagnoses Not on filedocumented in this encounter Care Teams Electrostatic Powder Coating Technician Relationship Specialty Start Date End Date Rafael Wray MD 4 [place] [address] PCP - General 04/01/09 12/27/20 Frederick Ureña PA-C 444 [place] [address] PCP - General Internal Medicine 12/28/20 Carola Barrientos MD [address] [place] [address] [place] [address] Specialist Neurosurgery 06/11/23 documented as of this encounter
--- OUTSIDE RECORDS SUMMARY | 2025-08-23 16:53 | XMS_ITS | Encounter Summary ---
Author Organization [facility] Prior to 07/03/2024 Address [address] [facility] [place] [address] Care Team Providers Care Classifier Tender Name Role Phone Rafael Wray MD Primary Care Provider +[phone] Frederick Ureña PA-C Primary Care Provider [phone] Carola Barrientos MD Unavailable [phone] Encounter Details Date Type Department Care Team Description 12/11/2010 Continuous Absorption Process Operator Report Medical Records 4 [place] [address] Oliver Lerma MD Social History Tobacco Use [...] on filedocumented in this encounter Care Teams Classifier Tender Relationship Specialty Start Date End Date Rafael Wray MD 4 [place], [place] [phone] PCP - General 04/01/09 12/27/20 Frederick Ureña PA-C [address] [place] [address] [phone] PCP - General Internal Medicine 12/28/20 Carola Barrientos MD [address] [place] [address] Specialist Neurosurgery 06/11/23 documented as of this encounter
--- OUTSIDE RECORDS SUMMARY | 2025-08-23 16:53 | XMS_ITS | Encounter Summary ---
Author Organization [facility] Prior to 07/03/2024 Address [address] [facility] [place] [address] Care Team Providers Care Mail Handlers Supervisor Name Role Phone Frederick Ureña PA-C Primary Care Provider +1 [phone] Carola Barrientos MD Unavailable [phone] Encounter Details Date Type Department Care Team Description 06/15/2021 Record Center Specialist Report Medical Records 444 [place] [address] Wayne Escobedo MD Social History Tobacco Use [...] on filedocumented in this encounter Care Teams Mail Handlers Supervisor Relationship Specialty Start Date End Date Frederick Ureña PA-C 444 [place] [address] PCP - General Internal Medicine 12/28/20 Carola Barrientos MD [address] [address] Specialist Neurosurgery 06/11/23 documented as of this encounter
--- OUTSIDE RECORDS SUMMARY | 2025-08-23 16:53 | XMS_ITS | Encounter Summary ---
Author Organization [facility] Prior to 07/03/2024 Address [address] [facility] [place] [address] Care Team Providers Care Network Support Manager Name Role Phone Frederick Ureña PA-C Primary Care Provider +1 [phone] Carola Barrientos MD Unavailable [phone] Reason for Visit * Reason Onset Date Comments Medication Review 05/10/2021 Encounter Details Date Type Department Care Team Description 05/10/2021 Refill Respiratory and Diabetes Medicaid/ACO Pharmacist 444 [place] [address] Frederick Ureña PA-C 444 [place], [place] [phone] Medication Review Social History Tobacco Use Types [...] have Coronavirus / COVID-19? No / Unsure 05/10/2021 1:57 PM EDT documented as of this encounter Miscellaneous Notes * Telephone Encounter - Tamy Shah, Pharm.D - 05/10/2021 2:30 PM EDT Update to med list documented in this encounter Plan of Treatment Not on file documented as of this encounter Visit Diagnoses Not on filedocumented in this encounter Care Teams Network Support Manager Relationship Specialty Start Date End Date Frederick Ureña PA-C [address] [place] [address] PCP - General Internal Medicine 12/28/20 Carola Barrientos MD [address] [place] [address] Specialist Neurosurgery 06/11/23 documented as of this encounter
--- OUTSIDE RECORDS SUMMARY | 2025-08-23 16:54 | XMS_ITS | Encounter Summary ---
Author Organization [facility] Prior to 07/03/2024 Address [address] [place] [address] Care Team Providers Care Bundler Name Role Phone Frederick Ureña PA-C Primary Care Provider +1 [phone] Carola Barrientos MD Unavailable Encounter Details Date Type Department Care Team Description 06/19/2023 General Service Officer Report Medical Records [address] [place] [address] Napoleon Gallo PA-C Social History Tobacco Use [...] on filedocumented in this encounter Care Teams Bundler Relationship Specialty Start Date End Date Frederick Ureña PA-C 444 [place] [address] PCP - General Internal Medicine 12/28/20 Carola Barrientos MD [address] [address] Specialist Neurosurgery 06/11/23 documented as of this encounter
--- OUTSIDE RECORDS SUMMARY | 2025-08-23 16:54 | XMS_ITS | Encounter Summary ---
Author Organization [facility] Prior to 07/03/[address] [place] [address] Care Team Providers Care Web Assistant Name Role Phone Rafael Wray MD Primary Care Provider +1 [phone] Frederick Ureña PA-C Primary Care Provider + [phone] Carola Barrientos MD Unavailable Reason for Visit * Reason Onset Date Comments Pre-op Needed 10/03/2018 Encounter Details Date Type Department Care Team Description 10/03/2018 Telephone Adult Medicine [place] 804804 [place], [place] [phone] Rafael Wray MD [address] [place] [address] [phone] Pre-op Needed Social History Tobacco Use Types [...] Harvey Cali Office phone number of surgeon: [phone] Fax # for surgeons office: [phone] Where is surgery being performed? [facility] [place], [place] Diagnosis/problem for surgery: Cataracts PCP: Rafael Wray Did you verify that the insurance below is correct? YES Patients insurance: Payor: [facility]/O FFS / Plan: HMO $20 Ctrip [id number] / Product Type: HMO [id number] documented in this encounter Plan of Treatment Not on file documented as of this encounter Visit Diagnoses Not on filedocumented in this encounter Care Teams Web Assistant Relationship Specialty Start Date End Date Rafael Wray MD [address] [place] [address] PCP - General 04/01/09 12/27/20 Frederick Ureña PA-C [address] [place] [address] PCP - General Internal Medicine 12/28/20 Carola Barrientos MD [address] [place] [address] Specialist Neurosurgery 06/11/23 documented as of this encounter
--- OUTSIDE RECORDS SUMMARY | 2025-08-23 16:54 | XMS_ITS | Encounter Summary ---
Author Organization [facility] Address [address] [place] [address] Care Team Providers Care Airport Screener Name Role Phone Frederick Ureña Primary Care Provider +1 [phone] Encounter Details Date Type Department Care Team (Late st Contact Info) Description 01/28/2025 Lab Requisition [facility] Lab [address] [facility] [place] [address] Ronaldo Ricci PA [address] [place] [address] Urinary tract infection, site not specified Social [...] for your loved ones. For example, children's ministry director or elderly care for an older adult? [...] PM EST Office Visit Orthopedic Surgery - [place] [address] [phone] Paul Conner, DPDaniel 175 [facility] 250 [place] [address] 10/27/2025 2:00 PM EST Office Visit Vascular Surgery - [place] [address] [place] [phone] Jenny Lees MD 230 [place] [phone] 12/14/2025 1:30 PM EDT Office Visit Adult Medicine [address] [address] Frederick Ureña PA [address] [place] [address] documented as of this encounter [...] impact of smoking on wound No Chelsey aRvi RN Patient and Caregiver Understand Wound Care [...] aeruginosa(A) JOSE RAUL 01/30/2025 11:27 AM EDT [facility] Comment: [...] aeruginosa Levofloxacin JOSE RAUL 4 ug/ml: Resistant [facility] MICROBIOLOGY - [facility] E[facility] AD[facility] Final Result [facility] [address] [place] [address], documented in this encounter Visit Diagnoses Diagnosis [...] documented as of this encounter Care Teams Airport Screener Relationship Specialty Start Date End Date Frederick Ureña PA [address] [place] [address] PCP - General Internal Medicine 08/13/24 documented as of this encounter
--- OUTSIDE RECORDS SUMMARY | 2025-08-23 16:54 | XMS_ITS | Encounter Summary ---
Author Organization [facility] Prior to 07/03/2024 Address [address] [facility] [place] [address] Care Team Providers Care Certified Diabetes Educator Name Role Phone Frederick Ureña PA-C Primary Care Provider +[phone] Carola Barrientos MD Unavailable [phone] Reason for Visit * Reason Onset Date Comments radiology 02/12/2023 Encounter Details Date Type Department Care Team Description 02/12/2023 Telephone MRI - [place] [address] [place], [place] [phone] Frederick Ureña PA-C [address] [place], [place] [phone] radiology Social History Tobacco Use Types Packs/Day Years [...] encounter Miscellaneous Notes * Telephone Encounter - Josefina Jordan - 02/12/2023 3:12 PM EDT Good afternoon, Patient will need to have mri done at [facility] on ope mri machine due to his BMI. Can you please placeexternal order to [facility]? Thank you, Yasmine Mri department documented in this encounter Plan of Treatment Not on file documented as of this encounter Visit Diagnoses Not on filedocumented in this encounter Care Teams Certified Diabetes Educator Relationship Specialty Start Date End Date Frederick Ureña PA-C [address] [place] [address] PCP - General Internal Medicine 12/28/20 Carola Barrientos MD [address] [place] [address] Specialist Neurosurgery 06/11/23 documented as of this encounter
--- OUTSIDE RECORDS SUMMARY | 2025-08-23 16:54 | XMS_ITS | Encounter Summary ---
Author Organization [facility] Prior to 07/03/2024 Address [address] [facility] [place] [address] Care Team Providers Care Launch Steward Name Role Phone Frederick Ureña PA-C Primary Care Provider [phone] Carola Barrientos MD Unavailable [phone] Reason for Visit * Reason Onset Date Comments refill request 10/12/2022 Encounter Details Date Type Department Care Team Description 10/12/2022 Telephone Respiratory and Diabetes Medicaid/ACO Pharmacist [address] [place], [place] 2012120 Tamy Westbrook Pharm.D 444 [place] [address] refill request Social History Tobacco Use Types [...] suspected to have Coronavirus/COVID-19? No / Unsure 10/02/2022 12:51 PM EST documented as of this encounter Miscellaneous Notes * Telephone Encounter - Pilar Gorman - 10/12/2022 3:09 PM EST Patient looking for a rx for the one touch verio lancets. He rcvd the test strips already. documented in this encounter Plan of Treatment Not on file documented as of this encounter Visit Diagnoses Not on filedocumented in this encounter Care Teams Launch Steward Relationship Specialty Start Date End Date Frederick Ureña PA-C 444 [place] [address] PCP - General Internal Medicine 12/28/20 Carola Barrientos MD [address] [place] [address] Specialist Neurosurgery 06/11/23 documented as of this encounter
--- OUTSIDE RECORDS SUMMARY | 2025-08-23 16:54 | XMS_ITS | Encounter Summary ---
Author Organization [facility] Prior to 07/03/2024 Address [address] [facility] [address] Care Team Providers Care Diabetic Educator Name Role Phone Rafael Wray MD Primary Care Provider [phone] Frederick Ureña PA-C Primary Care Provider [phone] Carola Barrientos MD Unavailable [phone] Encounter Details Date Type Department Care Team Description 12/14/2020 Director Of Email Marketing Report Medical Records [address] [place] [address] Social History Tobacco Use Types Packs/Day Years [...] on filedocumented in this encounter Care Teams Diabetic Educator Relationship Specialty Start Date End Date Rafael Wray MD [address] [place] [address] [phone] PCP - General 04/01/09 12/27/20 Frederick Ureña PA-C [address] [place] [address] PCP - General Internal Medicine 12/28/20 Carola Barrientos MD [address] [place] [address] Specialist Neurosurgery 06/11/23 documented as of this encounter
--- OUTSIDE RECORDS SUMMARY | 2025-08-23 16:54 | XMS_ITS | Encounter Summary ---
Author Organization [facility] Prior to 07/03/2024 Address [address] [facility] [place] [address] Care Team Providers Care News Editor Name Role Phone Rafael Wray MD Primary Care Provider [phone] Frederick Ureña PA-C Primary Care Provider [phone] Carola Barrientos MD Unavailable [phone] Encounter Details Date Type Department Care Team Description 10/14/2017 Contact Center Director Report Medical Records 4 [place] [address] Wayne Escobedo MD Social History Tobacco Use [...] on filedocumented in this encounter Care Teams News Editor Relationship Specialty Start Date End Date Rafael Wray MD [address] [place] [address] [phone] PCP - General 04/01/09 12/27/20 Frederick Ureña PA-C [address] [place] [address] [phone] PCP - General Internal Medicine 12/28/20 Carola Barrientos MD [address] [place] [address] Specialist Neurosurgery 06/11/23 documented as of this encounter
--- OUTSIDE RECORDS SUMMARY | 2025-08-23 16:54 | XMS_ITS | Encounter Summary ---
Author Organization [facility] Prior to 07/03/2024 Address [address] [place] [address] Care Team Providers Care Kiln Car Unloader Name Role Phone Rafael Wray MD Primary Care Provider [phone] Frederick Ureña PA-C Primary Care Provider [phone] Craola Barrientos MD Unavailable [phone] Encounter Details Date Type Department Care Team Description 03/23/2015 Aluminum Welder Report Medical Records 4 [place] [address] Wayne Escobedo MD Social History Tobacco Use [...] on filedocumented in this encounter Care Teams Kiln Car Unloader Relationship Specialty Start Date End Date Rafael Wray MD 4 [place], [place] [phone] PCP - General 04/01/09 12/27/20 Frederick Ureña PA-C [address] [place] [address] [phone] PCP - General Internal Medicine 12/28/20 Carola Barrientos MD [address] [place] [address] Specialist Neurosurgery 06/11/23 documented as of this encounter
--- OUTSIDE RECORDS SUMMARY | 2025-08-23 16:54 | XMS_ITS | Encounter Summary ---
Author Organization [facility] Prior to 07/03/[address] [facility] [place] [address] Care Team Providers Care Roll Scale Worker Name Role Phone Frederick Ureña PA-C Primary Care Provider [phone] [phone] Carola Barrientos MD Unavailable [phone] Encounter Details Date Type Department Care Team Description 03/31/2024 Hospital Medical Records 444 [place] [address] [facility] Social History Tobacco Use Types Packs/Day Years [...] on filedocumented in this encounter Care Teams Roll Scale Worker Relationship Specialty Start Date End Date Frederick Ureña PA-C 444 [place] [address] PCP - General Internal Medicine 12/28/20 Carola Barrientos MD [address] [address] Specialist Neurosurgery 06/11/23 documented as of this encounter
--- OUTSIDE RECORDS SUMMARY | 2025-08-23 16:54 | XMS_ITS | Encounter Summary ---
Author Organization [facility] Prior to 07/03/2024 Address [address] [place] [address] Care Team Providers Care Awning Hanger Helper Name Role Phone Frederick Ureña PA-C Primary Care Provider [phone] Carola Barrientos MD Unavailable [phone] Encounter Details Date Type Department Care Team Description 12/13/2023 Telephone Adult Medicine [address] [address] Frederick Ureña PA-C [address] [place] [address] [phone] Social History Tobacco Use Types Packs/Day Years [...] on filedocumented in this encounter Care Teams Awning Hanger Helper Relationship Specialty Start Date End Date Frederick Ureña PA-C [address] [place] [address] PCP - General Internal Medicine 12/28/20 Carola Barrientos MD [address] [facility] [address] [place] [address] Specialist Neurosurgery 06/11/23 documented as of this encounter
--- OUTSIDE RECORDS SUMMARY | 2025-08-23 16:54 | XMS_ITS | Encounter Summary ---
Author Organization [facility] Prior to 07/03/2024 Address [address] [facility] [place] [address] Care Team Providers Care Door To Door Sales Representative Name Role Phone Rafael Wray MD Primary Care Provider [phone] Frederick Ureña PA-C Primary Care Provider [phone] Carola Barrientos MD Unavailable [phone] Encounter Details Date Type Department Care Team Description 03/23/2014 DOT Physical Forms Medical Records 4 [place] [address] Abstract, Provider Social History Tobacco Use Types [...] on filedocumented in this encounter Care Teams Door To Door Sales Representative Relationship Specialty Start Date End Date Rafael Wray MD [address] [place] [address] [phone] PCP - General 04/01/09 12/27/20 Frederick Ureña PA-C [address] [place] [address] [phone] PCP - General Internal Medicine 12/28/20 Carola Barrientos MD [address] [place] [address] Specialist Neurosurgery 06/11/23 documented as of this encounter
--- OUTSIDE RECORDS SUMMARY | 2025-08-23 16:54 | XMS_ITS | Encounter Summary ---
Author Organization [facility] Prior to 07/03/2024 Address [address] [facility] [address] Care Team Providers Care Board Catcher Name Role Phone Rafael Wray MD Primary Care Provider [phone] [phone] Frederick Ureña PA-C Primary Care Provider [phone] Carola Barrientos MD Unavailable [phone] Encounter Details Date Type Department Care Team Description 11/18/2013 Research/Program Director Report Medical Records 4 [place] [address] Wayne Escobedo MD Social History Tobacco Use [...] on filedocumented in this encounter Care Teams Board Catcher Relationship Specialty Start Date End Date Rafael Wray MD [address] [place] [address] [phone] PCP - General 04/01/09 12/27/20 Frederick Ureña PA-C [address] [place] [address] [phone] PCP - General Internal Medicine 12/28/20 Carola Barrientos MD [address] [place] [address] Specialist Neurosurgery 06/11/23 documented as of this encounter
--- OUTSIDE RECORDS SUMMARY | 2025-08-23 16:54 | XMS_ITS | Encounter Summary ---
Author Organization [facility] Prior to 07/03/2024 Address [address] [place] [address] Care Team Providers Care Healthcare Management Consultant Name Role Phone Frederick Ureña PA-C Primary Care Provider [phone] [phone] Carola Barrientos MD Unavailable [phone] Reason for Visit * Reason Onset Date Comments Medication 03/20/2023 Encounter Details Date Type Department Care Team Description 03/20/2023 Refill Gastroenterology [address] [place] [phone] Elizabet Mora MD [address] [place] [address] [phone] Medication Social History Tobacco Use Types Packs/Day [...] suspected to have Coronavirus/COVID-19? No / Unsure 02/25/2023 8:40 AM EDT documented as of this encounter Plan of Treatment Not on file documented as of this encounter Visit Diagnoses Not on filedocumented in this encounter Care Teams Healthcare Management Consultant Relationship Specialty Start Date End Date Frederick Ureña PA-C 444 [place] [address] PCP - General Internal Medicine 12/28/20 Carola Barrientos MD [address] [place] [address] Specialist Neurosurgery 06/11/23 documented as of this encounter
--- OUTSIDE RECORDS SUMMARY | 2025-08-23 16:54 | XMS_ITS | Encounter Summary ---
Author Organization [facility] Prior to 07/03/2024 Address [address] [facility] [place] [address] Care Team Providers Care Cooling Tower Operator Name Role Phone Frederick Ureña PA-C Primary Care Provider +[phone] Carola Barrientos MD Unavailable [phone] Encounter Details Date Type Department Care Team Description 12/13/2023 Orders Only Medical Records 444 [place] [address] Jose Ramon, Dari, OD Social History Tobacco Use Types Packs/Day Years [...] Name Priority Date/Time Associated Diagnosis Comments OUTSIDE EYE EXAM Routine 12/09/2023 documented in this encounter Results * OUTSIDE EYE EXAM (12/09/2023) Dari Ornelasa OD PROCEDURES documented in this encounter Visit Diagnoses Not on filedocumented in this encounter Care Teams Cooling Tower Operator Relationship Specialty Start Date End Date Frederick Ureña PA-C [address] [place], [place] [phone] PCP - General Internal Medicine 12/28/20 Carola Barrientos MD [address] [place] [address] Specialist Neurosurgery 06/11/23 documented as of this encounter
--- OUTSIDE RECORDS SUMMARY | 2025-08-23 16:54 | XMS_ITS | Encounter Summary ---
Author Organization [facility] Prior to 07/03/2024 Address [address] [facility] [place] [address] Care Team Providers Care Cover Maker Name Role Phone Rafael Wray MD Primary Care Provider [phone] Frederick Ureña PA-C Primary Care Provider + [phone] Carola Barrientos MD Unavailable [phone] Reason for Visit * Reason Onset Date Comments refill request 08/09/2016 Encounter Details Date Type Department Care Team Description 08/09/2016 Refill Adult Medicine [address] [phone] Rafael Wray MD [address] [place] [address] [phone] refill request Social History Tobacco Use Types [...] encounter Miscellaneous Notes * Telephone Encounter - Saima Cruz M.A. - 08/09/2016 9:19 AM EST Component Value Date HGBA1C 7.5 08/02/2016 MALBUR 6.9 04/23/2016 MALBCR 5.3 04/23/2016 CHOL 231 08/02/2016 LDL 124 08/02/2016 HDL 35 08/02/2016 TRIG 363 08/02/2016 GLU 276 08/02/2016 CREAT 0.9 08/02/2016 * Telephone Encounter - Teresa Janice - 08/09/2016 9:10 AM EST Patient would like script to be: E-PRESCRIBED/FAXED TO PHARMACY WHEN WAS THE PATIENT'S LAST APPOINTMENT IN ADULT MEDICINE? [id number] WHEN WAS THE LAST TIME THE PATIENT SAW THEIR PCP? Same as above Does patient have an upcoming appointment? Yes [id number] (THE MEDICATION REQUESTED IS ON THE MED LIST ABOVE) All of the medications requested were on the CURRENT MEDS list Did you check the Pharmacy information above?: YES Patient wants: 30 -day supply Is this a mail order prescription request ? NO Patients current insurance carrier is: Payor: [facility] FFS / Plan: HMO $15 [employer] [id number] / ProductType: HMO [id number] documented in this encounter Plan of Treatment Not on file documented as of this encounter Visit Diagnoses Not on filedocumented in this encounter Care Teams Cover Maker Relationship Specialty Start Date End Date Rafael Wray MD [address] [place] [address] PCP - General 04/01/09 12/27/20 Frederick Ureña PA-C [address] [place] [address] [phone] PCP - General Internal Medicine 12/28/20 Carola Barrientos MD [address] [place] [address] Specialist Neurosurgery 06/11/23 documented as of this encounter
--- OUTSIDE RECORDS SUMMARY | 2025-08-23 16:54 | XMS_ITS | Encounter Summary ---
Author Organization [facility] Prior to 07/03/2024 Address [address] [facility] [address] Care Team Providers Care Cement Contractor Name Role Phone Frederick Ureña PA-C Primary Care Provider +1 [phone] Carola Barrientos MD Unavailable Encounter Details Date Type Department Care Team Description 04/04/2023 Orders Only Medical Records [address] [place] [address] Elizabet Mora MD [address] [place] [address] [phone] Social History Tobacco Use Types Packs/Day Years [...] Name Priority Date/Time Associated Diagnosis Comments OUTSIDE COLONOSCOPY Routine 04/04/2023 documented in this encounter Results * OUTSIDE COLONOSCOPY (04/04/2023) Elizabet Mora MD RADIOLOGY documented in this encounter Visit Diagnoses Not on filedocumented in this encounter Care Teams Cement Contractor Relationship Specialty Start Date End Date Frederick Ureña PA-C 4 [place], [place] [phone] PCP - General Internal Medicine 12/28/20 Carola Barrientos MD [address] [place] [address] Specialist Neurosurgery 06/11/23 documented as of this encounter
--- OUTSIDE RECORDS SUMMARY | 2025-08-23 16:54 | XMS_ITS | Encounter Summary ---
Author Organization [facility] Prior to 07/03/2024 Address [address] [facility] [place] [address] Care Team Providers Care Mail Distribution Clerk Name Role Phone Rafael Wray MD Primary Care Provider [phone] Frederick Ureña PA-C Primary Care Provider + [phone] Carola Barrientos MD Unavailable [phone] Reason for Visit * Reason Comments E-prescribe Rx Request Encounter Details Date Type Department Care Team Description 06/01/2017 Refill Adult Medicine [address] [phone] Rafael Wray MD [address] [place] [address] [phone] E-prescribe Rx Request Social History Tobacco Use [...] NO Patients current insurance carrier is: Payor: [employer] FFS / Plan: [employer] $15 [email or web address]. [id number] / ProductType: [id number] documented in this encounter Plan of Treatment Not on file documented as of this encounter Visit Diagnoses Not on filedocumented in this encounter Care Teams Mail Distribution Clerk Relationship Specialty Start Date End Date Rafael Wray MD [address] [place] [address] PCP - General 04/01/09 12/27/20 Frederick Ureña PA-C [address] [place] [address] PCP - General Internal Medicine 12/28/20 Carola Barrientos MD [address] [place] [address] [place] [address] Specialist Neurosurgery 06/11/23 documented as of this encounter
--- OUTSIDE RECORDS SUMMARY | 2025-08-23 16:54 | XMS_ITS | Encounter Summary ---
Author Organization [facility] Prior to 07/03/2024 Address [address] [place] [address] Care Team Providers Care Angiography Technologist Name Role Phone Rafael Wray MD Primary Care Provider [phone] Frederick Ureña PA-C Primary Care Provider + -[phone] Carola Barrientos MD Unavailable [phone] Reason for Visit * Reason Onset Date Comments Provider Call Back 07/24/2016 Encounter Details Date Type Department Care Team Description 07/24/2016 Telephone Adult Medicine [address] [phone] Rafael Wray MD [address] [place] [address] [phone] Provider Call Back Social History Tobacco Use [...] Miscellaneous Notes * Telephone Encounter - Lorie Denys - 07/24/2016 1:45 PM EST I let [...] a big deal outof it. Dentist is [facility]. Please let the patient know donnell.Thank you. * Telephone Encounter - Lorie Mcfalrane - 07/24/2016 11:24 AM EST Patient services [...] on filedocumented in this encounter Care Teams Angiography Technologist Relationship Specialty Start Date End Date Rafael Wray MD [address] [place] [address] PCP - General 04/01/09 12/27/20 Frederick Ureña PA-C [address] [place] [address] PCP - General Internal Medicine 12/28/20 Carola Barrientos MD [address] [place] [address] Specialist Neurosurgery 06/11/23 documented as of this encounter
--- OUTSIDE RECORDS SUMMARY | 2025-08-23 16:54 | XMS_ITS | Encounter Summary ---
Author Organization [facility] Prior to 07/03/2024 Address [address] [facility] [place] [address] Care Team Providers Care Catalogue Compiler Name Role Phone Rafael Wray MD Primary Care Provider +1 [phone] Frederick Ureña PA-C Primary Care Provider +[phone] Carola Barrientos MD Unavailable [phone] Reason for Visit * Reason Onset Date Comments Faxed Refill 08/05/2014 Encounter Details Date Type Department Care Team Description 08/05/2014 Refill Adult Medicine [address] [phone] Rafael Wray MD [address] [place] [address] [phone] Faxed Refill Social History Tobacco Use Types [...] was received? * Telephone Encounter - Evelyn Forman - 08/05/2014 11:19 AM EST Pharmacy needs new script for accu-chek meter and supplies/ insurance wiill not pay for previous meter or supplies please fax to amelia chandra ( mail in) [phone]. Two previous requests sent to [facility] [place] documented in this encounter Plan of Treatment Not on file documented as of this encounter Visit Diagnoses Not on filedocumented in this encounter Care Teams Catalogue Compiler Relationship Specialty Start Date End Date Rafael Wray MD [address] [place] [address] PCP - General 04/01/09 12/27/20 Frederick Ureña PA-C [address] [place] [address] PCP - General Internal Medicine 12/28/20 Carola Barrientos MD [address] [place] [address] [address] [place] [address] Specialist Neurosurgery 06/11/23 documented as of this encounter
--- OUTSIDE RECORDS SUMMARY | 2025-08-23 16:54 | XMS_ITS | Encounter Summary ---
Author Organization [facility] Prior to 07/03/2024 Address [address] [facility] [place] [address] Care Team Providers Care Electronic Security Specialist Name Role Phone Frederick Ureña PA-C Primary Care Provider +1 -[phone] Carola Barrientos MD Unavailable Reason for Visit * Reason Onset Date Comments radiology 03/25/2023 Encounter Details Date Type Department Care Team Description 03/25/2023 Telephone MRI - [place] 444 [place], [place] [phone] Frederick Ureña PA-C [address] [place], [place] [phone] radiology Social History Tobacco Use Types Packs/Day [...] AM EDT documented as of this encounter Miscellaneous Notes * Telephone Encounter - Frederick Ureña PA-C - 03/25/2023 9:28 AM EDT Ok will order * Telephone Encounter - Josefina Nikki - 03/25/2023 8:52 AM EDT Good morning, Patient is near mri table weight limit and will not fit comfortably in mri machine. Weill need to have mri done at [facility]. Can you please place new external order? Thank you, Yasmine Mri Department documented in this encounter Plan of Treatment Not on file documented as of this encounter Visit Diagnoses Diagnosis Dizziness- Primary Dizziness and giddiness documented in this encounter Care Teams Electronic Security Specialist Relationship Specialty Start Date End Date Frederick Ureña PA-C [address] [place] [address] PCP - General Internal Medicine 12/28/20 Carola Barrientos MD [address] [place] [address] [address] [place] [address] Specialist Neurosurgery 06/11/23 documented as of this encounter
--- OUTSIDE RECORDS SUMMARY | 2025-08-23 16:54 | XMS_ITS | Encounter Summary ---
Author Organization [facility] Prior to 07/03/2024 Address [address] [place] [address] Care Team Providers Care Camera Supervisor Name Role Phone Frederick Ureña PA-C Primary Care Provider +1 -[phone] Carola Barrientos MD Unavailable [phone] Encounter Details Date Type Department Care Team Description 04/19/2023 Orders Only Medical Records 444 [place] [address] Frederick Ureña PA-C [address] [place], [place] [phone] Social History Tobacco Use Types Packs/Day Years [...] on filedocumented in this encounter Care Teams Camera Supervisor Relationship Specialty Start Date End Date Frederick Ureña PA-C 4 [place] [address] PCP - General Internal Medicine 12/28/20 Carola Barrientos MD [address] [place] [address] Specialist Neurosurgery 06/11/23 documented as of this encounter
--- OUTSIDE RECORDS SUMMARY | 2025-08-23 16:54 | XMS_ITS | Clinical Summary ---
Author Organization [facility] Address [address] [place] [address] Care Team Providers Care Spline Rolling Machine Job Setter Name Role Phone Rafael Wray Primary Care Provider Allergies Active Allergy Reactions Criticality Noted Date Comments Cephalexin Hives 05/28/2016 Medications ONETOUCH ULTRA TEST Strp 6 Active clobetasol (TEMOVATE) 0.05 % cream APPLY TOPICALLY TO FINGERS TWICE A DAY UNTIL IT HEALED 0 6 Active diazepam (VALIUM) 10 MG tablet take 1 tablet by mouth at bedtime 0 6 Active sildenafil (VIAGRA) 100 MG tablet take 1 tablet by mouth if needed 4 Active diclofenac sodium 100 mg 24 hr tablet Take 1 tablet (100 mg total) by mouth daily. OK to resume 3 days after surgery 1 tablet 0 6 Active allopurinol (ZYLOPRIM) 300 MG tablet take 1 tablet by mouth once daily 7 Active gabapentin (NEURONTIN) 600 MG tablet 7 Active tamsulosin (FLOMAX) 0.4 mg Cp24 24 hr capsuleIndicatio ns:Urinary hesitancy due to benign prostatic hyperplasia Take 1 capsule (0.4 mg total) by mouth daily. 30 capsule 11 7 Active Active Problems Problem Noted Date Diagnosed Date Other male erectile dysfunction 06/19/2017 Urinary hesitancy due to benign prostatic hyperp lasia 06/19/2017 Urethral stricture 06/14/2016 Other urethral stricture 06/05/2016 Status post uvulopalatopharyngoplasty 06/05/2016 H/O total knee replacement 06/05/2016 Neuropathy 06/05/2016 Sciatica of right side 06/05/2016 Neuropathy, inflammatory or toxic 06/05/2016 Idiopathic gout of right foot 06/05/2016 Essential hypertension 06/05/2016 Obstructive sleep apnea syndrome 06/05/2016 Lumbar radiculopathy, chronic 06/05/2016 Restless leg syndrome 06/05/2016 Obesity, unspecified 06/05/2016 Social History Tobacco Use Types Packs/Day Years Used Date Smoking Tobacco: Former Cigarettes 1 20 1 - 06/05/1980 Smokeless Tobacco: Former Alcohol Use Standard Drinks/Week Comments Yes 0 (1 standard drink = 0.6 oz pur e alcohol) rare alcohol Sex and Gender Information Value Date Recorded Sex Assigned at Not on file Legal Sex Male 2:32 PM EDT Gender Identity Not on file Sexual Orientation Not on file Last Filed Vital Signs Vital Sign Reading Time Taken Comments Blood Pressure 120/71 06/15/2016 12:00 PM EDT Pulse 66 06/15/2016 12:00 PM EDT Temperature 37.3 C (99.1 F) 06/15/2016 12:00 PM EDT Respiratory Rate 18 06/15/2016 12:00 PM EDT Oxygen Saturation 97% 06/15/2016 12:00 PM EDT Inhaled Oxygen Concentration - - Weight 163 kg (359 lb 1.6 oz) 06/05/2016 4:00 PM EDT Height 185.4 cm (6' 1 ) 06/05/2016 4:00 PM EDT Body Mass Index 47.38 06/05/2016 4:00 PM EDT Plan of Treatment Health Maintenance Due Date Last Done Comments Blood Pressure 1957 Lipid Panel 1957 PSA 1957 Prostate Cancer Screening 1957 SDM 1957 Depression Screening 1969 Hepatitis C Screening 1975 CT Colonography 2002 Colonoscopy 2002 Colorectal Cancer Screening 2002 FIT 2002 FOBT 2002 Multitarget Stool DNA (Cologuard) 2002 Sigmoidoscopy 2002 Pneumococcal Vaccine: 50+ Years (2 of 2 - PCV) 06/07/2015 06/07/2014 DTaP,Tdap,and Td Vaccines (2 - Td or Tdap) 05/18/2023 05/18/2013 COVID-19 Vaccine ( season) 2025 Influenza Vaccine (#1) 2025 2, 03/03/2012, 06/12/2011, Additional history exists Zoster Vaccine Completed 06/14/2018, 04/15/2018 Meningococcal B Vaccines Aged Out No longer eligible based on patient's age to complete this topic Meningococcal Vaccines Aged Out No lo nger eligible based on patient's age to complete this topic Insurance Advance Directives * Full Code (Latest Code Status on File) Date Activated Date Inactivated Comments 06/14/2016 11:00 AM 06/15/2016 4:02 PM Healthcare Agents on File Name Relationship Healthcare Agent Relationship Communication Candice Yadav Spouse Health Care Agent Care Teams Spline Rolling Machine Job Setter Relationship Specialty Start Date End Date Rafael Wray [address] [place] [address] PCP - General 04/19/16
--- OUTSIDE RECORDS SUMMARY | 2025-08-23 16:54 | XMS_ITS | Encounter Summary ---
Author Organization [facility] Prior to 07/03/2024 Address [address] [place] [address] Care Team Providers Care Learning Developer Name Role Phone Rafael Wray MD Primary Care Provider [phone] Frederick Ureña PA-C Primary Care Provider [phone] Carola Barrientos MD Unavailable [phone] Encounter Details Date Type Department Care Team Description 06/30/2014 Training Engineer Report Medical Records 4 [place] [address] Wayne Escobedo MD Social History Tobacco Use [...] on filedocumented in this encounter Care Teams Learning Developer Relationship Specialty Start Date End Date Rafael Wray MD [address] [place], [place] [phone] PCP - General 04/01/09 12/27/20 Frederick Ureña PA-C [address] [place] [address] [phone] PCP - General Internal Medicine 12/28/20 Carola Barrientos MD [address] [place] [address] Specialist Neurosurgery 06/11/23 documented as of this encounter
--- OUTSIDE RECORDS SUMMARY | 2025-08-23 16:54 | XMS_ITS | Encounter Summary ---
Author Organization [facility] Prior to 07/03/2024 Address [address] [place] [address] Care Team Providers Care Mortgage Counselor Name Role Phone Rafael Whyte MD Primary Care Provider [phone] Frederick Ureña PA-C Primary Care Provider + [phone] Carola Barrientos MD Unavailable [phone] Reason for Visit * Reason Onset Date Comments Medication Review 08/23/2016 Encounter Details Date Type Department Care Team Description 08/23/2016 Telephone Adult Medicine [address] [phone] Rafael Whyte MD [address] [place] [address] [phone] Medication Review Social History Tobacco Use Types [...] Miscellaneous Notes * Telephone Encounter - Leighann FitzgeraldPPanteraN. - 08/23/2016 2:02 PM EST Per pt the pharmacist Called dr sEcobedo , he is aware of the interactions [...] Who is patients PCP?: dr whyte Payor: [facility]/Local Magnet FFS / Plan: [employer] $15 Pixel[employer]am [id number] / Product Type: HMO [id number] documented in this encounter Plan of Treatment Not on file documented as of this encounter Visit Diagnoses Not on filedocumented in this encounter Care Teams Mortgage Counselor Relationship Specialty Start Date End Date Rafael Whyte MD [address] [place] [address] PCP - General 04/01/09 12/27/20 Frederick Ureña PA-C [address] [place] [address] PCP - General Internal Medicine 12/28/20 Carola Barrientos MD [address] [place] [address] [place] [address] Specialist Neurosurgery 06/11/23 documented as of this encounter
--- OUTSIDE RECORDS SUMMARY | 2025-08-23 16:54 | XMS_ITS | Encounter Summary ---
Author Organization [facility] Prior to 07/03/2024 Address [address] [facility] [place] [address] Care Team Providers Care Program Manager Transportation Name Role Phone Frederick Ureña PA-C Primary Care Provider [phone] Carola Barrientos MD Unavailable [phone] Reason for Visit * Reason Onset Date Comments Appointment-Internal Referral 02/09/2021 Encounter Details Date Type Department Care Team Description 02/09/2021 Telephone Respiratory and Diabetes Medicaid/ACO Pharmacist [address] [place] [address] Frederick Ureña PA-C [address] [place], [place] [phone] Appointment-Internal Referral Social History Tobacco Use Types Packs/Day Years [...] encounter Miscellaneous Notes * Telephone Encounter - Pia Huntley C.M.A - 02/10/2021 1:55 PM EDT Contacted pt, he understands now is interested in the appointment. Will send this back to referrals. * Telephone Encounter - Deborah Nguyen - 02/10/2021 1:48 PM EDT Pt returning call, requests CB * Telephone Encounter - Pia Huntley C.M.A - 02/10/2021 1:25 PM EDT [phone] (home) Pt's phone number continued to ring, no vm. * Telephone Encounter - Frederick Ureña PA-C - 02/09/2021 3:50 PM EDT Basically Tamy odom at the diabetes pharmacy clinic requested the referral. She feels she might be able to help with the cost of some of his meds. Up to patient if he wants to go Frederick Ureña PA-C * Telephone Encounter - Dinora Whitehead - 02/09/2021 11:53 AM EDT Referral to Pharmacy Clinic: FYI to referring. PT decline referral, was not aware that the Doctor had referred him / PT request the Dr. Ureña contact him to dicuss the matter Unable to book at this time. documented in this encounter Plan of Treatment Not on file documented as of this encounter Visit Diagnoses Not on filedocumented in this encounter Care Teams Program Manager Transportation Relationship Specialty Start Date End Date Frederick Ureña PA-C [address] [place] [address] PCP - General Internal Medicine 12/28/20 Carola Barrientos MD [address] [place] [address] [place] [address] Specialist Neurosurgery 06/11/23 documented as of this encounter
--- OUTSIDE RECORDS SUMMARY | 2025-08-23 16:54 | XMS_ITS | Encounter Summary ---
Author Organization [facility] Prior to 07/03/2024 Address [address] [facility] [place] [address] Care Team Providers Care Granite Polisher Apprentice Name Role Phone Frederick Ureña PA-C Primary Care Provider [phone] Carola Barrientos MD Unavailable [phone] Reason for Visit * Reason Onset Date Comments Clinical Lab Clerk Feedback 09/21/2022 Vascular surgery referral Encounter Details Date Type Department Care Team Description 09/21/2022 Telephone Radiology - [place] [address] [place], [place] [phone] Frederick Ureña PA-C [address] [place], [place] [phone] Clinical Lab Clerk Feedback (Vascular surgery referral) Social History Tobacco Use Types Packs/Day Years [...] suspected to have Coronavirus/COVID-19? No / Unsure 09/20/2022 12:43 PM EST documented as of this encounter Plan of Treatment Not on file documented as of this encounter Visit Diagnoses Not on filedocumented in this encounter Care Teams Granite Polisher Apprentice Relationship Specialty Start Date End Date Frederick Ureña PA-C [address] [place] [address] PCP - General Internal Medicine 12/28/20 Carola Barrientos MD [address] [place] [address] Specialist Neurosurgery 06/11/23 documented as of this encounter
--- OUTSIDE RECORDS SUMMARY | 2025-08-23 16:54 | XMS_ITS | Encounter Summary ---
Author Organization [facility] Prior to 07/03/2024 Address [address] [place] [address] Care Team Providers Care Agricultural Sciences Professor Name Role Phone Rafael Wray MD Primary Care Provider [phone] Frederick Ureña PA-C Primary Care Provider [phone] Carola Barrientos MD Unavailable [phone] Encounter Details Date Type Department Care Team Description 01/22/2011 Care Transition Manager Report Medical Records 4 [place] [address] Wayne Escobedo MD Social History Tobacco Use [...] on filedocumented in this encounter Care Teams Agricultural Sciences Professor Relationship Specialty Start Date End Date Rafael Wray MD [address] [place] [address] [phone] PCP - General 04/01/09 12/27/20 Frederick Ureña PA-C [address] [place] [address] [phone] PCP - General Internal Medicine 12/28/20 Carola Barrientos MD [address] [place] [address] Specialist Neurosurgery 06/11/23 documented as of this encounter
--- OUTSIDE RECORDS SUMMARY | 2025-08-23 16:54 | XMS_ITS | Encounter Summary ---
Author Organization [facility] Address [address] [place] [address] Care Team Providers Care Beam Department Supervisor Name Role Phone Frederick Ureña Primary Care Provider [phone] Encounter Details Date Type Department Care Team (Late st Contact Info) Description 03/22/[address] [facility] - Main Lab [address] [facility] [place] [address] Philipp Linda MD [address] [facility] [address] [place] [phone] Urinary tract infection, site not specified Social [...] for your loved ones. For example, child health associate or elderly care for an older adult? [...] PM EST Office Visit Orthopedic Surgery - [place] [address] [address] Paul Conner, ROSEY [address] [address] 10/27/2025 2:00 PM EST Office Visit Vascular Surgery - [place] [address] [place] [address] Jenny Lees MD [address] [place] [phone] 12/14/2025 1:30 PM EDT Office Visit Adult [address] [address] Frederick Ureña PA [address] [place] [address] documented as of this encounter Goals Goal Patient Goal Type Associated Problems Recent Progress Patient-Stated? Author Decrease Wound Volume by X% by date (in notes) Care Plan Impaired Tissue No Chelsey Raiv RN Patient and Caregiver Understand Wound Care [...] aeruginosa(A) JOSE RAUL 03/24/2025 10:08 AM EDT [facility] Comment: This is an edited [...] MICROBIOLOGY - GENERA L ORDERABLES Final Result [facility] [address] [place] [address], documented in this encounter Visit Diagnoses Diagnosis [...] documented as of this encounter Care Teams Beam Department Supervisor Relationship Specialty Start Date End Date Frederick Ureña PA [address] [place] [address] PCP - General Internal Medicine 08/13/24 documented as of this encounter
--- OUTSIDE RECORDS SUMMARY | 2025-08-23 16:54 | XMS_ITS | Encounter Summary ---
Author Organization [facility] Prior to 07/03/2024 Address [address] [facility] [place] [address] Care Team Providers Care Finishing Trimmer Name Role Phone Rafael Wray MD Primary Care Provider [phone] Frederick Ureña PA-C Primary Care Provider [phone] Carola Barrientos MD Unavailable [phone] Encounter Details Date Type Department Care Team Description 03/02/2014 Wood Fence Installer Report Medical Records 4 [place] [address] Philipp Linda MD, MD Social History Tobacco [...] on filedocumented in this encounter Care Teams Finishing Trimmer Relationship Specialty Start Date End Date Rafael Wray MD 4 [place] [address] PCP - General 04/01/09 12/27/20 Frederick Ureña PA-C [address] [place] [address] PCP - General Internal Medicine 12/28/20 Carola Barrientos MD [address] [place] [address] Specialist Neurosurgery 06/11/23 documented as of this encounter
--- OUTSIDE RECORDS SUMMARY | 2025-08-23 16:54 | XMS_ITS | Encounter Summary ---
Author Organization [facility] Prior to 07/03/2024 Address [address] [place] [address] Care Team Providers Care Reed Man Name Role Phone Rafael Wray MD Primary Care Provider [phone] Frederick Ureña PA-C Primary Care Provider [phone] Carola Barrientos MD Unavailable [phone] Encounter Details Date Type Department Care Team Description 04/02/2014 Nursing Clerk Report Medical Records 4 [place] [address] Jorje Alvarez MD Social History Tobacco Use [...] on filedocumented in this encounter Care Teams Reed Man Relationship Specialty Start Date End Date Rafael Wray MD [address] [place] [address] [phone] PCP - General 04/01/09 12/27/20 Frederick Ureña PA-C [address] [place] [address] PCP - General Internal Medicine 12/28/20 Carola Barrientos MD [address] [place] [address] Specialist Neurosurgery 06/11/23 documented as of this encounter
--- OUTSIDE RECORDS SUMMARY | 2025-08-23 16:54 | XMS_ITS | Encounter Summary ---
Author Organization [facility] Prior to 07/03/2024 Address [address] [facility] [address] Care Team Providers Care Regulatory And Compliance Technician Name Role Phone Rafael Wray MD Primary Care Provider [phone] Frederick Ureña PA-C Primary Care Provider [phone] Carola Barrientos MD Unavailable [phone] Encounter Details Date Type Department Care Team Description 03/01/2014 Silverware Buffer Report Medical Records 4 [place] [address] Wayne Escobedo MD Social History Tobacco Use [...] on filedocumented in this encounter Care Teams Regulatory And Compliance Technician Relationship Specialty Start Date End Date Rafael Wray MD [address] [place] [address] [phone] PCP - General 04/01/09 12/27/20 Frederick Ureña PA-C [address] [place] [address] [phone] PCP - General Internal Medicine 12/28/20 Carola Barrientos MD [address] [place] [address] Specialist Neurosurgery 06/11/23 documented as of this encounter
--- OUTSIDE RECORDS SUMMARY | 2025-08-23 16:54 | XMS_ITS | Encounter Summary ---
Author Organization [facility] Prior to 07/03/2024 Address [address] [facility] [place] [address] Care Team Providers Care Case Filler Name Role Phone Frederick Ureña PA-C Primary Care Provider [phone] Carola Barrientos MD Unavailable [phone] Reason for Visit * Reason Onset Date Comments Provider Call Back 10/04/2022 Encounter Details Date Type Department Care Team Description 10/04/2022 Telephone Respiratory and Diabetes Medicaid/ACO Pharmacist [address] [place], [place] [phone] Tamy Westbrook PharmPanteraD 4 [place], [place] [phone] Provider Call Back Social History Tobacco Use [...] Miscellaneous Notes * Telephone Encounter - Tamy Westbrook Pharm.D - 10/04/2022 2:33 PM EST Called patient. No answer. LM with direct call back * Telephone Encounter - Cintia Ramires - 10/04/2022 1:59 PM EST Caller requesting call back from provider: Is the caller the patient? YES If caller is not the patient, what is the callers name? N/A Callers relationship to patient? N/A If person calling is not the patient themselves, is there a verbal release in FYI or permanent comments for this person: NO Reason for call back: Patient is asking to speak with Tamy Westbrook. States this is in regard to the appointment 10/02. I tried to get more information from him but he would not give me anything morethan have her call me back Caller offered to speak with the nurse for assistance: YES Response: Patient offered to speak with nurse to assist them: refused offer documented in this encounter Plan of Treatment Not on file documented as of this encounter Visit Diagnoses Not on filedocumented in this encounter Care Teams Case Filler Relationship Specialty Start Date End Date Frederick Ureña PA-C [address] [place] [address] PCP - General Internal Medicine 12/28/20 Carola Barrientos MD [address] [place] [address] [address] [place] [address] Specialist Neurosurgery 06/11/23 documented as of this encounter
--- OUTSIDE RECORDS SUMMARY | 2025-08-23 16:54 | XMS_ITS | Encounter Summary ---
Author Organization [facility] Prior to 07/03/2024 Address [address] [facility] [place] [address] Care Team Providers Care Financial Foundations Associate Name Role Phone Rafael Wray MD Primary Care Provider [phone] Frederick Ureña PA-C Primary Care Provider [phone] Carola Barrientos MD Unavailable [phone] Reason for Visit * Reason Comments E-prescribe Rx Request Encounter Details Date Type Department Care Team Description 07/15/2015 Refill Adult Medicine [address] [phone] Rafael Wray MD [address] [place] [address] [phone] E-prescribe Rx Request Social History Tobacco Use [...] pharmacy * Telephone Encounter - Christina Mckenzie L.P.NPantera - 07/15/2015 3:41 PM EST Component Value Date NA 141 06/14/2015 K 4.6 06/14/2015 CO2 23.4 06/14/2015 CL 104 06/14/2015 BUN 15 06/14/2015 CREAT 0.9 06/14/2015 GLU 134 06/14/2015 CA 8.9 06/14/2015 GFR > 60 06/14/2015 * Telephone Encounter - Page Jcadi - 07/15/2015 8:38 AM EST Patient would [...] NO Patients current insurance carrier is: Payor: [employer]/HMO FFS / Plan: HMO $15 [place] [id number] / ProductType: HMO [id number] documented in this encounter Plan of Treatment Not on file documented as of this encounter Visit Diagnoses Not on filedocumented in this encounter Care Teams Financial Foundations Associate Relationship Specialty Start Date End Date Rafael Wray MD [address] [place] [address] PCP - General 04/01/09 12/27/20 Frederick Ureña PA-C 4 [place] [address] PCP - General Internal Medicine 12/28/20 Carola Barrientos MD [address] [place] [address] [place] [address] Specialist Neurosurgery 06/11/23 documented as of this encounter
--- OUTSIDE RECORDS SUMMARY | 2025-08-23 16:54 | XMS_ITS | Encounter Summary ---
Author Organization [facility] Prior to 07/03/2024 Address [address] [place] [address] Care Team Providers Care Mining Technician Name Role Phone Frederick Ureña PA-C Primary Care Provider [phone] Carola Barrientos MD Unavailable [phone] Encounter Details Date Type Department Care Team Description 06/11/2023 SCAN [facility] Neurosurgery [place] [address] [phone] Carola Barrientos MD [address] [address] Social History Tobacco Use Types Packs/Day Years [...] on filedocumented in this encounter Care Teams Mining Technician Relationship Specialty Start Date End Date Frederick Ureña PA-C [address] [place] [address] PCP - General Internal Medicine 12/28/20 Carola Barrientos MD [address] [place] [address] [address] [place] [address] Specialist Neurosurgery 06/11/23 documented as of this encounter
--- OUTSIDE RECORDS SUMMARY | 2025-08-23 16:54 | XMS_ITS | Encounter Summary ---
Author Organization [facility] Prior to 07/03/2024 Address [address] [facility] [place] [address] Care Team Providers Care Grease Cup Filler Name Role Phone Frederick Ureña PA-C Primary Care Provider [phone] Carola Barrientos MD Unavailable [phone] Reason for Referral * Non KINA (Routine) - Authorized/Booked Specialty Diagnoses / Procedures Referred By Brown gibson Referred To Contact Internal Medicine / Adult Med Procedures REFERRAL TO PHARMACY CLINIC Frederick Ureña PA-C [address] [place] [address] Pharm [address] [address] Referral ID Status Reason Start Date Expiration Date V isits Requested Visits Authorized [id number] Authorized/ Booked 02/09/2021 02/09/2022 1 1 Reason for Visit * Reason Onset Date Comments REFERRAL 02/09/2021 [facility] Encounter Details Date Type Department Care Team Description 02/09/2021 Telephone Respiratory and Diabetes Medicaid/ACO Pharmacist [address] [place] [address] Frederick Ureña PA-C [address] [place] [address] REFERRAL (referral to pharmacy clinic for diabetes education) Social History Tobacco Use Types Packs/Day Years [...] Encounter - Frederick Ureña PA-C - 02/09/2021 11:30 AM EDT Brent Morelos, referral signed Frederick Ureña PA-C * Telephone Encounter - Lizette Diaz.D - 02/09/2021 10:50 AM EDT Sebastien Linares, Do you think this patient would benefit from more diabetes education? I could possible help him get coupons for higher cost medications. If so, I've pended a referral. Thank you for your time, Tamy Shah, PharmD., BANNERCP Clinical Pharmacist [email or web address] Office: Wednesdays [phone], Fridays [phone], (other days) documented in this encounter Plan of Treatment Not on file documented as of this encounter Visit Diagnoses Not on filedocumented in this encounter Care Teams Grease Cup Filler Relationship Specialty Start Date End Date Frederick Ureña PA-C [address] [place] [address] PCP - General Internal Medicine 12/28/20 Carola Barrientos MD [address] [facility] [address] [place] [address] Specialist Neurosurgery 06/11/23 documented as of this encounter
--- OUTSIDE RECORDS SUMMARY | 2025-08-23 16:55 | XMS_ITS | Encounter Summary ---
Author Organization [facility] Prior to 07/03/2024 Address [address] [facility] [place] [address] Care Team Providers Care Sand Digger Name Role Phone Rafael Wray MD Primary Care Provider + [phone] Frederick Ureña PA-C Primary Care Provider Carola Barrientos MD Unavailable [phone] Encounter Details Date Type Department Care Team Description 11/17/2020 Clinical Care Leader Report Medical Records [address] [place] [address] Wayne Escobedo MD Social History Tobacco Use [...] on filedocumented in this encounter Care Teams Sand Digger Relationship Specialty Start Date End Date Rafael Wray MD [address] [place] [address] PCP - General 04/01/09 12/27/20 Frederick Ureña PA-C [address] [place] [address] PCP - General Internal Medicine 12/28/20 Carola Barrientos MD [address] [place] [address] Specialist Neurosurgery 06/11/23 documented as of this encounter
--- OUTSIDE RECORDS SUMMARY | 2025-08-23 16:55 | XMS_ITS | Encounter Summary ---
Author Organization [facility] Prior to 07/03/2024 Address [address] [place] [address] Care Team Providers Care Gunner'S Mate M Name Role Phone Rafael Wray MD Primary Care Provider [phone] Frederick Ureña PA-C Primary Care Provider + [phone] Carola Barrientos MD Unavailable [phone] Reason for Visit * Reason Onset Date Comments Leg Problem 09/09/2013 Encounter Details Date Type Department Care Team Description 09/09/2013 Telephone Adult Medicine [address] [id number] Rafael Wray MD [address] [place] [address] [phone] Leg Problem Social History Tobacco Use Types [...] Miscellaneous Notes * Telephone Encounter - Nichole Munguia R.N. - 09/09/2013 12:13 PM EST Noted Delores in Referrals notified patient has been seen today at [facility] * Telephone Encounter - Rafael Wray MD - 09/09/2013 12:08 PM EST Referral placed for vascular surgery * Telephone Encounter - Nichole Munguia R.N. - 09/09/2013 12:06 PM EST Referral to Vascular Surgery-[facility] * Telephone Encounter - Rafael Wray MD - 09/09/2013 12:04 PM EST do I need to put in a referral and if so is it for dermatology and who is the salmon gillnet vessel operator?? * Telephone Encounter - Nichole Munguia R.N. - 09/09/2013 11:19 AM EST Italia called back. She notes the PA definitely told patient to go to [facility]. No one told patient to go to Vascular Surgery. Patient's was upset that nothing was done in the EW. FYI - [facility] definitely DOES cautery for surface varicose [...] 10:00 AM EST Voicemail from Italia @ [facility] follow up line. She notes patient was referred to Dermatology not Vascular. However, there is a note in patient's chart that he walked in to Vascular office for appointment today . He is being seen Please put call through to Triage when Italia calls back. * Telephone Encounter - Nichole Munguia R.N. - 09/09/2013 9:58 AM EST Called [facility] Follow up line [phone]. Left message for return call with question [...] that burst and bled everywhere. Went to [facility] EW. Area was cleaned and dressed. Patient was advised by [facility] EW provider to go directly to [address] [place] [address] -( [facility]) to be seen today to have the vein cauterized. He is in the parking lot. is in the [address] [place] [address] office arranging appointment Tried calling [facility]- [phone]. On hold a long time waiting to speak with marine superintendent.( Unable to remain on hold.) Patient needs referral. Need to obtain [facility] records * Telephone Encounter - Bailey Teresa - 09/09/2013 8:50 AM EST Symptoms patient is presenting: the pt has a broken blood vessel in his leg that burst today he went to [facility] and he needs to speak to nursing he is not bleeding now How long has patient had these symptoms?: today PCP: Rafael Wray Payor: [facility] FFS Plan: HMO $15 [employer] [id number] Product Type: HMO [id number] documented in this encounter Plan of Treatment Not on file documented as of this encounter Visit Diagnoses Diagnosis Venous insufficiency- Primary Unspecified venous (peripheral) insufficiency documented in this encounter Care Teams Gunner'S Mate M Relationship Specialty Start Date End Date Rafael Wray MD [address] [place] [address] PCP - General 04/01/09 12/27/20 Frederick Ureña PA-C [address] [place] [address] PCP - General Internal Medicine 12/28/20 Carola Barrientos MD [address] [place] [address] [place] [address] Specialist Neurosurgery 06/11/23 documented as of this encounter
--- OUTSIDE RECORDS SUMMARY | 2025-08-23 16:55 | XMS_ITS | Encounter Summary ---
Author Organization [facility] Prior to 07/03/2024 Address [address] [facility] [place] [address] Care Team Providers Care Blue Crabber Name Role Phone Rafael Wray MD Primary Care Provider [phone] Frederick Ureña PA-C Primary Care Provider [phone] Carola Barrientos MD Unavailable [phone] Encounter Details Date Type Department Care Team Description 10/29/2019 Cook Dessert Report Medical Records 4 [place] [address] Wayne Escobedo MD Social History Tobacco Use [...] on filedocumented in this encounter Care Teams Blue Crabber Relationship Specialty Start Date End Date Rafael Wray MD [address] [place] [address] PCP - General 04/01/09 12/27/20 Frederick Ureña PA-C [address] [place] [address] [phone] PCP - General Internal Medicine 12/28/20 Carola Barrientos MD [address] [place] [address] Specialist Neurosurgery 06/11/23 documented as of this encounter
--- OUTSIDE RECORDS SUMMARY | 2025-08-23 16:55 | XMS_ITS | Encounter Summary ---
Author Organization [facility] Prior to 07/03/2024 Address [address] [facility] [place] [address] Care Team Providers Care Superintendent Commissary Name Role Phone Rafael Wray MD Primary Care Provider [phone] Frederick Ureña PA-C Primary Care Provider [phone] Carola Barrientos MD Unavailable [phone] Encounter Details Date Type Department Care Team Description 04/28/2020 Rectification Printer Report Medical Records 4 [place] [address] Wayne Escobedo MD Social History Tobacco Use [...] on filedocumented in this encounter Care Teams Superintendent Commissary Relationship Specialty Start Date End Date Rafael Wray MD [address] [place] [address] PCP - General 04/01/09 12/27/20 Frederick Ureña PA-C [address] [place] [address] [phone] PCP - General Internal Medicine 12/28/20 Carola Barrientos MD [address] [place] [address] Specialist Neurosurgery 06/11/23 documented as of this encounter
--- OUTSIDE RECORDS SUMMARY | 2025-08-23 16:55 | XMS_ITS | Encounter Summary ---
Author Organization [facility] Prior to 07/03/2024 Address [address] [facility] [place] [address] Care Team Providers Care Hollow Handle Knife Assembler Name Role Phone Rafael Wray MD Primary Care Provider [phone] Frederick Ureña PA-C Primary Care Provider [phone] Carola Barrientos MD Unavailable [phone] Encounter Details Date Type Department Care Team Description 12/24/2013 Bridge Operator Report Medical Records 4 [place] [address] Wayne Escobedo MD Social History Tobacco Use [...] on filedocumented in this encounter Care Teams Hollow Handle Knife Assembler Relationship Specialty Start Date End Date Rafael Wray MD [address] [place] [address] [phone] PCP - General 04/01/09 12/27/20 Frederick Ureña PA-C [address] [place] [address] [phone] PCP - General Internal Medicine 12/28/20 Carola Barrientos MD [address] [place] [address] Specialist Neurosurgery 06/11/23 documented as of this encounter
--- OUTSIDE RECORDS SUMMARY | 2025-08-23 16:55 | XMS_ITS | Encounter Summary ---
Author Organization [facility] Prior to 07/03/2024 Address [address] [facility] [place] [address] Care Team Providers Care Bodily Injury Adjuster Name Role Phone Rafael Wray MD Primary Care Provider [phone] Frederick Ureña PA-C Primary Care Provider [phone] Carola Barrientos MD Unavailable [phone] Encounter Details Date Type Department Care Team Description 12/01/2012 Electrical Equipment Technician Report Medical Records 4 [place] [address] Philipp Linda MD, MD Social History Tobacco [...] on filedocumented in this encounter Care Teams Bodily Injury Adjuster Relationship Specialty Start Date End Date Rafael Wray MD [address] [place] [address] PCP - General 04/01/09 12/27/20 Frederick Ureña PA-C [address] [place] [address] PCP - General Internal Medicine 12/28/20 Carola Barrientos MD [address] [place] [address] Specialist Neurosurgery 06/11/23 documented as of this encounter
--- OUTSIDE RECORDS SUMMARY | 2025-08-23 16:55 | XMS_ITS | Encounter Summary ---
Author Organization [facility] Prior to 07/03/2024 Address [address] [facility] [place] [address] Care Team Providers Care Front Desk Lead Name Role Phone Rafael Wray MD Primary Care Provider [phone] Frederick Ureña PA-C Primary Care Provider [phone] Carola Barrientos MD Unavailable [phone] Encounter Details Date Type Department Care Team Description 01/19/2013 Appeals Representative Report Medical Records [address] [place] [address] Wayne Escobedo MD Social History Tobacco Use [...] in this encounter Care Teams Front Desk Lead Relationship Specialty Start Date End Date Rafael Wray MD [address] [place] [address] [phone] PCP - General 04/01/09 12/27/20 Frederick Ureña PA-C [address] [place] [address] [phone] PCP - General Internal Medicine 12/28/20 Carola Barrientos MD [address] [place] [address] Specialist Neurosurgery 06/11/23 documented as of this encounter
--- OUTSIDE RECORDS SUMMARY | 2025-08-23 16:55 | XMS_ITS ---
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 Additional [...] notes) Care Plan Impaired Tissue No Chelsey Ravi, RN Patient and Caregiver Understand Wound Care [...]
--- OUTSIDE RECORDS SUMMARY | 2025-08-23 16:55 | XMS_ITS | Encounter Summary ---
Author Organization [facility] Prior to 07/03/2024 Address [address] [place] [address] Care Team Providers Care Mine Production Engineer Name Role Phone Rafael Wray MD Primary Care Provider [phone] Frederick Ureña PA-C Primary Care Provider [phone] Carola Barrientos MD Unavailable [phone] Reason for Visit * Reason Onset Date Comments other 02/12/2013 pre op Encounter Details Date Type Department Care Team Description 02/12/2013 Telephone Adult Medicine [address] [phone] Rosalio Méndez MD other (pre op) Social [...] on filedocumented in this encounter Care Teams Mine Production Engineer Relationship Specialty Start Date End Date Rafael Wray MD [address] [place] [address] PCP - General 04/01/09 12/27/20 Frederick Ureña PA-C [address] [place] [address] PCP - General Internal Medicine 12/28/20 aCrola Barrientos MD [address] [place] [address] [place] [phone] Specialist Neurosurgery 06/11/23 documented as of this encounter
--- OUTSIDE RECORDS SUMMARY | 2025-08-23 16:55 | XMS_ITS | Clinical Summary ---
Author Organization [address] [place] [address] [place] [phone] Phone Care Team Providers Care Barrel Lathe Operator Name Role Phone Frederick Ureña Primary Care Provider [phone] Allergies Active Allergy Reactions Criticality Noted Date [...] DAY 90 tablet 3 10/27/19 25 Active metFORMIN XR (GLUCOPHAGE-XR) 500 mg [...] times a day with meals. 60 each 07/12/20 25 Active nitrofurantoin, macrocrystal-mon ohydrate, (MACROBID) 100 mg capsule Take 1 capsule (100 mg total) by mouth at bedtime. 30 each 07/22/20 25 Active atorvastatin (LIPITOR) 10 mg tablet TAKE 1 TABLET BY MOUTH DAILY 90 tablet 1 07/28/20 25 Active glipiZIDE (GLUCOTROL XL) 10 mg 24 hr tablet TAKE 1 TABLET BY MOUTH TWICE DAILY 180 tablet 3 08/04/20 25 Active allopurinoL (ZYLOPRIM) 300 mg tablet TAKE 1 TABLET BY MOUTH DAILY 90 tablet 1 08/13/20 25 Active glipiZIDE (GLUCOTROL XL) 10 mg 24 hr tablet TAKE 1 TABLET BY MOUTH TWICE DAILY 180 tablet 1 02/02/20 25 025 Discontinued allopurinoL (ZYLOPRIM) 300 mg tablet TAKE 1 TABLET BY MOUTH DAILY 90 tablet 1 02/02/20 25 025 Discontinued atorvastatin (LIPITOR) 10 mg tablet TAKE 1 TABLET BY MOUTH DAILY 90 tablet 1 02/09/20 25 025 Discontinued Active Problems Problem Noted Date Diagnosed Date 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 Encounters Date Type Department Care Team Description 07/12/2025 2:30 PM EST Office Visit Adult Medicine [address] [phone] Frederick Ureña PA Type 2 diabetes mellitus without complication, without long-term current use of insulin (CMS/HCC V24, CMS/[facility] V28) (Primary Dx); Need for prophylactic vaccination and inoculation against influenza; Hyperlipidemia with target LDL less than 100; Gout, unspecified cause, unspecified chronicity, unspecified site; CIDP (chronic inflammatory demyelinating polyneuropathy) (CMS/HCC V24, CMS/HCC V28); Secondary hypertension; Morbid obesity (CMS/HCC V24, CMS/HCC V28); Subclinical hypothyroidism; Bacteriuria 07/07/2025 1:45 PM EST Office Visit Orthopedic Surgery [address] [phone] Paul Conner DPM Controlled type 2 diabetes with neuropathy (CMS/HCC V24, CMS/HCC V28) (Primary Dx); Hammertoes of both feet; Arthritis of both feet; Dermatophytosis, nail from Last 3 Months Immunizations Immunization Administration [...] Site/Laterality Comments KNEE ARTHROSCOPY W/ DEBRIDEMENT PROCEDURE: HI ARTHRS KNEE DEBRIDEMENT/SHAVING ARTCLR CRTLG; COMMENT: bilateral X 2 OTHER SURGICAL HISTORY PROCEDURE: HI UNLISTED PROCEDURE PALATE UVULA; COMMENT: ENT APPENDECTOMY PROCEDURE: HI APPENDECTOMY TOTAL KNEE ARTHROPLASTY Bilateral PROCEDURE: HI ARTHRP KNE CONDYLE&PLATU MEDIAL&LAT COMPARTMENTS; COMMENT: left dr weathers 2006 RIGHT 2010 OTHER SURGICAL HISTORY PROCEDURE: HISTORICAL URETERAL REIMPLATATION; [...] DX:Neuralgia, neuritis, and radiculitis, unspecified Morbid obesity ([facility] V24, [facility] V28) 07/04/2006 DX:Morbid obesity ([facility] [...] With propofol Diabetes mellitus type 2, uncomplicated ([facility] V24, [facility] V28) 04/22/2020 DX:Diabetes mellitus type 2, uncomplicated [...] your loved ones. For example, child caregiver or elderly care for an older adult? [...] 1:45 PM EST Office Visit Orthopedic Surgery [facility] [address] [facility] [address] [place] [phone] Paul Conner, DPM 175 [facility] 250 [place] [address] 10/27/2025 2:00 PM EST Office Visit Vascular Surgery [facility] [address] [place] [phone] Jenny Lees MD [address] [place] [phone] 12/14/2025 1:30 PM EDT Office Visit Adult Medicine [address] [phone] Frederick Ureña PA [address] [place] [phone] Health Maintenance Due Date Last Done Comments Drug Screen 1955 Non-Opioid Controlled Substance Agreement 1955 RSV Immunization Adult Patients (1 - Risk [...] related to ulceration/compr omised skin integrity. No Trav, Chelsey, creative project manager Procedure Name Priority Date/Time Associated Diagnosis Comments EXTERNAL ULTRASOUND REPORT 07/01/2025 EXTERNAL CLINICAL LAB 06/23/2025 EXTERNAL CLINICAL LAB 06/23/2025 MICROALBUMIN CREATININE URINE RATIO Routine 04/23/2025 12:52 PM EDT Type 2 diabetes mellitus without complication, without long-term current use of insulin ([facility] V24, [facility] V28) CIDP (chronic inflammatory demyelinating polyneuropathy) ([facility] V24, [facility] V28) Hyperlipidemia with target LDL less than 100 Secondary hypertension Gout, unspecified cause, unspecified chronicity, unspecified site COMPREHENSIVE METABOLIC PANEL Routine 04/23/2025 12:52 PM EDT Urinary tract infection without hematuria, site unspecified HEMOGLOBIN A1C Routine 04/23/2025 12:52 PM EDT Type 2 diabetes mellitus without complication, without long-term current use of insulin ([facility] V24, [facility] V28) CIDP (chronic inflammatory demyelinating polyneuropathy) ([facility] V24, [facility] V28) Hyperlipidemia with target LDL less than 100 Secondary hypertension Gout, unspecified cause, unspecified chronicity, unspecified site LIPID PANEL WITH REFLEX TO DIRECT LDL Routine 04/23/2025 12:52 PM EDT Type 2 diabetes mellitus without complication, without long-term current use of insulin ([facility] V24, [facility] V28) CIDP (chronic inflammatory demyelinating polyneuropathy) ([facility] V24, [facility] V28) Hyperlipidemia with target LDL less than 100 Secondary hypertension Gout, unspecified cause, unspecified chronicity, unspecified site DIABETES EYE EXAM Routine 12/09/2023 DIABETES FOOT EXAM Routine 10/09/2023 COLONOSCOPY Routine 04/04/2023 ABDOMINAL AORTIC ANEURYSM SCRREN Routine 08/22/2022 HEPATITIS C SCREENING Routine 11/15/2013 from Last 3 Months or Most Recently Relevant to Health Maintenance Results * External Ultrasound Report (07/01/2025) Anatomical Region Laterality Modality Ultrasound Provider [facility] IMG US PROCEDURES Final Result * External clinical lab (06/23/2025) Only the most recent of2 resultswithin the time period is included. Provider [facility] LAB BLOOD ORDERABLES Fin al Result * (ABNORMAL) Lipid panel with reflex to direct LDL (04/23/2025 12:52 PM EDT) Cholesterol 160 0 - 200 mg/dL LAB CHEMISTRY METHOD 04/23/2025 5:13 PM EDT [facility] Triglycerides 290(H) 0 - 150 mg/dL LAB CHEMISTRY METHOD 04/23/2025 5:[facility] HDL 38(L) >=40 mg/dL LAB CHEMISTRY METHOD 04/23/2025 5:13 PM [facility] LDL Calculated 64 0 - 100 mg/dL LAB CHEMISTRY METHOD 04/23/2025 5:13 PM [facility] Comment:Estimated LDL Calcul ated using equation: Total cholesterol - HDL cholesterol - (Triglycerides/5) VLDL Cholesterol Eliecer 58 mg/dL LAB CHEMISTRY METHOD 04/23/2025 5:13 PM [facility] Non HDL Chol. (LDL+VLDL) 122 <145 mg/dL LAB CHEMISTRY METHOD 04/23/2025 5:13 PM [facility] Chol/HDL Ratio 4.2 0.0 - 4.4 LAB CHEMISTRY METHOD 04/23/2025 5:13 PM [facility] Blood Venous blood specimen / Unknown Venipuncture / Unknown 04/23/2025 12:52 PM EDT 04/23/2025 12:52 PM EDT Frederick VENEGAS LAB BLOOD ORDERABLES Ludivina l Result [facility] [address] [place] [address], [place] [phone] * Microalbumin creatinine urine ratio (04/23/2025 12:52 PM EDT) Creatinine, Urine 55.0 mg/dL LAB CHEMISTRY METHOD 04/23/2025 3:57 PM EDT [facility] Microalb, Ur 6.4 0.0 - 29.0 mg/L LAB CHEMISTRY METHOD 04/23/2025 3:57 PM EDT [facility] Microalb/Creat Ratio 12 <30 mg/g creat LAB CHEMISTRY METHOD 04/23/2025 3:57 PM EDT [facility] Urine Urine specimen obtained by clean catch procedure / Unknown Non-blood Collection / Unknown 04/23/2025 12:52 PM EDT 04/23/2025 12:52 PM EDT Frederick VENEGAS LAB URINE ORDERABLES Ludivina l Result Performing Organization Address [facility]/ZIP Co de Phone Number [facility] [address] [place] [address], [place] [phone] * (ABNORMAL) Hemoglobin A1c (04/23/2025 12:52 PM EDT) Hemoglobin A1C 7.8(H) <6.5 % LAB CHEMISTRY METHOD 04/23/2025 8:37 PM EDT [facility] Mean Bld Glu Estim. 177 mg/dL LAB CHEMISTRY METHOD 04/23/2025 8:37 PM EDT [facility] Blood Venous blood specimen / Unknown Venipuncture / Unknown 04/23/2025 12:52 PM EDT 04/23/2025 12:52 PM EDT Frederick VENEGAS LAB BLOOD ORDERABLES Ludivina l Result [facility] [address] [place] [address], * (ABNORMAL) Comprehensive metabolic panel (04/23/2025 12:52 PM EDT) Sodium 133 133 - 145 mmol/L LAB CHEMISTRY METHOD 04/23/2025 5:13 PM [facility] Potassium 4.2 3.5 - 5.5 mmol/L LAB CHEMISTRY METHOD 04/23/2025 5:13 PM [facility] Chloride 100 96 - 110 mmol/L LAB CHEMISTRY METHOD 04/23/2025 5:13 PM [facility] CO2 24 21 - 32 mmol/L LAB CHEMISTRY METHOD 04/23/2025 5:13 PM [facility] Anion Gap 9 3 - 11 LAB CHEMISTRY METHOD 04/23/2025 5:13 PM [facility] Glucose 227(H) 70 - 100 mg/dL LAB CHEMISTRY METHOD 04/23/2025 5:13 PM [facility] BUN 13 5 - 25 mg/dL LAB CHEMISTRY METHOD 04/23/2025 5:13 PM [facility] Creatinine 1.18 0.70 - 1.30 mg/dL LAB CHEMISTRY METHOD 04/23/2025 5:13 PM [facility] eGFR 67 >=60 mL/min/1. 73m2 LAB CHEMISTRY METHOD 04/23/2025 5:13 PM [facility] Comment:Calculation based on the Chronic Kidney Disease Epidemiology Collaboration (CKD-EPI) equation refit without adjustment for race. BUN/Creatinine Ratio 11.0 LAB CHEMISTRY METHOD 04/23/2025 5:13 PM [facility] Calcium 9.1 8.5 - 10.5 mg/dL LAB CHEMISTRY METHOD 04/23/2025 5:13 PM EDT [facility] AST (SGOT) 25 10 - 42 unit/L LAB CHEMISTRY METHOD 04/23/2025 5:13 PM EDT [facility] ALT (SGPT) 36 10 - 60 unit/L LAB CHEMISTRY METHOD 04/23/2025 5:13 PM [facility] Alkaline Phosphatase 94 42 - 121 unit/L LAB CHEMISTRY METHOD 04/23/2025 5:13 PM EDT [facility] Total Protein 7.2 6.0 - 8.0 g/dL LAB CHEMISTRY METHOD 04/23/2025 5:13 PM [facility] Albumin 3.8 3.2 - 5.0 g/dL LAB CHEMISTRY METHOD 04/23/2025 5:13 PM [facility] Total Bilirubin 0.3 0.0 - 1.4 mg/dL LAB CHEMISTRY METHOD 04/23/2025 5:13 PM EDT [facility] Blood Venous blood specimen / Unknown Venipuncture / Unknown 04/23/2025 12:52 PM EDT 04/23/2025 12:52 PM EDT Frederick VENEGAS LAB BLOOD ORDERABLES Ludivina l Result [facility] [address] [place] [address], * Diabetes Eye Exam (12/09/2023) [facility] Diabetes: Annual Retina Eye Exam abstracted Historical Provider HEALTH MAINTENANCE Final Result * Diabetes Foot Exam (10/09/2023) [facility] Diabetes: Annual Foot Exam abstracted Historical Provider HEALTH MAINTENANCE Final Result * Colonoscopy (04/04/2023) [facility] Colonoscopy no interpretation , abstracted Anatomical Region Laterality Modality Other us Historical Provider HEALTH MAINTENANCE Final Result * Abdominal Aortic Aneurysm Screen (08/22/2022) Abdominal Aortic Aneurysm (AAA) Screening abstracted Anatomical Region Laterality Modality Other Historical Provider HEALTH MAINTENANCE Final Result * Hepatitis C Screening (11/15/2013) Hepatitis C Screening abstracted [facility] Provider HEALTH MAINTENANCE Final Result from Last [...] [place] Care Teams Barrel Lathe Operator Relationship Specialty Start Date End Date Frederick Ureña PA [address] [place] [address] PCP - General Internal Medicine 08/13/24
--- OUTSIDE RECORDS SUMMARY | 2025-08-23 16:55 | XMS_ITS | Encounter Summary ---
Author Organization [facility] Prior to 07/03/2024 Address [address] [facility] [place] [address] Care Team Providers Care Claim Specialist Name Role Phone Rafael Wray MD Primary Care Provider [phone] Frederick Ureña PA-C Primary Care Provider [phone] Carola Barrientos MD Unavailable [phone] Encounter Details Date Type Department Care Team Description 09/22/2019 Telephone Internal Medicine [address], [address] [place] [address] Cleveland Garcia MD Social History Tobacco Use [...] on filedocumented in this encounter Care Teams Claim Specialist Relationship Specialty Start Date End Date Rafael Wray MD [address] [place] [phone] PCP - General 04/01/09 12/27/20 Frederick Ureña PA-C [address] [place] [phone] PCP - General Internal Medicine 12/28/20 Carola Barrientos MD [address] [place] [address] Specialist Neurosurgery 06/11/23 documented as of this encounter
== END 2025-08-23 13:31 | disposition home or self-care (01) ==
LOC: HO.LAB 13:30
PROVIDERS: PCP Physician Assistant Medical; Visit Provider Urology
DX: N39.0 Urinary tract infection, site not specified (principal)
CPT/HCPCS: 81001; 87086